=== PATIENT | female | born 1960 | race Caucasian/White ===

== ENCOUNTER 2024-07-27 09:47 | Emergency (ER) | payer BC, SELFPAY ==
[2024-07-27 09:47] VITALS: BP 193/96; PULSE 86; RESP 14; TEMP 36.6; O2SAT 97; BMI 41.1
--- NOTE | 2024-07-27 10:03 | EX.ED.VIS.HA ---
HPI History of Present Illness Chief Complaint: Headache Detail of Chief Complaint: Headache Informant: patient Narrative Narrative: Patient presents the emergency department complaint of a headache that started 4 days ago. Patient was seen at [facility] 2 days ago and had a CT scan of her brain and was given Toradol and had some improvement in her headache. Patient continues to have left-sided headache. At times feels like there is something crawling on the left side of her face. She denies fevers chills or sweats. Patient also 4 days ago noticed some itching and redness to the right third toe. At that time she also noticed a small spider in her bed and she think she may have had a spider bite to her toe. Patient denies falls or head injuries. No family history of brain tumors or aneurysms. PFSH PFSH Home Medications ?Medication ?Instructions ?Recorded ?Last Taken ?Type cephalexin 500 mg capsule 500 mg PO Q6 #40 CAPSULES 07/27/24 Unknown Rx famciclovir 500 mg tablet 500 mg PO Q8H 7 days #21 tabs 07/27/24 Unknown Rx prednisone 20 mg tablet 20 mg PO BID #10 tabs 07/27/24 Unknown Rx Allergy/AdvReac Type Severity Reaction Status Date / Time No Known Allergies Allergy Verified 07/27/24 09:47 Surgical History (Updated 07/27/24 @ 11:32 by Radha Angeles) H/O: Social History (Updated 07/27/24 @ 11:32 by Radha Angeles) household members: spouse housing: house current occupational status: employed Smoking Status: Never smoker ROS ROS ED Review of Systems ROS Unobtainable: other Constitutional Constitutional ED: Reports lethargy; Denies chills, fever(s), sweats or weight loss Eyes Eyes: Denies blurry vision, change in vision or diplopia ENT ENT ED: Denies rhinorrhea or sore throat Cardiovascular Cardiovascular: Denies chest pain, orthopnea or racing heartbeat Respiratory/Chest Respiratory/Chest: Denies cough, dyspnea, dyspnea on exertion, orthopnea or sputum Gastrointestinal Gastrointestinal: Denies abdominal pain, diarrhea, nausea or vomiting Genitourinary Genitourinary ED: Denies dysuria, hematuria or urinary frequency Musculoskeletal Musculoskeletal: Reports other Details: Redness and swelling to the right third toe ; Denies arthralgias, back pain, myalgias or neck pain Integumentary Denies abscess, Abrasions or rash Neurologic Neurologic: Reports headache(s); Denies weakness Psychiatric Psychiatric: Denies anxiety, depression or suicidal thoughts Endocrine Endocrinology: Denies polydipsia, polyphagia or polyuria Hematologic/Lymphatic Hematologic/Lymphatic: Denies easy bleeding, easy bruising or lymphadenopathy Allergic/Immunologic Allergic/Immunologic ED: Denies mouth swelling, tongue swelling or urticaria EXAM Physical Exam Const Vital Signs: 07/27/24 09:47 07/27/24 12:19 Temperature 98 F Temperature Source Temporal Pulse Rate 86 72 Respiratory Rate 14 16 Blood Pressure 193/96 H 157/88 H Blood Pressure Mean 128 111 Pulse Ox 97 99 Oxygen Delivery Method Room Air Room Air Positive well nourished and well developed General Appearance ED: well developed and NAD HEENT Reports TM's clear and moist mucous membranes normocephalic and atraumatic; Negative for trauma or tenderness Tympanic Membrane ED: Yes TM's clear Eyes PERRL and EOMs intact bilaterally General Eye ED: Negative for pale conjunctiva or scleral icterus Neck no lymphadenopathy, supple and no JVD General: Negative for tenderness Chest Wall inspection of chest normal and palpation of chest normal Chest: Negative for tenderness Resp normal respiratory effort and clear to auscultation bilaterally Effort and Inspection: Negative for respiratory distress or pain with movement Auscultation: Negative for rhonchi, wheezes or diminished lung sounds Cardio regular rate, regular rhythm, S1 normal heart sound, S2 normal heart sound and no murmurs Peripheral Pulses: pulses 2+ throughout GI normal to inspection, nondistended, normoactive bowel sounds, soft to palpation, non-tender, non-distended and no masses Back/Spine no CVA tenderness and no thoracic nor lumbar tenderness Extremity normal to inspection General Extremety ED: Negative for edema General Extremity: Negative for edema Neuro oriented x3, CN's II-XII intact bilaterally, no sensory deficits noted and gait normal Sensorium / Orientation: awake, alert, oriented to person, oriented to place and oriented to time Motor Exam: strength 5/5 throughout and strength abnormal Psych mental status grossly normal Skin no rashes or lesions noted and no wounds MDM MDM MDM Narrative Medical decision making narrative: Patient presents with ongoing headache for 4 days. Headache localized to the left side of her head. Seen at an emergency department and had CT scan of her brain without contrast that was unremarkable. Treated with Toradol initially and had good pain relief with that but then the headache came back. On exam it would appear she has a left-sided facial droop with some weakness of the left upper eyelid and some decreased ability to wrinkle the left side of the forehead when compared to the right side. Patient complains of some sensory discomfort or itching to the left side of the face like an insect crawling on her. There is no evidence of rash to indicate shingles. She has no tenderness over the temporal artery. IV line established. CBC with differential obtained showed a normal white count of 9.5 with hemoglobin 14.5 and platelet count of 286. Chemistries were unremarkable. Sed rate was normal at 29. She had a CTA of the head and neck that was essentially normal. Patient was medicated with Toradol as well as Reglan and a liter Mustain fluid bolus and she had good pain relief with that. 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 I did give her Decadron 10 mg IV. I will start her on an antiviral as well as some prednisone. Will refer to neurology for follow-up. I was able to discuss case with neurologist on-call Dr. Magana who agrees with plan and would be happy to follow-up patient in the office. Lab Data Attestation: I reviewed the patient's lab results. Labs: Laboratory Results - last 24 hr 07/27/24 10:22 WBC 9.5 RBC 4.64 Hgb 14.5 Hct 43.3 MCV 93.3 MCH 31.3 MCHC 33.5 RDW Std Deviation 44.1 H RDW Coeff of [place] 12.9 Plt Count 286 MPV 9.7 Immature Gran % (Auto) 0.200 Neut % (Auto) 68.3 Lymph % (Auto) 20.3 [place] % (Auto) 10.3 H Eos % (Auto) 0.4 Baso % (Auto) 0.5 Absolute Neuts (auto) 6.5 Absolute Lymphs (auto) 1.93 Nucleated RBC % 0 ESR 29 Sodium 138 Potassium 3.9 Chloride 103 Carbon Dioxide 22.2 Anion Gap 13 BUN 12 Creatinine 0.88 Estim Creat Clear Calc 92.05 Est GFR (MDRD) Non-Af 74 BUN/Creatinine Ratio 13.7 Glucose 96 Calcium 8.9 Radiography Diagnostic Testing: Clinical Impression(s) from Imaging Studies Head/Neck CTA 07/27/24 10:35 IMPRESSION: Unremarkable examination. Reading Location: [id number] Discharge Plan Triage Chief Complaint: Headache ED Provider: Cynthia Bell Dx/Rx/DC Orders Clinical Impression: Headache, Gaines's palsy Instructions: ED Gaines's Palsy, ED Pain, Acute, Uncertain Cause Prescriptions: New prednisone 20 mg tablet 20 mg PO BID Qty: 10 0RF famciclovir 500 mg tablet 500 mg PO Q8H 7 Days Qty: 21 0RF cephalexin 500 mg capsule 500 mg PO Q6 Qty: 40 0RF Primary Care Provider: Care Physician,No Primary Referrals: Vic Howell MD [Non-Staff -Ordering Privileges] - 3-5 Days Care Physician,No Primary [Primary Care Provider] - Print Language: Lithuanian Disposition Disposition: Home, Self Care
--- NOTE | 2024-07-27 10:35 | CT_ITS ---
PROCEDURE: CTA HEAD AND NECK W/ CONTRAST 07/27/2024 REASON FOR EXAM: HEADACHE, LEFT FACIAL ASYMETRY TECHNIQUE: CTA imaging of the head and neck from the aortic arch to the skull vertex with out contrast and with intravenous contrast. Multiplanar and multisequence images were obtained. CONTRAST: Isovue-300 VOLUME: 100 mL One or more dose reduction techniques were used (e.g., Automated exposure control, adjustment of the mA and/or kV according to patient size, use of iterative reconstruction technique). RADIATION DOSE SUMMARY: CTDlvol: 30 mGy DLP: 1678.25 mGycm COMPARISON: None FINDINGS: The unenhanced brain is unremarkable. Aortic Arch: Brachiocephalic and Subclavians: Unremarkable RIGHT Carotid: Right CCA: Unremarkable. Right ICA: Unremarkable. Right ECA: Unremarkable. LEFT Carotid: Left CCA: Unremarkable. Left ICA: Unremarkable. Left ECA: Unremarkable. Vertebrals: Codominant. Arise from the subclavians. Both vertebrals form the basilar. RIGHT Vertebral: Unremarkable. LEFT Vertebral: Unremarkable. Anatomy: [place] anatomy is normal. Aneurysm or avm: No intracranial aneurysms or large vascular malformations are identified. Anterior cerebral arteries: Unremarkable: Middle cerebral arteries: Unremarkable. Basilar artery: Unremarkable. Posterior cerebral arteries: Unremarkable. Other major branches of the posterior circulation: Unremarkable. Major venous structures: Unremarkable. Other findings: Neck: Lungs: Bones: CT/CTA Head AND Neck W/ Contrast IMPRESSION: Unremarkable examination. Reading Location: [id number]
[2024-07-27 10:40] LABS: Erythrocyte Sedimentation Rate 29 mm/hr (0-30)
[2024-07-27 10:44] LABS: Absolute Lymphocyte Count 1.93 X10^3/uL (0.83-4.51); Absolute Neutrophil Count 6.5 X10^3/uL (2.0-7.7); Basophil# 0.05 X10^3/uL; Basophil% 0.5 % (0-1); Eosinophil# 0.04 X10^3/uL; Eosinophils% 0.4 % (0-5); Hematocrit 43.3 % (37-47); Hemoglobin 14.5 g/dL (12.0-15.0); Lymphocyte # 1.93 X10^3/ul (0.83-4.51); Lymphocyte % 20.3 % (19-41); Mean Corp Hgb Conc 33.5 g/dL (32-36); Mean Corpuscular Hgb 31.3 pg (27.0-32.0); Mean Corpuscular Volume 93.3 fL (81-99); Mean Platelet Vol. 9.7 fl (6.2-12.0); Monocyte# 0.98 X10^3/uL; Monocyte% 10.3 % (0-10); NRBC Flagged by Analyzer 0 % (0-5); Neutrophil # 6.48 X10^3/uL (2.7-7.7); Neutrophil % 68.3 % (47-70); Platelet Count 286 K/mm3 (150-450); RBC Distribution Width CV 12.9 % (11.6-14.6); RBC Distribution Width SD 44.1 fl (35.1-43.9); Red Blood Count 4.64 M/mm3 (4.2-5.4); White Blood Count 9.5 K/mm3 (4.4-11.0)
[2024-07-27 10:51] LABS: Anion Gap 13 (5-15); BUN 12 mg/dL (4-19); BUN/Creat Ratio 13.7 RATIO (10-20); Calcium,Total 8.9 mg/dL (7.6-11.0); Carbon Dioxide 22.2 mmol/L (21.0-32.0); Chloride 103 mmol/L (98-108); Creatinine, Serum 0.88 mg/dL (0.70-1.20); EST Glomerular Filtration Rate 74 (>60); Estimated Creatinine Clearance 92.05 ml/min (50-250); Glucose 96 mg/dL (70-99); Potassium 3.9 mmol/L (3.3-5.1); Sodium Level 138 mmol/L (133-145)
[2024-07-27] MEDS: Ketorolac 15 MG/ML Vial IV (11:31)
[2024-07-27] MEDS: Metoclopramide 10 MG/2 ML Vial 5 MG IV (11:31)
[2024-07-27] MEDS: 0.9% Normal Saline (1000mL) 1,000 ML 999 ML IV (11:31)
[2024-07-27] MEDS: dexAMETHasone 10 MG/ML Vial IV (11:31)
[2024-07-27 12:19] VITALS: BP 157/88; PULSE 72; RESP 16; O2SAT 99
[2024-07-27 12:23] VITALS: BP 157/88; PULSE 72; RESP 16; TEMP 36.7; O2SAT 99
== END 2024-07-27 12:24 | disposition home or self-care (01) ==
PROVIDERS: Emergency Provider Emergency Medicine; Visit Provider Emergency Medicine
DX: R51.9 Headache, unspecified (principal); G51.0 Bell's palsy
CPT/HCPCS: 70496; 70498; 80048; 85025; 85652; 96374; 96375; 99284; Q9967; A4216

== ENCOUNTER 2024-07-29 11:17 | Emergency (ER) | payer BC, SELFPAY ==
[2024-07-29 11:18] VITALS: BP 199/96; PULSE 85; RESP 16; TEMP 36.8; O2SAT 95; BMI 40.7
--- NOTE | 2024-07-29 11:27 | EX.ED.DYSGE1 ---
HPI <ROSEMARY Kennedy - Last Filed: 07/29/24 13:30> History of Present Illness Chief Complaint: Neuro S/Sx Narrative Narrative: 64-year-old female states 6 days ago she developed a left frontal temporal headache. She initially was seen at [facility] day of onset and had a CT scan of her brain and was given Toradol with some improvement in headache. She was seen at [facility] 2 days ago with a left-sided headache and left facial paresthesias and she states the doctor noticed a subtle left facial droop. She had a CTA of the head/neck that was normal and she was given an IV migraine cocktail with pain relief. 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 The left facial symptoms have worsened and she cannot close her eye or smile. Her headache is also moved from the left frontotemporal region to the left occipital region. She also has developed pain and swelling in front of her left ear and along the jaw. She denies fever, chills, nausea or vomiting. She has no visual or speech changes and no upper or lower extremity neurological symptoms. PFSH <ROSEMARY Kennedy - Last Filed: 07/29/24 13:30> [facility] Home Medications ?Medication ?Instructions ?Recorded ?Last Taken ?Type amoxicillin 875 mg-potassium 1 tab PO BID 7 days #14 tabs 07/29/24 Unknown Rx clavulanate 125 mg tablet cephalexin 500 mg capsule 500 mg PO Q6H 07/29/24 07/29/24 History famciclovir 500 mg tablet 500 mg PO Q8 07/29/24 07/29/24 History ketorolac 10 mg tablet 10 mg PO Q8H PRN pain 07/29/24 07/29/24 History prednisone 20 mg tablet 20 mg PO DAILY 07/29/24 07/29/24 History Allergy/AdvReac Type Severity Reaction Status Date / Time No Known Allergies Allergy Verified 07/29/24 11:18 Surgical History (Updated 07/27/24 @ 11:32 by Radha Angeles) H/O: Social History (Updated 07/27/24 @ 11:32 by Radha Angeles) household members: spouse housing: house current occupational status: employed Smoking Status: Never smoker ROS <ROSEMARY Kennedy - Last Filed: 07/29/24 13:30> ROS ED ROS Narrative Constitutional: Negative for fever, chills, malaise. Eyes: Negative for visual change. GI: Negative for nausea, vomiting. Neuro: Positive for headache. Skin: Negative for rash. EXAM <ROSEMARY Kennedy - Last Filed: 07/29/24 13:30> Physical Exam Narrative Exam Narrative: CONST: Patient sitting in no acute distress. EYES: Normal inspection. PERRL, EOMI. NECK: Normal inspection. RESP: No respiratory distress, CTAB. CVS: Regular rate and rhythm, no murmur, no gallop. SKIN: Color normal, no rash, warm, dry, intact. EXTREMITIES: Normal appearance, no pedal edema. NEURO: Alert and answering questions appropriately. Cannot raise left eyebrow or close left upper eyelid, left facial droop and unable to smile on the left side. No upper or lower extremity drift, normal finger-nose and [id number], normal gait. PSYCH: Normal affect. Const Vital Signs: 07/29/24 11:18 07/29/24 12:15 07/29/24 13:00 Temperature 98.2 F Temperature Source Oral Pulse Rate 85 80 72 Respiratory Rate 16 15 18 Blood Pressure 199/96 H 157/75 H 157/72 H Blood Pressure Mean 130 102 100 Pulse Ox 95 96 96 Oxygen Delivery Method Room Air Room Air Room Air 07/29/24 13:29 Temperature 97.8 F Temperature Source Pulse Rate 72 Respiratory Rate 16 Blood Pressure 145/76 H Blood Pressure Mean 99 Pulse Ox 94 Oxygen Delivery Method <Dr. Matthew Ashby DO - Last Filed: 07/29/24 13:39> Physical Exam Const Vital Signs: 07/29/24 11:18 07/29/24 12:15 07/29/24 13:00 Temperature 98.2 F Temperature Source Oral Pulse Rate 85 80 72 Respiratory Rate 16 15 18 Blood Pressure 199/96 H 157/75 H 157/72 H Blood Pressure Mean 130 102 100 Pulse Ox 95 96 96 Oxygen Delivery Method Room Air Room Air Room Air 07/29/24 13:29 Temperature 97.8 F Temperature Source Pulse Rate 72 Respiratory Rate 16 Blood Pressure 145/76 H Blood Pressure Mean 99 Pulse Ox 94 Oxygen Delivery Method MDM <ROSEMARY Kennedy - Last Filed: 07/29/24 13:30> MDM MDM Narrative Medical decision making narrative: 64-year-old female presents with a left-sided headache and left facial droop worsening over last 48 hours after being diagnosed with Gaines's palsy. She is on antivirals and prednisone. I reviewed her prior ED visit and she had a normal CTA of the head and neck. Her left facial droop on exam is consistent with progressive Gaines's palsy which often worsens over the first 48 hours. I do not suspect a stroke with prior normal imaging and a unilateral facial nerve palsy without upper or lower extremity symptoms or other neurological deficits. In the interim she has also developed swelling over the left preauricular and mandibular region with slight erythema overlying this area. I ordered a CT scan of the face and sinuses with contrast which shows nonspecific edema of the left soft tissues and left masseter muscle without definite abscess. This could be a early parotitis or cellulitis and I prescribed Augmentin. Patient had complete resolution of her headache after IV fluids, Toradol, Reglan and Benadryl. I recommended [id number] pain relievers as needed. She will continue Gaines's palsy treatment, start antibiotics, and was again provided with neurology contact information for follow-up. She was discharged in stable condition. History & Record Review Discussion w/independent historian: Patient Additional record(s) reviewed:: Prior ED visit Lab Data Labs: Laboratory Results - last 24 hr 07/29/24 11:54 POC Glucose 124 H Radiography Diagnostic Testing: Clinical Impression(s) from Imaging Studies Facial/Sinus 07/29/24 11:47 IMPRESSION: Nonspecific mild edema of the left cheek soft tissues and edema of the left masseter muscle without definite abscess or osseous/dental involvement. Prominent bilateral cervical chain lymph nodes, likely reactive. Heterogenous and multinodular right thyroid gland; consider dedicated thyroid ultrasound follow-up under nonemergent outpatient basis. Reading Location: [id number] <Dr. Matthew Ashby, DO - Last Filed: 07/29/24 13:39> [facility] Narrative Medical decision making narrative: 64-year-old female presents with a left-sided headache and left facial droop worsening over last 48 hours after being diagnosed with Gaines's palsy. She is on antivirals and prednisone. I reviewed her prior ED visit and she had a normal CTA of the head and neck. Her left facial droop on exam is consistent with progressive Gaines's palsy which often worsens over the first 48 hours. I do not suspect a stroke with prior normal imaging and a unilateral facial nerve palsy without upper or lower extremity symptoms or other neurological deficits. In the interim she has also developed swelling over the left preauricular and mandibular region with slight erythema overlying this area. I ordered a CT scan of the face and sinuses with contrast which shows nonspecific edema of the left soft tissues and left masseter muscle without definite abscess. This could be a early parotitis or cellulitis and I prescribed Augmentin. Patient had complete resolution of her headache after IV fluids, Toradol, Reglan and Benadryl. I recommended [id number] pain relievers as needed. She will continue Gaines's palsy treatment, start antibiotics, and was again provided with neurology contact information for follow-up. She was discharged in stable condition. I have personally performed a face to face assessment of the patient and have reviewed the AURELIO Note. I performed a substantive portion of the visit including all aspects of the following. My madden findings include: History is 64-year-old female presenting with headache Gaines's palsy and new swelling on the left preauricular mandibular region. No dental pain. No fevers. She has not noticed any vesicular lesions. She does feel that the Gaines's palsy has progressively worsened over the past couple days. She is currently on famciclovir as well as prednisone. She does not have follow-up yet. Recent ED evaluation included a CTA of the head and neck. Patient notes blood pressure is higher than normal. Exam is there is a left Gaines's palsy. There is some mild swelling and mild erythema in the preauricular parotid area. There is no trismus. There is no obvious dental abscess. I do not appreciate vesicular lesions. No meningeal signs. Arms and legs are without symptomology. Speech is clear and normal. Medical Decison Making CT of the facial/sinus region was obtained. Please see radiologist read for full details. Very difficult to fully explain the patient's symptoms. I do not see abscess or obvious parotitis. Blood pressure has come down on its own. She is already on medications for Gaines's palsy. We talked about taping the eye shut. We discussed antibiotic therapy. We discussed the need for neurology follow-up. Monitoring blood pressure for further evaluation of whether or not antihypertensive treatment is indicated. Lab Data Labs: Laboratory Results - last 24 hr 07/29/24 11:54 POC Glucose 124 H Radiography Diagnostic Testing: Clinical Impression(s) from Imaging Studies Facial/Sinus 07/29/24 11:47 IMPRESSION: Nonspecific mild edema of the left cheek soft tissues and edema of the left masseter muscle without definite abscess or osseous/dental involvement. Prominent bilateral cervical chain lymph nodes, likely reactive. Heterogenous and multinodular right thyroid gland; consider dedicated thyroid ultrasound follow-up under nonemergent outpatient basis. Reading Location: [facility] Discharge Plan Triage Chief Complaint: Neuro S/Sx ED Midlevel Provider: Raquel Nunez ED Provider: Matthew Ashby Dx/Rx/DC Orders Clinical Impression: Headache, Gaines's palsy, Acute parotitis Instructions: Gaines's Palsy, ED Salivary Gland Infection Prescriptions: New amoxicillin-pot clavulanate 875-125 mg tablet 1 tab PO BID 7 Days Qty: 14 0RF No Action prednisone 20 mg tablet 20 mg PO DAILY ketorolac 10 mg tablet 10 mg PO Q8H PRN (Reason: pain) famciclovir 500 mg tablet 500 mg PO Q8 cephalexin 500 mg capsule 500 mg PO Q6H Primary Care Provider: Care Physician,Mari Primary Referrals: Care Physician,No Primary [Primary Care Provider] - Vic Howell MD [[facility]] - Activity Restrictions/Additional Instructions: The facial droop is still consistent with Gaines's palsy and you should continue the previously prescribed antivirals and prednisone and follow-up with neurology, Dr. Howell. His numbers provided above. The CT scan today of the face showed inflammation of the left jaw area. There is some overlying redness which could be the start of a skin infection or underlying gland infection so I prescribed antibiotics. Print Language: Puerto Rican Disposition Disposition: Home, Self Care
[2024-07-29 11:35] VITALS: BMI 41.0
[2024-07-29] MEDS: 0.9% Normal Saline (1000mL) 1,000 ML 999 ML IV (11:47)
[2024-07-29] MEDS: Ketorolac 15 MG/ML Vial IV (11:47)
--- NOTE | 2024-07-29 11:47 | CT_ITS ---
PROCEDURE: SINUS/FACIAL BONE WITH CONTRAS REASON FOR EXAM: LEFT FACIAL SWELLING TECHNIQUE: CT of the paranasal sinuses with contrast. Coronal and Sagittal reconstruction series were provided. CONTRAST: 100 mL of Isovue 370 One or more dose reduction techniques were used (e.g., Automated exposure control, adjustment of the mA and/or kV according to patient size, use of iterative reconstruction technique). RADIATION DOSE SUMMARY: DLP: 796 mGycm COMPARISON: None FINDINGS: The paranasal sinuses are clear. The orbital globes are intact. The bony orbits are intact. The retro-orbital fat is not effaced. The extra ocular muscles are intact. The nasal bone is not fractured. The nasal septum is not fractured. The pterygoid plates are intact. The zygomatic arches are intact. The visualized mandible, and upper cervical spine do not appear fractured. Nonspecific mild edema of the left cheek soft tissues and edema of the left masseter muscle without definite abscess or osseous/dental involvement. Heterogenous and multinodular right thyroid gland; consider dedicated thyroid ultrasound follow-up under nonemergent outpatient basis. Prominent bilateral cervical chain lymph nodes, likely reactive. CT/Sinus/Facial Bone WITH Contras IMPRESSION: Nonspecific mild edema of the left cheek soft tissues and edema of the left mas seter muscle without definite abscess or osseous/dental involvement. Prominent bilateral cervical chain lymph nodes, li rohit reactive. Heterogenous and multinodular right thyroid gland; consider dedicated thyroid u ltrasound follow-up under nonemergent outpatient basis. Reading Location: [id number]
[2024-07-29] MEDS: DiphenhydrAMINE 50 MG/ML Syringe 25 MG IV (11:48)
[2024-07-29] MEDS: Metoclopramide 10 MG/2 ML Vial 5 MG IV (11:48)
[2024-07-29 12:13] LABS: Bedside Glucose 124 mg/dL (74-106)
[2024-07-29 12:15] VITALS: BP 157/75; PULSE 80; RESP 15; O2SAT 96
[2024-07-29 13:00] VITALS: BP 157/72; PULSE 72; RESP 18; O2SAT 96
[2024-07-29] MEDS: Amox/Clavulanate 875 MG Tablet PO (13:25)
[2024-07-29 13:29] VITALS: BP 145/76; PULSE 72; RESP 16; TEMP 36.6; O2SAT 94
--- NOTE | 2024-07-29 13:30 | CM.ED ---
Social Work: Date of referral: 07/29/24 Reason for referral: No PCP on file Referred by: Social Work Identification Patient provided consent to social work visit and confirmed she is not currently connected to a PCP. yarn worker provided patient with a hand-out for Dian Lawrence which patient expressed appreciation for. No other needs/requests identified at this time. Madai Cannon, [employer], [employer]
== END 2024-07-29 13:38 | disposition home or self-care (01) ==
PROVIDERS: Emergency Provider Emergency Medicine; Visit Provider Emergency Medicine
DX: R51.9 Headache, unspecified (principal); K11.20 Sialoadenitis, unspecified; G51.0 Bell's palsy
CPT/HCPCS: 70487; 82962; 96361; 96374; 96375; 99283; Q9967; A4216

== ENCOUNTER → 2024-08-10 | Outpatient (CLI) | payer BC, SELFPAY ==
[2024-08-10 11:48] LABS: Hemoglobin A1c 6.1 % (<=5.6)
[2024-08-10 11:54] LABS: ALB/GLOB Ratio 1.4 RATIO (0.9-2.4); AST(SGOT) 23 U/L (<=31); Alanine Aminotransfer ALT/SGPT 24 U/L (<=34); Alkaline Phosphatase 98 U/L (35-104); Anion Gap 12 (5-15); BUN 20 mg/dL (4-19); BUN/Creat Ratio 20.8 RATIO (10-20); Calcium,Total 9.1 mg/dL (7.6-11.0); Carbon Dioxide 23.4 mmol/L (21.0-32.0); Chloride 106 mmol/L (98-108); Cholesterol 172 mg/dL (<=200); Creatinine, Serum 0.95 mg/dL (0.70-1.20); EST Glomerular Filtration Rate 67 (>60); Globulin 2.8 g/dL (2.2-4.2); Glucose 97 mg/dL (70-99); High Density Lipoprotein 71 mg/dL; Low Density Lipoprotein Calc. 81 mg/dL; Potassium 3.8 mmol/L (3.3-5.1); Protein, Total 6.7 g/dL (5.9-8.4); Sodium Level 141 mmol/L (133-145); Thyroid Stim Hormone (TSH) 0.331 uIU/mL (0.300-4.200); Total Bilirubin 0.63 mg/dL (0.00-1.30); Triglycerides 100 mg/dL; Very Low Density Lipoprotein 20 mg/dL (5-40); cholesterol:hdl ratio screen 2.43
--- OUTSIDE RECORDS SUMMARY | 2024-08-10 20:23 | XMS RPT_ITS | CCD ---
Author Organization [facility] Care Team Providers Care Garde Manager Name Role Phone Dr. Cynthia Bell DO Emergency Provider Care Physician, No Primary Primary Care Provider Unavailable Dr. Matthew Ashby DO Emergency Provider NO, PHYSICIAN Primary Care Unavailable JARROD REDMOND Attending Unavailable NO, PHYSICIAN Primary Care Unavailable JOCELYN BOYLE Attending Unavailable Matthew Ashby Attending Unavailable Care Physician, No Primary Primary Care Unava ilable Cynthia Bell Attending Unavailable Care Physician, No Primary Primary Care Unava ilable Medications Current Medications Medication Drug Class(es) Dates Sig (Normalized) Sig (Original) amoxicillin 875 mg / clavulanate 125 mg oral tablet (1 source) Penicillin-class Antibacterial Start: 07-29-2024 Amoxicillin-Pot Clavulanate 875-125 mg tablet Active 1 {tbl} PO TWICE A DAY 14 7 July 29, 2024 12:00am cephalexin 500 mg oral capsule (3 sources) Cephalosporin Antibacterial Start: 07-27-2024 End: 07-29-2024 take 1 capsule by mouth every six hours Cephalexin 500 mg capsule Active 500 mg PO EVERY 6 HOURS July 29, 2024 12:00am famciclovir 500 mg oral tablet (3 sources) Herpes Simplex Virus Nucleoside Analog DNA Polymerase Inhibitor Start: 07-27-2024 End: 07-29-2024 take 1 tablet by mouth every eight hours Famciclovir 500 mg tablet Active 500 mg PO EVERY 8 HOURS July 29, 2024 12:00am ketorolac tromethamine 10 mg oral tablet (1 source) Nonsteroidal Anti-inflammatory Drug, Cyclooxygenase Inhibitor Start: 07-29-2024 take 1 tablet by mouth every eight hours as needed for pain Ketorolac 10 mg tablet Active 10 mg PO Q8H as needed for pain July 29, 2024 12:00am predniSONE 20 mg oral tablet (3 sources) Start: 07-29-2024 take 1 tablet by mouth once daily Prednisone 20 mg tablet Active 20 mg PO DAILY July 29, 2024 12:00am Start: 07-27-2024 End: 07-29-2024 take 1 tablet by mouth twice daily Prednisone 20 mg tablet Discontinued 20 mg PO TWICE A DAY July 27, 2024 12:00am July 29, 2024 12:49pm Problems Active Problems Problem Classification Problem Date Documented Da te Episodic/Chronic Diseases of mouth; excluding dental (1 source) Parotitis; Translations: [Acute sialoadenitis] 07-29-2024 Episodic Headache; including migraine (2 sources) Headache; Translations: [Headache] 07-27-2024 Episodic Headache; including migraine (3 sources) Headache; including migraine; Translations: [Headache, unspecified] Onset: 07-25-2024 Other nervous system disorders (2 sources) Gaines's palsy; 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] 07-27-2024 Episodic Past or Other Problems Problem Classification Problem Date Documented Da te Episodic/Chronic Spondylosis; intervertebral disc disorders; other back problems (2 sources) Sciatica, left side; Translations: [Sciatica, left side] Onset: 12-05-2023 Episodic Results Test Name Value Interpretation Reference Range Facility Bedside Glucoseon 07-29-2024 FINGERSTICK GLU 124 mg/dL High 74-106 [facility] Comment on above: Result Comment: RY FLANAGAN OF PATIENT CARE PER NURSING PROTOCOL Performed By: #### L 501.080 #### [facility] [address] [place], [address] Emergency Department Summary on 07-29-2024 Emergency Department Summary [facility] Medical Records Department [address] [place] [address] Emergency Department Summary 07/29/24 MR#: [id number] Acct: [id number] Name: PRASHANTH ARIZA Gabe Rep #: [id number] : 1960 64 From: Raquel RILEY PCP: Care Physician,No Primary Status:DEP ER Location: ED HPI History of Present Illness Chief Complaint: Neuro S/Sx Narrative Narrative: 64-year-old female states 6 days ago she developed a left frontal temporal headache. She initially was seen at [facility] day of onset and had a CT scan of her brain and was given Toradol with some improvement in headache. She was seen at [place] ED 2 days ago with a left-sided headache and left facial paresthesias and she states the doctor noticed a subtle left facial droop. She had a CTA of the head/neck that was normal and she was given an IV migraine cocktail with pain relief. 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 The left facial symptoms have worsened and she cannot close her eye or smile. Her headache is also moved from the left frontotemporal region to the left occipital region. She also has developed pain and swelling in front of her left ear and along the jaw. She denies fever, chills, nausea or vomiting. She has no visual or speech changes and no upper or lower extremity neurological symptoms. PFSH PFSH Home Medications ???Medication ???Instructions ???Recorded ???Last Taken ???Type amoxicillin 875 mg-potassium 1 tab PO BID 7 days #14 tabs 07/29 Unknown Rx clavulanate 125 mg tablet cephalexin 500 mg capsule 500 mg PO Q6H 07/29/24 07/29/24 Hi story famciclovir 500 mg tablet 500 mg PO Q8 07/29/24 07/29/24 His tory ketorolac 10 mg tablet 10 mg PO Q8H PRN pain 07/29/24 History prednisone 20 mg tablet 20 mg PO DAILY 07/29/24 07/29/24 H istory Allergy/AdvReac Type Severity Reaction Status Date / Time No Known Allergies Allergy Verified 07/29/24 11:18 Surgical History (Updated 07/27/24 @ 11:32 by Radha Angeles) H/O: Social History (Updated 07/27/24 @ 11:32 by Radha Angeles) household members: spouse housing: house current occupational status: employed Smoking Status: Never smoker ROS ROS ED ROS Narrative Constitutional: Negative for fever, chills, malaise. Eyes: Negative for visual change. GI: Negative for nausea, vomiting. Neuro: Positive for headache. Skin: Negative for rash. EXAM Physical Exam Narrative Exam Narrative: CONST: Patient sitting in no acute distress. EYES: Normal inspection. PERRL, EOMI. NECK: Normal inspection. RESP: No respiratory distress, CTAB. CVS: Regular rate and rhythm, no murmur, no gallop. SKIN: Color normal, no rash, warm, dry, intact. EXTREMITIES: Normal appearance, no pedal edema. NEURO: Alert and answering questions appropriately. Cannot raise left eyebrow or close left upper eyelid, left facial droop and unable to smile on the left side. No upper or lower extremity drift, normal finger-nose and [id number], normal gait. PSYCH: Normal affect. Const Vital Signs: 07/29/24 11:18 07/29/24 12:15 07/29/24 13:00 Temperature 98.2 F Temperature Source Oral Pulse Rate 85 80 72 Respiratory Rate 16 15 18 Blood Pressure 199/96 H 157/75 H 157/72 H Blood Pressure Mean 130 102 100 Pulse Ox 95 96 96 Oxygen Delivery Method Room Air Room Air Room Air 07/29/24 13:29 Temperature 97.8 F Temperature Source Pulse Rate 72 Respiratory Rate 16 Blood Pressure 145/76 H Blood Pressure Mean 99 Pulse Ox 94 Oxygen Delivery Method Physical Exam Const Vital Signs: 07/29/24 11:18 07/29/24 12:15 07/29/24 13:00 Temperature 98.2 F Temperature Source Oral Pulse Rate 85 80 72 Respiratory Rate 16 15 18 Blood Pressure 199/96 H 157/75 H 157/72 H Blood Pressure Mean 130 102 100 Pulse Ox 95 96 96 Oxygen Delivery Method Room Air Room Air Room Air 07/29/24 13:29 Temperature 97.8 F Temperature Source Pulse Rate 72 Respiratory Rate 16 Blood Pressure 145/76 H Blood Pressure Mean 99 Pulse Ox 94 Oxygen Delivery Method MDM MDM MDM Narrative Medical decision making narrative: 64-year-old female presents with a left-sided headache and left facial droop worsening over last 48 hours after being diagnosed with Gaines's palsy. She is on antivirals and prednisone. I reviewed her prior ED visit and she had a normal CTA of the head and neck. Her left facial droop on exam is consistent with progressive Gaines's palsy which often worsens over the first 48 hours. I do not suspect a stroke with prior normal imaging and a unilateral facial nerve palsy without upper or lower extremity symptoms or other neurological deficits (more content not included)... Normal [facility] Glucose measurement at [facility] deOrdered By: ED PROVIDER on 07-29-2024 Glucose [Mass/Vol] 124 mg/dL High 74-106 [facility] Comment on above: MANAGEMENT OF PATIEN T CARE PER NURSING PROTOCOL Sinus/Facial Bone WITH Contr ason 07-29-2024 Sinus/Facial Bone WITH Contras [facility] Imaging Services [address] [place] [address] Sinus/Facial Bone WITH Contras MR#: [id number] Acct: [id number] Name: PRASHANTH ARIZA Rep #: [id number] : 1960 F 64 From: Tavia Day PCP: Care Physician,No Primary Status: REG ER Study: Sinus/Facial Bone WITH Contras Date of Exam: 0 07/29/24 Exam# [id number] Ordering Dr: Raquel Nunez PROCEDURE: SINUS/FACIAL BONE WITH CONTRAS REASON FOR EXAM: LEFT FACIAL SWELLING TECHNIQUE: CT of the paranasal sinuses with contrast. Coronal and Sagittal reconstruction series were provided. CONTRAST: 100 mL of Isovue 370 One or more dose reduction techniques were used (e.g., Automated exposure control, adjustment of the mA and/or kV according to patient size, use of iterative reconstruction technique). RADIATION DOSE SUMMARY: DLP: 796 mGycm COMPARISON: None FINDINGS: The paranasal sinuses are clear. The orbital globes are intact. The bony orbits are intact. The retro-orbital fat is not effaced. The extra ocular muscles are intact. The nasal bone is not fractured. The nasal septum is not fractured. The pterygoid plates are intact. The zygomatic arches are intact. The visualized mandible, and upper cervical spine do not appear fractured. Nonspecific mild edema of the left cheek soft tissues and edema of the left masseter muscle without definite abscess or osseous/dental involvement. Heterogenous and multinodular right thyroid gland; consider dedicated thyroid ultrasound follow-up under nonemergent outpatient basis. Prominent bilateral cervical chain lymph nodes, likely reactive. CT/Sinus/Facial Bone WITH Contras IMPRESSION: Nonspecific mild edema of the left cheek soft tissues and edema of the left masseter muscle without definite abscess or osseous/dental involvement. Prominent bilateral cervical chain lymph nodes, likely reactive. Heterogenous and multinodular right thyroid gland; consider dedicated thyroid ultrasound follow-up under nonemergent outpatient basis. 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 Normal [facility] Absolute lymphocyte countOrd ered By: Remus Ray on 07-27-2024 Lymphocytes Auto (Unsp spec) [#/Vol] 1.93 10*3/uL 0.83-4.51 [facility] Absolute neutrophil countOrd ered By: Stafford Ungkathrin on 07-27-2024 Neutrophils (Bld) [#/Vol] 6.5 10*3/uL 2.0-7.7 [facility] Anion gap in Serum or Plasma [facility]: [facility] on 07-27-2024 Anion gap [Moles/Vol] 13 mmol/L 5-15 [facility] Automated lymphocyte count a s percentage of total leukocytesOrdered By: [facility] Bell on 07-27-2024 Lymphocytes/100 WBC Auto (Unsp spec) 20.3 % 19-41 [facility] BUN/creatinine ratioOrdered By: [facility] on 07-27-2024 Urea nitrogen/Creatinine [Mass ratio] 13.7 mg/mg 10- [facility] Basic Metabolic Profile (BMP )on 07-27-2024 BUN/CRE 13.7 RATIO Normal - [facility] Comment on above: Performed By: #### L 100.0100, L101.9900, L500.2500 #### [facility] [address] [place], [address] Calcium [Mass/Vol] 8.9 mg/dL Normal 7.6-11.0 [facility] Comment on above: Performed By: #### L 100.0100, L101.9900, L500.2500 #### [facility] [address] [place], [address] Chloride [Moles/Vol] 103 mmol/L Normal 98-108 [facility] Comment on above: Performed By: #### L 100.0100, L101.9900, L500.2500 #### [facility] [address] [place], [address] CO2 [Moles/Vol] 22.2 mmol/L Normal 21.0-32.0 [facility] Comment on above: Performed By: #### L 100.0100, L101.9900, L500.2500 #### [facility] [address] [place], [address] Creatinine [Mass/Vol] 0.88 mg/dL Normal 0.70-1.20 [facility] Comment on above: Performed By: #### L 100.0100, L101.9900, L500.2500 #### [facility] [address] [place], [address] ECRCL 92.05 ml/min Normal 50-250 [facility] Comment on above: Performed By: #### L 100.0100, L101.9900, L500.2500 #### [facility] [address] [place], [address] GAP 13 Normal 5-15 [facility] Comment on above: Performed By: #### L 100.0100, L101.9900, L500.2500 #### [facility] [address] [place], [address] GFR/1.73 sq M.predicted among non-blacks MDRD (S/P/Bld) [Vol rate/Area] 74 mL/min/{1.73_m2} Normal >60 [facility] Comment on above: Result Comment: mL/m in/1.73m2 CKD-EPI Creatinine Equation (2020) Performed By: #### L 100.0100, L101.9900, L500.2500 #### [facility] [address] [place], [address] Glucose [Mass/Vol] 96 mg/dL Normal 70-99 [facility] Comment on above: Performed By: #### L 100.0100, L101.9900, L500.2500 #### [facility] [address] [place], [address] Potassium [Moles/Vol] 3.9 mmol/L Normal 3.3-5.1 [facility] Comment on above: Performed By: #### L 100.0100, L101.9900, L500.2500 #### [facility] [address] [place], [address] Sodium [Moles/Vol] 138 mmol/L Normal 133-145 [facility] Comment on above: Performed By: #### L 100.0100, L101.9900, L500.2500 #### [facility] [address] [place], [address] Urea nitrogen [Mass/Vol] 12 mg/dL Normal 4-19 [facility] Comment on above: Performed By: #### L 100.0100, L101.9900, L500.2500 #### [facility] [address] [place], [address] Basophil percentageOrdered B y: Remus Ungur on 07-27-2024 Basophils/100 WBC (Bld) 0.5 % 0-1 [facility] CBC W/Diff, Automatedon 06-30 Absolute Lymph 1.93 X10 3/uL Normal 0.83-4.51 [facility] Comment on above: Performed By: #### L 100.0100, L101.9900, L500.2500 #### [facility] [address] [place], [address] Absolute Neut 6.5 X10 3/uL Normal 2.0-7.7 [facility] Comment on above: Performed By: #### L 100.0100, L101.9900, L500.2500 #### [facility] [address] [place], [address] Basophils/100 WBC (Bld) 0.5 % Normal 0-1 [facility] Comment on above: Performed By: #### L 100.0100, L101.9900, L500.2500 #### [facility] [address] [place], [address] Eosinophils/100 WBC (Bld) 0.4 % Normal 0-5 [facility] Comment on above: Performed By: #### L 100.0100, L101.9900, L500.2500 #### [facility] [address] [place], [address] Erythrocyte distribution width (RBC) [Ratio] 12.9 % Normal 11.6-14.6 [facility] Comment on above: Performed By: #### L 100.0100, L101.9900, L500.2500 #### [facility] [address] [place], [address] Hematocrit (Bld) [Volume fraction] 43.3 % Normal 37-47 [facility] Comment on above: Performed By: #### L 100.0100, L101.9900, L500.2500 #### [facility] [address] [place], [address] Hemoglobin (Bld) [Mass/Vol] 14.5 g/dL Normal 12.0-15.0 [facility] Comment on above: Performed By: #### L 100.0100, L101.9900, L500.2500 #### [facility] [address] [place], [address] IG% 0.200 Normal 0.0-0.9 [facility] Comment on above: Result Comment: IG% - Immature Granulocytes (promyelocytes, myelocytes and metamyelocytes) > 1% indicates that a LEFT SHIFT is Present. Performed By: #### L 100.0100, L101.9900, L500.2500 #### [facility] [address] [place], [address] Lymphocytes/100 WBC (Bld) 20.3 % Normal 19-41 [facility] Comment on above: Performed By: #### L 100.0100, L101.9900, L500.2500 #### [facility] [address] [place], [address] MCH (RBC) [Entitic mass] 31.3 pg Normal 27.0-32.0 [facility] Comment on above: Performed By: #### L 100.0100, L101.9900, L500.2500 #### [facility] [address] [place], [address] MCHC (RBC) [Mass/Vol] 33.5 g/dL Normal 32-36 [facility] Comment on above: Performed By: #### L 100.0100, L101.9900, L500.2500 #### [facility] [address] [place], [address] MCV (RBC) [Entitic vol] 93.3 fL Normal 81-99 [facility] Comment on above: Performed By: #### L 100.0100, L101.9900, L500.2500 #### [facility] [address] [place], [address] Monocytes/100 WBC (Bld) 10.3 % High 0-10 [facility] Comment on above: Performed By: #### L 100.0100, L101.9900, L500.2500 #### [facility] [address] [place], [address] Neutrophils/100 WBC (Bld) 68.3 % Normal 47-70 [facility] Comment on above: Performed By: #### L 100.0100, L101.9900, L500.2500 #### [facility] [address] [place], [address] Nucleated RBC (Bld) [#/Vol] 0 10*3/uL Normal 0-5 [facility] Comment on above: Performed By: #### L 100.0100, L101.9900, L500.2500 #### [facility] [address] [place], [address] Platelet mean volume (Bld) [Entitic vol] 9.7 fL Normal 6.2-12.0 [facility] Comment on above: Performed By: #### L 100.0100, L101.9900, L500.2500 #### [facility] [address] [place], [address] Platelets (Bld) [#/Vol] 286 10*3/uL Normal 150-450 [facility] Comment on above: Performed By: #### L 100.0100, L101.9900, L500.2500 #### [facility] [address] [place], [address] RBC (Bld) [#/Vol] 4.64 10*6/uL Normal 4.2-5.4 [facility] Comment on above: Performed By: #### L 100.0100, L101.9900, L500.2500 #### [facility] [address] [place], [address] RDW SD 44.1 fl High 35.1-43.9 [facility] Comment on above: Performed By: #### L 100.0100, L101.9900, L500.2500 #### [facility] [address] [place], [address] WBC (Bld) [#/Vol] 9.5 10*3/uL Normal 4.4-11.0 [facility] Comment on above: Performed By: #### L 100.0100, L101.9900, L500.2500 #### [facility] [address] [place], [address] CTA Head AND Neck W/ Contras ton 07-27-2024 CTA Head AND Neck W/ Contrast [facility] Imaging Services [address] [place], [place] [address] CTA Head AND Neck W/ Contrast MR#: [id number] Acct: [id number] Name: PRASHANTH ARIZA Rep #: [id number] : 1960 F 64 From: Hero barnhart MD PCP: Care Physician,No Primary Status: REG ER Study: CTA Head AND Neck W/ Contrast Date of Exam: Exam# [id number] Ordering Dr: Cynthia Bell DO PROCEDURE: CTA HEAD AND NECK W/ CONTRAST 07/27/2024 REASON FOR EXAM: HEADACHE, LEFT FACIAL ASYMETRY TECHNIQUE: CTA imaging of the head and neck from the aortic arch to the skull vertex with out contrast and with intravenous contrast. Multiplanar and multisequence images were obtained. CONTRAST: Isovue-300 VOLUME: 100 mL One or more dose reduction techniques were used (e.g., Automated exposure control, adjustment of the mA and/or kV according to patient size, use of iterative reconstruction technique). RADIATION DOSE SUMMARY: CTDlvol: 30 mGy DLP: 1678.25 mGycm COMPARISON: None FINDINGS: The unenhanced brain is unremarkable. Aortic Arch: Brachiocephalic and Subclavians: Unremarkable RIGHT Carotid: Right CCA: Unremarkable. Right ICA: Unremarkable. Right ECA: Unremarkable. LEFT Carotid: Left CCA: Unremarkable. Left ICA: Unremarkable. Left ECA: Unremarkable. Vertebrals: Codominant. Arise from the subclavians. Both vertebrals form the basilar. RIGHT Vertebral: Unremarkable. LEFT Vertebral: Unremarkable. Anatomy: [place] anatomy is normal. Aneurysm or avm: No intracranial aneurysms or large vascular malformations are identified. Anterior cerebral arteries: Unremarkable: Middle cerebral arteries: Unremarkable. Basilar artery: Unremarkable. Posterior cerebral arteries: Unremarkable. Other major branches of the posterior circulation: Unremarkable. Major venous structures: Unremarkable. Other findings: Neck: Lungs: Bones: CT/CTA Head AND Neck W/ Contrast IMPRESSION: Unremarkable examination. Reading Location: [facility] CC: Dr. 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 Normal [facility] Carbon dioxide, total [Moles /volume] in Central venous bloodOrdered By: Cynthia Bell on 07-27-2024 CO2 [Moles/Vol] 22.2 mmol/L 21.0-32.0 [facility] Chloride assayOrdered By: Yen Bell on 07-27-2024 Chloride [Moles/Vol] 103 mmol/L 98-108 [facility] Emergency Department Summary on 07-27-2024 Emergency Department Summary [facility] Medical Records Department [address] [place] [address] Emergency Department Summary 07/27/24 MR#: [id number] Acct: [id number] Name: PRASHANTH ARIZA Rep #: [id number] : 1960 64 From: Cynthia Bell DO PCP: Care Physician,No Primary Status:DEP ER Location: ED HPI History of Present Illness Chief Complaint: Headache Detail of Chief Complaint: Headache Informant: patient Narrative Narrative: Patient presents the emergency department complaint of a headache that started 4 days ago. Patient was seen at [facility] 2 days ago and had a CT scan of her brain and was given Toradol and had some improvement in her headache. Patient continues to have left-sided headache. At times feels like there is something crawling on the left side of her face. She denies fevers chills or sweats. Patient also 4 days ago noticed some itching and redness to the right third toe. At that time she also noticed a small spider in her bed and she think she may have had a spider bite to her toe. Patient denies falls or head injuries. No family history of brain tumors or aneurysms. [facility] Home Medications ???Medication ???Instructions ???Recorded ???Last Taken ???Type cephalexin 500 mg capsule 500 mg PO Q6 #40 CAPSULES 07/27/24 Unknown Rx famciclovir 500 mg tablet 500 mg PO Q8H 7 days #21 tabs 06/30 11/23 Unknown Rx prednisone 20 mg tablet 20 mg PO BID #10 tabs 07/27/24 Unk nown Rx Allergy/AdvReac Type Severity Reaction Status Date / Time No Known Allergies Allergy Verified 07/27/24 09:47 Surgical History (Updated 07/27/24 @ 11:32 by Radha Angeles) H/O: Social History (Updated 07/27/24 @ 11:32 by Radha Angeles) household members: spouse housing: house current occupational status: employed Smoking Status: Never smoker ROS ROS ED Review of Systems ROS Unobtainable: other Constitutional Constitutional ED: Reports lethargy; Denies chills, fever(s), sweats or weight loss Eyes Eyes: Denies blurry vision, change in vision or diplopia ENT ENT ED: Denies rhinorrhea or sore throat Cardiovascular Cardiovascular: Denies chest pain, orthopnea or racing heartbeat Respiratory/Chest Respiratory/Chest: Denies cough, dyspnea, dyspnea on exertion, orthopnea or sputum Gastrointestinal Gastrointestinal: Denies abdominal pain, diarrhea, nausea or vomiting Genitourinary Genitourinary ED: Denies dysuria, hematuria or urinary frequency Musculoskeletal Musculoskeletal: Reports other Details: Redness and swelling to the right third toe ; Denies arthralgias, back pain, myalgias or neck pain Integumentary Denies abscess, Abrasions or rash Neurologic Neurologic: Reports headache(s); Denies weakness Psychiatric Psychiatric: Denies anxiety, depression or suicidal thoughts Endocrine Endocrinology: Denies polydipsia, polyphagia or polyuria Hematologic/Lymphati c Hematologic/Lymphati c: Denies easy bleeding, easy bruising or lymphadenopathy Allergic/Immunologic Allergic/Immunologic ED: Denies mouth swelling, tongue swelling or urticaria EXAM Physical Exam Const Vital Signs: 07/27/24 09:47 07/27/24 12:19 Temperature 98 F Temperature Source Temporal Pulse Rate 86 72 Respiratory Rate 14 16 Blood Pressure 193/96 H 157/88 H Blood Pressure Mean 128 111 Pulse Ox 97 99 Oxygen Delivery Method Room Air Room Air Positive well nourished and well developed General Appearance ED: well developed and NAD HEENT Reports TM's clear and moist mucous membranes normocephalic and atraumatic; Negative for trauma or tenderness Tympanic Membrane ED: Yes TM's clear Eyes PERRL and EOMs intact bilaterally General Eye ED: Negative for pale conjunctiva or scleral icterus Neck no lymphadenopathy, supple and no JVD General: Negative for tenderness Chest Wall inspection of chest normal and palpation of chest normal Chest: Negative for tenderness Resp normal respiratory effort and clear to auscultation bilaterally Effort and Inspection: Negative for respiratory distress or pain with movement Auscultation: Negative for rhonchi, wheezes or diminished lung sounds Cardio regular rate, regular rhythm, S1 normal heart sound, S2 normal heart sound and no murmurs Peripheral Pulses: pulses 2+ throughout GI normal to inspection, nondistended, normoactive bowel sounds, soft to palpation, non-tender, non- distended and no masses Back/Spine no CVA tenderness and no thoracic nor lumbar tenderness Extremity normal to inspection General Extremety ED: Negative for edema General Extremity: Negative for edema Neuro oriented x3, CN's II-XII intact bilaterally, no sensory deficits noted and gait normal Sensorium / Orientation: awake, alert, oriented to person, oriented to place and oriented to time Motor Exam: strength 5/ (more content not included)... Normal [facility] Eosinophil percentageOrdered By: Cynthia Bell on 07-27-2024 Eosinophils/100 WBC (Bld) 0.4 % 0-5 [facility] Erythrocyte Sed Rateon 07-27 SED RATE 29 mm/hr Normal 0-30 [facility] Comment on above: Performed By: #### L 100.0100, L101.9900, L500.2500 #### [facility] Laboratory [facility] [place] [address], [address] Erythrocyte distribution wid th ratioOrdered By: Cynthia Bell on 07-27-2024 Erythrocyte distribution width (RBC) [Ratio] 12.9 % 11.6-14.6 [facility] Erythrocyte distribution wid th standard deviationOrdered By: Remus Ray on 07-27-2024 Erythrocyte distribution width (RBC) [Ratio] 44.1 fl High 35.1-43.9 [facility] Erythrocyte sedimentation ra teOrdered By: Remus Ray on 07-27-2024 ESR (Bld) [Velocity] 29 mm/h 0-30 [facility] Glomerular filtration rate ( GFR) estimation/1.73 sq m using serum, plasma, or whole bOrdered By: Cynthia Bell on 07-27-2024 GFR/1.73 sq M.predicted among non-blacks MDRD (S/P/Bld) [Vol rate/Area] 74 mL/min/{1.73_m2} >60 [facility] Comment on above: mL/min/1.73m2 CKD-EP I Creatinine Equation (2020) Hematocrit Auto (Bld) [Volum e fraction]Ordered By: Cynthia Bell on 07-27-2024 Hematocrit (Bld) [Volume fraction] 43.3 % 37-47 [facility] Hemoglobin measurementOrdere d By: Cynthia Bell on 07-27-2024 Hemoglobin (Bld) [Mass/Vol] 14.5 g/dL 12.0-15.0 [facility] Immature granulocytes/100 WB C Auto (Bld)Ordered By: Cynthia Bell on 07-27-2024 Immature granulocytes/100 WBC (Bld) 0.200 % 0.0-0.9 [facility] Comment on above: IG% - Immature Granu locytes (promyelocytes, myelocytes and metamyelocytes) > 1% indicates that a LEFT SHIFT is Present. MCV (mean corpuscular volume ) determinationOrdered By: Cynthia Bell on 07-27-2024 MCV (RBC) [Entitic vol] 93.3 fL 81-99 [facility] Mean corpuscular hemoglobin (MCH) determinationOrdered By: Cynthia Bell on 07-27-2024 MCH (RBC) [Entitic mass] 31.3 pg 27.0-32.0 [facility] Mean corpuscular hemoglobin concentration (MCHC) determinationOrdered By: Cynthia Bell on 07-27-2024 MCHC (RBC) [Mass/Vol] 33.5 g/dL 32-36 [facility] Mean platelet volume determi nationOrdered By: [facility] on 07-27-2024 Platelet mean volume (Bld) [Entitic vol] 9.7 fL 6.2-12.0 [facility] Monocyte percentageOrdered B y: Cynthia Bell on 07-27-2024 Monocytes/100 WBC (Bld) 10.3 % High 0-10 [facility] Neutrophil percentageOrdered By: Cynthia Bell on 07-27-2024 Neutrophils/100 WBC (Bld) 68.3 % 47-70 [facility] Nucleated red blood cell per centageOrdered By: Cynthia Bell on 07-27-2024 Nucleated RBC/100 WBC (Bld) [Ratio] 0 % 0-5 [facility] Platelet countOrdered By: Yen Bell on 07-27-2024 Platelets (Bld) [#/Vol] 286 10*3/uL 150-450 [facility] Potassium measurement (mass/ volume)Ordered By: Cynthia Bell on 07-27-2024 Potassium (Unsp spec) [Mass/Vol] 3.9 mmol/L 3.3-5.1 [facility] RBC Auto (Bld) [#/Vol]Ordere d By: Cynthia Bell on 07-27-2024 RBC (Bld) [#/Vol] 4.64 10*6/uL 4.2-5.4 [facility] Serum creatinine measurement (mass/volume)Ordered By: Cynthia Bell on 07-27-2024 Creatinine [Mass/Vol] 0.88 mg/dL 0.70-1.20 [facility] Serum glucose measurement (m ass/volume)Ordered By: Cytnhia Bell on 07-27-2024 Glucose [Mass/Vol] 96 mg/dL 70-99 [facility] Serum or plasma calcium dashawn urement (mass/volume)Ordered By: Cynthia Bell on 07-27-2024 Calcium [Mass/Vol] 8.9 mg/dL 7.6-11.0 [facility] Serum or plasma urea nitroge n measurement (mass/volume)Ordered By: Cynthia Bell on 07-27-2024 Urea nitrogen [Mass/Vol] 12 mg/dL 4-19 [facility] Sodium levelOrdered By: Roshan Bell on 07-27-2024 Sodium [Moles/Vol] 138 mmol/L 133-145 [facility] White blood cell (WBC) count Ordered By: Cynthia Bell on 07-27-2024 WBC (Bld) [#/Vol] 9.5 10*3/uL 4.4-11.[address] [facility] [address] HEAD OR BRAIN WITHOUT CON TRASTon 07-25-2024 CT HEAD OR BRAIN WITHOUT CONTRAST EXAMINATION: CT HEAD OR BRAIN WITHOUT CONTRAST;07/25/2024 9:43 pm CLINICAL HISTORY: headache and dizzy TECHNIQUE: Axial CT scans through the head were obtained without contrast administration. Dose reduction techniques were achieved by using: automated exposure control and/or adjustment of mA and/or kV according to patient size and/or use of iterative reconstruction technique. COMPARISON: None. FINDINGS: The cerebral hemispheres have normal white and montiel matter. The posterior fossa appears normal. There is no edema or intracranial hemorrhage. The ventricular system is normal in size. The visualized orbits show no abnormal mass. The visualized paranasal sinuses show no air-fluid level. Middle ear cavities are clear. Mastoids are clear. IMPRESSION: No acute intracranial process. Workstation ID: [id number] Dictated by: ARIS ALVAREZ on WedJuly 25, 2024 10:20:41 PM EDT Transcribed by: ARIS ALVAREZ on WedJuly 25, 2024 10:20:41 PM EDT Finalized by: ARIS ALVAREZ on WedJuly 25, 2024 10:20:41 PM EDT [facility] Comment on above: Order Comment: Injur y/Trauma or Illness?:Illness/Other How long have you had these symptoms (acute/chronic)?:Acute Reason for exam?:headache and dizzy Type of Exam?:Initial Additional signs and symptoms?:headache and dizzy ED Prov Noteon 07-25-2024 ED Prov Note [facility] EMERGENCY DEPARTMENT ATTENDING NOTE: NAME: Prashanth Ariza CSN: [id number] 64 y.o. PCP: No, Physician History: Chief Complaint: Headache (Headache since yesterday, worsening today, denies vision changes or n/v today ) HPI: The history was obtained from the patient. Prashanth is a 64 y.o. female who presents with a chief complaint of Headache (Headache since yesterday, worsening today, denies vision changes or n/v today ). As per the patient she does not see doctors so does not know of any medical conditions, for about a week has been having episodes where she does not have much of an appetite, dizziness only in the morning when she wakes up and it clears up in a few hours, and yesterday started with left-sided headache which is a pressure-like sensation worse with movement. No fever no chills PMHx: Past Medical History: Diagnosis Date Known health problems: none PMSx: Past Surgical History: Procedure Laterality Date SECTION FAM. Hx: History reviewed. No pertinent family history. SOC. Hx: Social History [1] MEDs: Previous Medications Medication Sig baclofen (LIORESAL) 10 MG tablet Take 2 (two) tablets (20 mg total) by mouth 3 (three) times a day for 5 days . cyanocobalamin, vitamin B-12, 2,000 mcg Tab Take by mouth . ketorolac (TORADOL) 10 mg tablet Take 1 (one) tablet (10 mg total) by mouth 3 (three) times a day as needed for pain . melatonin 3 mg Tab Take by mouth nightly . omega-3 fatty acids/fish oil (fish oil-omega-3 fatty acids) 300-1,000 mg capsule Take 2 (two) capsules by mouth daily . ALL: Allergies[2] ROS: Review of Systems Positives and pertinent negatives as per HPI. All other systems were reviewed and are negative. Physical Exam: Patient Vitals for the past 24 hrs: BP Temp Temp src Pulse Resp SpO2 Height Weight 07/25/24 2230 (!) 142/94 98.4 degrees F (36.9 degrees C) Temporal 84 16 95 % -- -- 07/25/24 2111 (!) 158/102 99.9 degrees F (37.7 degrees C) Temporal (!) 119 16 95 % 5' 9 122.5 kg (270 lb) Physical Exam Vitals reviewed. Constitutional: Appearance: She is obese. HENT: Mouth/Throat: Mouth: Mucous membranes are moist. Cardiovascular: Rate and Rhythm: Normal rate and regular rhythm. Musculoskeletal: General: Normal range of motion. Pulmonary: Effort: Pulmonary effort is normal. Abdominal: Palpations: Abdomen is soft. Skin: General: Skin is warm. Neurological: General: No focal deficit present. Mental Status: She is alert and oriented to person, place, and time. Cranial Nerves: No cranial nerve deficit. Sensory: No sensory deficit. Motor: No weakness. Coordination: Coordination normal. Gait: Gait normal. Laboratory & Radiological Imaging (if done): Labs Reviewed POC CBC AND DIFFERENTIAL - Abnormal; Notable for the following components: Result Value Hematocrit 46.6 (*) All other components within normal limits POC BASIC METABOLIC PANEL - RALS - Abnormal; Notable for the following components: Glucose 124 (*) All other components within normal limits Narrative: [facility] has implemented the eGFR calculation approach that does not have a coefficient for race that conforms to the NKF-ASN Task Force Recommendations. POC LIVER PANEL PLUS RALS - Normal POC BASIC METABOLIC PANEL POC LIVER PANEL PLUS CT Head Or Brain Without Contrast Final Result No acute intracranial process. Workstation ID: [id number] Procedures: EKG 12-lead Date/Time: 07/25/2024 9:47 PM Performed by: Jocelyn Boyle MD Authorized by: Jocelyn Boyle MD Interpreted by ED attending physician Rhythm: sinus rhythm BPM: 99 Conduction: conduction normal ST Segments: ST segments normal ED Course / Medical Decision Making: I did personally review Prashanth's past medical history, surgical history, social history, as well as family history (when relevant). In this case, I also oversaw the her drug management by reviewing her medication list, allergy list, as well as the medications that I prescribed during the ED course and/or recommended as an out-patient (including possible OTC medications such as acetaminophen, NSAIDs , etc). Her past medical problem list included: Active Ambulatory Problems Diagnosis Date Noted No Active Ambulatory Problems Resolved Ambulatory Problems Diagnosis Date Noted No Resolved Ambulatory Problems Past Medical History: Diagnosis Date Known health problems: none ED MEDICATIONS GIVEN: Medications sodium chloride 0.9% (NS) bolus 1,000 mL (0 mL Intravenous Stopped 07/25/242248) ondansetron (ZOFRAN) injection 4 mg (4 mg Intravenous Given 07/25/242147) ketorolac (TORADOL) injection 15 mg (15 mg Intravenous Given 07/25/242233) acetaminophen (TYLENOL) tablet 975 mg (975 mg Oral Given 07/25/242233) After reviewing the items above, I did not look at previous medical documentation, such as recent hospitalizations, office visits, (more content not included)... Normal [facility] POC BASIC METABOLIC PANEL - [facility] 07-25-2024 Chloride [Moles/Vol] 107 mmol/L Normal 98-108 [facility] Comment on above: Order Comment: [facility] has implemented the eGFR calculation approach that does not have a coefficient for race that conforms to the NKF-ASN Task Force Recommendations. CO2 [Moles/Vol] 25 mmol/L Normal 21-32 [facility] Comment on above: Order Comment: [facility] has implemented the eGFR calculation approach that does not have a coefficient for race that conforms to the NKF-ASN Task Force Recommendations. Creatinine [Mass/Vol] 0.78 mg/dL Normal 0.60-1.20 [facility] Comment on above: Order Comment: [facility] has implemented the eGFR calculation approach that does not have a coefficient for race that conforms to the NKF-ASN Task Force Recommendations. Glucose [Mass/Vol] 124 mg/dL High 65-99 [facility] Comment on above: Order Comment: [facility] has implemented the eGFR calculation approach that does not have a coefficient for race that conforms to the NKF-ASN Task Force Recommendations. POC GFR 85 mL/min/1.73 m2 Normal >=60 [facility] Comment on above: Order Comment: [facility] has implemented the eGFR calculation approach that does not have a coefficient for race that conforms to the NKF-ASN Task Force Recommendations. Result Comment: Beth mated GFR was calculated using the 2020 CKD-EPI creatinine equation. POC IONIZED CALCIUM 4.7 mg/dL Normal 4.5-5.3 [facility] Comment on above: Order Comment: [facility] has implemented the eGFR calculation approach that does not have a coefficient for race that conforms to the NKF-ASN Task Force Recommendations. Potassium [Moles/Vol] 4.0 mmol/L Normal 3.5-5.1 [facility] Comment on above: Order Comment: [facility] has implemented the eGFR calculation approach that does not have a coefficient for race that conforms to the NKF-ASN Task Force Recommendations. Sodium [Moles/Vol] 142 mmol/L Normal 135-145 [facility] Comment on above: Order Comment: [facility] has implemented the eGFR calculation approach that does not have a coefficient for race that conforms to the NKF-ASN Task Force Recommendations. Urea nitrogen [Mass/Vol] 12 mg/dL Normal 8-25 [facility] Comment on above: Order Comment: [facility] has implemented the eGFR calculation approach that does not have a coefficient for race that conforms to the NKF-ASN Task Force Recommendations. POC CBC AND DIFFERENTIALon 0 07-25-2024 BASOPHILS ABSOLUTE COUNT 0.02 K/mcL Normal 0.00-0.30 [facility] Basophils/100 WBC (Bld) 0.2 % Normal [facility] Eosinophils (Bld) [#/Vol] 0.08 10*3/uL Normal 0.00-0.50 [facility] Eosinophils/100 WBC (Bld) 0.9 % Normal [facility] Erythrocyte distribution width (RBC) [Ratio] 13.0 % Normal 11.6-14.8 [facility] Hematocrit (Bld) [Volume fraction] 46.6 % High 36.0-46.0 [facility] Hemoglobin (Bld) [Mass/Vol] 15.2 g/dL Normal 12.0-16.0 [facility] IG ABSOLUTE 0.01 K/mcL Normal 0.00-0.30 [facility] IG PERCENT 0.10 % Normal [facility] Comment on above: Result Comment: The IG parameter is the percentage of metamyelocytes, myelocytes and promyelocytes. An immature granulocyte count (IG) of 1% or more suggests the possibility of infection, an IG count of 3% is very likely related to an infection. Lymphocytes (Bld) [#/Vol] 1.88 10*3/uL Normal 0.90-4.00 [facility] Lymphocytes/100 WBC (Bld) 20.3 % Normal [facility] MCH (RBC) [Entitic mass] 31.1 pg Normal 26.0-34.0 [facility] MCV (RBC) [Entitic vol] 95.5 fL Normal 80.0-100.0 [facility] MEAN CORPUSCULAR HEMOGLOBIN CONC 32.6 g/dL Normal 31.0-37.0 [facility] Monocytes (Bld) [#/Vol] 0.68 10*3/uL Normal 0.30-0.90 [facility] Monocytes/100 WBC (Bld) 7.4 % Normal [facility] NEUTROPHILS ABSOLUTE COUNT 6.58 K/mcL Normal 1.70-7.00 [facility] Neutrophils/100 WBC (Bld) 71.1 % Normal [facility] Platelet mean volume (Bld) [Entitic vol] 9.5 fL Normal 9.4-12.4 [facility] Platelets (Bld) [#/Vol] 296 10*3/uL Normal 150-400 [facility] RBC (Bld) [#/Vol] 4.88 10*6/uL Normal 4.00-5.20 [facility] WBC (Bld) [#/Vol] 9.25 10*3/uL Normal 4.50-11.00 [facility] POC LIVER PANEL PLUS [place] 07-25-2024 Albumin [Mass/Vol] 3.9 g/dL Normal 3.2-5.2 [facility] ALP [Catalytic activity/Vol] 106 U/L Normal 40-150 [facility] ALT [Catalytic activity/Vol] 12 U/L Normal 0-40 [facility] Amylase [Catalytic activity/Vol] 48 U/L Normal 25-115 [facility] Amylase [Catalytic activity/Vol] 21 U/L Normal 7-33 [facility] AST [Catalytic activity/Vol] 31 U/L Normal 0-45 [facility] Bilirubin [Mass/Vol] 1.1 mg/dL Normal 0.0-1.3 [facility] Protein [Mass/Vol] 7.6 g/dL Normal 6.0-8.0 [facility] ED Prov Noteon 12-05-2023 Prov Note HPI: 12/05/2023, Time: @NOWNR@ Prashanth Gabe Ariza is a 63 y.o. female presenting to the ED for left-sided back pain with radiation down the left buttocks, beginning specially since since last evening ago. The complaint has been constant, moderate in severity, and worsened by changing position. States she began to have some back pain about 2 weeks ago after cleaning out her cupboards. No fever or chills and no injury otherwise. No bowel or bladder trouble ROS: Pertinent positives and negatives are stated within HPI, all other systems reviewed and are negative. ----- PAST HISTORY ----- Past Medical History: @[facility]@ Past Surgical History: has a past surgical history that includes Section. Social History: reports that she has never smoked. She has never been exposed to tobacco smoke. She has never used smokeless tobacco. She reports that she does not drink alcohol and does not use drugs. Family History: family history is not on file. The patient's home medications have been reviewed. Allergies: Patient has no known allergies. RESULTS --------- All laboratory and radiology results have been personally reviewed by myself LABS: No results found for this or any previous visit. RADIOLOGY: Interpreted by Radiologist. No orders to display ----- NURSING NOTES AND VITALS REVIEWED ------- The nursing notes within the ED encounter and vital signs as below have been reviewed. BP (!) 186/99 (BP Location: Left arm, Patient Position: Sitting) Pulse 94 Temp 98.2 degrees F (36.8 degrees C) (Temporal) Resp 18 Ht 5' 9 Wt 117.9 kg (260 lb) SpO2 96% BMI 38.40 kg/m Oxygen Saturation Interpretation: Normal PHYSICAL EXAM -- Constitutional/Gener al: Alert and oriented x3, moderate apparent pain distress Head: NC/AT Eyes: PERRL, EOMI Mouth: Oropharynx clear, handling secretions, no trismus Neck: Supple, full ROM, no meningeal signs Pulmonary: Lungs clear to auscultation bilaterally, no wheezes, rales, or rhonchi. Not in respiratory distress Cardiovascular: Regular rate and rhythm, no murmurs, gallops, or rubs. 2+ distal pulses Abdomen: Soft, non tender, non distended, Extremities: Moves all extremities x 4. Warm and well perfused Skin: warm and dry without rash Neurologic: GCS 15, Psych: Normal Affect Low back: Moderate left-sided sciatic notch tenderness to palpation and to lesser degree tenderness over the left posterior superior iliac spine, straight leg raises 30 degrees on the left and 60 on the right ED COURSE/MEDICAL DECISION MAKING -------- Medications ketorolac (TORADOL) injection 30 mg (has no administration in time range) morphine injection 4 mg (has no administration in time range) orphenadrine (NORFLEX) injection 60 mg (has no administration in time range) ondansetron (ZOFRAN-ODT) disintegrating tablet 4 mg (has no administration in time range) Medical Decision Making: Will treat for suspected low back strain with sciatica Counseling: The emergency provider has spoken with the patient and discussed today's results, in addition to providing specific details for the plan of care and counseling regarding the diagnosis and prognosis. Questions are answered at this time and they are agreeable with the plan. IMPRESSION AND DISPOSITION IMPRESSION 1. Left sided sciatica DISPOSITION Disposition: discharged to home Patient condition is stable Summation Patient Course: Improved ED Medications administered this visit: Medications ketorolac (TORADOL) injection 30 mg (has no administration in time range) morphine injection 4 mg (has no administration in time range) orphenadrine (NORFLEX) injection 60 mg (has no administration in time range) ondansetron (ZOFRAN-ODT) disintegrating tablet 4 mg (has no administration in time range) New Prescriptions from this visit: New Prescriptions ketorolac (TORADOL) 10 mg tablet Take 1 (one) tablet (10 mg total) by mouth 3 (three) times a day as needed for pain . baclofen (LIORESAL) 10 MG tablet Take 2 (two) tablets (20 mg total) by mouth 3 (three) times a day for 5 days . Follow-up: [facility] [address] [facility] [id number] In 2 days Final Impression: 1. Left sided sciatica (Please note that portions of this note were completed with a voice recognition program. Efforts were made to edit the dictations but occasionally words are mis-transcribed.) Jarrod Redmond MD 12/05/23602 AUTHENTICATED BY KILLIAN WORRELL 12/05/2023 06:03:58 [facility] Provider Note - ED v2on 08-30 Provider Note - ED v2 Provider Note - ED v2: Chart Review: HISTORY OF PRESENTING ILLNESS PRASHANTH is a 59 year old Female and was seen by me at 27-Sep-2019 12:33. Triage Information: Most recent Vital Sign Value Date PAST MEDICAL HISTORY ATTESTATION: I have reviewed and confirmed nurse's/medic's notes for patient's medications, allergies, medical history, and surgical history ALLERGIES/INTOLERANC ES: No Known Allergies HEALTH HISTORY: No documented data. OUTPATIENT MEDICATIONS: Home Medications Review Status for Reconciliation: Complete Med Status: No Current Medications SIGNIFICANT EVENTS: No documented data. DIE SETTER: Is : no Is : no RESULTS/VITAL SIGNS VITAL SIGNS: T PRBP SpO2O2(LPM) %FiO2 Method 27-Sep-2019 12:42:[id number] /[id number] MEDICAL DECISION MAKING/ED COURSE MDM/ED COURSE: This note was generated with voice recognition software and may contain errors including spelling, grammar, syntax, and misrecognization of what was dictated Chief Complaint Dizziness History of Present Illness Patient presents in no apparent distress with a weeklong history of on and off dizziness that is worse with positional changes. Patient states she has been working outside in the high heat but states she has maintained adequate fluid intake by drinking a lot of tea. Patient states she has also been doing range of motion exercises with her head in an attempt to relieve her dizziness. Patient states yesterday was a symptom-free day however, upon awakening this morning she became dizzy in bed. Review of Systems 10 systems reviewed negative with exception of history of present illness listed above Physical Examination General: Alert and oriented, No acute distress. Eye: Pupils are equal, round and reactive. HENT: Normocephalic Neck: Supple, Non-tender, No lymphadenopathy. Respiratory: Respirations are non-labored, Symmetrical chest wall expansion Cardiovascular: Normal rate, Regular rhythm. Musculoskeletal: Range of motion to the head while supine elicits an increase in the subjective complaints of dizziness Integumentary: [place], warm, dry, and Intact. Neurologic: Alert, Oriented, Normal sensory, Normal motor function. Cognition and Speech: Oriented, Speech clear and coherent. Psychiatric: Cooperative, Appropriate mood & affect. Impression and Plan Course: Unchanged Plan: Patient will be discharged home with meclizine, instructed to use appropriate over the counter medications for symptom management, and is instructed to follow-up with their primary care provider in 3-5 days for any increase in severity of symptoms or any additional concerns. Patient agrees with plan of care, questions were encouraged and answered. Patient Instructions: Vertigo CLINICAL IMPRESSION Diagnosis/Annotation : ED Dx Name:Benign paroxysmal positional vertigo Code:H81.10 Dispostion: discharged Type: home ATTESTATION CRITICAL CARE TIME Is this a critically ill patient: no Electronic Signatures: Pranav Naylor (FLY WORKER-INSPECTOR BARREL) (Signed 27-Sep-2019 13:06) Authored: Provider Note - ED v2 Last Updated: 27-Sep-2019 13:06 by Pranav Naylor (FLY WORKER-INSPECTOR BARREL) [facility] Vital Signs Date Time Vital Sign Value Performing Clinician Charo staton 07-29-2024 13:29-0400 Body temperature 97.8 [degF] Dr. Cynthia Bell DO Work Phone: [facility] 07-29-2024 13:29-0400 Diastolic blood pressure 76 mm[Hg] Dr. Cynthia Bell DO Work Phone: [facility] 07-29-2024 13:29-0400 Heart rate 72 /min Dr. Cynthia Bell DO Work Phone: [facility] 07-29-2024 13:29-0400 Respiratory rate 16 /min Dr. Cynthia Bell DO Work Phone: [facility] 07-29-2024 13:29-0400 SaO2% (BldA) [Mass fraction] 94 % Dr. Cynthia Bell DO Work Phone: 3(978)942-554897 [place] [address] 07-29-2024 13:29-0400 Systolic blood pressure 145 mm[Hg] Dr. Cynthia Bell DO Work Phone: 9(239)558-943743 [place] [address] 07-29-2024 11:35-0400 Body height 175.[address] Cynthia Bell DO Work Phone: 0(137)[phone] [place] [address] 07-29-2024 11:35-0400 Body mass index (BMI) [Ratio] 41 kg/m2 Dr. Cynthia Bell DO Work Phone: 3(677)819-500443 [place] [address] 07-29-2024 11:35-0400 Body weight 125.[address] Cynthia Bell DO Work Phone: 7(391)183-852343 [place] [address] 07-27-2024 12:23-0400 Body temperature 98.1 [degF] Dr. Cynthia Bell DO Work Phone: 4(163)928-962343 [place] [address] 07-27-2024 12:23-0400 Diastolic blood pressure 88 mm[Hg] Dr. Cynthia Bell DO Work Phone: 7(092)201-184843 [place] [address] 07-27-2024 12:23-0400 Heart rate 72 /min Dr. Cynthia Bell DO Work Phone: 7(729)773-424143 [place] [address] 07-27-2024 12:23-0400 Respiratory rate 16 /min Dr. Cynthia Bell DO Work Phone: 4(086)822-584043 [place] [address] 07-27-2024 12:23-0400 SaO2% (BldA) [Mass fraction] 99 % Dr. Cynthia Bell DO Work Phone: 2(265)046-173597 [place] [address] 07-27-2024 12:23-0400 Systolic blood pressure 157 mm[Hg] Dr. Cynthia Bell DO Work Phone: 6(191)160-942343 [place] [address] 07-27-2024 09:47-0400 Body height 175.[address] Cynthia Bell DO Work Phone: 2(757)706-480197 [place] [address] 07-27-2024 09:47-0400 Body mass index (BMI) [Ratio] 41.1 kg/m2 Dr. Cynthia Bell DO Work Phone: [facility] 07-27-2024 09:47-0400 Body weight 126.[address] Cynthia Bell DO Work Phone: [facility] Encounters Encounter Date Encounter Type Care Provider Facility Start: 07-29-2024 End: 07-29-2024 Emergency department patient visit Dr. Cynthia Bell DO Work Phone: -Emergency Department Work Phone: Start: 07-27-2024 End: 07-27-2024 Emergency department patient visit Dr. Cynthia Bell DO Work Phone: -Emergency Department Work Phone: Start: 07-25-2024 End: 07-25-2024 Emergency department patient visit PHYSICIAN [facility] Start: 12-05-2023 End: 12-05-2023 Emergency department patient visit PHYSICIAN NO [facility] Procedures Date Procedure Procedure Detail Performing Clinician Start: 07-29-2024 CT of facial bones w ith contrast Dr. Cynthia Bell DO Work Phone: Start: 07-27-2024 CT angiography of he ad and neck Dr. Cynthia Bell DO Work Phone: Start: 07-27-[address] Cynthia Bell DO Work Phone: Plan of Treatment Date Care Activity Detail Author Start: 07-29-2024 [facility] Start: 07-27-2024 [facility] Patient Education [facility] Work Phone: Patient referral [facility] Work Phone: Payers Date Payer Category Payer Self-pay 2024 Unknown [id number] 1960 Unknown [id number] Unknown [id number] Unknown [id number] Social History Date Type Detail Facility Start: 07-27-2024 End: 07-29-2024 Tobacco smoking status NHIS Never smoked tobacco (finding) [facility] Start: 1960 Sex Assigned At Female [facility] Mental Status Date Assessment Result Facility 07-29-2024 Cognitive function Voice/Name [facility] Work Phone: 07-27-2024 Cognitive function Level Of Cons ciousness Awake;Alert;Appropriate;Follow s Commands [facility] Work Phone: Radiology Diagnostic study note 07-29-2024 Note Date & Type Note Facility 07-29-2024 Radiology Diagnostic study note [facility] Imaging Services [address] [place], [place] [address] Sinus/Facial Bone WITH Contras MR#: [id number] Acct: [id number] Name: PRASHANTH ARIZA Rep #: [id number] : 1960 F 64 From: Corie Lowery MD PCP: Care Physician,No Primary Status: REG ER Study:Sinus/Facial Bone WITH Contras Date of Exam: 07/29/24 Exam# [id number] Ordering Dr: Raquel Philip PROCEDURE: SINUS/FACIAL BONE WITH CONTRAS REASON FOR EXAM: LEFT FACIAL SWELLING TECHNIQUE: CT of the paranasal sinuses with contrast. Coronal and Sagittal reconstruction series were provided. CONTRAST: 100 mL of Isovue 370 One or more dose reduction techniques were used (e.g., Automated exposure control, adjustment of the mA and/or kV according to patient size, use of iterative reconstruction technique). RADIATION DOSE SUMMARY: DLP: 796 mGycm COMPARISON: None FINDINGS: The paranasal sinuses are clear. The orbital globes are intact. The bony orbits are intact. The retro-orbital fat is not effaced. The extra ocular muscles are intact. The nasal bone is not fractured. The nasal septum is not fractured. The pterygoid plates are intact. The zygomatic arches are intact. The visualized mandible, and upper cervical spine do not appear fractured. Nonspecific mild edema of the left cheek soft tissues and edema of the left masseter muscle without definite abscess or osseous/dental involvement. Heterogenous and multinodular right thyroid gland; consider dedicated thyroid ultrasound follow-up under nonemergent outpatient basis. Prominent bilateral cervical chain lymph nodes, likely reactive. CT/Sinus/Facial Bone WITH Contras IMPRESSION: Nonspecific mild edema of the left cheek soft tissues and edema of the left masseter muscle without definite abscess or osseous/dental involvement. Prominent bilateral cervical chain lymph nodes, likely reactive. Heterogenous and multinodular right thyroid gland; consider dedicated thyroid ultrasound follow-up under nonemergent outpatient basis. 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 [facility] Radiology Diagnostic study note 07-27-2024 Note Date & Type Note Facility 07-27-2024 Radiology Diagnostic study note [facility] Imaging Services [address] [place], [place] [id number] CTA Head AND Neck W/ Contrast MR#: [id number] Acct: [id number] Name: PRASHANTH ARIZA Rep #: [id number] : 1960 F 64 From: Alvarado Brown MD PCP: Care Physician,No Primary Status: REG ER Study:CTA Head AND Neck W/ Contrast Date of E xam: 07/27/24 Exam# [id number] Ordering Dr: Yen Bell DO PROCEDURE: CTA HEAD AND NECK W/ CONTRAST 07/27/2024 REASON FOR EXAM: HEADACHE, LEFT FACIAL ASYMETRY TECHNIQUE: CTA imaging of the head and neck from the aortic arch to the skull vertex with out contrast and with intravenous contrast. Multiplanar and multisequence images were obtained. CONTRAST: Isovue-300 VOLUME: 100 mL One or more dose reduction techniques were used (e.g., Automated exposure control, adjustment of the mA and/or kV according to patient size, use of iterative reconstruction technique). RADIATION DOSE SUMMARY: CTDlvol: 30 mGy DLP: 1678.25 mGycm COMPARISON: None FINDINGS: The unenhanced brain is unremarkable. Aortic Arch: Brachiocephalic and Subclavians: Unremarkable RIGHT Carotid: Right CCA: Unremarkable. Right ICA: Unremarkable. Right ECA: Unremarkable. LEFT Carotid: Left CCA: Unremarkable. Left ICA: Unremarkable. Left ECA: Unremarkable. Vertebrals: Codominant. Arise from the subclavians. Both vertebrals form the basilar. RIGHT Vertebral: Unremarkable. LEFT Vertebral: Unremarkable. Anatomy: [place] of [place] anatomy is normal. Aneurysm or avm: No intracranial aneurysms or large vascular malformations are identified. Anterior cerebral arteries: Unremarkable: Middle cerebral arteries: Unremarkable. Basilar artery: Unremarkable. Posterior cerebral arteries: Unremarkable. Other major branches of the posterior circulation: Unremarkable. Major venous structures: Unremarkable. Other findings: Neck: Lungs: Bones: CT/CTA Head AND Neck W/ Contrast IMPRESSION: Unremarkable examination. Reading Location: [facility] CC: Dr. 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 Howell. His numbers provided above. The CT scan today of the face showed inflammation of the left jaw area. There is some overlying redness which could be the start of a skin infection or underlying gland infection so I prescribed antibiotics. [facility] Work Phone: Reason for referral (narrative) Note Date & Type Note Facility Reason for referral (narrative) No reason for referral information available [facility] Work Phone: Summary Purpose Family History No Family History Records FoundNo Family History Records FoundNo Family History Records Found Advance Directives No Advanced Directives Records Found Advance Directive Response Recorded Date/ Time Do you have a Healthcare Power of Tongue Trimmer? No July 27, 2024 11:32am Advance Directive Response Recorded Date/ Time Do you have a Healthcare Power of Tongue Trimmer? No July 27, 2024 11:32am Do you have a Healthcare Power of Tongue Trimmer? No July 29, 2024 11:33am Chief Complaint and Reason for Visit Chief Complaint Admit Date SPIDER BITE July 27, 2024 9:47a m Chief Complaint Admit Date SPIDER BITE July 27, 2024 9:47a m NEURO July 29, 2024 11:17 am Additional Source Comments INFORMATION SOURCE (unrecogn ized section and content) DATE CREATED AUTHOR 09/30/2019 [facility] DATE CREATED AUTHOR AUTHOR'S ORGANIZ ATION 07/30/2024 [facility] DATE CREATED AUTHOR AUTHOR'S ORGANIZ ATION [facility] Teams (unrecognized sec tion and content) Team Status: Active Member Role Status Dates No Primary Care Physician Primary Care Provider Active Team Status: Inactive Member Role Status Dates Dr. Cynthia Bell , DO Emergency Provider Active S tart: July 27, 2024 End: July 27, 2024 No Primary Care Physician Primary Care Provider Active Start: July 27, 2024 End: July 27, 2024 Team Status: Inactive Member Role Status Dates No Primary Care Physician Primary Care Provider Active Start: July 29, 2024 End: July 29, 2024 Dr. Matthew Ashby , DO Emergency Provider Active Start: July 29, 2024 End: July 29, 2024 Goals (unrecognized section and content) Goals may be documented in a n alternate sectionGoals may be documented in an alternate section FOR RECORDS PERTAINING TO PATIENTS WHO ARE OR HAVE BEEN ENROLLED IN A CHEMICAL DEPENDENCY/SUBSTANCEABUSE PROGRAM, SOME INFORMATION MAY BE OMITTED. This clinical summary was aggregated from multiple sources. Caution should be exercised in using it in the provision of clinical care. This summary normalizes information from multiple sources, and as a consequence, information in this document may materially change the coding, format and clinical context of patient data. In addition, data may be omitted in some cases. CLINICAL DECISIONS SHOULD BE BASED ON THE PRIMARY CLINICAL RECORDS. [facility]. provides no warranty or guarantee of the accuracy or completeness of information in this document.
== END | disposition home or self-care (01) ==
LOC: LAB 10:28
DX: Z13.6 Encounter for screening for cardiovascular disorders (principal); Z13.1 Encounter for screening for diabetes mellitus; Z13.220 Encounter for screening for lipoid disorders
CPT/HCPCS: 36415; 80053; 80061; 83036; 84443

== ENCOUNTER → 2024-09-12 | Outpatient (CLI) | payer BC, SELFPAY | END | disposition home or self-care (01) | LOC: VSLAB 16:17 | PROVIDERS: PCP Nurse Practitioner Family; Visit Provider Nurse Practitioner Family | DX: T14.8XXA Other injury of unspecified body region, initial encounter (principal); W57.XXXA Bitten or stung by nonvenomous insect and other nonvenomous arthropods, initial encounter | CPT/HCPCS: 36415; 86617 ==

== ENCOUNTER → 2024-09-19 | Outpatient (CLI) | payer BC, SELFPAY ==
--- NOTE | 2024-09-19 06:56 | MRI_ITS ---
PROCEDURE: BRAIN W/WO CONTRAST 09/19/2024 REASON FOR EXAM: ?Pituitary mass, left-sided Gaines's palsy TECHNIQUE: Multiplanar and multisequential MRI of the brain was performed without and with IV gadolinium based contrast administration. Dedicated small [id number] thin slice sequences through the pituitary/sellar region were obtained pre and post contrast. CONTRAST: Clariscan VOLUME: 24 mL COMPARISON: CT head exams 07/29/2024, 07/27/2024. FINDINGS: Ventricular and sulcal size and configuration are within normal limits. No intracranial mass lesion or pathologic enhancement. Normal pituitary gland and parasellar structures. No regions of abnormal restricted diffusion, or other parenchymal signal alteration. No extra-axial collection or mass-effect. Preserved major intracranial vascular flow voids. There is questionable asymmetric T2 hyperintense signal and contrast enhancement of the left facial nerve along its visualized tympanic and mastoid segments which may reflect facial neuritis. No abnormal enhancement or mass lesion is appreciated within the internal auditory canal. Normal symmetric appearance of the bilateral inner ear structures with preserved normal T2 signal. Orbital contents appear normal. Mild peripheral mucosal thickening in the right maxillary sinus, no fluid levels. No mastoid or middle ear effusion on either side. MRI/Brain W/WO Contrast IMPRESSION: Normal intracranial contents. No pituitary/parasellar mass lesion. Questionable asymmetric T2 hyperintense signal and enhancement of the left faci al nerve tympanic and mastoid segments suggesting left facial neuritis. No mass lesion or pathologic enhancement within the inte rnal auditory canal. This would be better assessed with a dedicated IAC protocol. Reading Location: [id number]
--- OUTSIDE RECORDS SUMMARY | 2024-09-19 06:56 | XMS RPT_ITS | CCD ---
Author Organization [facility] Care Team Providers Care Inside Sales Director Name Role Phone Dr. Cynthia Bell DO Emergency Provider Care Physician, No Primary Primary Care Provider Unavailable Dr. Matthew Ashby DO Emergency Provider NO, PHYSICIAN Primary Care Unavailable JARROD REDMOND Attending Unavailable NO, PHYSICIAN Primary Care Unavailable JOCELYN BOYLE Attending Unavailable Dr. Cynthia Bell DO Attending Provider Dr. Matthew Ashby DO Attending Provider Beam INSURANCE VERIFICATION REP-C, Stephenbuslick Attending Provider Beam INSURANCE VERIFICATION REP-C, Zebulun Referring Provider Vishnu INSURANCE VERIFICATION REP-C, Kay Primary Care Provider Vishnu INSURANCE VERIFICATION REP-CKay Attending Provider Care Physician, No Primary Primary Care Unava ilable Cynthia Bell Attending Unavailable Kay Mares Primary Care Unavailable Kay Mares Attending Unavailable Pepe Herrera Referring Unavailabl e Kay Mares Primary Care Unavailable Pepe Herrera Attending Unavailabl e Beam VSC Zejackeline Attending Unavailable Beam VSC, Zebulun Referring Unavailable Care Physician, No Primary Primary Care Unava ilable Matthew Ashby Attending Unavailable Care Physician, No Primary Primary Care Unava ilable Medications Current Medications Medication Drug Class(es) Dates Sig (Normalized) Sig (Original) amoxicillin 875 mg / clavulanate 125 mg oral tablet (3 sources) Penicillin-class Antibacterial Start: 07-29-2024 Amoxicillin-Pot Clavulanate 875-125 mg tablet Active 1 {tbl} PO TWICE A DAY 14 7 0 July 29, 2024 12:00am cephalexin 500 mg oral capsule (7 sources) Cephalosporin Antibacterial Start: 07-27-2024 End: 07-29-2024 take 1 capsule by mouth every six hours Cephalexin 500 mg capsule Active 500 mg PO EVERY 6 HOURS July 29, 2024 12:00am famciclovir 500 mg oral tablet (7 sources) Herpes Simplex Virus Nucleoside Analog DNA Polymerase Inhibitor Start: 07-27-2024 End: 07-29-2024 take 1 tablet by mouth every eight hours Famciclovir 500 mg tablet Active 500 mg PO EVERY 8 HOURS July 29, 2024 12:00am ketorolac tromethamine 10 mg oral tablet (3 sources) Nonsteroidal Anti-inflammatory Drug, Cyclooxygenase Inhibitor Start: 07-29-2024 take 1 tablet by mouth every eight hours as needed for pain Ketorolac 10 mg tablet Active 10 mg PO Q8H as needed for pain July 29, 2024 12:00am predniSONE 20 mg oral tablet (7 sources) Start: 07-29-2024 take 1 tablet by mouth once daily Prednisone 20 mg tablet Active 20 mg PO DAILY July 29, 2024 12:00am Start: 07-27-2024 End: 07-29-2024 take 1 tablet by mouth twice daily Prednisone 20 mg tablet Discontinued 20 mg PO TWICE A DAY 10 July 27, 2024 12:00am July 29, 2024 12:49pm Problems Active Problems Problem Classification Problem Date Documented Date Episodic/Chronic Diseases of mouth; excluding dental (3 sources) Parotitis; Translations: [Acute sialoadenitis] 07-29-2024 Episodic Headache; including migraine (4 sources) Headache; Translations: [Headache] 07-27-2024 Episodic Headache; including migraine (3 sources) Headache; including migraine; Translations: [Headache, unspecified] Onset: 07-25-2024 Other and unspecified benign neoplasm (1 source) Benign neoplasm of pituitary gland; 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] Onset: 09-15-2024 Episodic Other injuries and conditions due to external causes (1 source) Other injury of unspecified body region, initial encounter; Translations: [Other injury of unspecified body region, initial encounter] Onset: 09-16-2024 Episodic Other nervous system disorders (4 sources) Gaines's palsy; 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] 07-27-2024 Episodic Other screening for suspected conditions (not mental disorders or infectious disease) (1 source) Encounter for screening for cardiovascular disorders; Translations: [Encounter for screening for cardiovascular disorders] Onset: 08-16-2024 Episodic Past or Other Problems Problem Classification Problem Date Documented Da te Episodic/Chronic Spondylosis; intervertebral disc disorders; other back problems (2 sources) Sciatica, left side; Translations: [Sciatica, left side] Onset: 12-05-2023 Episodic Results Test Name Value Interpretation Reference Range Facility Anion gap in Serum or Plasma Ordered By: Rigoberto Phipps on 08-10-2024 Anion gap [Moles/Vol] 12 mmol/L 07-13 [facility] BUN/creatinine ratioOrdered By: Rigoberto Phipps on 08-10-2024 Urea nitrogen/Creatinine [Mass ratio] 20.8 mg/mg High 12-18 [facility] Bilirubin, totalOrdered By: Rigoberto Phipps on 08-10-2024 Bilirubin [Mass/Vol] 0.63 mg/dL 0.00-1.30 [facility] Calculated very low density lipoprotein (VLDL) cholesterol measurementOrdered By: Rigoberto Phipps on 08-10-2024 Calculated very low density lipoprotein (VLDL) cholesterol measurement 20 mg/dL [facility] Carbon dioxide, total [Moles /volume] in Central venous bloodOrdered By: Rigoberto Phipps on 08-10-2024 CO2 [Moles/Vol] 23.4 mmol/L 21.0-32.0 [facility] Chloride assayOrdered By: Stephen Phipps on 08-10-2024 Chloride [Moles/Vol] 106 mmol/L 98-108 [facility] Comprehensive Metabolic Prof ilon 08-10-2024 Albumin [Mass/Vol] 4.0 g/dL Normal 3.4-4.8 [facility] Comment on above: Performed By: #### L 501.9939, L500.4100, L500.4050, L501.8720 #### [facility] Laboratory [address] [place], [address] Albumin/Globulin [Mass ratio] 1.4 {ratio} Normal 0.9-2.4 [facility] Comment on above: Performed By: #### L 501.9985, L500.4100, L500.4050, L501.9520 #### [facility] Laboratory [address] [place], [address] ALK PHOS 98 U/L Normal 35-104 [facility] Comment on above: Performed By: #### L 501.9985, L500.4100, L500.4050, L501.9520 #### [facility] Laboratory [address] [place], [address] ALT [Catalytic activity/Vol] 24 U/L Normal <=34 [facility] Comment on above: Performed By: #### L 501.9985, L500.4100, L500.4050, L501.9520 #### [facility] Laboratory [address] [place], [address] AST [Catalytic activity/Vol] 23 U/L Normal <=31 [facility] Comment on above: Performed By: #### L 501.9985, L500.4100, L500.4050, L501.9520 #### [facility] Laboratory [address] [place], [address] Bilirubin [Mass/Vol] 0.63 mg/dL Normal 0.00-1.30 [facility] Comment on above: Performed By: #### L 501.9985, L500.4100, L500.4050, L501.9520 #### [facility] Laboratory [address] [place], [address] BUN/CRE 20.8 RATIO High 10-20 [facility] Comment on above: Performed By: #### L 501.9985, L500.4100, L500.4050, L501.9520 #### [facility] Laboratory [address] [place], [address] Calcium [Mass/Vol] 9.1 mg/dL Normal 7.6-11.0 [facility] Comment on above: Performed By: #### L 501.9985, L500.4100, L500.4050, L501.9520 #### [facility] Laboratory [address] [place], [address] Chloride [Moles/Vol] 106 mmol/L Normal 98-108 [facility] Comment on above: Performed By: #### L 501.9985, L500.4100, L500.4050, L501.9520 #### [facility] [address] [place], [address] CO2 [Moles/Vol] 23.4 mmol/L Normal 21.0-32.0 [facility] Comment on above: Performed By: #### L 501.9985, L500.4100, L500.4050, L501.9520 #### [facility] Laboratory [address] [place], [address] Creatinine [Mass/Vol] 0.95 mg/dL Normal 0.70-1.20 [facility] Comment on above: Performed By: #### L 501.9985, L500.4100, L500.4050, L501.9520 #### [facility] Laboratory [address] [place], [address] GAP 12 Normal 5-15 [facility] Comment on above: Performed By: #### L 501.9985, L500.4100, L500.4050, L501.9520 #### [facility] Laboratory [address] [place], [address] GFR/1.73 sq M.predicted among non-blacks MDRD (S/P/Bld) [Vol rate/Area] 67 mL/min/{1.73_m2} Normal >60 [facility] Comment on above: Result Comment: mL/m in/1.73m2 CKD-EPI Creatinine Equation (2020) Performed By: #### L 501.9985, L500.4100, L500.4050, L501.9520 #### [facility] Laboratory [address] [place], [address] Globulin (S) [Mass/Vol] 2.8 g/dL Normal 2.2-4.2 [facility] Comment on above: Performed By: #### L 501.9985, L500.4100, L500.4050, L501.9520 #### [facility] Laboratory [address] [place], [address] Glucose [Mass/Vol] 97 mg/dL Normal 70-99 [facility] Comment on above: Performed By: #### L 501.9985, L500.4100, L500.4050, L501.9520 #### [facility] Laboratory [address] [place], [address] Potassium [Moles/Vol] 3.8 mmol/L Normal 3.3-5.1 [facility] Comment on above: Performed By: #### L 501.9985, L500.4100, L500.4050, L501.9520 #### [facility] Laboratory [address] [place], [address] Sodium [Moles/Vol] 141 mmol/L Normal 133-145 [facility] Comment on above: Performed By: #### L 501.9985, L500.4100, L500.4050, L501.9520 #### [facility] Laboratory [address] [place], [address] T PROT 6.7 g/dL Normal 5.9-8.4 [facility] Comment on above: Performed By: #### L 501.9985, L500.4100, L500.4050, L501.9520 #### [facility] Laboratory [address] [place], [address] Urea nitrogen [Mass/Vol] 20 mg/dL High 4-19 [facility] Comment on above: Performed By: #### L 501.9985, L500.4100, L500.4050, L501.9520 #### [facility] Laboratory [address] [place], [place], [id number] Glomerular filtration rate ( GFR) estimation/1.73 sq m using serum, plasma, or whole bOrdered By: Rigoberto Phipps on 08-10-2024 GFR/1.73 sq M.predicted among non-blacks MDRD (S/P/Bld) [Vol rate/Area] 67 mL/min/{1.73_m2} >60 [facility] Comment on above: mL/min/1.73m2 CKD-EP I Creatinine Equation (2020) Hemoglobin A1con 08-10-2024 HbA1c (Bld) [Mass fraction] 6.1 % High <=5.6 [facility] Comment on above: Result Comment: Norm al < 5.7 % Prediabetic 5.7 - 6.4 % Diabetic >or= 6.5 % Please note range changes. Performed By: #### L 501.9985, L500.4100, L500.4050, L501.9522 #### [facility] Laboratory [address] [place], [place], [id number] Hemoglobin A1c percentageOrd ered By: Rigoberto Phipps on 08-10-2024 HbA1c (Bld) [Mass fraction] 6.1 % High <5.7 [facility] Comment on above: Normal < 5.7 % Predi abetic 5.7 - 6.4 % Diabetic >or= 6.5 % Please note range changes. LDL calc ser/plasOrdered By: Isailumt Phipps on 08-10-2024 Cholesterol in LDL [Mass/Vol] 81 mg/dL [facility] Comment on above: Yfjeqdqcwg=055-900 m g/dL & Higher Mpst=376 mg/dL or greater Laboratory - Chemistry and C hemistry - challengeOrdered By: Isailun Desire on 08-10-2024 AST [Catalytic activity/Vol] 23 U/L <32 [facility] Lipid Profileon 08-10-2024 CHOL:HDL 2.43 Normal [facility] Comment on above: Performed By: #### L 501.9985, L500.4100, L500.4050, L501.9520 #### [facility] Laboratory [address] [place], [address] Cholesterol [Mass/Vol] 172 mg/dL Normal <=200 [facility] Comment on above: Result Comment: Chol esterol level, Desirable <200 mg/dL Borderline high cholesterol 200-239 mg/dL High cholesterol >=240 mg/dL Recommendations of the NCEP Adult Treatment Panel for the following risk-cutoff thresholds for the [place] Citizen [place] population. Performed By: #### L 501.9985, L500.4100, L500.4050, L501.9520 #### [facility] Laboratory [address] [place], [address] Cholesterol in HDL [Mass/Vol] 71 mg/dL Normal [facility] Comment on above: Result Comment: Laura onal Cholesterol Education Program (NCEP) guidelines: <40 mg/dL: Low HDL-cholesterol (major risk factor for CHD) >= 60 mg/dL: High HDL-cholesterol (negative risk factor for CHD) HDL-cholesterol is affected by a number of factors, e.g. smoking, exercise, hormones, sex and age. Performed By: #### L 501.9985, L500.4100, L500.4050, L501.9520 #### [facility] Laboratory [address] [place], [address] Cholesterol in LDL [Mass/Vol] 81 mg/dL Normal [facility] Comment on above: Result Comment: Bord eefpid=995-384 mg/dL Higher Blij=364 mg/dL or greater Performed By: #### L 501.9985, L500.4100, L500.4050, L501.9520 #### [facility] Laboratory [address] [place], [address] Cholesterol in VLDL [Mass/Vol] 20 mg/dL Normal 5-40 [facility] Comment on above: Performed By: #### L 501.9985, L500.4100, L500.4050, L501.9520 #### [facility] Laboratory [address] [place], [address] Triglyceride [Mass/Vol] 100 mg/dL Normal [facility] Comment on above: Result Comment: The drugs N-Acetylcysteine and Metamizole may falsely depress this assay. Normal range: <150 mg/dL Borderline High: 150-199 mg/dL High: 200-499 mg/dL Very High: >500 mg/dL Performed By: #### L 501.9985, L500.4100, L500.4050, L501.9520 #### [facility] Laboratory [address] [place], [place], [id number] Potassium measurement (mass/ volume)Ordered By: Rigoberto Phipps on 08-10-2024 Potassium (Unsp spec) [Mass/Vol] 3.8 mmol/L 3.3-5.1 [facility] Screening total cholesterol/ high density lipoprotein (HDL) cholesterol ratioOrdered By: Rigoberto Phipps on 08-10-2024 Cholesterol.total/Choles terol in HDL [Mass ratio] 2.43 {ratio} [facility] Serum creatinine measurement (mass/volume)Ordered By: Rigoberto Phipps on 08-10-2024 Creatinine [Mass/Vol] 0.95 mg/dL 0.70-1.20 [facility] Serum globulin measurementOr dered By: Rigoberto Phipps on 08-10-2024 Globulin (S) [Mass/Vol] 2.8 g/dL 2.2-4.2 [facility] Serum glucose measurement (m ass/volume)Ordered By: Rigoberto Phipps on 08-10-2024 Glucose [Mass/Vol] 97 mg/dL 70-99 [facility] Serum or plasma alanine garay otransferase (ALT) measurementOrdered By: Rigoberto Phipps on 08-10-2024 ALT [Catalytic activity/Vol] 24 U/L <35 [facility] Serum or plasma albumin dashawn urement (mass/volume)Ordered By: Rigoberto Phipps on 08-10-2024 Albumin [Mass/Vol] 4.0 g/dL 3.4-4.8 [facility] Serum or plasma albumin/glob ulin mass ratioOrdered By: [facility] on 08-10-2024 Albumin/Globulin [Mass ratio] 1.4 {ratio} 0.9-2.4 [facility] Serum or plasma alkaline zack sphatase measurementOrdered By: [facility] on 08-10-2024 ALP [Catalytic activity/Vol] 98 U/L 35-104 [facility] Serum or plasma calcium dashawn urement (mass/volume)Ordered By: [facility] on 08-10-2024 Calcium [Mass/Vol] 9.1 mg/dL 7.6-11.0 [facility] Serum or plasma cholesterol in HDL measurement (mass/volume)Ordered By: [facility] on 08-10-2024 Cholesterol in HDL [Mass/Vol] 71 mg/dL >40 [facility] Comment on above: National Cholesterol Education Program (NCEP) guidelines:<40 mg/dL: Low HDL-cholesterol (major risk factor for CHD)>= 60 mg/dL: High HDL-cholesterol (negative risk factor for CHD)HDL-cholesterol is affected by a number of factors, e.g. smoking, exercise, hormones, sex and age. Serum or plasma cholesterol measurement (mass/volume)Ordered By: [facility] on 08-10-2024 Cholesterol [Mass/Vol] 172 mg/dL <201 [facility] Comment on above: Cholesterol level, D esirable <200 mg/dLBorderline high cholesterol 200-239 mg/dLHigh cholesterol >=240 mg/dLRecommendations of the NCEP Adult Treatment Panel for the following risk-cutoff thresholds for the [place] Citizen [place] population. Serum or plasma urea nitroge n measurement (mass/volume)Ordered By: [facility] on 08-10-2024 Urea nitrogen [Mass/Vol] 20 mg/dL High 4-19 [facility] Sodium levelOrdered By: [facility] Desire on 08-10-2024 Sodium [Moles/Vol] 141 mmol/L 133-145 [facility] TSH DL <= 0.005 mIU/L QnOrde red By: [facility] on 08-10-2024 TSH Qn 0.331 uIU/mL 0.300-4.200 [facility] Thyroid Stim Hormone (TSH)on 08-10-2024 TSH 0.331 uIU/mL Normal 0.300-4.200 [facility] Comment on above: Performed By: #### L 500.2500, L100.0100, L101.9900 #### [facility] Laboratory [address] [place], [address] Total proteinOrdered By: Carrillo Phipps on 08-10-2024 Protein [Mass/Vol] 6.7 g/dL 5.9-8.4 [facility] Triglycerides measurementOrd ered By: Rigoberto Phipps on 08-10-2024 Triglyceride [Mass/Vol] 100 mg/dL <199 [facility] Comment on above: The drugs N-Acetylcy steine and Metamizole may falsely depress this assay. Normal range: <150 mg/dLBorderline High: 150-199 mg/dLHigh: 200-499 mg/dLVery High: >500 mg/dL Bedside Glucoseon 07-29-2024 FINGERSTICK GLU 124 mg/dL High 74-106 [facility] Comment on above: Result Comment: RY STEWARDENT OF PATIENT CARE PER NURSING PROTOCOL Performed By: #### L 500.2500, L100.0100, L101.9900 #### [facility] Laboratory [address] [place], [address] Emergency Department Summary on 07-29-2024 Emergency Department Summary [facility] Medical Records Department [address] [place] [address] Emergency Department Summary 07/29/24 MR#: [id number] Acct: [id number] Name: PRASHANTH ARIZA Rep #: [id number] : 1960 64 From: Raquel RILEY PCP: Care Physician,No Primary Status:DEP ER Location: ED HPI History of Present Illness Chief Complaint: Neuro S/Sx Narrative Narrative: 64-year-old female states 6 days ago she developed a left frontal temporal headache. She initially was seen at [facility] day of onset and had a CT scan of her brain and was given Toradol with some improvement in headache. She was seen at [place] ED 2 days ago with a left-sided [...] or lower extremity drift, normal finger-nose and [id number], normal gait. PSYCH: Normal affect. Const Vital [...] neurological deficits (more content not included)... Normal [facility] deOrdered By: ED PROVIDER on 07-29-2024 Glucose [Mass/Vol] 124 mg/dL High 74-106 [facility] Comment on above: MANAGEMENT OF PATIEN T CARE PER NURSING PROTOCOL Sinus/Facial Bone WITH Contr ason 07-29-2024 Sinus/Facial Bone WITH Contras [facility] [address] [place] [address] Sinus/Facial Bone WITH Contras MR#: [id number] Acct: [id number] Name: PRASHANTH ARIZA Rep #: [id number] : 1960 F 64 From: Tavia Day PCP: Care Physician,No Primary Status: REG ER Study: Sinus/Facial Bone WITH Contras Date of Exam: 0 07/29/24 Exam# [id number] Ordering Dr: Raquel Nunez PROCEDURE: SINUS/FACIAL BONE [...] follow-up under nonemergent outpatient basis. 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 on 07-27-2024 Anion gap [Moles/Vol] 13 mmol/L - [facility] Automated lymphocyte count a s percentage of total leukocytesOrdered By: Cynthia Bell on 07-27-2024 Lymphocytes/100 WBC Auto (Unsp spec) 20.3 % 19-41 [facility] BUN/creatinine ratioOrdered By: Cynthia Bell on 07-27-2024 Urea nitrogen/Creatinine [Mass ratio] 13.7 mg/mg 10- [facility] Basic Metabolic Profile (BMP )on 07-27-2024 BUN/CRE 13.7 RATIO Normal - [facility] Comment on above: Performed By: #### L 500.2500, L100.0100, L101.9900 #### [facility] Laboratory [address] [place], [address] Calcium [Mass/Vol] 8.9 mg/dL Normal 7.6-11.0 [facility] Comment on above: Performed By: #### L 500.2500, L100.0100, L101.9900 #### [facility] Laboratory [address] [place], [address] Chloride [Moles/Vol] 103 mmol/L Normal 98-108 [facility] Comment on above: Performed By: #### L 500.2500, L100.0100, L101.9900 #### [facility] Laboratory [address] [place], [address] CO2 [Moles/Vol] 22.2 mmol/L Normal 21.0-32.0 [facility] Comment on above: Performed By: #### L 500.2500, L100.0100, L101.9900 #### [facility] Laboratory [address] [place], [address] Creatinine [Mass/Vol] 0.88 mg/dL Normal 0.70-1.20 [facility] Comment on above: Performed By: #### L 500.2500, L100.0100, L101.9900 #### [facility] Laboratory [address] [place], [address] ECRCL 92.05 ml/min Normal 50-250 [facility] Comment on above: Performed By: #### L 500.2500, L100.0100, L101.9900 #### [facility] Laboratory [address] [place], [address] GAP 13 Normal 5-15 [facility] Comment on above: Performed By: #### L 500.2500, L100.0100, L101.9900 #### [facility] Laboratory [address] [place], [address] GFR/1.73 sq M.predicted among non-blacks MDRD (S/P/Bld) [Vol rate/Area] 74 mL/min/{1.73_m2} Normal >60 [facility] Comment on above: Result Comment: mL/m in/1.73m2 CKD-EPI Creatinine Equation (2020) Performed By: #### L 500.2500, L100.0100, L101.9900 #### [facility] Laboratory [address] [place], [address] Glucose [Mass/Vol] 96 mg/dL Normal 70-99 [facility] Comment on above: Performed By: #### L 500.2500, L100.0100, L101.9900 #### [facility] Laboratory [address] [place], [address] Potassium [Moles/Vol] 3.9 mmol/L Normal 3.3-5.1 [facility] Comment on above: Performed By: #### L 500.2500, L100.0100, L101.9900 #### [facility] Laboratory [address] [place], [address] Sodium [Moles/Vol] 138 mmol/L Normal 133-145 [facility] Comment on above: Performed By: #### L 500.2500, L100.0100, L101.9900 #### [facility] [address] [place], [address] Urea nitrogen [Mass/Vol] 12 mg/dL Normal 4-19 [facility] [facility] Comment on above: Performed By: #### L 500.2500, L100.0100, L101.9900 #### [facility] [address] [place], [address] Basophil percentageOrdered B y: Remus Ungur on 07-27-2024 Basophils/100 WBC (Bld) 0.5 % 0-1 [facility] CBC W/Diff, Automatedon 06-30 Absolute Lymph 1.93 X10 3/uL Normal 0.83-4.51 [facility] Comment on above: Performed By: #### L 500.2500, L100.0100, L101.9900 #### [facility] [address] [place], [address] Absolute Neut 6.5 X10 3/uL Normal 2.0-7.7 [facility] Comment on above: Performed By: #### L 500.2500, L100.0100, L101.9900 #### [facility] [address] [place], [address] Basophils/100 WBC (Bld) 0.5 % Normal 0-1 [facility] Comment on above: Performed By: #### L 500.2500, L100.0100, L101.9900 #### [facility] [address] [place], [address] Eosinophils/100 WBC (Bld) 0.4 % Normal 0-5 [facility] Comment on above: Performed By: #### L 500.2500, L100.0100, L101.9900 #### [facility] [address] [place], [address] Erythrocyte distribution width (RBC) [Ratio] 12.9 % Normal 11.6-14.6 [facility] Comment on above: Performed By: #### L 500.2500, L100.0100, L101.9900 #### [facility] [address] [place], [address] Hematocrit (Bld) [Volume fraction] 43.3 % Normal 37-47 [facility] Comment on above: Performed By: #### L 500.2500, L100.0100, L101.9900 #### [facility] [address] [place], [address] Hemoglobin (Bld) [Mass/Vol] 14.5 g/dL Normal 12.0-15.0 [facility] Comment on above: Performed By: #### L 500.2500, L100.0100, L101.9900 #### [facility] [address] [place], [address] IG% 0.200 Normal 0.0-0.9 [facility] Comment on above: Result Comment: IG% - Immature Granulocytes (promyelocytes, myelocytes and metamyelocytes) > 1% indicates that a LEFT SHIFT is Present. Performed By: #### L 500.2500, L100.0100, L101.9900 #### [facility] [address] [place], [address] Lymphocytes/100 WBC (Bld) 20.3 % Normal 19-41 [facility] Comment on above: Performed By: #### L 500.2500, L100.0100, L101.9900 #### [facility] [address] [place], [address] MCH (RBC) [Entitic mass] 31.3 pg Normal 27.0-32.0 [facility] Comment on above: Performed By: #### L 500.2500, L100.0100, L101.9900 #### [facility] [address] [place], [address] MCHC (RBC) [Mass/Vol] 33.5 g/dL Normal 32-36 [facility] Comment on above: Performed By: #### L 500.2500, L100.0100, L101.9900 #### [facility] [address] [place], [address] MCV (RBC) [Entitic vol] 93.3 fL Normal 81-99 [facility] Comment on above: Performed By: #### L 500.2500, L100.0100, L101.9900 #### [facility] [address] [place], [address] Monocytes/100 WBC (Bld) 10.3 % High 0-10 [facility] Comment on above: Performed By: #### L 500.2500, L100.0100, L101.9900 #### [facility] [address] [place], [address] Neutrophils/100 WBC (Bld) 68.3 % Normal 47-70 [facility] Comment on above: Performed By: #### L 500.2500, L100.0100, L101.9900 #### [facility] [address] [place], [address] Nucleated RBC (Bld) [#/Vol] 0 10*3/uL Normal 0-5 [facility] Comment on above: Performed By: #### L 500.2500, L100.0100, L101.9900 #### [facility] [address] [place], [address] Platelet mean volume (Bld) [Entitic vol] 9.7 fL Normal 6.2-12.0 [facility] Comment on above: Performed By: #### L 500.2500, L100.0100, L101.9900 #### [facility] [address] [place], [address] Platelets (Bld) [#/Vol] 286 10*3/uL Normal 150-450 [facility] Comment on above: Performed By: #### L 500.2500, L100.0100, L101.9900 #### [facility] [address] [place], [address] RBC (Bld) [#/Vol] 4.64 10*6/uL Normal 4.2-5.4 [facility] Comment on above: Performed By: #### L 500.2500, L100.0100, L101.9900 #### [facility] [address] [place], [address] RDW SD 44.1 fl High 35.1-43.9 [facility] Comment on above: Performed By: #### L 500.2500, L100.0100, L101.9900 #### [facility] [address] [place], [address] WBC (Bld) [#/Vol] 9.5 10*3/uL Normal 4.4-11.0 [facility] Comment on above: Performed By: #### L 500.2500, L100.0100, L101.9900 #### [facility] [address] [place], [address] CTA Head AND Neck W/ Contras ton 07-27-2024 CTA Head AND Neck W/ Contrast [facility] [address] [place] [address] CTA Head AND Neck W/ Contrast MR#: [id number] Acct: [id number] Name: PRASHANTH ARIZA Rep #: [id number] : 1960 F 64 From: Hero barnhart MD PCP: Care Physician,No Primary Status: REG ER Study: CTA Head AND Neck W/ Contrast Date of Exam: Exam# [id number] Ordering Dr: Cynthia Bell DO PROCEDURE: CTA [...] RIGHT Vertebral: Unremarkable. LEFT Vertebral: Unremarkable. Anatomy: [place] anatomy is normal. Aneurysm or avm: No intracranial aneurysms or large vascular malformations are identified. Anterior cerebral arteries: Unremarkable: Middle cerebral arteries: Unremarkable. Basilar artery: Unremarkable. Posterior cerebral arteries: Unremarkable. Other major branches of the posterior circulation: Unremarkable. Major venous structures: Unremarkable. Other findings: Neck: Lungs: Bones: CT/CTA Head AND Neck W/ Contrast IMPRESSION: Unremarkable examination. Reading Location: [id number] CC: Dr. 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 Normal [facility] Carbon dioxide, total [Moles /volume] in Central venous bloodOrdered By: Cynthia Bell on 07-27-2024 CO2 [Moles/Vol] 22.2 mmol/L 21.0-32.0 [facility] Chloride assayOrdered By: Yen Bell on 07-27-2024 Chloride [Moles/Vol] 103 mmol/L 98-108 [facility] Emergency Department Summary on 07-27-2024 Emergency Department Summary [facility] Medical Records Department [address] [place] [address] Emergency Department Summary 07/27/24 MR#: [id number] Acct: [id number] Name: PRASHANTH ARIZA Rep #: [id number] : 1960 64 From: Cynthia Bell DO PCP: Care Physician,No Primary Status:DEP ER Location: ED HPI History of Present Illness Chief Complaint: Headache Detail of Chief Complaint: Headache Informant: patient Narrative Narrative: Patient presents the emergency department complaint of a headache that started 4 days ago. Patient was seen at [facility] 2 days ago and had a CT [...] family history of brain tumors or aneurysms. PFSH [facility] Home Medications ???Medication ???Instructions ???Recorded ???Last Taken [...] strength 5/ (more content not included)... Normal [facility] Eosinophil percentageOrdered By: Cynthia Bell on 07-27-2024 Eosinophils/100 WBC (Bld) 0.4 % 0-5 [facility] Erythrocyte Sed Rateon 07-27 SED RATE 29 mm/hr Normal 0-30 [facility] Comment on above: Performed By: #### L 500.2500, L100.0100, L101.9900 #### [facility] [address] [place] [address]. [place], [place], [id number] Erythrocyte distribution wid th ratioOrdered By: Cynthia Bell on 07-27-2024 Erythrocyte distribution width (RBC) [Ratio] 12.9 % 11.6-14.6 [facility] Erythrocyte distribution wid th standard deviationOrdered By: Cynthia Bell on 07-27-2024 Erythrocyte distribution width (RBC) [Ratio] 44.1 fl High 35.1-43.9 [facility] Erythrocyte sedimentation ra teOrdered By: Cynthia Bell on 07-27-2024 ESR (Bld) [Velocity] 29 mm/h 0-30 [facility] Glomerular filtration rate ( GFR) estimation/1.73 sq m using serum, plasma, or whole bOrdered By: Cynthai Bell on 07-27-2024 GFR/1.73 sq M.predicted among non-blacks MDRD (S/P/Bld) [Vol rate/Area] 74 mL/min/{1.73_m2} >60 [facility] Comment on above: mL/min/1.73m2 CKD-EP I Creatinine Equation (2020) Hematocrit Auto (Bld) [Volum e fraction]Ordered By: Cynthia Bell on 07-27-2024 Hematocrit (Bld) [Volume fraction] 43.3 % 37-47 [facility] Hemoglobin measurementOrdere d By: Cynthia Bell on 07-27-2024 Hemoglobin (Bld) [Mass/Vol] 14.5 g/dL 12.0-15.0 [facility] Immature granulocytes/100 WB C Auto (Bld)Ordered By: Cynthia Bell on 07-27-2024 Immature granulocytes/100 WBC (Bld) 0.200 % 0.0-0.9 [facility] Comment on above: IG% - Immature Granu locytes (promyelocytes, myelocytes and metamyelocytes) > 1% indicates that a LEFT SHIFT is Present. MCV (mean corpuscular volume ) determinationOrdered By: Cynthia Bell on 07-27-2024 MCV (RBC) [Entitic vol] 93.3 fL 81-99 [facility] Mean corpuscular hemoglobin (MCH) determinationOrdered By: Champion Ray on 07-27-2024 MCH (RBC) [Entitic mass] 31.3 pg 27.0-32.0 [facility] Mean corpuscular hemoglobin concentration (MCHC) determinationOrdered By: Cynthia Bell on 07-27-2024 MCHC (RBC) [Mass/Vol] 33.5 g/dL 32-36 [facility] Mean platelet volume determi nationOrdered By: Cynthia Bell on 07-27-2024 Platelet mean volume (Bld) [Entitic vol] 9.7 fL 6.2-12.0 [facility] Monocyte percentageOrdered B y: Cynthia Bell on 07-27-2024 Monocytes/100 WBC (Bld) 10.3 % High 0-10 [facility] Neutrophil percentageOrdered By: Cynthia Bell on 07-27-2024 Neutrophils/100 WBC (Bld) 68.3 % 47-70 [facility] Nucleated red blood cell per centageOrdered By: Cynthia Bell on 07-27-2024 Nucleated RBC/100 WBC (Bld) [Ratio] 0 % 0-5 [facility] Platelet countOrdered By: Yen ceferino Bell on 07-27-2024 Platelets (Bld) [#/Vol] 286 10*3/uL 150-450 [facility] Potassium measurement (mass/ volume)Ordered By: Cynthia Howellkathrin on 07-27-2024 Potassium (Unsp spec) [Mass/Vol] 3.9 mmol/L 3.3-5.1 [facility] RBC Auto (Bld) [#/Vol]Ordere d By: Cynthia Howellkathrin on 07-27-2024 RBC (Bld) [#/Vol] 4.64 10*6/uL 4.2-5.4 [facility] Serum creatinine measurement (mass/volume)Ordered By: Cynthia Howellkathrin on 07-27-2024 Creatinine [Mass/Vol] 0.88 mg/dL 0.70-1.20 [facility] Serum glucose measurement (m ass/volume)Ordered By: Cynthia Ray on 07-27-2024 Glucose [Mass/Vol] 96 mg/dL 70-99 [facility] Serum or plasma calcium dashawn urement (mass/volume)Ordered By: Cynthia Ray on 07-27-2024 Calcium [Mass/Vol] 8.9 mg/dL 7.6-11.0 [facility] Serum or plasma urea nitroge n measurement (mass/volume)Ordered By: Cynthia Howellkathrin on 07-27-2024 Urea nitrogen [Mass/Vol] 12 mg/dL 4-19 [facility] Sodium levelOrdered By: Roshan ana Ray on 07-27-2024 Sodium [Moles/Vol] 138 mmol/L 133-145 [facility] White blood cell (WBC) count Ordered By: Cynthia Howellkathrin on 07-27-2024 WBC (Bld) [#/Vol] 9.5 10*3/uL 4.4-11.0 [facility] CT HEAD OR BRAIN WITHOUT CON TRASTon [...] on WedJuly 25, 2024 10:20:41 PM EDT [facility] Comment on above: Order Comment: Injur y/Trauma or Illness?:Illness/Other How long have you had these symptoms (acute/chronic)?:Acute Reason for exam?:headache and dizzy Type of Exam?:Initial Additional signs and symptoms?:headache and dizzy ED Prov Noteon 07-25-2024 ED Prov Note [facility] EMERGENCY DEPARTMENT ATTENDING NOTE: NAME: Prashanth Ariza CSN: [id number] 64 y.o. PCP: No, Physician History: Chief [...] All other components within normal limits Narrative: [facility] Services has implemented the eGFR [...] office visits, (more content not included)... Normal [facility] POC BASIC METABOLIC PANEL - [facility] 07-25-2024 Chloride [Moles/Vol] 107 mmol/L Normal 98-108 [facility] Comment on above: Order Comment: [facility] Services has implemented the eGFR calculation approach that does not have a coefficient for race that conforms to the NKF-ASN Task Force Recommendations. CO2 [Moles/Vol] 25 mmol/L Normal 21-32 [facility] Comment on above: Order Comment: [facility] Services has implemented the eGFR calculation approach that does not have a coefficient for race that conforms to the NKF-ASN Task Force Recommendations. Creatinine [Mass/Vol] 0.78 mg/dL Normal 0.60-1.20 [facility] Comment on above: Order Comment: [facility] Services has implemented the eGFR calculation approach that does not have a coefficient for race that conforms to the NKF-ASN Task Force Recommendations. Glucose [Mass/Vol] 124 mg/dL High 65-99 [facility] Comment on above: Order Comment: [facility] Services has implemented the eGFR calculation approach that does not have a coefficient for race that conforms to the NKF-ASN Task Force Recommendations. POC GFR 85 mL/min/1.73 m2 Normal >=60 [facility] Comment on above: Order Comment: [facility] Services has implemented the eGFR calculation approach that does not have a coefficient for race that conforms to the NKF-ASN Task Force Recommendations. Result Comment: Beth mated GFR was calculated using the 2020 CKD-EPI creatinine equation. POC IONIZED CALCIUM 4.7 mg/dL Normal 4.5-5.3 [facility] Comment on above: Order Comment: [facility] Services has implemented the eGFR calculation approach that does not have a coefficient for race that conforms to the NKF-ASN Task Force Recommendations. Potassium [Moles/Vol] 4.0 mmol/L Normal 3.5-5.1 [facility] Comment on above: Order Comment: [facility] Services has implemented the eGFR calculation approach that does not have a coefficient for race that conforms to the NKF-ASN Task Force Recommendations. Sodium [Moles/Vol] 142 mmol/L Normal 135-145 [facility] Comment on above: Order Comment: [facility] Services has implemented the eGFR calculation approach that does not have a coefficient for race that conforms to the NKF-ASN Task Force Recommendations. Urea nitrogen [Mass/Vol] 12 mg/dL Normal 8-25 [facility] Comment on above: Order Comment: [facility] Services has implemented the eGFR calculation approach that does not have a coefficient for race that conforms to the NKF-ASN Task Force Recommendations. POC CBC AND DIFFERENTIALon 0 - BASOPHILS ABSOLUTE COUNT 0.02 K/mcL Normal 0.00-0.30 [facility] Basophils/100 WBC (Bld) 0.2 % Normal G [facility] Eosinophils (Bld) [#/Vol] 0.08 10*3/uL Normal 0.00-0.50 [facility] Eosinophils/100 WBC (Bld) 0.9 % Normal [facility] Erythrocyte distribution width (RBC) [Ratio] 13.0 % Normal 11.6-14.8 [facility] Hematocrit (Bld) [Volume fraction] 46.6 % High 36.0-46.0 [facility] Hemoglobin (Bld) [Mass/Vol] 15.2 g/dL Normal 12.0-16.0 [facility] IG ABSOLUTE 0.01 K/mcL Normal 0.00-0.30 [facility] IG PERCENT 0.10 % Normal [facility] Comment on above: Result Comment: The IG parameter is the percentage of metamyelocytes, myelocytes and promyelocytes. An immature granulocyte count (IG) of 1% or more suggests the possibility of infection, an IG count of 3% is very likely related to an infection. Lymphocytes (Bld) [#/Vol] 1.88 10*3/uL Normal 0.90-4.00 [facility] Lymphocytes/100 WBC (Bld) 20.3 % Normal [facility] MCH (RBC) [Entitic mass] 31.1 pg Normal 26.0-34.0 [facility] MCV (RBC) [Entitic vol] 95.5 fL Normal 80.0-100.0 [facility] MEAN CORPUSCULAR HEMOGLOBIN CONC 32.6 g/dL Normal 31.0-37.0 [facility] Monocytes (Bld) [#/Vol] 0.68 10*3/uL Normal 0.30-0.90 [facility] Monocytes/100 WBC (Bld) 7.4 % Normal [facility] NEUTROPHILS ABSOLUTE COUNT 6.58 K/mcL Normal 1.70-7.00 [facility] Neutrophils/100 WBC (Bld) 71.1 % Normal [facility] Platelet mean volume (Bld) [Entitic vol] 9.5 fL Normal 9.4-12.4 [facility] Platelets (Bld) [#/Vol] 296 10*3/uL Normal 150-400 [facility] RBC (Bld) [#/Vol] 4.88 10*6/uL Normal 4.00-5.20 [facility] WBC (Bld) [#/Vol] 9.25 10*3/uL Normal 4.50-11.00 [facility] POC LIVER PANEL PLUS Connor 07-25-2024 Albumin [Mass/Vol] 3.9 g/dL Normal 3.2-5.2 [facility] ALP [Catalytic activity/Vol] 106 U/L Normal 40-150 [facility] ALT [Catalytic activity/Vol] 12 U/L Normal 0-40 [facility] Amylase [Catalytic activity/Vol] 48 U/L Normal 25-115 [facility] Amylase [Catalytic activity/Vol] 21 U/L Normal 7-33 [facility] AST [Catalytic activity/Vol] 31 U/L Normal 0-45 [facility] Bilirubin [Mass/Vol] 1.1 mg/dL Normal 0.0-1.3 [facility] Protein [Mass/Vol] 7.6 g/dL Normal 6.0-8.0 [facility] ED Prov Noteon 12-05-2023 ED Prov Note HPI: 12/05/2023, Time: @NOWNR@ Prashanth [...] ----- PAST HISTORY ----- Past Medical History: @[facility]@ Past Surgical History: has a past surgical [...] a day for 5 days . Follow-up: [facility] [address] [facility] [address] [facility] [id number] In 2 days Final Impression: 1. Left sided sciatica (Please note that portions of this note were completed with a voice recognition program. Efforts were made to edit the dictations but occasionally words are mis-transcribed.) Jarrod Redmond MD 12/05/23 0603 AUTHENTICATED BY JARROD REDMOND, ON 12/05/2023 06:03:58 [facility] Provider Note - ED v2on 08-30 Provider Note - ED v2 Provider Note - ED v2: Chart Review: HISTORY OF PRESENTING ILLNESS PRASHNATH is a 59 year old Female and [...] Current Medications SIGNIFICANT EVENTS: No documented data. PROJECT ADMINISTRATOR: Is : no Is : no RESULTS/VITAL SIGNS VITAL SIGNS: T PRBP SpO2O2(LPM) %FiO2 Method 27-Sep-2019 12:42:[id number] /91 96 MEDICAL DECISION MAKING/ED COURSE MDM/ED [...] in the subjective complaints of dizziness Integumentary: [place], warm, dry, and Intact. Neurologic: Alert, Oriented, [...] ill patient: no Electronic Signatures: Pranav Naylor (LEAD CASE MANAGER-WHITING CAN WORKER) (Signed 27-Sep-2019 13:06) Authored: Provider Note - ED v2 Last Updated: 27-Sep-2019 13:06 by Pranav Naylor (LEAD CASE MANAGER-WHITING CAN WORKER) [facility] Vital Signs Date Time Vital Sign Value Performing Clinician Charo staton 07-29-2024 13:29-0400 Body temperature 97.8 [degF] Dr. Cynthia Bell DO Work Phone: [facility] 07-29-2024 13:29-0400 Diastolic blood pressure 76 mm[Hg] Dr. Cynthia Bell DO Work Phone: [facility] 07-29-2024 13:29-0400 Heart rate 72 /min Dr. Cynthia Bell DO Work Phone: [facility] 07-29-2024 13:29-0400 Respiratory rate 16 /min Dr. Cynthia Bell DO Work Phone: [facility] 07-29-2024 13:29-0400 SaO2% (BldA) [Mass fraction] 94 % Dr. Cynthia Bell DO Work Phone: [facility] 07-29-2024 13:29-0400 Systolic blood pressure 145 mm[Hg] Dr. Cynthia Bell DO Work Phone: 4(221)956-822981 [place] [address] 07-29-2024 11:35-0400 Body height 175.[address] Cynthia Bell DO Work Phone: 7(130)[phone] [place] [address] 07-29-2024 11:35-0400 Body mass index (BMI) [Ratio] 41 kg/m2 Dr. Cynthia Bell DO Work Phone: 3(781)[phone] [place] [address] 07-29-2024 11:35-0400 Body weight 125.[address] Cynthia Bell DO Work Phone: 0(102)339-420222 [place] [address] 07-27-2024 12:23-0400 Body temperature 98.1 [degF] Dr. Cynthia Bell DO Work Phone: 8(038)916-633522 [place] [address] 07-27-2024 12:23-0400 Diastolic blood pressure 88 mm[Hg] Dr. Cynthia Bell DO Work Phone: 6(398)913-840422 [place] [address] 07-27-2024 12:23-0400 Heart rate 72 /min Dr. Cynthia Bell DO Work Phone: 7(383)026-404322 [place] [address] 07-27-2024 12:23-0400 Respiratory rate 16 /min Dr. Cynthia Bell DO Work Phone: 6(995)760-611422 [place] [address] 07-27-2024 12:23-0400 SaO2% (BldA) [Mass fraction] 99 % Dr. Cynthia Bell DO Work Phone: 3(010)235-181481 [place] [address] 07-27-2024 12:23-0400 Systolic blood pressure 157 mm[Hg] Dr. Cynthia Bell DO Work Phone: 8(531)364-495222 [place] [address] 07-27-2024 09:47-0400 Body height 175.[address] Cynthia Bell DO Work Phone: 5(811)030-429722 [place] [address] 07-27-2024 09:47-0400 Body mass index (BMI) [Ratio] 41.1 kg/m2 Dr. Cynthia Bell DO Work Phone: 1(212)701-836622 [place] [address] 07-27-2024 09:47-0400 Body weight 126.[address] Cynthia Bell DO Work Phone: [facility] Encounters Encounter Date Encounter Type Care Provider Facility Start: 09-19-2024 ambulatory Zairejose guadalupe riveraty:[facility] Start: 09-12-2024 End: 09-12-[address] Cynthia Bell DO Work Phone: -[facility] Start: 09-12-2024 End: 09-12-2024 Patient encounter procedure Kay Mares INSURANCE VERIFICATION REP-C -Laboratory [facility] Start: 09-12-2024 End: 09-12-2024 ambulatory Kay Mares Facility:[facility] Start: 08-10-2024 End: 08-10-[address] Cynthia Bell DO Work Phone: [facility] Work Phone: Start: 08-10-2024 End: 08-10-2024 Patient encounter procedure Zebulun Beam INSURANCE VERIFICATION REP-C -Laboratory Work Phone: Start: 08-10-2024 End: 08-10-2024 ambulatory Zebulun Beam VSC Facility:[facility] Start: 07-29-2024 End: 07-29-2024 Emergency department patient visit Dr. Cynthia Bell DO Work Phone: -Emergency Department Work Phone: Start: 07-27-2024 End: 07-27-2024 Emergency department patient visit Dr. Cynthia Bell DO Work Phone: -Emergency Department Work Phone: Start: 07-25-2024 End: 07-25-2024 Emergency department patient visit PHYSICIAN NO [facility] Start: 12-05-2023 End: 12-05-2023 Emergency department patient visit PHYSICIAN [facility] Procedures Date Procedure Procedure Detail Performing Clinician Start: 07-29-2024 CT of facial bones w ith contrast Dr. Cynthia Bell DO Work Phone: Start: 07-27-2024 CT angiography of he ad and neck Dr. Cynthia Bell DO Work Phone: Start: 07-27-[address] Cynthia Bell DO Work Phone: Plan of Treatment Date Care Activity Detail Author Start: 09-12-2024 Borrelia burgdorferi blot test [facility] Start: 07-29-2024 [facility] Start: 07-27-2024 [facility] Laboratory data interpretation [facility] Patient Education [facility] Work Phone: Patient referral [facility] Work Phone: [facility] Payers Date Payer Category Payer Self-pay 2024 Unknown [id number] 1960 Unknown [id number] Unknown [id number] [id number] [id number] Unknown [id number] 2.16.8 [id number] Unknown [id number] 2.16.8 [id number] Unknown [id number] 2.16.8 [id number] Unknown [id number] 2.16.8 [id number] Social History Date Type Detail Facility Start: 07-27-2024 End: 07-29-2024 Tobacco smoking status NHIS Never smoked tobacco (finding) [facility] Start: 1960 Sex Assigned At Female W [facility] Mental Status Date Assessment Result Facility 07-29-2024 Cognitive function Voice/Name [facility] Work Phone: 07-27-2024 Cognitive function Level Of Cons ciousness Awake;Alert;Appropriate;Follow s Commands [facility] Work Phone: Radiology Diagnostic study note 07-29-2024 Note Date & Type Note Facility 07-29-2024 Radiology Diagnostic study note [facility] Imaging Services [address] [place], [place] [address] Sinus/Facial Bone WITH Contras MR#: [id number] Acct: [id number] Name: PRASHANTH ARIZA Rep #: [id number] : 1960 F 64 From: Corie Lowery MD PCP: Care Physician,No Primary Status: REG ER Study:Sinus/Facial Bone WITH Contras Date of Exam: 07/29/24 Exam# [id number] Ordering Dr: Raquel Philip PROCEDURE: SINUS/FACIAL BONE [...] follow-up under nonemergent outpatient basis. Reading Location: [facility] CC: ROSEMARY Kennedy; No Primary Care Physician ~ Mine Laborer: Signed [facility] Radiology Diagnostic study note 07-27-2024 Note Date & Type Note Facility 07-27-2024 Radiology Diagnostic study note [facility] Imaging Services [address] [place] [address] CTA Head AND Neck W/ Contrast MR#: [id number] Acct: [id number] Name: PRASHANTH ARIZA Rep #: [id number] : 1960 F 64 From: Alvarado Brown MD PCP: Care Physician,No Primary Status: REG ER Study:CTA Head AND Neck W/ Contrast Date of E xam: 07/27/24 Exam# [id number] Ordering Dr: Yen Bell DO PROCEDURE: CTA [...] RIGHT Vertebral: Unremarkable. LEFT Vertebral: Unremarkable. Anatomy: [place] anatomy is normal. Aneurysm or [...] Reading Location: [facility] CC: Dr. Cynthia Bell, DO; No Primary Care Physician ~ Mine Laborer: Signed [facility] Evaluation note Note Date & Type Note Facility Evaluation note No assessment information availa ble [facility] Work Phone: Hospital Discharge instructions Note Date [...] underlying gland infection so I prescribed antibiotics. [facility] Work Phone: Reason for referral (narrative) Note Date & Type Note Facility Reason for referral (narrative) No reason for referral information available [facility] Work Phone: Summary Purpose Family History No Family History Records FoundNo Family History Records FoundNo Family History Records Found Advance Directives No Advanced Directives Records Found Advance Directive Response Recorded Date/ Time Do you have a Healthcare Power of Bar Attendant? No July 27, 2024 11:32am Advance Directive Response Recorded Date/ Time Do you have a Healthcare Power of Bar Attendant? No July 27, 2024 11:32am Do you have a Healthcare Power of Bar Attendant? No July 29, 2024 11:33am Chief Complaint and Reason for Visit Chief Complaint Admit Date SPIDER BITE July 27, 2024 9:47a m Chief Complaint Admit Date SPIDER BITE July 27, 2024 9:47a m NEURO July 29, 2024 11:17 am Additional Source Comments INFORMATION SOURCE (unrecogn ized section and content) DATE CREATED AUTHOR 09/30/2019 [facility] DATE CREATED AUTHOR AUTHOR'S ORGANIZ ATION 07/30/2024 [facility] DATE CREATED AUTHOR AUTHOR'S ORGANIZ ATION 09/16/2024 [facility] Care Teams (unrecognized sec tion and content) Team Status: Active Member Role Status Dates No Primary Care Physician Primary Care Provider Active Team Status: Inactive Member Role Status Dates Dr. Cynthia Bell DO Emergency Provider Active S tart: July 27, 2024 End: July 27, 2024 No Primary Care Physician Primary Care Provider Active Start: July 27, 2024 End: July 27, 2024 Team Status: Inactive Member Role Status Dates No Primary Care Physician Primary Care Provider Active Start: July 29, 2024 End: July 29, 2024 Dr. Matthew Ashby DO Emergency Provider Active Start: July 29, 2024 End: July 29, 2024 Team Status: Inactive Member Role Status Dates Dr. Cynthia Bell DO Attending Provider Active S tart: July 27, 2024 End: July 27, 2024 Dr. Cynthia Bell DO Emergency Provider Active S tart: July 27, 2024 End: July 27, 2024 No Primary Care Physician Primary Care Provider Active Start: July 27, 2024 End: July 27, 2024 Team Status: Inactive Member Role Status Dates No Primary Care Physician Primary Care Provider Active Start: July 29, 2024 End: July 29, 2024 Dr. Matthew Ashby DO Attending Provider Active Start: July 29, 2024 End: July 29, 2024 Dr. Matthew Ashby DO Emergency Provider Active Start: July 29, 2024 End: July 29, 2024 Team Status: Inactive Member Role Status Dates No Primary Care Physician Primary Care Provider Active Start: August 10, 2024 End: August 10, 2024 Zebulun Beam VSC, INSURANCE VERIFICATION REP-C Attending Provider Active Start: August 10, 2024 End: August 10, 2024 Zebulun Beam VSC, INSURANCE VERIFICATION REP-C Referring Provider Active Start: August 10, 2024 End: August 10, 2024 Team Status: Active Member Role/Relationship Status Dates ERIK Del Angel Primary Care Provider Active Team Status: Inactive Member Role/Relationship Status Dates Dr. Cynthia Bell DO Attending Provider Active S tart: July 27, 2024 End: July 27, 2024 Dr. Cynthia Bell DO Emergency Provider Active S tart: July 27, 2024 End: July 27, 2024 No Primary Care Physician Primary Care Provider Active Start: July 27, 2024 End: July 27, 2024 Team Status: Inactive Member Role/Relationship Status Dates No Primary Care Physician Primary Care Provider Active Start: July 29, 2024 End: July 29, 2024 Dr. Matthew Ashby DO Attending Provider Active Start: July 29, 2024 End: July 29, 2024 Dr. Matthew Ashby DO Emergency Provider Active Start: July 29, 2024 End: July 29, 2024 Team Status: Inactive Member Role/Relationship Status Dates No Primary Care Physician Primary Care Provider Active Start: August 10, 2024 End: August 10, 2024 Zebulun Beam VSC, INSURANCE VERIFICATION REP-C Attending Provider Active Start: August 10, 2024 End: August 10, 2024 Zebulun Beam VSC, INSURANCE VERIFICATION REP-C Referring Provider Active Start: August 10, 2024 End: August 10, 2024 Team Status: Inactive Member Role/Relationship Status Dates ERIK Del Angel Primary Care Provider Active Start: September 12, 2024 End: September 12, 2024 ERIK Del Angel Attending Provider Active Start: September 12, 2024 End: September 12, 2024 Goals (unrecognized section and content) Goals may be documented in a n alternate sectionGoals may be documented in an alternate sectionGoals may be documented in an alternate sectionGoals may be documented in an [...] BE BASED ON THE PRIMARY CLINICAL RECORDS. [employer] provides no warranty or guarantee of the accuracy or completeness of information in this document.
== END | disposition home or self-care (01) ==
LOC: OPMRI 06:55
PROVIDERS: PCP Nurse Practitioner Family; Referring Provider Otolaryngology; Visit Provider Otolaryngology
DX: D35.2 Benign neoplasm of pituitary gland (principal); G51.0 Bell's palsy
CPT/HCPCS: 70553; A9575

== ENCOUNTER 2024-09-21 18:46 | Inpatient (IN) | payer BC, SELFPAY ==
[2024-09-21] VITALS (9 sets, daily range): BP systolic 121–139; BP diastolic 74–88; PULSE 114–150; RESP 14–27; TEMP 36.7–38; O2SAT 92–99; BMI 38.8; BMI 38.9
--- NOTE | 2024-09-21 19:00 | EKG12_ITS ---
Test Reason : CP Blood Pressure : */* mmHG Vent. Rate : 128 BPM Atrial Rate : 128 BPM P-R Int : 132 ms QRS Dur : 82 ms QT Int : 302 ms P-R-T Axes : 54 33 41 degrees QTcB Int : 440 ms Sinus tachycardia Otherwise normal ECG Confirmed by EVELYN MACIEL, DINORAH ([id number]), editorial clerk AGUSTINA JORGENSEN ([id number]) on 09/25/2024 9:41:33 AM Referred By: Jarvis Negro Confirmed By: DINORAH RIVAS MD
--- NOTE | 2024-09-21 19:03 | EX.ED.DYSGE1 ---
HPI History of Present Illness Chief Complaint: Shortness of Breath Detail of Chief Complaint: Slight cough, dyspnea, ENNIS and subjective fever with chills Informant: patient Onset/Context/Timing Onset: Yesterday Context: Sudden Onset Timing: Continuous and Waxes and wanes Quality: Dyspnea, ENNIS, nonproductive cough, fever Location: Respiratory Current Severity: Mild Maximum Severity: Severe Worsened by: Walking across the room Relieved by: Better with rest Associated Symptoms Associated Symptoms: HPI narrative Narrative Narrative: Patient is a 64-year-old woman. 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 She had a outpatient MRI at [facility] this past Wednesday. She presents because of cough, shortness of breath, dyspnea on exertion, subjective fever with chills. She denies rhinorrhea, congestion postnasal drainage. She denies sore throat. Her cough is nonproductive. She denies history of VTE. She has no risk factors for VTE. She denies abdominal pain, nausea, vomiting or diarrhea. She denies dysuria, frequency, urgency or hematuria. She developed a lower extremity rash a couple of days ago. She was treated with prednisone and antiviral for her Gaines's palsy. MRI interpretation was normal intracranial contents no pituitary/parasellar mass lesions. There was question of asymmetry of T2 hyperintense signal and enhancement of the left facial nerve tympanic and mastoid segments suggesting left facial neuritis. Radiologist commented this would better be assessed with a dedicated IAC protocol. Prior similar symptoms: No Recent Illness/Hospitalization: No PFSH [facility] Medical History (Updated 09/21/24 @ 20:[address] Jarvis Negro MD) Obesity Gaines's palsy Allergy/AdvReac Type Severity Reaction Status Date / Time No Known Allergies Allergy Verified 09/21/24 18:47 Surgical History H/O: Social History household members: spouse housing: house current occupational status: employed Smoking Status: Never smoker ROS ROS ED Constitutional Constitutional ED: Reports chills, fever(s), subjective and sweats; Denies weight loss Eyes Eyes: Denies blurry vision or change in vision ENT ENT ED: Denies ear pain, rhinorrhea or sore throat Cardiovascular Cardiovascular: Reports racing heartbeat; Denies chest pain, orthopnea, palpitations or paroxysmal nocturnal dyspnea Respiratory/Chest Respiratory/Chest: Reports cough, dyspnea and dyspnea on exertion; Denies orthopnea, paroxysmal nocturnal dyspnea or sputum Gastrointestinal Gastrointestinal: Denies abdominal pain, nausea or vomiting Genitourinary Genitourinary ED: Denies dysuria, hematuria or urinary frequency Musculoskeletal Musculoskeletal: Denies arthralgias or myalgias Integumentary Denies rash Neurologic Neurologic: Reports weakness; Denies headache(s) or paresthesias Endocrine Endocrinology: Denies cold intolerance or heat intolerance Hematologic/Lymphatic Hematologic/Lymphatic: Reports systems reviewed and no addt'l complaints, except as documented EXAM Physical Exam Const Vital Signs: 09/21/24 18:47 09/21/24 18:51 09/21/24 19:00 Temperature 100.4 F H 98.9 F Temperature Source Oral Oral Pulse Rate 150 H 123 H Respiratory Rate 22 H 14 Respiratory Effort Short of Breath Respiratory Depth Deep Respiratory Pattern Tachypnea Blood Pressure 125/87 H 124/80 H Blood Pressure Mean 99 94 Pulse Ox 92 97 Oxygen Delivery Method Room Air Nasal Cannula Nasal Cannula Oxygen Flow Rate (L/min) 2 2 09/21/24 19:00 09/21/24 19:51 09/21/24 20:00 Temperature 98.9 F 99.2 F H Temperature Source Oral Oral Pulse Rate 124 H 121 H Respiratory Rate 24 H 25 H Respiratory Effort Respiratory Depth Respiratory Pattern Blood Pressure 121/81 H 124/74 H Blood Pressure Mean 94 90 Pulse Ox 95 98 97 Oxygen Delivery Method Nasal Cannula Nasal Cannula Nasal Cannula Oxygen Flow Rate (L/min) 2 2 2 Positive well nourished and well developed Constitutional Narrative: BMI is 38.9. Patient is tachycardic, tachypneic febrile and pulse ox on room air in triage is 92% walking from triage to room 1 which is approximately 25 feet she became more dyspneic and saturation was 84%. She is pleasant on oxygen. General Appearance ED: well developed; Negative for cyanotic, diaphoretic, NAD or pallor HEENT Reports dry mucous membranes HEENT Narrative: HEENT exam is remarkable for Gaines's palsy on the left. Ears otherwise normal. Nares patent. Posterior pharynx is normal. Mucosa slightly dry. Mouth ED: Yes dry mucous membranes Mouth: dry mucous membranes Eyes PERRL and EOMs intact bilaterally General Eye ED: Negative for pale conjunctiva or scleral icterus Neck no lymphadenopathy, supple and no JVD Resp normal respiratory effort and No clear to auscultation bilaterally Auscultation: rales right lower (There is increased vocal fremitus and egophony as well.); Negative for rhonchi, wheezes or diminished lung sounds Cardio regular rhythm, S1 normal heart sound, S2 normal heart sound and no murmurs Rate: tachycardic GI normal to inspection, nondistended, normoactive bowel sounds, non-tender, non-distended and no masses; Negative for hepatosplenomegaly Back/Spine no CVA tenderness Extremity Negative for normal to inspection Extremity Narrative: Patient has multiple small nonblanching red dots suggestive of petechiae to both lower extremities. Neuro oriented x3 and CN's II-XII intact bilaterally Sensorium / Orientation: alert Motor Exam: strength 5/5 throughout Psych mental status grossly normal Skin No no rashes or lesions noted, no wounds and skin turgor normal General Skin Exam: Negative for jaundice or pallor Sepsis Attestation Sepsis Alert: Yes Sepsis Attestation: Agree w/Sepsis Date exam was performed: 09/21/24 Time exam was performed: 19:08 Possible Source of Sepsis: Pulmonary Sepsis Organ Dysfunction Criteria Present: None MDM MDM MDM Narrative Medical decision making narrative: Clinically patient has right lower lobe pneumonia. She was started on Rocephin and azithromycin. Sepsis protocol was initiated. Patient was informed she will require admission. EKG was obtained to rule out ischemia since she is rapid. Chest x-ray did confirm clinical diagnosis of right lower lobe pneumonia. CBC, competence of metabolic panel, lactate and coags to assess endorgan dysfunction. She did receive 1 L of normal saline wide open. Her MRI reveals findings consistent with a neuritis of the left facial nerve. History & Record Review Additional record(s) reviewed:: Prior outpatient record and Prior ED visit (Patient was seen on July 29 for neuro symptoms. Patient at that time had CT of the face which revealed mild anemia of the left maxillary region and left masseter muscle without definitive abscess. There is also prominent bilateral cervical chain lymph nodes. There is also heterogeneous and multino) Lab Data Attestation: I reviewed the patient's lab results. Lab results narrative: White count is elevated 12,000. There is no shift. H&H is normal. Comprehensive metabolic panel is normal. Lactate is normal. Labs: Laboratory Results - last 24 hr 09/21/24 19:05 WBC 12.0 H RBC 4.75 Hgb 14.7 Hct 44.2 MCV 93.1 MCH 30.9 MCHC 33.3 RDW Std Deviation 49.0 H RDW Coeff of [place] 14.2 Plt Count 278 MPV 10.4 Immature Gran % (Auto) 0.300 Neut % (Auto) 68.6 Lymph % (Auto) 19.8 [place] % (Auto) 10.1 H Eos % (Auto) 0.8 Baso % (Auto) 0.4 Absolute Neuts (auto) 8.2 H Absolute Lymphs (auto) 2.38 Nucleated RBC % 0 Sodium 140 Potassium 4.1 Chloride 103 Carbon Dioxide 23.4 Anion Gap 14 BUN 18 Creatinine 0.93 Estim Creat Clear Calc 84.40 Est GFR (MDRD) Non-Af 68 BUN/Creatinine Ratio 18.9 Glucose 99 Lactic Acid 1.4 Calcium 9.9 Total Bilirubin 0.61 AST 22 ALT 11 Alkaline Phosphatase 93 Total Protein 7.2 Albumin 4.2 Globulin 3.0 Albumin/Globulin Ratio 1.4 Radiography Chest X-Ray - ED: 2 View and Read by ED Physician (There is a minimal chronic changes. There is no obvious infiltrate. There is increased markings right lower lobe which may represent early pneumonia. There is no effusion. Cardiac silhouette size normal. [place] is unremarkable. Osseous structures with no acute process. Reviewed interpreted by ) Diagnostic Testing: Clinical Impression(s) from Imaging Studies Chest X-Ray 09/21/24 20:03 IMPRESSION: Increased lung markings at the right lung base are nonspecific, and could represent developing atypical/viral infection, atelectasis or vascular congestion. Reading Location: [facility] EKG Initial EKG: Attestation: I personally reviewed and interpreted this EKG as follows: Interpretation: Sinus Tachycardia (Rate is 128. The EKG is normal other than sinus tachycardia. CT interval is 132 ms. Cures duration 82 ms. QT duration 102 ms. [place] is normal) Management Discussion w/another healthcare provider: Hospitalist (Spoke with Dr. Mayes. Full admit MedSurg telemetry) Treatment and Re-Evaluation :: Patient was informed of her test results and x-ray results. Her heart rate has improved with 1 L of normal saline. Discharge Plan Dx/Rx/DC Orders Clinical Impression: Right lower lobe pneumonia, SIRS (systemic inflammatory response syndrome), Hypoxia, Gaines's palsy Disposition Disposition: Acute Care Hospital [facility]
--- NOTE | 2024-09-21 19:35 | PCA ---
no old ekg
[2024-09-21 19:42] LABS: Hematocrit 44.2 % (37-47); Hemoglobin 14.7 g/dL (12.0-15.0); Immature Granulocytes Count 0.040 X10^3/uL (0.0-0.0); Mean Corp Hgb Conc 33.3 g/dL (32-36); Mean Corpuscular Volume 93.1 fL (81-99); Mean Platelet Vol. 10.4 fl (6.2-12.0); NRBC Flagged by Analyzer 0 % (0-5); Platelet Count 278 K/mm3 (150-450); RBC Distribution Width CV 14.2 % (11.6-14.6); RBC Distribution Width SD 49.0 fl (35.1-43.9); Red Blood Count 4.75 M/mm3 (4.2-5.4); White Blood Count 12.0 K/mm3 (4.4-11.0)
[2024-09-21] MEDS: 0.9% Normal Saline (1000mL) 1,000 ML 1000 ML IV (19:48)
[2024-09-21] MEDS: Ceftriaxone 2 GM in 0.9% Normal Saline (50mL MB+) 50 ML IV (19:48)
[2024-09-21 20:01] LABS: Prothrombin Time (Protime)PT. 14.3 SECONDS (11.7-14.9)
[2024-09-21 20:02] LABS: Partial Thromboplast Time 25.0 Seconds (24.1-36.2)
--- NOTE | 2024-09-21 20:03 | RAD_ITS ---
PROCEDURE: CHEST PA AND LATERAL 09/21/2024 REASON FOR EXAM: COUGH, HYPOXIA, CLINICAL RIGHT LOWER LOBE PNEUMONI TECHNIQUE: CHEST PA AND LATERAL COMPARISON: None FINDINGS: Hardware: None Heart: The heart size is normal. Mediastinum: The mediastinal contour is unremarkable. Lungs: Increased lung markings at the right lung base, seen only on the frontal view. No pleural effusion. Bones: Degenerative changes are identified within the thoracic spine. RAD/Chest PA and Lateral IMPRESSION: Increased lung markings at the right lung base are nonspecific, and could repre sent developing atypical/viral infection, atelectasis or vascular congestion. Reading Location: [id number]
[2024-09-21 20:12] LABS: AST(SGOT) 22 U/L (<=31); Alanine Aminotransfer ALT/SGPT 11 U/L (<=34); Albumin, Serum 4.2 g/dL (3.4-4.8); Alkaline Phosphatase 93 U/L (35-104); Anion Gap 14 (5-15); BUN 18 mg/dL (4-19); BUN/Creat Ratio 18.9 RATIO (10-20); Calcium,Total 9.9 mg/dL (7.6-11.0); Carbon Dioxide 23.4 mmol/L (21.0-32.0); Chloride 103 mmol/L (98-108); Estimated Creatinine Clearance 84.40 ml/min (50-250); Globulin 3.0 g/dL (2.2-4.2); Glucose 99 mg/dL (70-99); Potassium 4.1 mmol/L (3.3-5.1)
[2024-09-21] MEDS: Azithromycin 500 MG in 0.9% Normal Saline (250mL Bag) 250 ML 255 MG IV (20:43)
--- NOTE | 2024-09-21 20:43 | HP.PCM.HOS_ITS ---
HPI - General General Date of Admission: 09/21/24 Date of Service: 09/21/24 Chief Complaint: Dyspnea, cough, fever, chills. 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 In addition patient had onset petechial rash to bilateral lower extremities starting approximately 4 to 5 days prior to the onset of her upper respiratory symptoms. Workup in the ED included T1 100.4, heart rate 150, BP 125/87, respiratory rate 22, initially 92% on room air however de-saturated down to 84% on RA with any exertion in the ED with most recent repeat vitals T99.2, heart rate 121, BP 124/74, respiratory rate 25, 97% on 2 L nasal cannula, CBC with WC 12, Heenan 14.7, platelet 278 with left shift, CMP not marked appearing, BUN/creat 18/0.93, GFR 68, lactic acid 1.4, chest x-ray with increased lung markings at the right lung base nonspecific possibly developing and atypical/viral infection, atelectasis or vascular congestion, coags pending upon evaluation, EKG with sinus tachycardia with no acute evidence of ischemia. In the ED patient ministered 1 L normal saline, azithromycin 500 mg IV x 1, Rocephin 2 g IV x 1. [facility] Medical History Obesity Gaines's palsy Home Medications ?Medication ?Instructions ?Recorded ?Last Taken ?Type melatonin 10 mg capsule 10 mg PO QHS 09/21/24 Unknow n History peg 400-propylene glycol 0.4 %-0.3 drp ophthalmic (eye ) QHS bells 09/21/24 09/20/24 History % eye gel drops (GenTeal Tears palsy Severe Gel Drops) Allergy/AdvReac Type Severity Reaction Status Date / Time No Known Allergies Allergy Verified 09/21/24 18:47 Family History (Updated 09/21/24 @ 21:[address] Jazmine Mayes MD) Mother Diabetes Macular degeneration Father CAD (coronary artery disease) CVA (cerebral vascular accident) Heart disease Hypertension Prostate cancer Surgical History (Updated 09/21/24 @ 21:[address] Jazmine Mayes MD) H/O: Social History household members: spouse housing: house current occupational status: employed Smoking Status: Never smoker ROS ROS Narrative Admission Review of Systems: CONSTITUTIONAL: No weight loss, + fever, chills, weakness or fatigue. HEENT: + Recent diagnosis left-sided facial Gaines's palsy, ongoing deficits. Eyes: No visual loss, blurred vision, double vision or yellow sclerae. Ears, Nose, Throat: No hearing loss, sneezing, congestion, runny nose or sore throat. SKIN: No lesions, wounds, + bilateral lower extremity petechial rash. CARDIOVASCULAR: No chest pain, chest pressure or chest discomfort, palpitations, edema, orthopnea, syncopal events. RESPIRATORY: + Dyspnea worse with exertion, nonproductive cough. No wheezing, hemoptysis. GASTROINTESTINAL: No anorexia, nausea, vomiting or diarrhea, abdominal pain, melena, BRBPR. GENITOURINARY: No dysuria, frequency, urgency or retention. NEUROLOGICAL: + Recent diagnosis left-sided facial Gaines's palsy with ongoing deficits. No headache, dizziness, syncope, ataxia, numbness or tingling in the extremities, change in bowel or bladder control, seizure. MUSCULOSKELETAL: + muscle, back pain, joint pain or stiffness. HEMATOLOGIC: No anemia, bleeding or bruising. LYMPHATICS: No enlarged nodes. No history of splenectomy. PSYCHIATRIC: No history of depression or anxiety. ENDOCRINOLOGIC: No reports of sweating, cold or heat intolerance. No polyuria or polydipsia. ALLERGIES: No history of asthma, hives, eczema or rhinitis. Vital Signs Vital Signs Vital Signs: 09/21/24 18:47 09/21/24 18:51 09/21/24 19:00 Temperature 100.4 F H 98.9 F Temperature Source Oral Oral Pulse Rate 150 H 123 H Respiratory Rate 22 H 14 Respiratory Effort Short of Breath Respiratory Depth Deep Respiratory Pattern Tachypnea Blood Pressure 125/87 H 124/80 H Blood Pressure Mean 99 94 Pulse Ox 92 97 Oxygen Delivery Method Room Air Nasal Cannula Nasal Cannula Oxygen Flow Rate (L/min) 2 2 09/21/24 19:00 09/21/24 19:51 09/21/24 20:00 Temperature 98.9 F 99.2 F H Temperature Source Oral Oral Pulse Rate 124 H 121 H Respiratory Rate 24 H 25 H Respiratory Effort Respiratory Depth Respiratory Pattern Blood Pressure 121/81 H 124/74 H Blood Pressure Mean 94 90 Pulse Ox 95 98 97 Oxygen Delivery Method Nasal Cannula Nasal Cannula Nasal Cannula Oxygen Flow Rate (L/min) 2 2 2 Weight Weight: 263 lb 3.711 oz Body Mass Index (BMI) 38.8 Physical Exam Narrative Physical Examination: General: Awake, alert, oriented x 3 and cooperative, seated upright in the ED bed in no apparent distress, fatigued, mild persistent tachycardia noted on monitor, on 2 L nasal cannula. Skin: Normal color, normal turgor, no icterus, no cyanosis except bilateral lower extremity petechial rash, blanching, occasional stage ecchymoses, abrasion. HEENT: AT/NC, EOMI, PERRLA, MMM, no carotid bruits, no obvious JVD elevation however thick neck makes evaluation difficult, evident left-sided facial Gaines's palsy with significant persistent deficit unable to raise eyebrow, completely close lid, smile. Lungs: Diminished, greater bases, right greater than left, mild rales right base, mildly increased respiratory rate but no distress, on 2 L nasal cannula supplementation, no appreciated ronchi or wheezing. Heart: Tachycardic with regular rhythm; no gallop, rub audible. Abdomen: Soft, obese, NTTP, ND, mildly hyperactive BS, no appreciated HSM. Extremities: No cyanosis, no clubbing, ankle not markedly pitting likely chronic edema. Neurological: Patient awake, alert, oriented as noted, cognitive function intact; pupils equally reactive to light and accommodation, cranial nerves grossly normal aside from persistent left-sided facial deficits with Gaines's palsy with noted inability to raise eyebrow, completely close lid, smile with significantly flattened nasolabial fold, otherwise moving all 4 extremities, strength moderately globally decreased. Psychiatric: Affect appears fatigued, no acute evidence of depressive or anxiety feelings. Results Lab / Micro Data 09/21/24 19:05 09/21/24 19:05 Labs: Laboratory Results - last 24 hr 09/21/24 19:05: WBC 12.0 H, RBC 4.75, Hgb 14.7, Hct 44.2, MCV 93.1, MCH 30.9, MCHC 33.3, RDW Std Deviation 49.0 H, RDW Coeff of Satnam 14.2, Plt Count 278, MPV 10.4, Immature Gran % (Auto) 0.300, Neut % (Auto) 68.6, Lymph % (Auto) 19.8, M jana % (Auto) 10.1 H, Eos % (Auto) 0.8, Baso % (Auto) 0.4, Absolute Neuts (auto) 8.2 H, Absolute Lymphs (auto) 2.38, Nucleated RBC % 0, Sodium 140, Potassium 4.1, Chloride 103, Carbon Dioxide 23.4, Anion Gap 14, BUN 18, Creatinine 0.93, Estim Creat Clear Calc 84.40, Est GFR (MDRD) Non-Af 68, BUN/Creatinine Ratio 18.9, Glucose 99, Lactic Acid 1.4, Calcium 9.9, Total Bilirubin 0.61, AST 22, ALT 11, Alkaline Phosphatase 93, Total Protein 7.2, Albumin 4.2, Globulin 3.0, Albumin/Globulin Ratio 1.4 Imaging Radiology Impression Chest X-Ray 09/21/24 20:03 IMPRESSION: Increased lung markings at the right lung base are nonspecific, and could represent developing atypical/viral infection, atelectasis or vascular congestion. Reading Location: [id number] Assessment & Plan Assessment/Plan (1) Hypoxia: (2) Right lower lobe pneumonia: PLAN: Plan The patient is a 64 y/o F w/ PMHx: Obesity, CKD stage II per GFR trending, Left- sided Gaines's palsy with persistent deficits treated in June with prednisone and antiviral who presents to the [facility] ED on 09/21/2024 with history of onset over the last 48 hours dyspnea, worse with exertion with subjective fevers and chills and a slight nonproductive cough with increased fatigue and malaise prompting ED evaluation. #1. Acute Hypoxia with SIRS secondary to RLL Community Acquired Pneumonia, possible Viral with bilateral lower extremity petechial rash possibly viral exanthem with potential postviral bacterial pneumonia: CXR in the ED w/ concern for possible right lung base developing pneumonia. Will admit to [facility] telemetry obesity, maintain on oxygen with wean as tolerated to room air, continue ATC ipratropium, PRN albuterol, will give an additional 1 L IV fluid bolus given persistent tachycardia, maintain on IV Rocephin and Azithromycin ending further evaluation in case bacterial component, encourage HOB, IS parameters w/ pending sputum cultures, full respiratory viral panel, procalcitonin and urine antigens. Bld cx x 2 obtained in the ED. #2. History of Gaines's palsy: Patient treated in June for Gaines's palsy with course of prednisone therapy and antiviral regimen which was completed, follow- up 09/19/2024 MRI of the brain with questionable asymmetric T2 hyperintense signal enhancement the left facial nerve tympanic and mastoid segments suggesting left facial neuritis with no mass lesion or pathologic enhancement within the internal auditory canal. Encourage follow-up with ENT as previously arranged. #3. Chronic Kidney Disease Stage II per GFR trending: Admission BUN/Cr 18/0.93, GFR 68, baseline renal function 0.8-0.9, repeat BMP in AM. #4. Obesity: Weight loss and lifestyle changes encouraged. #5. DVT prophylaxis: Lovenox. Charges/Coding Visit Charges Inpatient E&M: 48584 Init Hosp L3
[2024-09-21 21:41] LABS: Mucous, Urine 0 SEEN /hpf (<or=2+)
[2024-09-21 21:44] LABS: Color, Urine Yellow (Yellow); Glucose, Dipstick Normal (Normal); Ketone-Dipstick 5 mg/dl (Negative); Leukocyte Esterase-Dipstick 100 /ul (Negative); Nitrite-Dipstick Negative (Negative); Occult Blood-Urine 50 /ul (Negative); Protein-Dipstick 30 mg/dl (Negative); Specific Gravity, Urine 1.020 (1.002-1.030); Urine Bilirubin Dipstick Negative (Negative)
[2024-09-21 22:28] LABS: Squamous Epithelial Cells - UA 25-50 SEEN /hpf (5-10)
[2024-09-21 22:30] LABS: Red Blood Cells-Urine 0-5 SEEN /hpf (0-5)
[2024-09-21] MEDS: 0.9% Normal Saline (1000mL) 1,000 ML 999 ML IV (22:39)
--- OUTSIDE RECORDS SUMMARY | 2024-09-21 23:18 | XMS RPT_ITS | CCD ---
Author Organization [facility] Care Team Providers Care Surety Bond Agent Name Role Phone Dr. Cynthia Bell DO Emergency Provider Care Physician, No Primary Primary Care Provider Unavailable Dr. Matthew Ashby DO Emergency Provider NO, PHYSICIAN Primary Care Unavailable JARROD REDMOND Attending Unavailable NO, PHYSICIAN Primary Care Unavailable JOCELYN BOYLE Attending Unavailable Dr. Cynthia Bell DO Attending Provider [phone] Dr. Matthew Ashby DO Attending Provider [phone] Beam FINGERPRINT TECHNICIAN-C, Zebulun Attending Provider Beam FINGERPRINT TECHNICIAN-C, Zebulun Referring Provider Tannhof FINGERPRINT TECHNICIAN-C, Kay Primary Care Provider Tannhof FINGERPRINT TECHNICIAN-C, Kay Attending Provider Care Physician, No Primary Primary Care Unava ilable Cynthia Bell Attending Unavailable Kay Mares Attending Unavailable Tannhof, Kay Primary Care Unavailable Tannhof, Kay Primary Care Unavailable Pepe Herrera Referring Unavailabl e Pepe Herrera Attending Unavailabl e Care Physician, No Primary Primary Care Unava ilable Beam VSC, Zebulun Referring Unavailable Beam VSC, Zebulun Attending Unavailable Matthew Ashby Attending Unavailable Care Physician, No Primary Primary Care Unava ilable Javier MACIEL, Dr. Cantu Attending Provider Javier MACIEL, Dr. Cantu Referring Provider Dr. Jarvis Negro MD Referring Provider Marky MACIEL, Dr. Conley Emergency Provider Gerber MACIEL, Dr. Jazmine L Attending Provider Gerber MACIEL, Dr. Jazmine Bernal Admit Provider [phone] Medications Current Medications Medication Drug Class(es) Dates Sig (Normalized) Sig (Original) melatonin 10 mg oral capsule (1 source) Start: 09-21-2024 take 1 capsule by mouth at bedtime Melatonin 10 mg capsule Active 10 mg PO AT BEDTIME September 21, 2024 12:00am polyethylene glycol 400 0.004 mg/mg / propylene glycol 0.003 mg/mg ophthalmic gel (1 source) Start: 09-21-2024 Peg 400-Propylene Glycol (Genteal Tears Severe Gel Drops) 0.4-0.3 % drops,gel Active NMA OPHTHALMIC AT BEDTIME September 21, 2024 12:00am bells palsy Completed/Discontinued Medications Medication Drug Class(es) Dates Sig (Normalized) Sig (Original) amoxicillin 875 mg / clavulanate 125 mg oral tablet (4 sources) Penicillin-class Antibacterial Start: 07-29-2024 End: 09-21-2024 Amoxicillin-Pot Clavulanate 875-125 mg tablet Discontinued 1 {tbl} PO TWICE A DAY 14 7 0 July 29, 2024 12:00am September 21, 2024 8:25pm cephalexin 500 mg oral capsule (9 sources) Cephalosporin Antibacterial Start: 07-27-2024 End: 09-21-2024 take 1 capsule by mouth every six hours Cephalexin 500 mg capsule Discontinued 500 mg PO EVERY 6 HOURS July 29, 2024 12:00am September 21, 2024 8:25pm famciclovir 500 mg oral tablet (9 sources) Herpes Simplex Virus Nucleoside Analog DNA Polymerase Inhibitor Start: 07-27-2024 End: 09-21-2024 take 1 tablet by mouth every eight hours Famciclovir 500 mg tablet Discontinued 500 mg PO EVERY 8 HOURS July 29, 2024 12:00am September 21, 2024 8:25pm ketorolac tromethamine 10 mg oral tablet (4 sources) Nonsteroidal Anti-inflammatory Drug, Cyclooxygenase Inhibitor Start: 07-29-2024 End: 09-21-2024 take 1 tablet by mouth every eight hours as needed for pain Ketorolac 10 mg tablet Discontinued 10 mg PO Q8H as needed for pain July 29, 2024 12:00am September 21, 2024 8:25pm predniSONE 20 mg oral tablet (9 sources) Start: 07-29-2024 End: 09-21-2024 take 1 tablet by mouth once daily Prednisone 20 mg tablet Discontinued 20 mg PO DAILY July 29, 2024 12:00am September 21, 2024 8:25pm Start: 07-27-2024 End: 07-29-2024 take 1 tablet by mouth twice daily Prednisone 20 mg tablet Discontinued 20 mg PO TWICE A DAY 10 0 July 27, 2024 12:00am July 29, 2024 12:49pm Problems Active Problems Problem Classification Problem Date Documented Date Episodic/Chronic Diseases of mouth; excluding dental (4 sources) Parotitis; Translations: [Acute sialoadenitis] 07-29-2024 Episodic Headache; including migraine (5 sources) Headache; Translations: [Headache] 07-27-2024 Episodic Headache; including migraine (3 sources) Headache; including migraine; Translations: [Headache, unspecified] Onset: 07-25-2024 Other and unspecified benign neoplasm (1 source) Benign neoplasm of pituitary gland; 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] Onset: 09-19-2024 Episodic Other injuries and conditions due to external causes (1 source) Other injury of unspecified body region, initial encounter; Translations: [Other injury of unspecified body region, initial encounter] Onset: 09-16-2024 Episodic Other injuries and conditions due to external causes (1 source) Systemic inflammatory response syndrome; Translations: [Systemic inflammatory response syndrome (SIRS) of non-infectious origin without acute organ dysfunction] 09-21-2024 Episodic Other lower respiratory disease (2 sources) Hypoxia; Translations: [Hypoxemia] 09-21-2024 Episodic Other nervous system disorders (6 sources) Agines's palsy; 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] 07-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 Episodic Other screening for suspected conditions (not mental disorders or infectious disease) (1 source) Encounter for screening for cardiovascular disorders; Translations: [Encounter for screening for cardiovascular disorders] Onset: 08-16-2024 Episodic Pneumonia (except that caused by tuberculosis or sexually transmitted disease) (2 sources) Right lower zone pneumonia; Translations: [Pneumonia, unspecified organism] 09-21-2024 Episodic Past or Other Problems Problem Classification Problem Date Documented Da te Episodic/Chronic Spondylosis; intervertebral disc disorders; other back problems (2 sources) Sciatica, left side; Translations: [Sciatica, left side] Onset: 12-05-2023 Episodic Results Test Name Value Interpretation Reference Range Facility Absolute lymphocyte countOrd ered By: Jarvis Negro on 09-21-2024 Lymphocytes Auto (Unsp spec) [#/Vol] 2.38 10*3/uL 0.83-4.51 [facility] Absolute neutrophil countOrd ered By: Jarvis Negro on 09-21-2024 Neutrophils (Bld) [#/Vol] 8.2 10*3/uL High 2.0-7.7 [facility] Activated partial thrombopla stin time (aPTT) in platelet poor plasma by coagulation aOrdered By: Jarvis Negro on 09-21-2024 aPTT Coag (PPP) [Time] 25.0 s 24.1-36.2 [facility] Anion gap in Serum or Plasma Ordered By: Jarvis Negro on 09-21-2024 Anion gap [Moles/Vol] 14 mmol/L 5-15 [facility] Automated lymphocyte count a s percentage of total leukocytesOrdered By: Jarvis Jarretto on 09-21-2024 Lymphocytes/100 WBC Auto (Unsp spec) 19.8 % 19-41 [facility] BUN/creatinine ratioOrdered By: Jarvis Jarretto on 09-21-2024 Urea nitrogen/Creatinine [Mass ratio] 18.9 mg/mg 10-20 [facility] Basophil percentageOrdered B y: Jarvis Negro on 09-21-2024 Basophils/100 WBC (Bld) 0.4 % 0-1 [facility] Bilirubin, totalOrdered By: Jarvis Negro on 09-21-2024 Bilirubin [Mass/Vol] 0.61 mg/dL 0.00-1.30 [facility] Carbon dioxide, total [Moles /volume] in Central venous bloodOrdered By: Jarvis Negro on 09-21-2024 CO2 [Moles/Vol] 23.4 mmol/L 21.0-32.0 [facility] Chloride assayOrdered By: Nigel Negro on 09-21-2024 Chloride [Moles/Vol] 103 mmol/L 98-108 [facility] Eosinophil percentageOrdered By: Jarvis Negro on 09-21-2024 Eosinophils/100 WBC (Bld) 0.8 % 0-5 [facility] Erythrocyte distribution wid th ratioOrdered By: Jarvis Negro on 09-21-2024 Erythrocyte distribution width (RBC) [Ratio] 14.2 % 11.6-14.6 [facility] Erythrocyte distribution wid th standard deviationOrdered By: Jarvisana cristina Negro on 09-21-2024 Erythrocyte distribution width (RBC) [Ratio] 49.0 fl High 35.1-43.9 [facility] Glomerular filtration rate ( GFR) estimation/1.73 sq m using serum, plasma, or whole bOrdered By: Jarvisana cristina Negro on 09-21-2024 GFR/1.73 sq M.predicted among non-blacks MDRD (S/P/Bld) [Vol rate/Area] 68 mL/min/{1.73_m2} >60 [facility] Comment on above: mL/min/1.73m2 CKD-EP I Creatinine Equation (2020) Hematocrit Auto (Bld) [Volum e fraction]Ordered By: Jarvisana cristina Negro on 09-21-2024 Hematocrit (Bld) [Volume fraction] 44.2 % 37-47 [facility] Hemoglobin measurementOrdere d By: Jarvis Negro on 09-21-2024 Hemoglobin (Bld) [Mass/Vol] 14.7 g/dL 12.0-15.0 [facility] Immature granulocytes/100 WB C Auto (Bld)Ordered By: Jarvis Negro on 09-21-2024 Immature granulocytes/100 WBC (Bld) 0.300 % 0.0-0.9 [facility] Comment on above: IG% - Immature Granu locytes (promyelocytes, myelocytes and metamyelocytes) > 1% indicates that a LEFT SHIFT is Present. International normalized rat io (INR) calculationOrdered By: Jarvisana cristina Negro on 09-21-2024 INR Coag (Bld) [Relative time] 1.1 {INR} [facility] - Chemistry and C hemistry - challengeOrdered By: Jarvisana cristina Negro 09-21-2024 AST [Catalytic activity/Vol] 22 U/L <32 [facility] Lactic acid measurementOrder ed By: Jarvisana cristina Negro 09-21-2024 Lactate [Moles/Vol] 1.4 mmol/L 0.0-2.[address] [facility] MCV (mean corpuscular volume ) determinationOrdered By: Jarvis Negro on 09-21-2024 MCV (RBC) [Entitic vol] 93.1 fL 81-99 [facility] Mean corpuscular hemoglobin (MCH) determinationOrdered By: Jarvis Negro on 09-21-2024 MCH (RBC) [Entitic mass] 30.9 pg 27.0-32.0 [facility] Mean corpuscular hemoglobin concentration (MCHC) determinationOrdered By: Jarvis Negro on 09-21-2024 MCHC (RBC) [Mass/Vol] 33.3 g/dL 32-36 [facility] Mean platelet volume determi nationOrdered By: Jarvis Negro on 09-21-2024 Platelet mean volume (Bld) [Entitic vol] 10.4 fL 6.2-12.0 [facility] Monocyte percentageOrdered B y: Jarvis Negro on 09-21-2024 Monocytes/100 WBC (Bld) 10.1 % High 0-10 [facility] Neutrophil percentageOrdered By: Jarvisana cristina Negro on 09-21-2024 Neutrophils/100 WBC (Bld) 68.6 % 47-70 [facility] Nucleated red blood cell per centageOrdered By: Jarvis Negro on 09-21-2024 Nucleated RBC/100 WBC (Bld) [Ratio] 0 % 0-5 [facility] Platelet countOrdered By: Nigel Negro on 09-21-2024 Platelets (Bld) [#/Vol] 278 10*3/uL 150-450 [facility] Potassium measurement (mass/ volume)Ordered By: Jarvis Negro on 09-21-2024 Potassium (Unsp spec) [Mass/Vol] 4.1 mmol/L 3.3-5.1 [facility] Prothrombin timeOrdered By: Jarvis Negro on 09-21-2024 PT Coag (PPP) [Time] 14.3 s 11.7-14.9 [facility] RBC Auto (Bld) [#/Vol]Ordere d By: Jarvis Negro on 09-21-2024 RBC (Bld) [#/Vol] 4.75 10*6/uL 4.2-5.[address] [facility] Serum creatinine measurement (mass/volume)Ordered By: Jarvis Negro on 09-21-2024 Creatinine [Mass/Vol] 0.93 mg/dL 0.70-1.20 [facility] Serum globulin measurementOr dered By: Jarvis Negro on 09-21-2024 Globulin (S) [Mass/Vol] 3.0 g/dL 2.2-4.2 [facility] Serum glucose measurement (m ass/volume)Ordered By: Jarvis Negro on 09-21-2024 Glucose [Mass/Vol] 99 mg/dL 70-99 [facility] Serum or plasma alanine garay otransferase (ALT) measurementOrdered By: Jarvis Negro on 09-21-2024 ALT [Catalytic activity/Vol] 11 U/L <35 [facility] Serum or plasma albumin dashawn urement (mass/volume)Ordered By: Jarvis Negro on 09-21-2024 Albumin [Mass/Vol] 4.2 g/dL 3.4-4.8 [facility] Serum or plasma albumin/glob ulin mass ratioOrdered By: Jarvis Negro on 09-21-2024 Albumin/Globulin [Mass ratio] 1.4 {ratio} 0.9-2.4 [facility] Serum or plasma alkaline zack sphatase measurementOrdered By: Jarvis Negro 09-21-2024 ALP [Catalytic activity/Vol] 93 U/L 35-104 [facility] Serum or plasma calcium dashawn urement (mass/volume)Ordered By: Jarvis Negro on 09-21-2024 Calcium [Mass/Vol] 9.9 mg/dL 7.6-11.0 [facility] Serum or plasma urea nitroge n measurement (mass/volume)Ordered By: Jarvis Negro on 09-21-2024 Urea nitrogen [Mass/Vol] 18 mg/dL 4-19 [facility] Sodium levelOrdered By: Jarvis Negro on 09-21-2024 Sodium [Moles/Vol] 140 mmol/L 133-145 [facility] Total proteinOrdered By: Jarvis Negro 09-21-2024 Protein [Mass/Vol] 7.2 g/dL 5.9-8.4 [facility] White blood cell (WBC) count Ordered By: Jarvis Negro on 09-21-2024 WBC (Bld) [#/Vol] 12.0 10*3/uL High 4.4-11.[address] [facility] Lyme Antibodies,W [place] Lyme Additional Comment Normal . [facility] Comment on above: Result Comment: Per CDC criteria, the Lyme IgG Immunoblot is interpreted as positive if IgG-class antibodies are detected to 5 or more B. burgdorferi proteins, and the Lyme IgM Immunoblot is interpreted as positive if IgM-class antibodies are detected to 2 or more B. burgdorferi proteins. Immunoblot patterns not meeting these criteria should not be interpreted as positive. Epitopes from certain B. burgdorferi proteins (e.g., p41) are conserved across other bacteria, which may lead to the detection of IgM-and/or IgG class antibodies on the Lyme disease immunoblots in patients without Lyme disease. Immunoblot should only be ordered on specimens that are positive or equivocal by an FDA-licensed Lyme disease antibody screening test (e.g., EIA). Results of the Lyme IgM immunoblot should not be considered in patients with 30 or more days of symptoms. Performed at: [address] [id number] Network Operations Project Manager: Archana Landa MD, Phone: [phone] Performed By: #### L 7000.5800 #### [facility] [address] [place], [address] LYME IgG INTERP Negative Normal Negative [facility] Comment on above: Performed By: #### L 7000.5800 #### [facility] [address] [place], [address] LYME IgM INTERP Negative Normal Negative [facility] Comment on above: Result Comment: Marvin newman Note: Lyme immunoblot alone is not recommended for the diagnosis of Lyme disease. Current guidelines recommend the use of a two-tiered approach to Lyme serology testing to improve the sensitivity and specificity of testing. [facility] offers test code 805319 Lyme Disease Serology with Reflex to aid in the diagnosis of Lyme Disease. Performed By: #### L 7000.5800 #### [facility] [address] [place], [address] P18 Ab Absent Normal . [facility] Comment on above: Performed By: #### L 6999.5800 #### [facility] [address] [place], [address] P23 Ab Absent Normal . [facility] Comment on above: Performed By: #### L 6999.5800 #### [facility] [address] [place], [address] P28 Ab Absent Normal . [facility] Comment on above: Performed By: #### L 6999.0 #### [facility] [address] [place], [address] P30 Ab Absent Normal . [facility] Comment on above: Performed By: #### L 6999.0 #### [facility] [address] [place], [address] P39 Ab Absent Normal . [facility] Comment on above: Performed By: #### L 6999.0 #### [facility] [address] [place], [address] P41 Ab Absent Normal . [facility] Comment on above: Performed By: #### L 6999.5800 #### [facility] [address] [place], [address] P45 Ab Absent Normal . [facility] Comment on above: Performed By: #### L 6999.5800 #### [facility] [address] [place], [address] P58 Ab Absent Normal . [facility] Comment on above: Performed By: #### L 6999.5800 #### [facility] [address] [place], [address] P66 Ab Absent Normal . [facility] Comment on above: Performed By: #### L 7000.5800 #### [facility] [address] [place], [address] P93 Ab Absent Normal . [facility] Comment on above: Performed By: #### L 7000.5800 #### [facility] [address] [place], [address] Brain W/WO Contraston 2024 Brain W/WO Contrast [facility] Services [address] [place] [address] Brain W/WO Contrast MR#: [id number] Acct: [id number] Name: PRASHANTH ARIZA Rep #: [id number] : 1960 F 64 From: eZv Peres MD PCP: ERIK Del Angel Status: REG CLI Study: Brain W/WO Contrast Date of Exam: 09/19/24 Exam# [id number] Ordering Dr: Pepe Herrera MD PROCEDURE: BRAIN W/WO CONTRAST 09/19/2024 REASON FOR EXAM: ?Pituitary mass, left-sided Gaines's palsy TECHNIQUE: Multiplanar and multisequential MRI of the brain was performed without and with IV gadolinium based contrast administration. Dedicated small [id number] thin slice sequences through the pituitary/sellar region were obtained pre and post contrast. CONTRAST: Clariscan VOLUME: 24 mL COMPARISON: CT head exams 07/29/2024, 07/27/2024. FINDINGS: Ventricular and sulcal size and configuration are within normal limits. No intracranial mass lesion or pathologic enhancement. Normal pituitary gland and parasellar structures. No regions of abnormal restricted diffusion, or other parenchymal signal alteration. No extra-axial collection or mass- effect. Preserved major intracranial vascular flow voids. There is questionable asymmetric T2 hyperintense signal and contrast enhancement of the left facial nerve along its visualized tympanic and mastoid segments which may reflect facial neuritis. No abnormal enhancement or mass lesion is appreciated within the internal auditory canal. Normal symmetric appearance of the bilateral inner ear structures with preserved normal T2 signal. Orbital contents appear normal. Mild peripheral mucosal thickening in the right maxillary sinus, no fluid levels. No mastoid or middle ear effusion on either side. MRI/Brain W/WO Contrast IMPRESSION: Normal intracranial contents. No pituitary/parasellar mass lesion. Questionable asymmetric T2 hyperintense signal and enhancement of the left facial nerve tympanic and mastoid segments suggesting left facial neuritis. No mass lesion or pathologic enhancement within the internal auditory canal. This would be better assessed with a dedicated IAC protocol. Reading Location: [id number] CC: ERIK Mares; Dr. 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 [facility] Lyme Disease IgG Ab 93 kDa Band Absent . [facility] Lyme Disease IgG West Blot Interp Negative Negative [facility] Lyme Disease IgM Ab (Western Blot) Negative Negative [facility] Comment on above: Please Note: Lyme im munoblot alone is not recommended forthe diagnosis of Lyme disease. Current guidelines recommendthe use of a two-tiered approach to Lyme serology testingto improve the sensitivity and specificity of testing.[facility] offers test code 765169 Lyme Disease Serology withReflex to aid in the diagnosis of Lyme Disease. Lyme Disease Western Blot Comments Comment . [facility] Comment on above: Per CDC criteria, th e Lyme IgG Immunoblot is interpreted aspositive if IgG-class antibodies are detected to 5 or moreB. burgdorferi proteins, and the Lyme IgM Immunoblot isinterpreted as positive if IgM-class antibodies aredetected to 2 or more B. burgdorferi proteins. Immunoblotpatterns not meeting these criteria should not beinterpreted as positive. Epitopes from certain B.burgdorferi proteins (e.g., p41) are conserved across otherbacteria, which may lead to the detection of IgM-and/or IgGclass antibodies on the Lyme disease immunoblots inpatients without Lyme disease. Immunoblot should only beordered on specimens that are positive or equivocal by anFDA-licensed Lyme disease antibody screening test (e.g.,EIA). Results of the Lyme IgM immunoblot should not beconsidered in patients with 30 or more days of symptoms.Performed at: [address] [place] [id number] Director: Archana Landa MD, Phone: [phone] Anion gap in Serum or Plasma Ordered By: Rigoberto Phipps on 08-10-2024 Anion gap [Moles/Vol] 12 mmol/L 5-15 [facility] BUN/creatinine ratioOrdered By: Zejackeline Beam on 08-10-2024 Urea nitrogen/Creatinine [Mass ratio] 20.8 mg/mg High 10-20 [facility] Bilirubin, totalOrdered By: Rigoberto Beam on 08-10-2024 Bilirubin [Mass/Vol] 0.63 mg/dL 0.00-1.30 [facility] Calculated very low density lipoprotein (VLDL) cholesterol measurementOrdered By: Rigoberto Phipps on 08-10-2024 Calculated very low density lipoprotein (VLDL) cholesterol measurement 20 mg/dL -40 [facility] Carbon dioxide, total [Moles /volume] in Central venous bloodOrdered By: Rigoberto Phipps on 08-10-2024 CO2 [Moles/Vol] 23.4 mmol/L 21.0-32.0 [facility] Chloride assayOrdered By: Stephen Phipps on 08-10-2024 Chloride [Moles/Vol] 106 mmol/L 98-108 [facility] Comprehensive Metabolic Prof ilon 08-10-2024 Albumin [Mass/Vol] 4.0 g/dL Normal 3.4-4.8 [facility] Comment on above: Performed By: #### L 500.2500, L100.0100, L101.9900 #### [facility] [address] [place], [address] Albumin/Globulin [Mass ratio] 1.4 {ratio} Normal 0.9-2.4 [facility] Comment on above: Performed By: #### L 500.2500, L100.0100, L101.9900 #### [facility] [address] [place], [address] ALK PHOS 98 U/L Normal 35-104 [facility] Comment on above: Performed By: #### L 500.2500, L100.0100, L101.9900 #### [facility] [address] [place], [address] ALT [Catalytic activity/Vol] 24 U/L Normal <=34 [facility] Comment on above: Performed By: #### L 500.2500, L100.0100, L101.9900 #### [facility] [address] [place], [address] AST [Catalytic activity/Vol] 23 U/L Normal <=31 [facility] Comment on above: Performed By: #### L 500.2500, L100.0100, L101.9900 #### [facility] [address] [place], [address] Bilirubin [Mass/Vol] 0.63 mg/dL Normal 0.00-1.30 [facility] Comment on above: Performed By: #### L 500.2500, L100.0100, L101.9900 #### [facility] [address] [place], [address] BUN/CRE 20.8 RATIO High 10-20 [facility] Comment on above: Performed By: #### L 500.2500, L100.0100, L101.9900 #### [facility] [address] [place], [address] Calcium [Mass/Vol] 9.1 mg/dL Normal 7.6-11.0 [facility] Comment on above: Performed By: #### L 500.2500, L100.0100, L101.9900 #### [facility] [address] [place], [address] Chloride [Moles/Vol] 106 mmol/L Normal 98-108 [facility] Comment on above: Performed By: #### L 500.2500, L100.0100, L101.9900 #### [facility] [address] [place], [address] CO2 [Moles/Vol] 23.4 mmol/L Normal 21.0-32.0 [facility] Comment on above: Performed By: #### L 500.2500, L100.0100, L101.9900 #### [facility] [address] [place], [address] Creatinine [Mass/Vol] 0.95 mg/dL Normal 0.70-1.20 [facility] Comment on above: Performed By: #### L 500.2500, L100.0100, L101.9900 #### [facility] [address] [place], [address] GAP 12 Normal 5-15 [facility] Comment on above: Performed By: #### L 500.2500, L100.0100, L101.9900 #### [facility] [address] [place], [address] GFR/1.73 sq M.predicted among non-blacks MDRD (S/P/Bld) [Vol rate/Area] 67 mL/min/{1.73_m2} Normal >60 [facility] Comment on above: Result Comment: mL/m in/1.73m2 CKD-EPI Creatinine Equation (2020) Performed By: #### L 500.2500, L100.0100, L101.9900 #### [facility] [address] [place], [address] Globulin (S) [Mass/Vol] 2.8 g/dL Normal 2.2-4.2 [facility] Comment on above: Performed By: #### L 500.2500, L100.0100, L101.9900 #### [facility] [address] [place], [address] Glucose [Mass/Vol] 97 mg/dL Normal 70-99 [facility] Comment on above: Performed By: #### L 500.2500, L100.0100, L101.9900 #### [facility] [address] [place], [address] Potassium [Moles/Vol] 3.8 mmol/L Normal 3.3-5.1 [facility] [facility] Comment on above: Performed By: #### L 500.2500, L100.0100, L101.9900 #### [facility] [address] [place], [address] Sodium [Moles/Vol] 141 mmol/L Normal 133-145 [facility] Comment on above: Performed By: #### L 500.2500, L100.0100, L101.9900 #### [facility] [address] [place], [address] T PROT 6.7 g/dL Normal 5.9-8.4 [facility] Comment on above: Performed By: #### L 500.2500, L100.0100, L101.9900 #### [facility] [address] [place], [address] Urea nitrogen [Mass/Vol] 20 mg/dL High 4-19 [facility] Comment on above: Performed By: #### L 500.2500, L100.0100, L101.9900 #### [facility] [address] [place], [address] Glomerular filtration rate ( GFR) estimation/1.73 sq m using serum, plasma, or whole bOrdered By: Rigoberto Beam on 08-10-2024 GFR/1.73 sq M.predicted among non-blacks MDRD (S/P/Bld) [Vol rate/Area] 67 mL/min/{1.73_m2} >60 [facility] Comment on above: mL/min/1.73m2 CKD-EP I Creatinine Equation (2020) Hemoglobin A1con 08-10-2024 HbA1c (Bld) [Mass fraction] 6.1 % High <=5.6 [facility] Comment on above: Result Comment: Norm al < 5.7 % Prediabetic 5.7 - 6.4 % Diabetic >or= 6.5 % Please note range changes. Performed By: #### L 501.9985, L500.4100, L500.4050, L501.9520 #### [facility] [address] [place], [address] Hemoglobin A1c percentageOrd ered By: Rigoberto Phipps on 08-10-2024 HbA1c (Bld) [Mass fraction] 6.1 % High <5.7 [facility] Comment on above: Normal < 5.7 % Predi abetic 5.7 - 6.4 % Diabetic >or= 6.5 % Please note range changes. LDL calc ser/plasOrdered By: Rigoberto Phipps on 08-10-2024 Cholesterol in LDL [Mass/Vol] 81 mg/dL [facility] Comment on above: Gadqjdlbbr=084-252 m g/dL & Higher Eghk=538 mg/dL or greater Laboratory - Chemistry and C hemistry - challengeOrdered By: Rigoberto Phipps on 08-10-2024 AST [Catalytic activity/Vol] 23 U/L <32 [facility] Lipid Profileon 08-10-2024 CHOL:HDL 2.43 Normal [facility] Comment on above: Performed By: #### L 500.2500, L100.0100, L101.9900 #### [facility] [address] [place], [address] Cholesterol [Mass/Vol] 172 mg/dL Normal <=200 [facility] Comment on above: Result Comment: Chol esterol level, Desirable <200 mg/dL Borderline high cholesterol 200-239 mg/dL High cholesterol >=240 mg/dL Recommendations of the NCEP Adult Treatment Panel for the following risk-cutoff thresholds for the [place] population. Performed By: #### L 500.2500, L100.0100, L101.9900 #### [facility] [address] [place], [address] Cholesterol in HDL [Mass/Vol] 71 mg/dL [facility] Comment on above: Result Comment: Laura onal Cholesterol Education Program (NCEP) guidelines: <40 mg/dL: Low HDL-cholesterol (major risk factor for CHD) >= 60 mg/dL: High HDL-cholesterol (negative risk factor for CHD) HDL-cholesterol is affected by a number of factors, e.g. smoking, exercise, hormones, sex and age. Performed By: #### L 500.2500, L100.0100, L101.9900 #### [facility] [address] [place], [address] Cholesterol in LDL [Mass/Vol] 81 mg/dL [facility] Comment on above: Result Comment: Bord sstqap=506-302 mg/dL Higher Dyue=742 mg/dL or greater Performed By: #### L 500.2500, L100.0100, L101.9900 #### [facility] [address] [place], [address] Cholesterol in VLDL [Mass/Vol] 20 mg/dL Normal 5-40 [facility] Comment on above: Performed By: #### L 500.2500, L100.0100, L101.9900 #### [facility] [address] [place], [address] Triglyceride [Mass/Vol] 100 mg/dL Normal [facility] Comment on above: Result Comment: The drugs N-Acetylcysteine and Metamizole may falsely depress this assay. Normal range: <150 mg/dL Borderline High: 150-199 mg/dL High: 200-499 mg/dL Very High: >500 mg/dL Performed By: #### L 500.2500, L100.0100, L101.9900 #### [facility] [address] [place], [address] Potassium measurement (mass/ volume)Ordered By: Rigoberto Phipps on 08-10-2024 Potassium (Unsp spec) [Mass/Vol] 3.8 mmol/L 3.3-5.1 [facility] Screening total cholesterol/ high density lipoprotein (HDL) cholesterol ratioOrdered By: Rigoberto Phipps on 08-10-2024 Cholesterol.total/Choles terol in HDL [Mass ratio] 2.43 {ratio} [facility] Serum creatinine measurement (mass/volume)Ordered By: Rigoberto Phipps on 08-10-2024 Creatinine [Mass/Vol] 0.95 mg/dL 0.70-1.20 [facility] Serum globulin measurementOr dered By: Rigoberto Phipps on 08-10-2024 Globulin (S) [Mass/Vol] 2.8 g/dL 2.2-4.2 [facility] Serum glucose measurement (m ass/volume)Ordered By: Rigoberto Phipps on 08-10-2024 Glucose [Mass/Vol] 97 mg/dL 70-99 [facility] Serum or plasma alanine garay otransferase (ALT) measurementOrdered By: Melissan Beam on 08-10-2024 ALT [Catalytic activity/Vol] 24 U/L <35 [facility] Serum or plasma albumin dashawn urement (mass/volume)Ordered By: Rigoberto Phipps on 08-10-2024 Albumin [Mass/Vol] 4.0 g/dL 3.4-4.8 [facility] Serum or plasma albumin/glob ulin mass ratioOrdered By: Rigoberto Phipps on 08-10-2024 Albumin/Globulin [Mass ratio] 1.4 {ratio} 0.9-2.4 [facility] Serum or plasma alkaline zack sphatase measurementOrdered By: IsaiLabotecn Desire on 08-10-2024 ALP [Catalytic activity/Vol] 98 U/L 35-104 [facility] Serum or plasma calcium dashawn urement (mass/volume)Ordered By: Rigoberto Phipps on 08-10-2024 Calcium [Mass/Vol] 9.1 mg/dL 7.6-11.0 [facility] Serum or plasma cholesterol in HDL measurement (mass/volume)Ordered By: Rigoberto Phipps on 08-10-2024 Cholesterol in HDL [Mass/Vol] 71 mg/dL >40 [facility] Comment on above: National Cholesterol Education Program (NCEP) guidelines:<40 mg/dL: Low HDL-cholesterol (major risk factor for CHD)>= 60 mg/dL: High HDL-cholesterol (negative risk factor for CHD)HDL-cholesterol is affected by a number of factors, e.g. smoking, exercise, hormones, sex and age. Serum or plasma cholesterol measurement (mass/volume)Ordered By: Rigoberto Phipps on 08-10-2024 Cholesterol [Mass/Vol] 172 mg/dL <201 [facility] Comment on above: Cholesterol level, D esirable <200 mg/dLBorderline high cholesterol 200-239 mg/dLHigh cholesterol >=240 mg/dLRecommendations of the NCEP Adult Treatment Panel for the following risk-cutoff thresholds for the [place] population. Serum or plasma urea nitroge n measurement (mass/volume)Ordered By: Rigoberto Phipps on 08-10-2024 Urea nitrogen [Mass/Vol] 20 mg/dL High 4-19 [facility] Sodium levelOrdered By: Isai Phipps on 08-10-2024 Sodium [Moles/Vol] 141 mmol/L 133-145 [facility] TSH DL <= 0.005 mIU/L QnOrde red By: Rigoberto Phipps on 08-10-2024 TSH Qn 0.331 uIU/mL 0.300-4.200 [facility] Thyroid Stim Hormone (TSH)on 08-10-2024 TSH 0.331 uIU/mL Normal 0.300-4.200 [facility] Comment on above: Performed By: #### L 500.2500, L100.0100, L101.9900 #### [facility] [address] [place], [place], [id number] Total proteinOrdered By: Carrillo Phipps on 08-10-2024 Protein [Mass/Vol] 6.7 g/dL 5.9-8.4 [facility] Triglycerides measurementOrd ered By: Rigoberto Phipps on 08-10-2024 Triglyceride [Mass/Vol] 100 mg/dL <199 [facility] Comment on above: The drugs N-Acetylcy steine and Metamizole may falsely depress this assay. Normal range: <150 mg/dLBorderline High: 150-199 mg/dLHigh: 200-499 mg/dLVery High: >500 mg/dL Bedside Glucoseon 05-31-2025 FINGERSTICK GLU 124 mg/dL High 74-106 [facility] Comment on above: Result Comment: RY FLANAGAN OF PATIENT CARE PER NURSING PROTOCOL Performed By: #### L 500.2500, L100.0100, L101.9900 #### [facility] [address] [place], [address] Emergency Department Summary on 07-29-2024 Emergency Department Summary [facility] Medical Records Department [address] [place] [address] Emergency Department Summary 07/29/24 MR#: [id number] Acct: [id number] Name: PRASHANTH ARIZA Rep #: [id number] : 1960 64 From: Raquel RILEY PCP: Care Physician,No Primary Status:DEP ER Location: ED HPI History of Present Illness Chief Complaint: Neuro S/Sx Narrative Narrative: 64-year-old female states 6 days ago she developed a left frontal temporal headache. She initially was seen at [facility] day of onset and had a CT scan of her brain and was given Toradol with some improvement in headache. She was seen at [place] [facility] 2 days ago with a left-sided [...] or lower extremity drift, normal finger-nose and ofgc-hr-radi, normal gait. PSYCH: Normal affect. Const Vital [...] neurological deficits (more content not included)... [facility] Gl[facility] at [facility] deOrdered By: ED PROVIDER on 07-29-2024 Glucose [Mass/Vol] 124 mg/dL High 74-106 [facility] Comment on above: MANAGEMENT OF PATIEN T CARE PER NURSING PROTOCOL Sinus/Facial Bone WITH Contr ason 07-29-2024 Sinus/Facial Bone WITH Contras [facility] Imaging Services [address] [place], [place] [address] Sinus/Facial Bone WITH Contras MR#: [id number] Acct: [id number] Name: PRASHANTH ARIZA Rep #: [id number] : 1960 F 64 From: Tavia aDy PCP: Care Physician,No Primary Status: REG ER Study: Sinus/Facial Bone WITH Contras Date of Exam: 0 07/29/24 Exam# [id number] Ordering Dr: Raquel Nunez PROCEDURE: SINUS/FACIAL BONE [...] follow-up under nonemergent outpatient basis. 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 Normal [facility] Absolute lymphocyte countOrd ered By: Cynthia Bell on 07-27-2024 Lymphocytes Auto (Unsp spec) [#/Vol] 1.93 10*3/uL 0.83-4.51 [facility] Absolute neutrophil countOrd ered By: Cynthia Bell on 07-27-2024 Neutrophils (Bld) [#/Vol] 6.5 10*3/uL 2.0-7.7 [facility] Anion gap in Serum or Plasma Ordered By: Cynthia Bell on 07-27-2024 Anion gap [Moles/Vol] 13 mmol/L 5-15 [facility] Automated lymphocyte count a s percentage of total leukocytesOrdered By: Cynthia Bell on 07-27-2024 Lymphocytes/100 WBC Auto (Unsp spec) 20.3 % 19-41 [facility] BUN/creatinine ratioOrdered By: Cynthia Bell on 05-29-2025 Urea nitrogen/Creatinine [Mass ratio] 13.7 mg/mg 10- [facility] Basic Metabolic Profile (BMP )on 07-27-2024 BUN/CRE 13.7 RATIO Normal - [facility] Comment on above: Performed By: #### L 500.2500, L100.0100, L101.9900 #### [facility] [address] [place], [address] Calcium [Mass/Vol] 8.9 mg/dL Normal 7.6-11.0 [facility] Comment on above: Performed By: #### L 500.2500, L100.0100, L101.9900 #### [facility] [address] [place], [address] Chloride [Moles/Vol] 103 mmol/L Normal 98-108 [facility] Comment on above: Performed By: #### L 500.2500, L100.0100, L101.9900 #### [facility] [address] [place], [address] CO2 [Moles/Vol] 22.2 mmol/L Normal 21.0-32.0 [facility] Comment on above: Performed By: #### L 500.2500, L100.0100, L101.9900 #### [facility] [address] [place], [address] Creatinine [Mass/Vol] 0.88 mg/dL Normal 0.70-1.20 [facility] Comment on above: Performed By: #### L 500.2500, L100.0100, L101.9900 #### [facility] [address] [place], [address] ECRCL 92.05 ml/min Normal 50-250 [facility] Comment on above: Performed By: #### L 500.2500, L100.0100, L101.9900 #### [facility] [address] [place], [address] GAP 13 Normal 5-15 [facility] Comment on above: Performed By: #### L 500.2500, L100.0100, L101.9900 #### [facility] [address] [place], [address] GFR/1.73 sq M.predicted among non-blacks MDRD (S/P/Bld) [Vol rate/Area] 74 mL/min/{1.73_m2} Normal >60 [facility] Comment on above: Result Comment: mL/m in/1.73m2 CKD-EPI Creatinine Equation (2020) Performed By: #### L 500.2500, L100.0100, L101.9900 #### [facility] [address] [place], [address] Glucose [Mass/Vol] 96 mg/dL Normal 70-99 [facility] Comment on above: Performed By: #### L 500.2500, L100.0100, L101.9900 #### [facility] [address] [place], [address] Potassium [Moles/Vol] 3.9 mmol/L Normal 3.3-5.1 [facility] Comment on above: Performed By: #### L 500.2500, L100.0100, L101.9900 #### [facility] [address] [place], [address] Sodium [Moles/Vol] 138 mmol/L Normal 133-145 [facility] Comment on above: Performed By: #### L 500.2500, L100.0100, L101.9900 #### [facility] [address] [place], [address] Urea nitrogen [Mass/Vol] 12 mg/dL Normal 4-19 [facility] Comment on above: Performed By: #### L 500.2500, L100.0100, L101.9900 #### [facility] [address] [place], [address] Basophil percentageOrdered B y: Cynthia Bell on 07-27-2024 Basophils/100 WBC (Bld) 0.5 % 0-1 [facility] CBC W/Diff, Automatedon 06-30 Absolute Lymph 1.93 X10 3/uL Normal 0.83-4.51 [facility] Comment on above: Performed By: #### L 500.2500, L100.0100, L101.9900 #### [facility] [address] [place], [address] Absolute Neut 6.5 X10 3/uL Normal 2.0-7.7 [facility] Comment on above: Performed By: #### L 500.2500, L100.0100, L101.9900 #### [facility] [address] [place], [address] Basophils/100 WBC (Bld) 0.5 % Normal 0-1 [facility] Comment on above: Performed By: #### L 500.2500, L100.0100, L101.9900 #### [facility] [address] [place], [address] Eosinophils/100 WBC (Bld) 0.4 % Normal 0-5 [facility] Comment on above: Performed By: #### L 500.2500, L100.0100, L101.9900 #### [facility] [address] [place], [address] Erythrocyte distribution width (RBC) [Ratio] 12.9 % Normal 11.6-14.6 [facility] Comment on above: Performed By: #### L 500.2500, L100.0100, L101.9900 #### [facility] [address] [place], [address] Hematocrit (Bld) [Volume fraction] 43.3 % Normal 37-47 [facility] Comment on above: Performed By: #### L 500.2500, L100.0100, L101.9900 #### [facility] [address] [place], [address] Hemoglobin (Bld) [Mass/Vol] 14.5 g/dL Normal 12.0-15.0 [facility] Comment on above: Performed By: #### L 500.2500, L100.0100, L101.9900 #### [facility] [address] [place], [address] IG% 0.200 Normal 0.0-0.9 [facility] Comment on above: Result Comment: IG% - Immature Granulocytes (promyelocytes, myelocytes and metamyelocytes) > 1% indicates that a LEFT SHIFT is Present. Performed By: #### L 500.2500, L100.0100, L101.9900 #### [facility] [address] [place], [address] Lymphocytes/100 WBC (Bld) 20.3 % Normal 19-41 [facility] Comment on above: Performed By: #### L 500.2500, L100.0100, L101.9900 #### [facility] [address] [place], [address] MCH (RBC) [Entitic mass] 31.3 pg Normal 27.0-32.0 [facility] Comment on above: Performed By: #### L 500.2500, L100.0100, L101.9900 #### [facility] [address] [place], [address] MCHC (RBC) [Mass/Vol] 33.5 g/dL Normal 32-36 [facility] Comment on above: Performed By: #### L 500.2500, L100.0100, L101.9900 #### [facility] [address] [place], [address] MCV (RBC) [Entitic vol] 93.3 fL Normal 81-99 [facility] Comment on above: Performed By: #### L 500.2500, L100.0100, L101.9900 #### [facility] [address] [place], [address] Monocytes/100 WBC (Bld) 10.3 % High 0-10 [facility] Comment on above: Performed By: #### L 500.2500, L100.0100, L101.9900 #### [facility] [address] [place], [address] Neutrophils/100 WBC (Bld) 68.3 % Normal 47-70 [facility] Comment on above: Performed By: #### L 500.2500, L100.0100, L101.9900 #### [facility] [address] [place], [address] Nucleated RBC (Bld) [#/Vol] 0 10*3/uL Normal 0-5 [facility] Comment on above: Performed By: #### L 500.2500, L100.0100, L101.9900 #### [facility] [address] [place], [address] Platelet mean volume (Bld) [Entitic vol] 9.7 fL Normal 6.2-12.0 [facility] Comment on above: Performed By: #### L 500.2500, L100.0100, L101.9900 #### [facility] [address] [place], [address] Platelets (Bld) [#/Vol] 286 10*3/uL Normal 150-450 [facility] Comment on above: Performed By: #### L 500.2500, L100.0100, L101.9900 #### [facility] [address] [place], [address] RBC (Bld) [#/Vol] 4.64 10*6/uL Normal 4.2-5.[address] [facility] Comment on above: Performed By: #### L 500.2500, L100.0100, L101.9900 #### [facility] [address] [place], [address] RDW SD 44.1 fl High 35.1-43.9 [facility] Comment on above: Performed By: #### L 500.2500, L100.0100, L101.9900 #### [facility] [address] [place], [address] WBC (Bld) [#/Vol] 9.5 10*3/uL Normal 4.4-11.0 [facility] Comment on above: Performed By: #### L 500.2500, L100.0100, L101.9900 #### [facility] [address] [place], [address] CTA Head AND Neck W/ Contras ton 07-27-2024 CTA Head AND Neck W/ Contrast [facility] Imaging Services [address] [place] [address] CTA Head AND Neck W/ Contrast MR#: [id number] Acct: [id number] Name: PRASHANTH ARIZA Rep #: [id number] : 1960 F 64 From: Hero barnhart MD PCP: Care Physician,No Primary Status: [facility] ER Study: CTA Head AND Neck W/ Contrast Date of Exam: Exam# [id number] Ordering Dr: Cynthia Bell DO PROCEDURE: CTA [...] RIGHT Vertebral: Unremarkable. LEFT Vertebral: Unremarkable. Anatomy: [place] anatomy is normal. Aneurysm or avm: No intracranial aneurysms or large vascular malformations are identified. Anterior cerebral arteries: Unremarkable: Middle cerebral arteries: Unremarkable. Basilar artery: Unremarkable. Posterior cerebral arteries: Unremarkable. Other major branches of the posterior circulation: Unremarkable. Major venous structures: Unremarkable. Other findings: Neck: Lungs: Bones: CT/CTA Head AND Neck W/ Contrast IMPRESSION: Unremarkable examination. Reading Location: [id number] CC: Dr. 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 [facility] Carbon dioxide, total [Moles /volume] in Central venous bloodOrdered By: Cynthia Bell on 07-27-2024 CO2 [Moles/Vol] 22.2 mmol/L 21.0-32.0 [facility] Chloride assayOrdered By: Yen Bell on 07-27-2024 Chloride [Moles/Vol] 103 mmol/L 98-108 [facility] Emergency Department Summary on 07-27-2024 Emergency Department Summary [facility] Medical Records Department [address] [place] [address] Emergency Department Summary 07/27/24 MR#: [id number] Acct: [id number] Name: PRASHANTH ARIZA Rep #: [id number] : 1960 64 From: Cynthia Bell DO PCP: Care Physician,No Primary Status:DEP ER Location: ED HPI History of Present Illness Chief Complaint: Headache Detail of Chief Complaint: Headache Informant: patient Narrative Narrative: Patient presents the emergency department complaint of a headache that started 4 days ago. Patient was seen at [facility] 2 days ago and had a [...] history of brain tumors or aneurysms. PFSH PFSH Home Medications ???Medication ???Instructions ???Recorded [...] Endocrine Endocrinology: Denies polydipsia, polyphagia or polyuria Hematologic/Lymphatic Hematologic/Lymphatic: Denies easy bleeding, easy bruising or lymphadenopathy [...] strength 5/ (more content not included)... [facility] Eosinophil percentageOrdered By: Cynthia Bell on 07-27-2024 Eosinophils/100 WBC (Bld) 0.4 % 0-5 [facility] Erythrocyte Sed Rateon 07-27 SED RATE 29 mm/hr Normal 0-30 [facility] Comment on above: Performed By: #### L 500.2500, L100.0100, L101.9900 #### [facility] [place], [address] Erythrocyte distribution wid th ratioOrdered By: Cynthia Bell on 07-27-2024 Erythrocyte distribution width (RBC) [Ratio] 12.9 % 11.6-14.6 [facility] Erythrocyte distribution wid th standard deviationOrdered By: Cynthia Bell on 07-27-2024 Erythrocyte distribution width (RBC) [Ratio] 44.1 fl High 35.1-43.9 [facility] Erythrocyte sedimentation ra teOrdered By: Cynthia Bell on 07-27-2024 ESR (Bld) [Velocity] 29 mm/h 0-30 [facility] Glomerular filtration rate ( GFR) estimation/1.73 sq m using serum, plasma, or whole bOrdered By: Cynthia Bell on 07-27-2024 GFR/1.73 sq M.predicted among non-blacks MDRD (S/P/Bld) [Vol rate/Area] 74 mL/min/{1.73_m2} >60 [facility] Comment on above: mL/min/1.73m2 CKD-EP I Creatinine Equation (2020) Hematocrit Auto (Bld) [Volum e fraction]Ordered By: Cynthia Bell on 07-27-2024 Hematocrit (Bld) [Volume fraction] 43.3 % 37-47 [facility] Hemoglobin measurementOrdere d By: Cynthia Bell on 07-27-2024 Hemoglobin (Bld) [Mass/Vol] 14.5 g/dL 12.0-15.0 [facility] Immature granulocytes/100 WB C Auto (Bld)Ordered By: Cynthia Bell on 07-27-2024 Immature granulocytes/100 WBC (Bld) 0.200 % 0.0-0.9 [facility] Comment on above: IG% - Immature Granu locytes (promyelocytes, myelocytes and metamyelocytes) > 1% indicates that a LEFT SHIFT is Present. MCV (mean corpuscular volume ) determinationOrdered By: Cynthia Bell on 07-27-2024 MCV (RBC) [Entitic vol] 93.3 fL 81-99 [facility] Mean corpuscular hemoglobin (MCH) determinationOrdered By: Cynthia Bell on 07-27-2024 MCH (RBC) [Entitic mass] 31.3 pg 27.0-32.0 [facility] Mean corpuscular hemoglobin concentration (MCHC) determinationOrdered By: Cynthia Bell on 07-27-2024 MCHC (RBC) [Mass/Vol] 33.5 g/dL 32-36 [facility] Mean platelet volume determi nationOrdered By: Cynthia Bell on 07-27-2024 Platelet mean volume (Bld) [Entitic vol] 9.7 fL 6.2-12.0 [facility] Monocyte percentageOrdered B y: Cynthia Bell on 07-27-2024 Monocytes/100 WBC (Bld) 10.3 % High 0-10 [facility] Neutrophil percentageOrdered By: Cynthia Bell on 07-27-2024 Neutrophils/100 WBC (Bld) 68.3 % 47-70 [facility] Nucleated red blood cell per centageOrdered By: Cynthia Bell on 07-27-2024 Nucleated RBC/100 WBC (Bld) [Ratio] 0 % 0-5 [facility] Platelet countOrdered By: Yen Bell on 07-27-2024 Platelets (Bld) [#/Vol] 286 10*3/uL 150-450 [facility] Potassium measurement (mass/ volume)Ordered By: Cynthia Bell on 07-27-2024 Potassium (Unsp spec) [Mass/Vol] 3.9 mmol/L 3.3-5.1 [facility] RBC Auto (Bld) [#/Vol]Ordere d By: Cynthia Bell on 07-27-2024 RBC (Bld) [#/Vol] 4.64 10*6/uL 4.2-5.[address] [facility] Serum creatinine measurement (mass/volume)Ordered By: Cynthia Bell on 07-27-2024 Creatinine [Mass/Vol] 0.88 mg/dL 0.70-1.20 [facility] Serum glucose measurement (m ass/volume)Ordered By: Cynthia Bell on 07-27-2024 Glucose [Mass/Vol] 96 mg/dL 70-99 [facility] Serum or plasma calcium dashawn urement (mass/volume)Ordered By: Cynthia Howellkathrin on 07-27-2024 Calcium [Mass/Vol] 8.9 mg/dL 7.6-11.0 [facility] Serum or plasma urea nitroge n measurement (mass/volume)Ordered By: Cynthia Bell on 07-27-2024 Urea nitrogen [Mass/Vol] 12 mg/dL 4-19 [facility] Sodium levelOrdered By: Roshan Bell on 07-27-2024 Sodium [Moles/Vol] 138 mmol/L 133-145 [facility] White blood cell (WBC) count Ordered By: Cynthia Howellkathrin on 07-27-2024 WBC (Bld) [#/Vol] 9.5 10*3/uL 4.4-11.[address] [facility] [address] HEAD OR BRAIN WITHOUT [...] on WedJuly 25, 2024 10:20:41 PM EDT [facility] Comment on above: Order Comment: Injur y/Trauma or Illness?:Illness/Other How long have you had these symptoms (acute/chronic)?:Acute Reason for exam?:headache and dizzy Type of Exam?:Initial Additional signs and symptoms?:headache and dizzy ED Prov Noteon 07-25-2024 ED Prov Note [facility] EMERGENCY DEPARTMENT ATTENDING NOTE: NAME: Prashanth Ariza CSN: [id number] 64 y.o. PCP: No, Physician History: Chief [...] components within normal limits Narrative: [facility] Laboratory Services has implemented the eGFR [...] bolus 1,000 mL (0 mL Intravenous Stopped 07/25/24 0929) ondansetron (ZOFRAN) injection 4 mg (4 mg Intravenous Given 07/25/242147) ketorolac (TORADOL) injection 15 mg (15 mg Intravenous Given 07/25/242233) acetaminophen (TYLENOL) tablet 975 mg (975 mg Oral Given 07/25/242233) After reviewing the items above, I did not look at previous medical documentation, such as recent hospitalizations, office visits, (more content not included)... Normal [facility] POC BASIC METABOLIC PANEL - [facility] 07-25-2024 Chloride [Moles/Vol] 107 mmol/L Normal 98-108 [facility] Comment on above: Order Comment: [facility] Laboratory Services has implemented the eGFR calculation approach that does not have a coefficient for race that conforms to the NKF-ASN Task Force Recommendations. CO2 [Moles/Vol] 25 mmol/L Normal 21-32 [facility] Comment on above: Order Comment: [facility] Laboratory Services has implemented the eGFR calculation approach that does not have a coefficient for race that conforms to the NKF-ASN Task Force Recommendations. Creatinine [Mass/Vol] 0.78 mg/dL Normal 0.60-1.20 [facility] Comment on above: Order Comment: [facility] Laboratory Services has implemented the eGFR calculation approach that does not have a coefficient for race that conforms to the NKF-ASN Task Force Recommendations. Glucose [Mass/Vol] 124 mg/dL High 65-99 [facility] Comment on above: Order Comment: [facility] Laboratory Services has implemented the eGFR calculation approach that does not have a coefficient for race that conforms to the NKF-ASN Task Force Recommendations. POC GFR 85 mL/min/1.73 m2 Normal >=60 [facility] Comment on above: Order Comment: [facility] Laboratory Services has implemented the eGFR calculation approach that does not have a coefficient for race that conforms to the NKF-ASN Task Force Recommendations. Result Comment: Beth mated GFR was calculated using the 2020 CKD-EPI creatinine equation. POC IONIZED CALCIUM 4.7 mg/dL Normal 4.5-5.3 [facility] Comment on above: Order Comment: [facility] Laboratory Services has implemented the eGFR calculation approach that does not have a coefficient for race that conforms to the NKF-ASN Task Force Recommendations. Potassium [Moles/Vol] 4.0 mmol/L Normal 3.5-5.1 [facility] Comment on above: Order Comment: [facility] Laboratory Services has implemented the eGFR calculation approach that does not have a coefficient for race that conforms to the NKF-ASN Task Force Recommendations. Sodium [Moles/Vol] 142 mmol/L Normal 135-145 [facility] Comment on above: Order Comment: [facility] Laboratory Services has implemented the eGFR calculation approach that does not have a coefficient for race that conforms to the NKF-ASN Task Force Recommendations. Urea nitrogen [Mass/Vol] 12 mg/dL Normal 8-25 [facility] Comment on above: Order Comment: [facility] Laboratory Services has implemented the eGFR calculation approach that does not have a coefficient for race that conforms to the NKF-ASN Task Force Recommendations. POC CBC AND DIFFERENTIALon 0 07-25-2024 BASOPHILS ABSOLUTE COUNT 0.02 K/mcL Normal 0.00-0.30 [facility] Basophils/100 WBC (Bld) 0.2 % Normal [facility] Eosinophils (Bld) [#/Vol] 0.08 10*3/uL Normal 0.00-0.50 [facility] Eosinophils/100 WBC (Bld) 0.9 % Normal [facility] Erythrocyte distribution width (RBC) [Ratio] 13.0 % Normal 11.6-14.8 [facility] Hematocrit (Bld) [Volume fraction] 46.6 % High 36.0-46.0 [facility] Hemoglobin (Bld) [Mass/Vol] 15.2 g/dL Normal 12.0-16.0 [facility] IG ABSOLUTE 0.01 K/mcL Normal 0.00-0.30 [facility] IG PERCENT 0.10 % Normal [facility] Comment on above: Result Comment: The IG parameter is the percentage of metamyelocytes, myelocytes and promyelocytes. An immature granulocyte count (IG) of 1% or more suggests the possibility of infection, an IG count of 3% is very likely related to an infection. Lymphocytes (Bld) [#/Vol] 1.88 10*3/uL Normal 0.90-4.00 [facility] Lymphocytes/100 WBC (Bld) 20.3 % Normal [facility] MCH (RBC) [Entitic mass] 31.1 pg Normal 26.0-34.0 [facility] MCV (RBC) [Entitic vol] 95.5 fL Normal 80.0-100.0 [facility] MEAN CORPUSCULAR HEMOGLOBIN CONC 32.6 g/dL Normal 31.0-37.0 [facility] Monocytes (Bld) [#/Vol] 0.68 10*3/uL Normal 0.30-0.90 [facility] Monocytes/100 WBC (Bld) 7.4 % Normal [facility] NEUTROPHILS ABSOLUTE COUNT 6.58 K/mcL Normal 1.70-7.00 [facility] Neutrophils/100 WBC (Bld) 71.1 % Normal [facility] Platelet mean volume (Bld) [Entitic vol] 9.5 fL Normal 9.4-12.4 [facility] Platelets (Bld) [#/Vol] 296 10*3/uL Normal 150-400 [facility] RBC (Bld) [#/Vol] 4.88 10*6/uL Normal 4.00-5.20 [facility] WBC (Bld) [#/Vol] 9.25 10*3/uL Normal 4.50-11.00 [facility] POC LIVER PANEL PLUS [facility] 07-25-2024 Albumin [Mass/Vol] 3.9 g/dL Normal 3.2-5.2 [facility] ALP [Catalytic activity/Vol] 106 U/L Normal 40-150 [facility] ALT [Catalytic activity/Vol] 12 U/L Normal 0-40 [facility] Amylase [Catalytic activity/Vol] 48 U/L Normal 25-115 [facility] Amylase [Catalytic activity/Vol] 21 U/L Normal 7-33 [facility] AST [Catalytic activity/Vol] 31 U/L Normal 0-45 [facility] Bilirubin [Mass/Vol] 1.1 mg/dL Normal 0.0-1.3 [facility] Protein [Mass/Vol] 7.6 g/dL Normal 6.0-8.0 [facility] ED Prov Noteon 12-05-2023 ED Prov Note HPI: 12/05/2023, Time: @MARLEEN@ Prashanth Bernal To is a 63 y.o. female presenting to [...] all other systems reviewed and are negative. - PAST HISTORY - Past Medical History: @[facility]@ Past Surgical History: has a past surgical [...] reviewed. Allergies: Patient has no known allergies. ------ RESULTS ----- All laboratory and radiology results have been personally reviewed by myself LABS: No results found for this or any previous visit. RADIOLOGY: Interpreted by Radiologist. No orders to display --- NURSING NOTES AND VITALS REVIEWED ----- The nursing notes within the ED encounter and vital signs as below have been reviewed. BP (!) 186/99 (BP Location: Left arm, Patient Position: Sitting) Pulse 94 Temp 98.2 degrees F (36.8 degrees C) (Temporal) Resp 18 Ht 5' 9 Wt 117.9 kg (260 lb) SpO2 96% BMI 38.40 kg/m Oxygen Saturation Interpretation: Normal -------PHYSICAL EXAM Constitutional/General : Alert and oriented x3, moderate apparent pain [...] the left and 60 on the right -------- ED COURSE/MEDICAL DECISION MAKING ------ Medications ketorolac (TORADOL) injection 30 mg (has [...] a day for 5 days . Follow-up: [facility] [address] [facility] [address] [facility] [id number] In 2 days Final Impression: 1. Left sided sciatica (Please note that portions of this note were completed with a voice recognition program. Efforts were made to edit the dictations but occasionally words are mis-transcribed.) Jarrod Redmond MD 12/05/23 0603 AUTHENTICATED BY JARROD REDMOND, ON 12/05/2023 06:03:58 [facility] Provider Note - ED v2on 08-30 [...] medications, allergies, medical history, and surgical history ALLERGIES/INTOLERANCES : No Known Allergies HEALTH HISTORY: No documented data. OUTPATIENT MEDICATIONS: Home Medications Review Status for Reconciliation: Complete Med Status: No Current Medications SIGNIFICANT EVENTS: No documented data. BINDER CHAINSTITCH: Is : no Is : no RESULTS/VITAL SIGNS VITAL SIGNS: T PRBP SpO2O2(LPM) %FiO2 Method 27-Sep-2019 12:42:[id number]/9 1 96 MEDICAL DECISION MAKING/ED COURSE MDM/ED COURSE: [...] in the subjective complaints of dizziness Integumentary: [place], warm, dry, and Intact. Neurologic: Alert, Oriented, [...] and answered. Patient Instructions: Vertigo CLINICAL IMPRESSION Diagnosis/Annotation: ED Dx Name:Benign paroxysmal positional vertigo Code:H81.10 Dispostion: discharged Type: home ATTESTATION CRITICAL CARE TIME Is this a critically ill patient: no Electronic Signatures: Pranav Naylor (OLERICULTURIST-HOME FIRE ALARM INSTALLER) (Signed 27-Sep-2019 13:06) Authored: Provider Note - ED v2 Last Updated: 27-Sep-2019 13:06 by Pranav Naylor (OLERICULTURIST-HOME FIRE ALARM INSTALLER) Normal [facility] Vital Signs Date Time Vital Sign Value Performing Clinician Charo staton 09-21-2024 21:33-0400 Body temperature 98.7 [degF] Dr. Cynthia Bell DO Work Phone: 2(336)987-684288 [place] [address] 09-21-2024 21:33-0400 Diastolic blood pressure 80 mm[Hg] Dr. Cynthia Bell DO Work Phone: 5(285)178-218088 [place] [address] 09-21-2024 21:33-0400 Heart rate 129 /min Dr. Cynthia Bell DO Work Phone: 0(160)556-315288 [place] [address] 09-21-2024 21:33-0400 Respiratory rate 19 /min Dr. Cynthia Bell DO Work Phone: 0(888)252-946388 [place] [address] 09-21-2024 21:33-0400 SaO2% (BldA) [Mass fraction] 93 % Dr. Cynthia Bell DO Work Phone: 9(291)541-815932 [place] [address] 09-21-2024 21:33-0400 Systolic blood pressure 132 mm[Hg] Dr. Cynthia Bell DO Work Phone: 1(234)461-627988 [place] [address] 09-21-2024 21:00-0400 Inhaled oxygen flow rate 2 L/min Dr. Cynthia Bell DO Work Phone: 4(380)596-845032 [place] [address] 09-21-2024 18:51-0400 Body mass index (BMI) [Ratio] 38.8 kg/m2 Dr. Cynthia Bell DO Work Phone: 4(435)823-959132 [place] [address] 09-21-2024 18:51-0400 Body weight 119.[address] Cynthia Bell DO Work Phone: 4(978)931-404588 [place] [address] 09-21-2024 18:47-0400 Body height 175.[address] Cynthia Bell DO Work Phone: 4(951)131-153688 [place] [address] 07-29-2024 13:29-0400 Body temperature 97.8 [degF] Dr. Cynthia Bell DO Work Phone: 9(040)496-746788 [place] [address] 07-29-2024 13:29-0400 Diastolic blood pressure 76 mm[Hg] Dr. Cynthia Bell DO Work Phone: 0(528)304-877532 [place] [address] 07-29-2024 13:29-0400 Heart rate 72 /min Dr. Cynthia Bell DO Work Phone: 1(839)428-486288 [place] [address] 07-29-2024 13:29-0400 Respiratory rate 16 /min Dr. Cynthia Bell DO Work Phone: 8(016)516-180388 [place] [address] 07-29-2024 13:29-0400 SaO2% (BldA) [Mass fraction] 94 % Dr. Cynthia Bell DO Work Phone: 3(803)458-304888 [place] [address] 07-29-2024 13:29-0400 Systolic blood pressure 145 mm[Hg] Dr. Cynthia Bell DO Work Phone: 3(993)427-469888 [place] [address] 07-29-2024 11:35-0400 Body height 175.[address] Cynthia Bell DO Work Phone: 7(004)419-815588 [place] [address] 07-29-2024 11:35-0400 Body mass index (BMI) [Ratio] 41 kg/m2 Dr. Cynthia Bell DO Work Phone: 8(536)098-580288 [place] [address] 07-29-2024 11:35-0400 Body weight 125.[address] Cynthia Bell DO Work Phone: 2(062)683-511088 [place] [address] 07-27-2024 12:23-0400 Body temperature 98.1 [degF] Dr. Cynthia Bell DO Work Phone: 1(601)045-094188 [place] [address] 07-27-2024 12:23-0400 Diastolic blood pressure 88 mm[Hg] Dr. Cynthia Bell DO Work Phone: 7(402)508-371088 [place] [address] 07-27-2024 12:23-0400 Heart rate 72 /min Dr. Cynthia Bell DO Work Phone: 2(461)927-160888 [place] [address] 07-27-2024 12:23-0400 Respiratory rate 16 /min Dr. Cynthia Bell DO Work Phone: 1(037)094-252688 [place] [address] 07-27-2024 12:23-0400 SaO2% (BldA) [Mass fraction] 99 % Dr. Cynthia Bell DO Work Phone: [facility] 07-27-2024 12:23-0400 Systolic blood pressure 157 mm[Hg] Dr. Cynthia Bell DO Work Phone: [facility] 07-27-2024 09:47-0400 Body height 175.[address] Cynthia Bell DO Work Phone: [facility] 07-27-2024 09:47-0400 Body mass index (BMI) [Ratio] 41.1 kg/m2 Dr. Cynthia Bell DO Work Phone: [facility] 07-27-2024 09:47-0400 Body weight 126.[address] Cynthia Bell DO Work Phone: [facility] Encounters Encounter Date Encounter Type Care Provider Facility Start: 09-21-2024 Evaluation and management of inpatient Dr. Jazmine Mayes MD -[facility] 3 Work Phone: Start: 09-21-2024 Non-patient / Non-visit Dr. Jazmine Mayes MD -[facility] Work Phone: Start: 09-19-[address] Pepe Herrera MD -[facility] Work Phone: Start: 09-19-2024 ambulatory [facility] Start: 09-12-2024 End: 09-12-[address] Cynthia Bell DO Work Phone: -Laboratory [facility] Start: 09-12-2024 End: 09-12-2024 Patient encounter procedure [facility] FINGERPRINT TECHNICIAN-C -Laboratory [facility] Start: 09-12-2024 End: 09-12-2024 ambulatory [facility] Facility[facility] Start: 08-10-2024 End: 08-10-[address] Cynthia Bell DO Work Phone: [facility] Work Phone: Start: 08-10-2024 End: 08-10-2024 Patient encounter procedure Rigoberto Phipps FINGERPRINT TECHNICIAN-C -Laboratory Work Phone: Start: 08-10-2024 End: 08-10-2024 ambulatory No Primary Care Physician Facility:[facility] Start: 07-29-2024 End: 07-29-2024 Emergency department patient visit Dr. Cynthia Bell DO Work Phone: -Emergency Department Work Phone: Start: 07-27-2024 End: 07-27-2024 Emergency department patient visit Dr. Cynthia Bell DO Work Phone: -Emergency Department Work Phone: Start: 07-25-2024 End: 07-25-2024 Emergency department patient visit PHYSICIAN NO [facility] Start: 12-05-2023 End: 12-05-2023 Emergency department patient visit PHYSICIAN NO [facility] Procedures Date Procedure Procedure Detail Performing Clinician Start: 09-21-2024 X-ray of chest, PA a nd lateral views Dr. Cynthia Bell DO Work Phone: Start: 09-21-[address] Cynthia Bell DO Work Phone: Start: 09-19-2024 MRI of brain with contrast Dr. Cynthia Bell DO Work Phone: Start: 09-12-[address] Ramesh Bell DO Work Phone: Start: 09-12-[address] Jay Jay Bell DO Work Phone: Start: 07-29-2024 CT of facial bones w ith contrast Dr. Cynthia Bell DO Work Phone: Start: 07-27-2024 CT angiography of he ad and neck Dr. Cynthia Bell DO Work Phone: Start: 07-27-[address] Cynthia Bell DO Work Phone: Plan of Treatment Date Care Activity Detail Author Start: 09-21-2024 Respiratory pathogens DNA and RNA panel - Respiratory specimen by ZACH with probe detection [facility] Start: 09-21-2024 Hospital admission, emergency, from emergency room, medical nature [facility] Start: 09-21-2024 Verification routine [facility] Start: 09-21-2024 Admission procedure [facility] Start: 09-21-2024 Streptococcus pneumoniae antigen assay [facility] Start: 09-21-2024 End: 09-21-2024 [facility] Start: 09-21-2024 Bacteria identified in Blood by Culture Blood Culture [facility] Start: 09-21-2024 Legionella Antigen Legionella Antigen [facility] Start: 09-21-2024 Streptococcus pneumoniae Antigen (M Streptococcus pneumoniae Antigen (M [facility] Start: 09-12-2024 Borrelia burgdorferi blot test [facility] Start: 07-29-2024 [facility] Start: 07-27-2024 [facility] Bilirubin measuremen t, urine [facility] Hemoglobin [Presence ] in Urine [facility] Laboratory data interpretation [facility] Legionella pneumophi la Ag [Presence] in Urine [facility] Measurement of keton es in urine using dipstick [facility] Microscopic urinalysis [facility] Organism count, microscopic method [facility] Patient Education [facility] Work Phone: Patient referral [facility] Work Phone: pH of Urine [facility] Specific gravity of Urine [facility] Urine dipstick for glucose [facility] Urine dipstick for leukocyte esterase [facility] Urine dipstick for nitrite [facility] Urine dipstick for protein [facility] Urine examination [facility] Urine microscopy: epithelial cells [facility] Urine microscopy: re d cells [facility] Urobilinogen [Presen ce] in Urine [facility] White blood cell count [facility] Payers Date Payer Category Payer Self-pay 2024 Unknown [id number] 1960 Unknown [id number] [id number] Unknown [id number] 2.16.8 [id number] Unknown [id number] 2.16.8 [id number] Unknown [id number] 2.16.8 [id number] Unknown [id number] 2.16.8 [id number] Unknown [id number] 2.16.8 [id number] Social History Date Type Detail Facility Start: 07-27-2024 End: 09-21-2024 Tobacco smoking status NHIS Never smoked tobacco (finding) [facility] Start: 1960 Sex Assigned At Female W [facility] Mental Status Date Assessment Result Facility 07-29-2024 Cognitive function Voice/Name [facility] Work Phone: 07-27-2024 Cognitive function Level Of Cons ciousness Awake;Alert;Appropriate;Follow s Commands [facility] Work Phone: Clinical Notes 07-27-2024 to 09-21-2024 Note Date & Type Note Facility 09-21-2024 History and physi allie note [facility] 09-21-2024 Discharge summary [facility] 09-21-2024 Radiology Diagnostic study note [facility] Imaging Services [address] [place] [address] Chest PA and Lateral MR#: [id number] Acct: [id number] Name: PRASHANTH AIRZA Rep #: [id number] : 1960 F 64 From: Brie Murphy MD PCP: ERIK Del Angel Status: REG E R Study:Chest PA and Lateral Date of Exam: 09/21/24 Exam# [id number] Ordering Dr: Nigel Negro MD PROCEDURE: CHEST PA AND LATERAL 09/21/2024 REASON FOR EXAM: COUGH, HYPOXIA, CLINICAL RIGHT LOWER LOBE PNEUMONI TECHNIQUE: CHEST PA AND LATERAL COMPARISON: None FINDINGS: Hardware: None Heart: The heart size is normal. Mediastinum: The mediastinal contour is unremarkable. Lungs: Increased lung markings at the right lung base, seen only on the frontal view. No pleural effusion. Bones: Degenerative changes are identified within the thoracic spine. RAD/Chest PA and Lateral IMPRESSION: Increased lung markings at the right lung base are nonspecific, and could represent developing atypical/viral infection, atelectasis or vascular congestion. Reading Location: [facility] CC: FINGERPRINT TECHNICIAN-C Kay Mares; Dr. Jarvis Negro MD ~ Offender Job Retention Specialist: Signed [facility] 09-21-2024 Discharge summary Note Date/Time September 21, 2024 8:50pm [facility] Medical Records Department [address] [place] [address] Emergency Department Summary 09/21/24 MR#: [id number] Acct: [id number] Name: PRASHANTH ARIZA Rep #:[id number] : 1960 64 From: Jarvis Negro MD PCP: ERIK Del Angel Status:REG E R Location: ED HPI History of Present Illness Chief Complaint: Shortness of Breath Detail of Chief Complaint: Slight cough, dyspnea, ENNIS and subjective fever with chills Informant: patient Onset/Context/Timing Onset: Yesterday Context: Sudden Onset Timing: Continuous and Waxes and wanes Quality: Dyspnea, ENNIS, nonproductive cough, fever Location: Respiratory Current Severity: Mild Maximum Severity: Severe Worsened by: Walking across the room Relieved by: Better with rest Associated Symptoms Associated Symptoms: HPI narrative Narrative Narrative: Patient is a 64-year-old woman. 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 She had a outpatient [facility] at [facility] this past Wednesday. She presents because of cough, shortness of breath, dyspnea on exertion, subjective fever with chills. She denies rhinorrhea, congestion postnasal drainage. She denies sore throat. Her cough is nonproductive. She denies history of VTE. She has no risk factors for VTE. She denies abdominal pain, nausea, vomiting or diarrhea. She denies dysuria, frequency, urgency or hematuria. She developed a lower extremity rash a couple of days ago. She was treated with prednisone and antiviral for her Gaines's palsy. MRI interpretation was normal intracranial contents no pituitary/parasellar masslesions. There was question of asymmetry of T2 hyperintense signal and enhancement of the left facial nerve tympanic and mastoid segments suggesting left facial neuritis. Radiologist commented this would better be assessed with a dedicated IAC protocol. Prior similar symptoms: No Recent Illness/Hospitalization: No PFSH PFSH Medical History (Updated 09/21/24 @ 20:[address] Jarvis Negro MD) Obesity Gaines's palsy Allergy/AdvReac Type Severity Reaction Status Date / Time No Known Allergies Allergy Verified 09/21/24 18:47 Surgical History H/O: Social History household members: spouse housing: house current occupational status: employed Smoking Status: Never smoker ROS ROS ED Constitutional Constitutional ED: Reports chills, fever(s), subjective and sweats; Denies weight loss Eyes Eyes: Denies blurry vision or change in vision ENT ENT ED: Denies ear pain, rhinorrhea or sore throat Cardiovascular Cardiovascular: Reports racing heartbeat; Denies chest pain, orthopnea, palpitations or paroxysmal nocturnal dyspnea Respiratory/Chest Respiratory/Chest: Reports cough, dyspnea and dyspnea on exertion; Denies orthopnea, paroxysmal nocturnal dyspnea or sputum Gastrointestinal Gastrointestinal: Denies abdominal pain, nausea or vomiting Genitourinary Genitourinary ED: Denies dysuria, hematuria or urinary frequency Musculoskeletal Musculoskeletal: Denies arthralgias or myalgias Integumentary Denies rash Neurologic Neurologic: Reports weakness; Denies headache(s) or paresthesias Endocrine Endocrinology: Denies cold intolerance or heat intolerance Hematologic/Lymphatic Hematologic/Lymphatic: Reports systems reviewed and no addt'l complaints, exceptas documented EXAM Physical Exam Const Vital Signs: 09/21/24 18:47 09/21/24 18:51 09/21/24 19:00 Temperature 100.4 F H 98.9 F Temperature Source Oral Oral Pulse Rate 150 H 123 H Respiratory Rate 22 H 14 Respiratory Effort Short of Breath Respiratory Depth Deep Respiratory Pattern Tachypnea Blood Pressure 125/87 H 124/80 H Blood Pressure Mean 99 94 Pulse Ox 92 97 Oxygen Delivery Method Room Air Nasal Cannula Nasal Cannula Oxygen Flow Rate (L/min) 2 2 09/21/24 19:00 09/21/24 19:51 09/21/24 20:00 Temperature 98.9 F 99.2 F H Temperature Source Oral Oral Pulse Rate 124 H 121 H Respiratory Rate 24 H 25 H Respiratory Effort Respiratory Depth Respiratory Pattern Blood Pressure 121/81 H 124/74 H Blood Pressure Mean 94 90 Pulse Ox 95 98 97 Oxygen Delivery Method Nasal Cannula Nasal Cannula Nasal Cannula Oxygen Flow Rate (L/min) 2 2 2 Positive well nourished and well developed Constitutional Narrative: BMI is 38.9. Patient is tachycardic, tachypneic febrile and pulse ox on room air in triage is 92% walking from triage to room 1 which is approximately 25 feet she became more dyspneic and saturation was 84%. She is pleasant on oxygen. General Appearance ED: well developed; Negative for cyanotic, diaphoretic, NAD or pallor HEENT Reports dry mucous membranes HEENT Narrative: HEENT exam is remarkable for Gaines's palsy on the left. Ears otherwise normal. Nares patent. Posterior pharynx is normal. Mucosa slightly dry. Mouth ED: Yes dry mucous membranes Mouth: dry mucous membranes Eyes PERRL and EOMs intact bilaterally General Eye ED: Negative for pale conjunctiva or scleral icterus Neck no lymphadenopathy, supple and no JVD Resp normal respiratory effort and No clear to auscultation bilaterally Auscultation: rales right lower (There is increased vocal fremitus and egophony as well.); Negative for rhonchi, wheezes or diminished lung sounds Cardio regular rhythm, S1 normal heart sound, S2 normal heart sound and no murmurs Rate: tachycardic GI normal to inspection, nondistended, normoactive bowel sounds, non-tender, non-distended and no masses; Negative for hepatosplenomegaly Back/Spine no CVA tenderness Extremity Negative for normal to inspection Extremity Narrative: Patient has multiple small nonblanching red dots suggestive of petechiae to bothlower extremities. Neuro oriented x3 and CN's II-XII intact bilaterally Sensorium / Orientation: alert Motor Exam: strength 5/5 throughout Psych mental status grossly normal Skin No no rashes or lesions noted, no wounds and skin turgor normal General Skin Exam: Negative for jaundice or pallor Sepsis Attestation Sepsis Alert: Yes Sepsis Attestation: Agree w/Sepsis Date exam was performed: 09/21/24 Time exam was performed: 19:08 Possible Source of Sepsis: Pulmonary Sepsis Organ Dysfunction Criteria Present: None MDM MDM MDM Narrative Medical decision making narrative: Clinically patient has right lower lobe pneumonia. She was started on Rocephin and azithromycin. Sepsis protocol was initiated. Patient was informed she willrequire admission. EKG was obtained to rule out ischemia since she is rapid. Chest x-ray did confirm clinical diagnosis of right lower lobe pneumonia. CBC, competence of metabolic panel, lactate and coags to assess endorgan dysfunction. She did receive 1 L of normal saline wide open. Her MRI reveals findings consistent with a neuritis of the left facial nerve. History & Record Review Additional record(s) reviewed:: Prior outpatient record and Prior ED visit (Patient was seen on July 29 for neuro symptoms. Patient at that time had CT of the face which revealed mild anemia of the left maxillary region and left masseter muscle without definitive abscess. There is also prominent bilateral cervical chain lymph nodes. There is also heterogeneous and multino) Lab Data Attestation: I reviewed the patient's lab results. Lab results narrative: White count is elevated 12,000. There is no shift. H&H is normal. Comprehensive metabolic panel is normal. Lactate is normal. Labs: Laboratory Results - last 24 hr 09/21/24 19:05 WBC 12.0 H RBC 4.75 Hgb 14.7 Hct 44.2 MCV 93.1 MCH 30.9 MCHC 33.3 RDW Std Deviation 49.0 H RDW Coeff of Satnam 14.2 Plt Count 278 MPV 10.4 Immature Gran % (Auto) 0.300 Neut % (Auto) 68.6 Lymph % (Auto) 19.8 Orange % (Auto) 10.1 H Eos % (Auto) 0.8 Baso % (Auto) 0.4 Absolute Neuts (auto) 8.2 H Absolute Lymphs (auto) 2.38 Nucleated RBC % 0 Sodium 140 Potassium 4.1 Chloride 103 Carbon Dioxide 23.4 Anion Gap 14 BUN 18 Creatinine 0.93 Estim Creat Clear Calc 84.40 Est GFR (MDRD) Non-Af 68 BUN/Creatinine Ratio 18.9 Glucose 99 Lactic Acid 1.4 Calcium 9.9 Total Bilirubin 0.61 AST 22 ALT 11 Alkaline Phosphatase 93 Total Protein 7.2 Albumin 4.2 Globulin 3.0 Albumin/Globulin Ratio 1.4 Radiography Chest X-Ray - ED: 2 View and Read by ED Physician (There is a minimal chronic changes. There is no obvious infiltrate. There is increased markings right lower lobe which may represent early pneumonia. There is no effusion. Cardiac silhouette size normal. Hilum is unremarkable. Osseous structures with no acute process. Reviewed interpreted by ) Diagnostic Testing: Clinical Impression(s) from Imaging Studies Chest X-Ray 09/21/24 20:03 IMPRESSION: Increased lung markings at the right lung base are nonspecific, and could represent developing atypical/viral infection, atelectasis or vascular congestion. Reading Location: [facility] EKG Initial EKG: Attestation: I personally reviewed and interpreted this EKG as follows: Interpretation: Sinus Tachycardia (Rate is 128. The EKG is normal other than sinus tachycardia. MD interval is 132 ms. Cures duration 82 ms. QT duration 102 ms. Gowen is normal) Management Discussion w/another healthcare provider: Hospitalist (Spoke with Dr. Mayes. Full admit MedSurg telemetry) Treatment and Re-Evaluation :: Patient was informed of her test results and x-ray results. Her heart rate has improved with 1 L of normal saline. Discharge Plan Dx/Rx/DC Orders Clinical Impression: Right lower lobe pneumonia, SIRS (systemic inflammatory response syndrome), Hypoxia, Gaines's palsy Disposition Disposition: Acute Care Hospital [facility] What to do if you have Problems For any increased pain, shortness of breath, bleeding, nausea or vomiting, chestpain, or any unexpected problems, contact your Primary Care Provider. Call [facility] ([phone]) or report to the closest Emergency Room. Call 911 if necessary. 09/21/242049 <Electronically signed by Jarvis Negro MD> Cosigner Signature (if applicable): CC: ERIK Mares ~ Signed [facility] Work Phone: [phone] Radiology Diagnostic study note [facility] Imaging Services [address] [place] [address] Sinus/Facial Bone WITH Contras MR#: [id number] Acct: [id number] Name: PRASHANTH ARIZA Rep #: [id number] : 1960 F 64 From: Corie Lowery MD PCP: Care Physician,No Primary Status: REG ER Study:Sinus/Facial Bone WITH Contras Date of Exam: 07/29/24 Exam# [id number] Ordering Dr: Raquel Philip PROCEDURE: SINUS/FACIAL BONE [...] and edema of the left masseter muscle withoutdefinite abscess or osseous/dental involvement. Heterogenous and multinodular right thyroid gland; consider dedicated thyroid ultrasound follow-up under nonemergent outpatient basis. Prominent bilateral cervical chain lymph nodes, likely reactive. CT/Sinus/Facial Bone WITH Contras IMPRESSION: Nonspecific mild edema of the left cheek soft tissues and edema of the left masseter muscle withoutdefinite abscess or osseous/dental involvement. Prominent bilateral cervical chain lymph nodes, likely reactive. Heterogenous and multinodular right thyroid gland; consider dedicated thyroid ultrasound follow-up under nonemergent outpatient basis. 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 LEFT Vertebral: Unremarkable. Anatomy: [place] anatomy is normal. Aneurysm or avm: No intracranial aneurysms or large vascular malformations are identified. Anterior cerebral arteries: Unremarkable: Middle cerebral arteries: Unremarkable. Basilar artery: Unremarkable. Posterior cerebral arteries: Unremarkable. Other major branches of the posterior circulation: Unremarkable. Major venous structures: Unremarkable. Other findings: Neck: Lungs: Bones: CT/CTA Head AND Neck W/ Contrast IMPRESSION: Unremarkable examination. Reading Location: [id number] CC: Dr. 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 Specialist: [facility] assessment information available [facility] Work Phone: Evaluation note* Diagnosis Onset Date Resolution Status Admit Date Hypoxia acute September 21 8:44pm Right lower lobe pneumonia acute September 21, 2024 8:44pm [facility] Work Phone: History and physical note Author Jazmine Mayes [facility] Note Date/Time September 21, 2024 9:07 pm [facility] Medical Records Department [address] [place] [address] H&P Exam - Hospitalist 09/21/242042 MR#: [id number] Acct: [id number] Name: PRASHANTH ARIZA Rep #:[id number] : 1960 64 From: Jazmine Mayes MD PCP: Kay Mares, FINGERPRINT TECHNICIAN-C Status:REG E R Location: ED HPI - General General Date of Admission: 09/21/24 Date of Service: 09/21/24 Chief Complaint: Dyspnea, cough, fever, chills. 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 In addition patient had onset petechial rash to bilateral lower extremities starting approximately 4 to 5 days prior to the onset of her upper respiratory symptoms. Workup in the ED included T1 100.4, heart rate 150, BP 125/87, respiratory rate 22, initially 92% on room air however de- saturated down to 84% on RA with any exertion in the ED with most recent repeat vitals T99.2, heart rate 121, BP 124/74, respiratory rate 25, 97% on 2 L nasal cannula, CBC with WC 12, Heenan 14.7, platelet 278 with left shift, CMP not marked appearing, BUN/creat 18/0.93, GFR 68, lactic acid 1.4, chest x-ray with increased lung markings at the right lung base nonspecific possibly developing and atypical/viral infection, atelectasis or vascular congestion, coags pending uponevaluation, EKG with sinus tachycardia with no acute evidence of ischemia. In the ED patient ministered 1 L normal saline, azithromycin 500 mg IV x 1, Rocephin 2 g IV x 1. PFSH Medical History Obesity Gaines's palsy Home Medications ?Medication ?Instructions ?Recorded ?Last Taken ?Type melatonin 10 mg capsule 10 mg PO QHS 09/21/24 Unknow n History peg 400-propylene glycol 0.4 %-0.3 drp ophthalmic (eye ) QHS bells 09/21/24 09/20/24 History % eye gel drops (GenTeal Tears palsy Severe Gel Drops) Allergy/AdvReac Type Severity Reaction Status Date / Time No Known Allergies Allergy Verified 09/21/24 18:47 Family History (Updated 09/21/24 @ 21:[address] Jazmine Mayes MD) Mother Diabetes Macular degeneration Father CAD (coronary artery disease) CVA (cerebral vascular accident) Heart disease Hypertension Prostate cancer Surgical History (Updated 09/21/24 @ 21:[address] Jazmine Mayes MD) H/O: Social History household members: spouse housing: house current occupational status: employed Smoking Status: Never smoker ROS ROS Narrative Admission Review of Systems: CONSTITUTIONAL: No weight loss, + fever, chills, weakness or fatigue. HEENT: + Recent diagnosis left-sided facial Gaines's palsy, ongoing deficits. Eyes: No visual loss, blurred vision, double vision or yellow sclerae. Ears, Nose, Throat: No hearing loss, sneezing, congestion, runny nose or sore throat. SKIN: No lesions, wounds, + bilateral lower extremity petechial rash. CARDIOVASCULAR: No chest pain, chest pressure or chest discomfort, palpitations,edema, orthopnea, syncopal events. RESPIRATORY: + Dyspnea worse with exertion, nonproductive cough. No wheezing, hemoptysis. GASTROINTESTINAL: No anorexia, nausea, vomiting or diarrhea, abdominal pain, melena, BRBPR. GENITOURINARY: No dysuria, frequency, urgency or retention. NEUROLOGICAL: + Recent diagnosis left-sided facial Gaines's palsy with ongoing deficits. No headache, dizziness, syncope, ataxia, numbness or tingling in the extremities, change in bowel or bladder control, seizure. MUSCULOSKELETAL: + muscle, back pain, joint pain or stiffness. HEMATOLOGIC: No anemia, bleeding or bruising. LYMPHATICS: No enlarged nodes. No history of splenectomy. PSYCHIATRIC: No history of depression or anxiety. ENDOCRINOLOGIC: No reports of sweating, cold or heat intolerance. No polyuria orpolydipsia. ALLERGIES: No history of asthma, hives, eczema or rhinitis. Vital Signs Vital Signs Vital Signs: 09/21/24 18:47 09/21/24 18:51 09/21/24 19:00 Temperature 100.4 F H 98.9 F Temperature Source Oral Oral Pulse Rate 150 H 123 H Respiratory Rate 22 H 14 Respiratory Effort Short of Breath Respiratory Depth Deep Respiratory Pattern Tachypnea Blood Pressure 125/87 H 124/80 H Blood Pressure Mean 99 94 Pulse Ox 92 97 Oxygen Delivery Method Room Air Nasal Cannula Nasal Cannula Oxygen Flow Rate (L/min) 2 2 09/21/24 19:00 09/21/24 19:51 09/21/24 20:00 Temperature 98.9 F 99.2 F H Temperature Source Oral Oral Pulse Rate 124 H 121 H Respiratory Rate 24 H 25 H Respiratory Effort Respiratory Depth Respiratory Pattern Blood Pressure 121/81 H 124/74 H Blood Pressure Mean 94 90 Pulse Ox 95 98 97 Oxygen Delivery Method Nasal Cannula Nasal Cannula Nasal Cannula Oxygen Flow Rate (L/min) 2 2 2 Weight Weight: 263 lb 3.711 oz Body Mass Index (BMI) 38.8 Physical Exam Narrative Physical Examination: General: Awake, alert, oriented x 3 and cooperative, seated upright in the ED bed in no apparent distress, fatigued, mild persistent tachycardia noted on monitor, on 2 L nasal cannula. Skin: Normal color, normal turgor, no icterus, no cyanosis except bilateral lower extremity petechial rash, blanching, occasional stage ecchymoses, abrasion. HEENT: AT/NC, EOMI, PERRLA, MMM, no carotid bruits, no obvious JVD elevation however thick neck makes evaluation difficult, evident left-sided facial Gaines's palsy with significant persistent deficit unable to raise eyebrow, completely close lid, smile. Lungs: Diminished, greater bases, right greater than left, mild rales right base, mildly increased respiratory rate but no distress, on 2 L nasal cannula supplementation, no appreciated ronchi or wheezing. Heart: Tachycardic with regular rhythm; no gallop, rub audible. Abdomen: Soft, obese, NTTP, ND, mildly hyperactive BS, no appreciated HSM. Extremities: No cyanosis, no clubbing, ankle not markedly pitting likely chronicedema. Neurological: Patient awake, alert, oriented as noted, cognitive function intact; pupils equally reactive to light and accommodation, cranial nerves grossly normal aside from persistent left-sided facial deficits with Gaines's palsy with noted inability to raise eyebrow, completely close lid, smile with significantly flattened nasolabial fold, otherwise moving all 4 extremities, strength moderately globally decreased. Psychiatric: Affect appears fatigued, no acute evidence of depressive or anxietyfeelings. Results Lab / Micro Data 09/21/24 19:05 09/21/24 19:05 Labs: Laboratory Results - last 24 hr 09/21/24 19:05: WBC 12.0 H, RBC 4.75, Hgb 14.7, Hct 44.2, MCV 93.1, MCH 30.9, MCHC 33.3, RDW Std Deviation 49.0 H, RDW Coeff of Satnam 14.2, Plt Count 278, MPV 10.4, Immature Gran % (Auto) 0.300, Neut % (Auto) 68.6, Lymph % (Auto) 19.8, Orange % (Auto) 10.1 H, Eos % (Auto) 0.8, Baso % (Auto) 0.4, Absolute Neuts (auto) 8.2 H, Absolute Lymphs (auto) 2.38, Nucleated RBC % 0, Sodium 140, Potassium 4.1, Chloride 103, Carbon Dioxide 23.4, Anion Gap 14, BUN 18, Creatinine 0.93, Estim Creat Clear Calc 84.40, Est GFR (MDRD) Non-Af 68, BUN/Creatinine Ratio 18.9, Glucose 99, Lactic Acid 1.4, Calcium 9.9, Total Bilirubin 0.61, AST 22, ALT 11, Alkaline Phosphatase 93, Total Protein 7.2, Albumin 4.2, Globulin 3.0, Albumin/Globulin Ratio 1.4 Imaging Radiology Impression Chest X-Ray 09/21/24 20:03 IMPRESSION: Increased lung markings at the right lung base are nonspecific, and could represent developing atypical/viral infection, atelectasis or vascular congestion. Reading Location: [id number] Assessment & Plan Assessment/Plan (1) Hypoxia: (2) Right lower lobe pneumonia: PLAN: Plan The patient is a 64 y/o F w/ PMHx: Obesity, CKD stage II per GFR trending, Left- sided Gaines's palsy with persistent deficits treated in June with prednisone and antiviral who [facility] ED on 09/21/2024 with history of onset over the last 48 hours dyspnea, worse with exertion with subjective fevers and chills and a slight nonproductive cough with increased fatigue and malaise prompting ED evaluation. #1. Acute Hypoxia with SIRS secondary to RLL Community Acquired Pneumonia, possible Viral with bilateral lower extremity petechial rash possibly viral exanthem with potential postviral bacterial pneumonia: CXR in the ED w/ concern for possible right lung base developing pneumonia. Will admit to MS telemetry obesity, maintain on oxygen with wean as tolerated to room air, continue ATC ipratropium, PRN albuterol, will give an additional 1 L IV fluid bolus given persistent tachycardia, maintain on IV Rocephin and Azithromycin ending further evaluation in case bacterial component, encourage HOB, IS parameters w/ pending sputum cultures, full respiratory viral panel, procalcitonin and urine antigens.Bld cx x 2 obtained in the ED. #2. History of Gaines's palsy: Patient treated in June for Gaines's palsy with course of prednisone therapy and antiviral regimen which was completed, follow-up 09/19/2024 MRI of the brain with questionable asymmetric T2 hyperintense signal enhancement the left facial nerve tympanic and mastoid segments suggesting left facial neuritis with no mass lesion or pathologic enhancement within the internal auditory canal. Encourage follow-up with ENT as previously arranged. #3. Chronic Kidney Disease Stage II per GFR trending: Admission BUN/Cr 18/0.93,GFR 68, baseline renal function 0.8-0.9, repeat BMP in AM. #4. Obesity: Weight loss and lifestyle changes encouraged. #5. DVT prophylaxis: Lovenox. Charges/Coding Visit Charges Inpatient E&M: 81179 Init Hosp L3 09/21/242106 <Electronically signed by Jazmine Mayes MD> Cosigner Signature (if applicable): CC: ERIK Mares; Dr. Jazmine Mayes MD~ Signed [facility] Work Phone: Hospital Discharge instructions Additional Instructions The facial [...] or underlying gland infection so I prescribed antibiotics.[facility] Work Phone: Reason for referral (narrative)No reason for referral information availableWSelect Medical Specialty [facility], [facility] Work Phone: Summary Purpose Family History Relationship Condition Age at Onset Recorded Date/T ousmane mother Diabetes mellitus Unknown Macular degeneration Unknown father Coronary artery disease Unknown Cerebrovascular accident (CVA) Unknown Cardiac disease Unknown Hypertension Unknown Malignant neoplasm of prostate Unknown Advance Directives Advance Directive Response Recorded Date/ Time Do you have a Healthcare Power of Receiver Setter? No July 27, 2024 11:32am Advance Directive Response Recorded Date/ Time Do you have a Healthcare Power of Receiver Setter? No July 27, 2024 11:32am Do you have a Healthcare Power of Receiver Setter? No July 29, 2024 11:33am Advance Directive Response Recorded Date/ Time Do you have a Healthcare Power of Receiver Setter? No September 21, 2024 7:00pm Do you have a Healthcare Power of Receiver Setter? No July 27, 2024 11:32am Do you have a Healthcare Power of Receiver Setter? No July 29, 2024 11:33am Chief Complaint and Reason for Visit Chief Complaint Admit Date SPIDER BITE July 27, 2024 9:47a m Chief Complaint Admit Date SPIDER BITE July 27, 2024 9:47a m NEURO July 29, 2024 11:17 am Chief Complaint Admit Date SPIDER BITE July 27, 2024 9:47a m NEURO July 29, 2024 11:17 am Benign neoplasm of pituitary gland September 19, 2024 6:54am Shortness of breath September 21, 2024 8:43 pm HYPOXIA, RLL PNA September 21, 2024 8:44 pm Reason for Visit Admit Date Hypoxia September 21, 2024 8:44 pm Right lower lobe pneumonia September 21 8:44pm Additional Source Comments INFORMATION SOURCE (unrecogn ized section and content) DATE CREATED AUTHOR 09/30/2019 [facility] DATE CREATED AUTHOR AUTHOR'S ORGANIZ ATION 07/30/2024 [facility] DATE CREATED AUTHOR AUTHOR'S ORGANIZ ATION 09/20/2024 [facility] Care Teams (unrecognized sec tion and [...] August 10, 2024 End: August 10, 2024 Rigoberto VALENTINE, FINGERPRINT TECHNICIAN-C Attending Provider Active Start: August 10, 2024 End: August 10, 2024 Zebulun Beam VSC, FINGERPRINT TECHNICIAN-C Referring Provider Active Start: August 10, 2024 End: August 10, 2024 Team Status: Active Member Role/Relationship Status Dates Kay Mares FINGERPRINT TECHNICIAN-C Primary Care Provider Active Team Status: Inactive Member Role/Relationship Status Dates Dr. Cynthia Bell DO Attending Provider Active S tart: July 27, 2024 End: July 27, 2024 Dr. Cynthia Bell , Emergency Provider Active S tart: July 27, [...] End: August 10, 2024 Zebulun Beam VSC, FINGERPRINT TECHNICIAN-C Attending Provider Active Start: August 10, 2024 End: August 10, 2024 Zebulun Beam VSC, FINGERPRINT TECHNICIAN-C Referring Provider Active Start: August 10, 2024 End: August 10, 2024 Team Status: Inactive Member Role/Relationship Status Dates Kay Mares NP-C Primary Care Provider Active Start: September 12, 2024 End: September 12, 2024 Kay Mares NP-C Attending Provider Active Start: September 12, 2024 End: September 12, 2024 Team Status: Active Member Role/Relationship Status Dates Dr. Pepe Herrera MD Attending Provider Activ e Start: September 19, 2024 Dr. Pepe Herrera MD Referring Provider Activ e Start: September 19, 2024 Kay Mares FINGERPRINT TECHNICIAN-C Primary Care Provider Active Start: September 19, 2024 Team Status: Active Member Role/Relationship Status Dates Kay Tannhof , FINGERPRINT TECHNICIAN-C Primary Care Provider Active Start: September 21, 2024 Dr. Jarvis Negro MD Referring Provider Active Sta rt: September 21, 2024 Dr. Jarvis Negro MD Emergency Provider Active Sta rt: September 21, 2024 Dr. Jazmine Mayes MD Attending Provider Active Start: September 21, 2024 Team Status: Active Member Role/Relationship Status Dates Kay Mares FINGERPRINT TECHNICIAN-C Primary Care Provider Active Start: September 21, 2024 Dr. Jarvis Negro MD Referring Provider Active Sta rt: September 21, 2024 Dr. Jarvis Negro MD Emergency Provider Active Sta rt: September 21, 2024 Dr. Jazmine Mayes MD Admit Provider Active St art: September 21, 2024 Dr. Jazmine Mayes MD Attending Provider Active Start: September 21, 2024 Goals (unrecognized section and content) Goals [...] BE BASED ON THE PRIMARY CLINICAL RECORDS. [facility] [employer] provides no warranty or guarantee of the accuracy or completeness of information in this document.
[2024-09-21] MEDS: 0.9% Saline Lock 10 ML Syringe IV (23:21)
[2024-09-21] MEDS: MELATONIN 3 MG TABLET PO (23:21)
[2024-09-21 23:31] LABS: Procalcitonin 0.05 ng/mL (<=0.10)
[2024-09-21] MEDS: 0.9% Normal Saline (1000mL) 1,000 ML 100 ML IV (23:47)
[2024-09-22] MEDS: MELATONIN 10 MG TABLET PO (02:09)
[2024-09-22] MEDS: Carboxymethylcellulose sodium gel dropperette 1 EACH OPHTHALMIC (02:09)
[2024-09-22 02:25] VITALS: BP 136/79; PULSE 90; RESP 20; TEMP 36.8; O2SAT 97
[2024-09-22 06:31] LABS: Hematocrit 35.2 % (37-47); Hemoglobin 11.5 g/dL (12.0-15.0); Immature Granulocytes Count 0.030 X10^3/uL (0.0-0.0); Mean Corp Hgb Conc 32.7 g/dL (32-36); Mean Corpuscular Volume 94.6 fL (81-99); Mean Platelet Vol. 10.1 fl (6.2-12.0); NRBC Flagged by Analyzer 0 % (0-5); Platelet Count 207 K/mm3 (150-450); RBC Distribution Width CV 14.3 % (11.6-14.6); RBC Distribution Width SD 49.0 fl (35.1-43.9); Red Blood Count 3.72 M/mm3 (4.2-5.4); White Blood Count 8.0 K/mm3 (4.4-11.0)
[2024-09-22] MEDS: Ipratropium 0.5 MG/2.5 ML SOLUTION INHALATION (06:59)
[2024-09-22 07:00] VITALS: PULSE 85; RESP 16; O2SAT 97
[2024-09-22 08:04] VITALS: BP 146/80; PULSE 95; RESP 16; TEMP 36.7; O2SAT 94
[2024-09-22 08:40] VITALS: O2SAT 84; O2SAT 92; O2SAT 94
[2024-09-22 08:41] LABS: AST(SGOT) 17 U/L (<=31); Alanine Aminotransfer ALT/SGPT 7 U/L (<=34); Albumin, Serum 3.2 g/dL (3.4-4.8); Alkaline Phosphatase 70 U/L (35-104); Anion Gap 10 (5-15); BUN 12 mg/dL (4-19); BUN/Creat Ratio 17.0 RATIO (10-20); Calcium,Total 8.1 mg/dL (7.6-11.0); Carbon Dioxide 20.0 mmol/L (21.0-32.0); Chloride 111 mmol/L (98-108); Estimated Creatinine Clearance 110.70 ml/min (50-250); Globulin 2.3 g/dL (2.2-4.2); Glucose 100 mg/dL (70-99); Potassium 3.8 mmol/L (3.3-5.1)
--- NOTE | 2024-09-22 09:50 | DCINST_ITS ---
Discharge Instructions DC O2, CPAP, BIPAP needs Home O2 Discharge instructions: No Dressing / Incision Discharge Activity: Return to Normal Activity Dressing / Incision Call your doctor if you observe: Fever of 101 or Higher, Shortness of breath, Dizziness, Fainting spells, Swelling in the ankles, Chest pain and Increased palpitations (irregular heartbeat) Follow Up Care Test Results: Test results from this visit will be discussed in further detail at your follow- up appointment, if applicable. Discharge Plan Admission Admit Date/Time: 09/21/24 20:44 Attending Provider: Efrain Garcia Primary Care Provider: Kay Mares Consulting Providers: Jazmine Mayes Instructions Patient Instructions: ED Pneumonia (Adult) Additional Instructions / Restrictions: Return to the hospital if you have increasing shortness of breath or increasing fevers. Please buy a pulse oximeter that we can track your oxygen levels at home and you need to follow-up with your PCP to have a 6-minute walk test to determine that you no longer need any oxygen. Currently only need 2 L with ambulation so I do not anticipate a long duration of oxygen requirement. Discharge Orders/Prescriptions Prescriptions: New azithromycin 500 mg tablet 500 mg PO DAILY 3 Days Qty: 3 0RF cefdinir 300 mg capsule 300 mg PO BID Qty: 14 0RF Continued melatonin 10 mg capsule 10 mg PO QHS GenTeal Tears Severe Gel Drops 0.4-0.3 % drops,gel 1 drp ophthalmic (eye) QHS Patient Comments: left eye only semaglutide (weight loss) 0.25 mg/0.5 mL pen injector 0.25 mg subcut QWEEK Referrals / Follow Up: Kay Mares, DEPUTY PROSECUTING ATTORNEY-C [Primary Care Provider] - Within 1 Week Disposition Disposition (needs filled in before D/C Order can be placed): Home, Self Care
--- NOTE | 2024-09-22 10:05 | DS.PCM_ITS ---
Providers Date of Admission: 09/21/24 Primary Care Physician: DALE Del AngelC Reason For Visit: HYPOXIA, RLL PNA Diagnosis Discharge Diagnosis (1) Hypoxia: Status: Acute Code(s): R09.02 - Hypoxemia (2) Right lower lobe pneumonia: Status: Acute Code(s): J18.9 - Pneumonia, unspecified organism Medications at Discharge Home Medications melatonin 10 mg capsule 10 mg PO QHS 09/21/24 peg 400-propylene glycol 0.4 %-0.3 % eye gel drops (GenTeal Tears Severe Gel Drops) 1 drp ophthalmic (eye) QHS bells palsy 09/21/24 semaglutide (weight loss) 0.25 mg/0.5 mL subcutaneous pen injector 0.25 mg subcut QWEEK weight loss 09/21/24 azithromycin 500 mg tablet 500 mg PO DAILY 3 days #3 tabs 09/22/24 cefdinir 300 mg capsule 300 mg PO BID #14 caps 09/22/24 Hospital Course Operations None Procedures None Summary of Care Provided Minutes Spent on Discharge: 33 Hospital Course: Per HPI: The patient is a 64 y/o F w/ PMHx: Obesity, CKD stage II per GFR trending, 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 In addition patient had onset petechial rash to bilateral lower extremities starting approximately 4 to 5 days prior to the onset of her upper respiratory symptoms. Workup in the ED included T1 100.4, heart rate 150, BP 125/87, respiratory rate 22, initially 92% on room air however de-saturated down to 84% on RA with any exertion in the ED with most recent repeat vitals T99.2, heart rate 121, BP 124/74, respiratory rate 25, 97% on 2 L nasal cannula, CBC with WC 12, Heenan 14.7, platelet 278 with left shift, CMP not marked appearing, BUN/creat 18/0.93, GFR 68, lactic acid 1.4, chest x-ray with increased lung markings at the right lung base nonspecific possibly developing and atypical/viral infection, atelectasis or vascular congestion, coags pending upon evaluation, EKG with sinus tachycardia with no acute evidence of ischemia. In the ED patient ministered 1 L normal saline, azithromycin 500 mg IV x 1, Rocephin 2 g IV x 1. Hospital Course: 1. Acute hypoxic insufficiency secondary to right lower lobe pneumonia?[age]-year-old female presented to the hospital with shortness of breath and signs and symptoms consistent with a right lower lobe pneumonia. She received a dose of Rocephin and azithromycin in the emergency room and today is feeling much better. She did not require any oxygen at rest and only 2 L nasal cannula with ambulation. She says that she feels much better and would like to go home. I discussed with her the possibility of staying 1 more day to see if we can get her off of oxygen tomorrow though it was not a guarantee however she says that she would feel better if she was able to go home today. She expressed understanding of the risks and benefits of going home therefore I provided her with a one-time dose of cefdinir 300 mg this morning as well as another dose of p.o. azithromycin 500 mg with discharge prescriptions as well. Will get home oxygen set up and I discussed with her the need to cotton picker operator a pulse oximeter from a local pharmacy just to monitor her oxygen requirements while at home. We also discussed in depth reasons to return to the hospital not limited to increasing fevers or increasing shortness of breath. I recommend she follow-up with her PCP next week. 2. Back in June she did have an episode with left-sided facial droop consistent with Gaines's palsy that was treated with prednisone and antivirals. She continues to have a left facial droop. Physical Exam Narrative General: Alert, Oriented x3, Cooperative, No apparent distress HEENT: Atraumatic, PERRLA, EOMI, Normocephalic Oral: Moist Mucosa Neck: Supple, No JVD Lungs: Diminished, Normal air movement, No rhonchi, No wheeze, No rales Cardiovascular: Regular rate, Regular Rhythm, Normal S1, Normal S2, No murmurs Abdomen: Soft, Non Tender, Non-Distended, No Hepato-splenomegaly Extremities: No edema, Capillary Refill Less than 3 Seconds Skin: No rashes, No breakdown Musculoskeletal: No Tenderness to Palpation of Joints or Extremities Neurological: No focal neurological deficits, moves all extremities, chronic left facial droop from Gaines's palsy since June Psych/Mental Status: Normal Affect, Appropriate Weight / BMI Weight Weight: 263 lb 14.293 oz Body Mass Index (BMI) 38.9 ABG / Lab / Microbiology Data 09/22/24 06:20 09/22/24 06:20 Laboratory: Laboratory Results - last 24 hr 09/21/24 19:05: WBC 12.0 H, RBC 4.75, Hgb 14.7, Hct 44.2, MCV 93.1, MCH 30.9, MCHC 33.3, RDW Std Deviation 49.0 H, RDW Coeff of Satnam 14.2, Plt Count 278, MPV 10.4, Immature Gran % (Auto) 0.300, Neut % (Auto) 68.6, Lymph % (Auto) 19.8, M jana % (Auto) 10.1 H, Eos % (Auto) 0.8, Baso % (Auto) 0.4, Absolute Neuts (auto) 8.2 H, Absolute Lymphs (auto) 2.38, Nucleated RBC % 0, PT 14.3, INR 1.1, APTT 25.0, Sodium 140, Potassium 4.1, Chloride 103, Carbon Dioxide 23.4, Anion Gap 14, BUN 18, Creatinine 0.93, Estim Creat Clear Calc 84.40, Est GFR (MDRD) Non-Af 68, BUN/Creatinine Ratio 18.9, Glucose 99, Lactic Acid 1.4, Calcium 9.9, Total Bilirubin 0.61, AST 22, ALT 11, Alkaline Phosphatase 93, Total Protein 7.2, Albumin 4.2, Globulin 3.0, Albumin/Globulin Ratio 1.4 09/21/24 19:56: Urine Color Yellow, Urine Clarity Sl. Cloudy, Urine pH 6.0, Ur Specific Maurice 1.020, Urine Protein 30 H, Urine Glucose (UA) Normal, Urine Ketones 5 H, Urine Occult Blood 50 H, Urine Nitrite Negative, Urine Bilirubin Negative, Urine Urobilinogen Normal, Ur Leukocyte Esterase 100 H, Urine RBC 0-5 SEEN, Urine WBC 10-25 SEEN, Ur Squamous Epith Cells 25-50 SEEN, Urine Bacteria 2+, Urine Mucus 0 SEEN 09/21/24 22:42: Procalcitonin 0.05 09/22/24 06:20: WBC 8.0, RBC 3.72 L, Hgb 11.5 L, Hct 35.2 L, MCV 94.6, MCH 30.9, MCHC 32.7, RDW Std Deviation 49.0 H, RDW Coeff of Satnam 14.3, Plt Count 207, MPV 10.1, Immature Gran % (Auto) 0.400, Neut % (Auto) 54.3, Lymph % (Auto) 31.5, M jana % (Auto) 11.7 H, Eos % (Auto) 1.6, Baso % (Auto) 0.5, Absolute Neuts (auto) 4.3, Absolute Lymphs (auto) 2.51, Nucleated RBC % 0, Sodium 141, Potassium 3.8, Chloride 111 H, Carbon Dioxide 20.0 L, Anion Gap 10, BUN 12, Creatinine 0.71, Estim Creat Clear Calc 110.70, Est GFR (MDRD) Non-Af 95, BUN/Creatinine Ratio 17.0, Glucose 100 H, Calcium 8.1, Total Bilirubin 0.43, AST 17, ALT 7, Alkaline Phosphatase 70, Total Protein 5.5 L, Albumin 3.2 L, Globulin 2.3, Albumin/Globulin Ratio 1.4 Microbiology: Microbiology 09/21/24 22:35 Nasal Secretion MRSA (PCR) - Final 09/21/24 22:45 Mucosa - Nasopharyngeal Respiratory Panel (PCR) - Final 09/21/24 19:56 Urine, Clean Catch Legionella Antigen - Final 09/21/24 19:56 Urine, Clean Catch Streptococcus pneumoniae Antigen (M - Final Radiography Diagnostic Testing: Radiology Impression Chest X-Ray 09/21/24 20:03 IMPRESSION: Increased lung markings at the right lung base are nonspecific, and could represent developing atypical/viral infection, atelectasis or vascular congestion. Reading Location: [id number]Sarah Instructions Call your doctor if you observe: Fever of 101 or Higher, Shortness of breath, Dizziness, Fainting spells, Swelling in the ankles, Chest pain and Increased palpitations (irregular heartbeat) DC O2, CPAP, BIPAP Needs Home O2 Discharge instructions: No Meaningful Use Info Meaningful Use Meaningful Use Diagnoses (Choose all that apply): None applicable Discharge Plan Admission Admit Date/Time: 09/21/24 20:44 Attending Provider: Efrain Garcia Primary Care Provider: Kay Mares Consulting Providers: Jazmine Mayes Instructions Patient Instructions: ED Pneumonia (Adult) Additional Instructions / Restrictions: Return to the hospital if you have increasing shortness of breath or increasing fevers. Please buy a pulse oximeter that we can track your oxygen levels at home and you need to follow-up with your PCP to have a 6-minute walk test to determine that you no longer need any oxygen. Currently only need 2 L with ambulation so I do not anticipate a long duration of oxygen requirement. Discharge Orders/Prescriptions Prescriptions: New azithromycin 500 mg tablet 500 mg PO DAILY 3 Days Qty: 3 0RF cefdinir 300 mg capsule 300 mg PO BID Qty: 14 0RF Continued melatonin 10 mg capsule 10 mg PO QHS GenTeal Tears Severe Gel Drops 0.4-0.3 % drops,gel 1 drp ophthalmic (eye) QHS Patient Comments: left eye only semaglutide (weight loss) 0.25 mg/0.5 mL pen injector 0.25 mg subcut QWEEK Referrals / Follow Up: Kay Mares, INTERNAL COMBUSTION ENGINE INSPECTOR-C [Primary Care Provider] - Within 1 Week Disposition Disposition (needs filled in before D/C Order can be placed): Home, Self Care Charges/Coding Visit Charges Inpatient E&M: 92163 Disch Hosp >30min
--- NOTE | 2024-09-22 10:18 | CASEMGMT ---
Addendum entered by Mayela Seymour 09/22/24 11:16: Referral sent to [employer] via [facility]port for oxygen at this time. Original Note: JHOAN NICHOLE Assessment: Face to Face with pt for initial transition planning/care coordination assessment. JHOAN NICHOLE introduced self and role at [facility], pt voices understanding and consents to assessment. Pt is A&O x4 and answers all questions appropriately at this time. Pt lying in bed in no distress on oxygen. Care providers, pharmacy, and demographics verified/updated. Admitting Dx: hypoxia, RLL Pna Strata Score: 2 PCP:Vishnu Specialists:TAVO Herrera [facility]erred [facility]acy: [facility] Insurance: [place] Prescription Benefit: yes LNOK: Usman Ariza, Living Arrangements: Pt lives with in a two story home with FFSU and 3 steps to enter. Pt reports she is I in ADL/IADLs. Pt denies concerns at home. Transportation: Pt drives self and denies concerns with transportation. DME:none HHC/SNF: Denies hx of Pt states no concerns with going home at time of dc. Pt is aware that she qualified for home oxygen. Provided pt with an in network list of DME companies, pt chose [employer]. Discussed with pt getting a pox, pt states she can afford this. Discussed the homegoing oxygen process and pt verbalizes understanding. Pt states no further concerns/needs. CM to follow. Advised pt to ask CM if any further questions/concerns/needs arise, voices understanding. Pt Goal: Home Plan: Home, oxygen set up Tad STAPLES CM
--- NOTE | 2024-09-22 10:55 | PHA.DC.MC.R ---
Pharmacy [facility] Counseling Pharmacy Service has performed discharge medication reconciliation and counseling for this patient. 1. AZITHROMYCIN 500MG PO DAILY X 3 DAYS 2. CEFDINIR 300MG PO BID X 7 DAYS The patient's discharge medication list was reviewed for discrepancies and discrepancies were resolved. The patient was counseled on the following discharge medications and changes in medications for homegoing were reviewed. The Reason for Use, instructions for use, and potential side effects were reviewed for all new medications. The patient's questions regarding all of their medications were answered. The patient was able to verbally demonstrate an understanding of their discharge medications. Medications at Discharge Home Medications melatonin 10 mg capsule 10 mg PO QHS 09/21/24 peg 400-propylene glycol 0.4 %-0.3 % eye gel drops (GenTeal Tears Severe Gel Drops) 1 drp ophthalmic (eye) QHS bells palsy 09/21/24 semaglutide (weight loss) 0.25 mg/0.5 mL subcutaneous pen injector 0.25 mg subcut QWEEK weight loss 09/21/24 azithromycin 500 mg tablet 500 mg PO DAILY 3 days #3 tabs 09/22/24 cefdinir 300 mg capsule 300 mg PO BID #14 caps 09/22/24
== END 2024-09-22 12:54 | disposition home or self-care (01) | DRG 195 ==
LOC: ED 20:37 → MS3 09-22 06:59
PROVIDERS: Admitting Provider Family Medicine; Emergency Provider Emergency Medicine; PCP Nurse Practitioner Family; Referring Provider Emergency Medicine; Visit Provider Family Medicine
DX: J18.9 Pneumonia, unspecified organism (principal); E66.9 Obesity, unspecified; G51.0 Bell's palsy; N18.2 Chronic kidney disease, stage 2 (mild); Z68.38 Body mass index [BMI] 38.0-38.9, adult; R09.02 Hypoxemia; R21 Rash and other nonspecific skin eruption
CPT/HCPCS: 36415; 71046; 80053; 81001; 83605; 84145; 85025; 85610; 85730; 87040; 87449; 87633; 87641; 93005; 94640; 97161; 97165; 99285; A4216; J0696

== ENCOUNTER → 2024-09-28 | Outpatient (CLI) | payer BC, SELFPAY ==
--- NOTE | 2024-09-28 15:33 | RAD_ITS ---
PROCEDURE: CHEST PA AND LATERAL 09/28/2024 REASON FOR EXAM: PNEUMONIA TECHNIQUE: CHEST PA AND LATERAL COMPARISON: Chest x-ray of 09/21/2024. RAD/Chest PA and Lateral IMPRESSION: [id number] thoracic spine degenerative changes are noted. The cardiomediastinal silhouette is within the normal range, and unchanged. Lungs show no clear infiltrate. No evidence of pulmonary edema. No pleural effusion or pneumothorax is noted. Reading Location: [place] [id number]
[2024-09-28 16:38] LABS: Hematocrit 41.2 % (37-47); Hemoglobin 13.3 g/dL (12.0-15.0); Immature Granulocytes Count 0.060 X10^3/uL (0.0-0.0); Mean Corp Hgb Conc 32.3 g/dL (32-36); Mean Corpuscular Volume 94.5 fL (81-99); Mean Platelet Vol. 9.8 fl (6.2-12.0); NRBC Flagged by Analyzer 0 % (0-5); Platelet Count 343 K/mm3 (150-450); RBC Distribution Width CV 13.8 % (11.6-14.6); RBC Distribution Width SD 47.3 fl (35.1-43.9); Red Blood Count 4.36 M/mm3 (4.2-5.4); White Blood Count 10.1 K/mm3 (4.4-11.0)
[2024-09-28 17:57] LABS: AST(SGOT) 24 U/L (<=31); Alanine Aminotransfer ALT/SGPT 9 U/L (<=34); Albumin, Serum 3.9 g/dL (3.4-4.8); Alkaline Phosphatase 98 U/L (35-104); Anion Gap 15 (5-15); BUN 10 mg/dL (4-19); BUN/Creat Ratio 11.1 RATIO (10-20); Calcium,Total 9.7 mg/dL (7.6-11.0); Carbon Dioxide 21.3 mmol/L (21.0-32.0); Chloride 104 mmol/L (98-108); Globulin 3.4 g/dL (2.2-4.2); Glucose 93 mg/dL (70-99); Potassium 4.2 mmol/L (3.3-5.1)
== END | disposition home or self-care (01) ==
PROVIDERS: PCP Nurse Practitioner Family
DX: J18.9 Pneumonia, unspecified organism (principal)
CPT/HCPCS: 36415; 71046; 80053; 85025

== ENCOUNTER → 2024-12-21 | Outpatient (CLI) | payer BC, SELFPAY ==
[2024-12-21 18:01] LABS: Syphilis Antibodies Nonreactive (Nonreactive)
[2024-12-25 14:08] LABS: ANTINUCLEAR ANTIBODIES DIRECT Negative (Negative)
== END | disposition home or self-care (01) ==
LOC: LAB 15:43
PROVIDERS: PCP Nurse Practitioner Family
DX: G51.0 Bell's palsy (principal)
CPT/HCPCS: 36415; 86038; 86225; 86695; 86696; 86780

== ENCOUNTER → 2025-01-11 | Outpatient (CLI) | payer BC, SELFPAY ==
--- NOTE | 2025-01-11 13:31 | MRI_ITS ---
PROCEDURE: BRAIN W/WO CONTRAST 01/11/2025 REASON FOR EXAM: GARCIA'S PALSY, NEURITIS TECHNIQUE: Procedure Code: [id number] Modality: MR Procedure: BRAIN W/WO CONTRAST Multiplanar and multisequence images were obtained. CONTRAST: VOLUME: mL COMPARISON: 09/19/2024. FINDINGS: The bilateral internal auditory canals appear unremarkable. The cisternal and canalicular segments of cranial nerves 7 and 8 appear unremarkable. Of note, enhancement of the geniculate ganglion and post ganglionic/mastoid segments of the bilateral cranial nerves are noted, which is not atypical. However, the enhancement of the left facial nerve is slightly more prominent than the right, raising the concern for left-sided facial neuritis. The cisternal and caval segments of cranial nerves 5 appear unremarkable. Bilateral Meckel's caves appear unremarkable. The bilateral cerebellar pontine angles appear unremarkable. No abnormal enhancement. 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 Otherwise the brain parenchyma appears unremarkable. The montiel-white matter differentiation is appropriate. The ventricles are normal in size and configuration. No midline shift. The midline structures are intact, specifically the corpus callosum, septum pellucidum, pituitary gland, and cerebellar vermis. The cervicomedullary junction appears unremarkable. Minimal mucosal thickening within the right maxillary sinus. Otherwise the paranasal sinuses and mastoid air cells are clear. Diffusion-weighted images demonstrate no restricted diffusion. No abnormal enhancement pattern. MRI/Brain W/WO Contrast IMPRESSION: Asymmetric increased enhancement of the left facial nerve, as described above a nd concerning for left-sided facial neuritis. This finding is similar to the previous study. Stable 8 mm pineal cyst. Otherwise unremarkable MRI of the brain. Reading Location: [id number]
--- OUTSIDE RECORDS SUMMARY | 2025-01-11 18:13 | XMS RPT_ITS | CCD ---
Author Organization [facility] Care Team Providers Care Major Gifts Officer Name Role Phone Dr. yCnthia Bell DO Emergency Provider [phone] Care Physician, No Primary Primary Care Provider Unavailable Dr. Matthew Ashby DO Emergency Provider NO, PHYSICIAN Primary Care Unavailable JARROD REDMOND Attending Unavailable NO, PHYSICIAN Primary Care Unavailable JOCELYN BOYLE Attending Unavailable Dr. Cynthia Bell DO Attending Provider Dr. Matthew Ashby DO Attending Provider Beam REALTIME CAPTIONER-C, Zebulun Attending Provider Beam REALTIME CAPTIONER-C, Zebulun Referring Provider Nighathotiara REALTIME CAPTIONER-C, Kay Primary Care Provider Tannhof REALTIME CAPTIONER-C, Kay Attending Provider Javier MACIEL, Dr. Cantu Attending Provider Dr. Pepe Herrera MD Referring Provider Marky MACIEL, Dr. Conley Referring Provider Dr. Jarvis Negro MD Emergency Provider Gerber MACIEL, Dr. Jazmine Bernal Attending Provider Gerber MACIEL, Dr. Jazmine Bernal Admit Provider Gerber MACIEL, Dr. Jazmine Bernal Other Provider Jose MACIEL, Dr. Efrain Hess Attending Provider Jose MACIEL, Dr. Efrain Hess Other Provider Care Physician, No Primary Primary Care Physicia n Unavailable Beam REALTIME CAPTIONER-C, Zebuslick Attending Physician Tannhof REALTIME CAPTIONER-C, Kay Primary Care Physician Tannhof REALTIME CAPTIONER-C, Kay Attending Physician Javier MACIEL, Dr. Cantu Attending Physician Marky MACIEL, Dr. Conley Emergency Department Physician Gerber MACIEL, Dr. Jazmine Bernal Attending Physician Marky MACIEL, Dr. Conley Referring Provider Gerber MACIEL, Dr. Jazmine Bernal Admitting Physician Gerber MACIEL, Dr. Jazmine Bernal Nurse Practitioner Jose MACIEL, Dr. Efrain Hess Attending Physician Jose MACIEL, Dr. Efrain Hess Nurse Practitioner Care Physician, No Primary Referring Provider Un available Chance MARSH-Hattie Smith Attending Physician Cynthia Bell Attending Unavailable Care Physician, No Primary Primary Care Unava ilable Care Physician, No Primary Primary Care Unava ilable Matthew Ashby Attending Unavailable Beam VSC, Zebuerikan Attending Unavailable Beam VSC, Zebulun Referring Unavailable Care Physician, No Primary Primary Care Unava ilable Beam VSC, Zebulun Primary Care Unavailable Hattie Fletcher Attending Unavailable Hattie Fletcher Referring Unavailable Efrain Garcia Attending Unavailable Jarvis Negro Referring Unavailable Tannhof, Kay Primary Care Unavailable Jazmine Mayes Admitting Unavailable Jazmine Mayes Consulting Unavailable Beam VSC, Zebulun Attending Unavailable Beam VSC, Zebulun Referring Unavailable Tannhof, Kay Primary Care Unavailable Tannhof, Kay Primary Care Unavailable Hattie Fletcher Attending Unavailable Hattie Fletcher Referring Unavailable Tannhof, Kay Primary Care Unavailable Tannhof, Kay Attending Unavailable Tannhof, Kay Primary Care Unavailable Hattie Fletcher Attending Unavailable Care Physician, No Primary Referring Unava ilable Efrain Garcia Attending Unavailable Marky, Jarvis Referring Unavailable Tannhof, Kay Primary Care Unavailable Jazmine Mayes Admitting Unavailable Jazmine Mayes Consulting Unavailable Efrain Garcia Consulting Unavailable Negro, Jarvis Referring Unavailable Kay Mares Primary Care Unavailable Jazmine Mayes Attending Unavailable Kay Mares Primary Care Unavailable Pepe Herrera Attending UnavailPepe Valenzuela Referring Unavaildeisy qunin Medications Current Medications Medication Drug Class(es) Dates Sig (Normalized) Sig (Original) biotin 5 mg oral capsule (1 source) Start: 12-07-19 take 1 capsule by mouth once daily Biotin 5 mg capsule Active 5 mg PO daily December 06, 2024 12:00am Complies with drug therapy carboxymethylcellulose sodium 5 mg/ml ophthalmic solution (1 source) Start: 12-07-19 Carboxymethylcellulose Sodium (Refresh Tears) 0.5 % drops Active 1 NMA OPHTHALMIC 4 to 6 times per day as needed December 06, 2024 12:00am Complies with drug therapy cholecalciferol 0.025 mg oral capsule (1 source) Vitamin D Start: 12-07-19 take 1 capsule by mouth once daily Cholecalciferol (Vitamin D3) 25 mcg (1,000 unit) capsule Active 25 ug PO daily December 06, 2024 12:00am Complies with drug therapy docosahexaenoic acid 144 mg / eicosapentaenoic acid 216 mg / vitamin e 2 unt oral capsule (1 source) Start: 12-07-19 25 [place]-3 Fatty Acids-Fish Oil (Fish Oil) 360-1,200 mg capsule Active 1 NMA PO daily December 06, 2024 12:00am Complies with drug therapy lutein 40 mg oral capsule (1 source) Start: 12-07-19 take 1 capsule by mouth once daily at mealtime Lutein 40 mg capsule Active 40 mg PO daily December 06, 2024 12:00am administer with meals Complies with drug therapy melatonin 10 mg oral capsule (4 sources) Start: 09-22-19 take 1 capsule by mouth at bedtime Melatonin 10 mg capsule Active 10 mg PO AT BEDTIME September 21, 2024 12:00am Complies with drug therapy Multivitamin (Multiple Vitamins) tablet (1 source) Start: 12-07-19 Multivitamin (Multiple Vitamins) tablet Active 1 {tbl} PO daily December 06, 2024 12:00am Complies with drug therapy potassium 99 mg extended release oral tablet (1 source) Start: 12-07-19 Potassium 99 mg tablet Active mg PO December 06, 2024 12:00am Complies with drug therapy Turmeric extract (1 source) Start: 12-07-19 Turmeric 400 mg capsule Active mg PO December 06, 2024 12:00am Complies with drug therapy Completed/Discontinued Medications Medication Drug Class(es) Dates Sig (Normalized) Sig (Original) amoxicillin 875 mg / clavulanate 125 mg oral tablet (7 sources) Penicillin-class Antibacterial Start: 07-29-2024 End: 09-21-2024 Amoxicillin-Pot Clavulanate 875-125 mg tablet Discontinued 1 {tbl} PO TWICE A DAY 14 7 0 July 29, 2024 12:00am September 21, 2024 8:25pm azithromycin 500 mg oral tablet (3 sources) Macrolide Antimicrobial Start: 09-22-2024 End: 12-06-2024 take 1 tablet by mouth once daily Azithromycin 500 mg tablet Discontinued 500 mg PO DAILY 3 3 0 September 22, 2024 12:00am December 06, 2024 10:57am cefdinir 300 mg oral capsule (3 sources) Cephalosporin Antibacterial Start: 09-22-2024 End: 12-06-2024 take 1 capsule by mouth twice daily Cefdinir 300 mg capsule Discontinued 300 mg PO TWICE A DAY 14 0 September 22, 2024 12:00am December 06, 2024 10:57am cephalexin 500 mg oral capsule (15 sources) Cephalosporin Antibacterial Start: 07-27-2024 End: 09-21-2024 take 1 capsule by mouth every six hours Cephalexin 500 mg capsule Discontinued 500 mg PO EVERY 6 HOURS July 29, 2024 12:00am September 21, 2024 8:25pm famciclovir 500 mg oral tablet (15 sources) Herpes Simplex Virus Nucleoside Analog DNA Polymerase Inhibitor Start: 07-27-2024 End: 09-21-2024 take 1 tablet by mouth every eight hours Famciclovir 500 mg tablet Discontinued 500 mg PO EVERY 8 HOURS July 29, 2024 12:00am September 21, 2024 8:25pm ketorolac tromethamine 10 mg oral tablet (7 sources) Nonsteroidal Anti-inflammatory Drug, Cyclooxygenase Inhibitor Start: 07-29-2024 End: 09-21-2024 take 1 tablet by mouth every eight hours as needed for pain Ketorolac 10 mg tablet Discontinued 10 mg PO Q8H as needed for pain July 29, 2024 12:00am September 21, 2024 8:25pm polyethylene glycol 400 0.004 mg/mg / propylene glycol 0.003 mg/mg ophthalmic gel (4 sources) Start: 09-21-2024 End: 12-06-2024 Peg 400-Propylene Glycol (Genteal Tears Severe Gel Drops) 0.4-0.3 % drops,gel Discontinued 1 NMA OPHTHALMIC AT BEDTIME September 21, 2024 12:00am December 06, 2024 10:58am bells palsy predniSONE 20 mg oral tablet (15 sources) Start: 07-29-2024 End: 09-21-2024 take 1 tablet by mouth once daily Prednisone 20 mg tablet Discontinued 20 mg PO DAILY July 29, 2024 12:00am September 21, 2024 8:25pm Start: 07-27-2024 End: 07-29-2024 take 1 tablet by mouth twice daily Prednisone 20 mg tablet Discontinued 20 mg PO TWICE A DAY 10 July 27, 2024 12:00am July 29, 2024 12:49pm Semaglutide (Weight Loss) (3 sources) Start: 09-21-2024 End: 12-06-2024 Semaglutide (Weight Loss) 0. 25 mg/0.5 mL pen injector Discontinued 0.25 mg SC EVERY WEEK September 21, 2024 12:00am December 06, 2024 10:58am weight loss Start: 09-21-2024 Semaglutide (W eight Loss) 0.25 mg/0.5 mL pen injector Active 0.25 mg SC EVERY WEEK September 21, 2024 12:00am weight loss Problems Active Problems Problem Classification Problem Date Documented Da te Episodic/Chronic Diseases of mouth; excluding dental (7 sources) Parotitis; Translations: [Acute sialoadenitis] 07-29-2024 Episodic Headache; including migraine (8 sources) Headache; Translations: [Headache] 07-27-2024 Episodic Headache; including migraine (3 sources) Headache; including migraine; Translations: [Headache, unspecified] Onset: 07-25-2024 Other injuries and conditions due to external causes (4 sources) Systemic inflammatory response syndrome; Translations: [Systemic inflammatory response syndrome (SIRS) of non-infectious origin without acute organ dysfunction] 09-21-2024 Episodic Other lower respiratory disease (8 sources) Hypoxia; Translations: [Hypoxemia] 09-21-2024 Episodic Other nervous system disorders (14 sources) Gaines's palsy; 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] 07-27-2024 Episodic Other nervous system disorders (2 sources) Gaines's palsy; 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] Onset: 01-01-2025 Episodic Unclassified (1 source) G51.0 - Gaines's palsy Past or Other Problems Problem Classification Problem Date Documented Date Episodic/Chronic Other and unspecified benign neoplasm (1 source) Benign neoplasm of pituitary gland; 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] Onset: 09-25-2024 Episodic Other injuries and conditions due to external causes (1 source) Other injury of unspecified body region, initial encounter; Translations: [Other injury of unspecified body region, initial encounter] Onset: 09-16-2024 Episodic Other lower respiratory disease (2 sources) Hypoxemia; Translations: [Hypoxemia] Onset: 09-27-2024 Episodic Other screening for suspected conditions (not mental disorders or infectious disease) (1 source) Encounter for screening for cardiovascular disorders; Translations: [Encounter for screening for cardiovascular disorders] Onset: 08-16-2024 Episodic Pneumonia (except that caused by tuberculosis or sexually transmitted disease) (10 sources) Right lower zone pneumonia; Translations: [Pneumonia, unspecified organism] Onset: 09-27-2024 09-21-2024 Episodic Spondylosis; intervertebral disc disorders; other back problems (2 sources) Sciatica, left side; Translations: [Sciatica, left side] Onset: 12-05-2023 Episodic Results Test Name Value Interpretation Reference Range Facility SULTANA w/ Reflex Mult Confirmon 12-27-2024 ANTI-DNA (DS)AB TNP Normal [facility] Comment on above: Performed By: #### L 501.080 #### [facility] [address] [place], [place], [id number] ANTI-SS-A TNP Normal [facility] Comment on above: Performed By: #### L 501.080 #### [facility] [address] [place], [address] ANTI-SS-B TNP Normal [facility] Comment on above: Performed By: #### L 501.080 #### [facility] [address] [place], [address] [id number] 12-27-2024 [facility] COM[facility] Normal . [facility] Comment on above: Order Comment: [id number] 5Tickborne Disease ATB TIGER RF Result Comment: Test Ordered: [id number] Tick-borne Disease Ab Profile Test(s) [id number] microti IgG was developed and its performance characteristics determined by [facility]. It has not been cleared or approved by the Food and Drug Administration. Lyme Total Antibody SHEY Negative CB Reference Range: Negative Lyme antibodies not detected. Reflex testing is not indicated. No laboratory evidence of infection with B. burgdorferi (Lyme disease). Negative results may occur in patients recently infected (less than or equal to 14 days) with B. burgdorferi. If recent infection is suspected, repeat testing on a new sample collected in 7 to 14 days is recommended. Babesia microti IgG <1:10 Reference Range: Neg:<1:10 E. chaffeensis IgG Negative BN Reference Range: Neg:<1:64 A. phagocytophilum IgG Negative BN Reference Range: Neg:<1:64 Result Comments: Comment BN Reference Range: . Antibody titers may be negative in the first 7-10 days of illness. A four-fold rise in IgG antibody titers for Babesia microti, Anaplasma phagocytophilum, and/or Ehrlichia chaffeensis in paired samples (acute and convalescent) supports the diagnosis of babesiosis, anaplasmosis, and/or ehrlichiosis, respectively. Performed at: [facility] [address] [id number] Sub Assembly Team Worker: Kyle James PhD, Phone: [phone] Performed at: [facility] [id number] Sub Assembly Team Worker: Archana Landa MD, Phone: [phone] Performed By: #### L 501.080 #### [facility] [address] [place], [place], [address] HSV 1 AND 2 IgGon 12-23-2024 HSV 1 IgG Reactive Abnormal Non Reactive [facility] Comment on above: Result Comment: Pl ease note reference interval change HSV-1 IgG testing performed using the [employer] HSV-1 IgG assay. Performed By: #### L 501.080 #### [facility] [address] [facility]. [place], [place], [id number] HSV 2 IgG Non-Reactive Normal Non Reactive [facility] Comment on above: Result Comment: Pl ease note reference interval change Current guidelines and recommendations do not recommend routine screening for HSV-2 in asymptomatic individuals, including those that are . The detection of HSV-2 IgG antibodies in a single sample indicates previous exposure to HSV-2 but does not give information as to the site of HSV infection or the timing of exposure. The predictive value of positive and negative results depends on the population's prevalence and the pretest likelihood of HSV-2. HSV-2 IgG testing performed using the Sher[employer] Elecsys HSV-2 IgG assay. Performed at: [address] [id number] Sub Assembly Team Worker: Kyle James PhD, Phone: [phone] Performed By: #### L 501.080 #### [facility] [address] [facility]. [place], [place], [address] Syphilis Antibodieson 2024 Syphilis Abs Non-Reactive Normal Nonreactive [facility] Comment on above: Performed By: #### L 501.080 #### [facility] [address] [place], [place], [address] Neurology Visit Reporton Neurology Visit Report [facility] [address] [place], [place] [address] OFFICE VISIT Date of Service: 12/06/24 MR#: [id number] Acct: [id number] Name: MICAELAENRIQUEDiego Bernal Rep #: [id number] : 1960 Provider: REALTIME CAPTIONER-C Hattie Bord ner Age/Sex: 64/F Location: [facility].BN Status: Signed HPI HPI Chief Complaint: Establish care Details: History of present illness: Mrs. Ariza is a 64-year-old right-handed female who presents to neurology today 12/06/2024 to establish care for Gaines's palsy (left). Patient has limited past medical history. In June 2024, patient presented to the hospital 3 separate times. Initial presentation was for a headache. Second visit was at the onset of Gaines's palsy with symptoms of headache, slight left facial droop, and left facial paresthesias. She was treated with prednisone and antivirals. She presented a third time for progressive facial symptoms with the inability to close her eyelid or smile. She also developed pain, erythema, and swelling over the preauricular and mandibular region. CT face/sinuses showed nonspecific edema without definite abscess. She was prescribed Augmentin for possible parotitis or cellulitis. She has been evaluated by ENT and has an upcoming follow-up appointment. A follow-up MRI brain was conducted on 09/19/2024 with questionable asymmetric T2 hyperintense signal enhancements of the left facial nerve, tympanic and mastoid segments, suggesting left facial neuritis but no mass lesion or pathological enhancement within the internal auditory canal. Additionally in August 2024, patient was seen in the ED for right lower lobe pneumonia that was treated with antibiotics. On exam today, patient has persistent left facial deficits but she does report mild improvement in her mouth movement over the last 3 weeks. She is unable to close her left eyelid or raise her ey ebrow. Her visual acuity is unaffected although she struggles with dry eyes. She uses lubricating drops, tapes her eye at night, and wears sunglasses. Her smile is asymmetrical with flattening of the left nasolabial fold. She denies dysphagia but reports she sometimes pockets food on the left side of her mouth. She has had no change in hearing. Patient has no other neurological deficits. Patient does recall an insect bite on her second right toe causing it to turn purple several days prior to the onset of her Gaines's palsy. She was screened for Lyme disease, which was negative. ROS: General: No fatigue. No recent weight loss/gain. No recent illness. No fevers. No recent falls. Neuro: No headaches. No dizziness. No numbness/tingling. No tremors. Psych: No insomnia or hypersomnia. No agitation. No depressive symptoms. No memory difficulties. Cardio: No palpitations. No chest pain or discomfort. No edema. Respiratory: Nonsmoker. No cough. No shortness of breath. No wheezing. Musculoskeletal: No use of assistive devices. No neck pain. No back pain. HEENT: No hearing loss. No blurry vision. No diplopia. No dysphagia. GI: No hematochezia. No NVD. No constipation. No abdominal pain or discomfort. : No hematuria. No frequency or urgency. No incontinence. No dysuria. Skin: No ecchymosis. No wounds, rashes, or lesions. PHYSICAL EXAM: Constitutional: Well-developed, well-nourished right-handed female in no acute distress. Psych: Cooperative. Judgement and insight good. HEENT: Normocephalic. Atraumatic. Hearing grossly normal bilaterally. Left facial palsy. No erythema. No pain or tenderness with palpitation. Nonpalpable cervical lymph nodes. Respiratory: Normal effort. Symmetric chest movement. Clear to auscultation bilaterally. Cardio: Regular rate and rhythm. No auscultated murmurs. GI: Abdomen is soft, flat, nondistended. Nontender. Bowel sounds normal. Musculoskeletal: No muscle weakness in the extremities. No difficulties with ROM. Extremities: Absence of edema. No peripheral cyanosis. Skin: No visible wounds or lesions. No visible ecchymosis. Normal skin turgor. Neurological exam: Mental status: Alert, awake, oriented x 4. Speech is fluent with good comprehension. Cranial nerves II-XII: PERRL 4 mm in size bilaterally. EOM intact. Ocular pursuit is smooth. There are no visual field deficits. Facial sensation is intact. Face is asymmetrical with flattening of the left nasolabial fold. She can slightly move the outer aspect on the left side of her mouth. She has left eyelid ptosis and is unable to raise her left eyebrow. She is unable to close her left eyelid or blink. Her left sclera is red and her palpebral fissure is widened. Tongue protrudes midline. Phonation is normal. Swallowing is reportedly intact although patient does report (more content not included)... Normal [facility] Absolute lymphocyte countOrd ered By: [facility] on 09-28-2024 Lymphocytes Auto (Unsp spec) [#/Vol] 2.57 10*3/uL 0.83-4.51 [facility] Absolute neutrophil countOrd ered By: [facility] on 09-28-2024 Neutrophils (Bld) [#/Vol] 6.5 10*3/uL 2.0-7.7 [facility] Anion gap in Serum or Plasma Ordered By: [facility] on 09-28-2024 Anion gap [Moles/Vol] 15 mmol/L 5-15 [facility] Automated lymphocyte count a s percentage of total leukocytesOrdered By: [facility] on 09-28-2024 Lymphocytes/100 WBC Auto (Unsp spec) 25.4 % 19-41 [facility] BUN/creatinine ratioOrdered By: [facility] on 09-28-2024 Urea nitrogen/Creatinine [Mass ratio] 11.1 mg/mg 10-20 [facility] Basophil percentageOrdered B y: [facility] on 09-28-2024 Basophils/100 WBC (Bld) 0.5 % 0-1 [facility] Bilirubin, totalOrdered By: [facility] on 09-28-2024 Bilirubin [Mass/Vol] 0.63 mg/dL 0.00-1.30 [facility] CBC W/Diff, Automatedon 08-31 Absolute Lymph 2.57 X10 3/uL Normal 0.83-4.51 [facility] Comment on above: Performed By: #### L 500.4050, L100.0100 #### [facility] [address] [place], [address] Absolute Neut 6.5 X10 3/uL Normal 2.0-7.7 [facility] Comment on above: Performed By: #### L 500.4050, L100.0100 #### [facility] [address] [place], [address] Basophils/100 WBC (Bld) 0.5 % Normal 0-1 [facility] Comment on above: Performed By: #### L 500.4050, L100.0100 #### [facility] [address] [place], [address] Eosinophils/100 WBC (Bld) 1.2 % Normal 0-5 [facility] Comment on above: Performed By: #### L 500.4050, L100.0100 #### [facility] [address] [place], [address] Erythrocyte distribution width (RBC) [Ratio] 13.8 % Normal 11.6-14.6 [facility] Comment on above: Performed By: #### L 500.4050, L100.0100 #### [facility] [address] [place], [address] Hematocrit (Bld) [Volume fraction] 41.2 % Normal 37-47 [facility] Comment on above: Performed By: #### L 500.4050, L100.0100 #### [facility] [address] [place], [address] Hemoglobin (Bld) [Mass/Vol] 13.3 g/dL Normal 12.0-15.0 [facility] Comment on above: Performed By: #### L 500.4050, L100.0100 #### [facility] [address] [place], [address] IG% 0.600 Normal 0.0-0.9 [facility] Comment on above: Result Comment: IG% - Immature Granulocytes (promyelocytes, myelocytes and metamyelocytes) > 1% indicates that a LEFT SHIFT is Present. Performed By: #### L 500.4050, L100.0100 #### [facility] [address] [place], [address] Lymphocytes/100 WBC (Bld) 25.4 % Normal 19-41 [facility] Comment on above: Performed By: #### L 500.4050, L100.0100 #### [facility] [address] [place], [address] MCH (RBC) [Entitic mass] 30.5 pg Normal 27.0-32.0 [facility] Comment on above: Performed By: #### L 500.4050, L100.0100 #### [facility] [address] [place], [address] MCHC (RBC) [Mass/Vol] 32.3 g/dL Normal 32-36 [facility] Comment on above: Performed By: #### L [id number], L100.0100 #### [facility] [address] [place], [address] MCV (RBC) [Entitic vol] 94.5 fL Normal 81-99 [facility] Comment on above: Performed By: #### L 500.4050, L100.0100 #### [facility] [address] [place], [address] Monocytes/100 WBC (Bld) 8.4 % Normal 0-10 [facility] Comment on above: Performed By: #### L 500.4050, L100.0100 #### [facility] [address] [place], [address] Neutrophils/100 WBC (Bld) 63.9 % Normal 47-70 [facility] Comment on above: Performed By: #### L 500.4050, L100.0100 #### [facility] [address] [place], [address] Nucleated RBC (Bld) [#/Vol] 0 10*3/uL Normal 0-5 [facility] Comment on above: Performed By: #### L 500.4050, L100.0100 #### [facility] [address] [place], [address] Platelet mean volume (Bld) [Entitic vol] 9.8 fL Normal 6.2-12.0 [facility] Comment on above: Performed By: #### L 500.4050, L100.0100 #### [facility] [address] [place], [address] Platelets (Bld) [#/Vol] 343 10*3/uL Normal 150-450 [facility] Comment on above: Performed By: #### L 500.4050, L100.0100 #### [facility] [address] [place], [address] RBC (Bld) [#/Vol] 4.36 10*6/uL Normal 4.2-5.4 [facility] Comment on above: Performed By: #### L 500.4050, L100.0100 #### [facility] [address] [place], [address] RDW SD 47.3 fl High 35.1-43.9 [facility] Comment on above: Performed By: #### L 500.4050, L100.0100 #### [facility] [address] [place], [address] WBC (Bld) [#/Vol] 10.1 10*3/uL Normal 4.4-11.0 [facility] Comment on above: Performed By: #### L 500.4050, L100.0100 #### [facility] [address] [place], [place], [address] Carbon dioxide, total [Moles /volume] in Central venous bloodOrdered By: Rigoberto Phipps on 09-28-2024 CO2 [Moles/Vol] 21.3 mmol/L 21.0-32.0 [facility] Chest PA and Lateralon 09-28 Chest PA and Lateral [facility] [address] [place] [address] Chest PA and Lateral MR#: [id number] Acct: [id number] Name: RICA ARIZA Rep #: [id number] : 1960 F 64 From: Ryan Day PCP: ERIK Del Angel Status: REG CLI Study: Chest PA and Lateral Date of Exam: 09/28/24 Exam# [id number] Ordering Dr: Rigoberto Phipps [facility]- C PROCEDURE: CHEST PA AND LATERAL 09/28/2024 REASON FOR EXAM: PNEUMONIA TECHNIQUE: CHEST PA AND LATERAL COMPARISON: Chest x-ray of 09/21/2024. RAD/Chest PA and Lateral IMPRESSION: [id number] thoracic spine degenerative changes are noted. The cardiomediastinal silhouette is within the normal range, and unchanged. Lungs show no clear infiltrate. No evidence of pulmonary edema. No pleural effusion or pneumothorax is noted. Reading Location: [place] [address] CC: SALMA-Sarah Mares; Rigoberto [facility] CAPTIONERTinaC Desire [employer] Deposit Entry Clerk: Signed Normal [facility] Chloride assayOrdered By: Stephen Phipps on 09-28-2024 Chloride [Moles/Vol] 104 mmol/L 98-108 [facility] Comprehensive Metabolic Prof ilon 09-28-2024 Albumin [Mass/Vol] 3.9 g/dL Normal 3.4-4.8 [facility] Comment on above: Performed By: #### L 500.4050, L100.0100 #### [facility] [address] [place], [address] Albumin/Globulin [Mass ratio] 1.2 {ratio} Normal 0.9-2.4 [facility] Comment on above: Performed By: #### L 500.4050, L100.0100 #### [facility] [address] [place], [address] ALK PHOS 98 U/L Normal 35-104 [facility] Comment on above: Performed By: #### L 500.4050, L100.0100 #### [facility] [address] [place], [address] ALT [Catalytic activity/Vol] 9 U/L Normal <=34 [facility] Comment on above: Performed By: #### L 500.4050, L100.0100 #### [facility] [address] [place], [address] AST [Catalytic activity/Vol] 24 U/L Normal <=31 [facility] Comment on above: Performed By: #### L 500.4050, L100.0100 #### [facility] [address] [place], [address] Bilirubin [Mass/Vol] 0.63 mg/dL Normal 0.00-1.30 [facility] Comment on above: Performed By: #### L 500.4050, L100.0100 #### [facility] [address] [place], [address] BUN/CRE 11.1 RATIO Normal 10-20 [facility] Comment on above: Performed By: #### L 500.4050, L100.0100 #### [facility] [address] [place], [address] Calcium [Mass/Vol] 9.7 mg/dL Normal 7.6-11.0 [facility] Comment on above: Performed By: #### L 500.4050, L100.0100 #### [facility] [address] [place], [address] Chloride [Moles/Vol] 104 mmol/L Normal 98-108 [facility] Comment on above: Performed By: #### L 500.4050, L100.0100 #### [facility] [address] [place], [address] CO2 [Moles/Vol] 21.3 mmol/L Normal 21.0-32.0 [facility] Comment on above: Performed By: #### L 500.4050, L100.0100 #### [facility] [address] [place], [address] Creatinine [Mass/Vol] 0.92 mg/dL Normal 0.70-1.20 [facility] Comment on above: Performed By: #### L 500.4050, L100.0100 #### [facility] [address] [place], [address] GAP 15 Normal 5-15 [facility] Comment on above: Performed By: #### L 500.4050, L100.0100 #### [facility] [address] [place], [address] GFR/1.73 sq M.predicted among non-blacks MDRD (S/P/Bld) [Vol rate/Area] 70 mL/min/{1.73_m2} Normal >60 [facility] Comment on above: Result Comment: mL/m in/1.73m2 CKD-EPI Creatinine Equation (2020) Performed By: #### L 500.4050, L100.0100 #### [facility] [address] [place], [address] Globulin (S) [Mass/Vol] 3.4 g/dL Normal 2.2-4.2 [facility] Comment on above: Performed By: #### L 500.4050, L100.0100 #### [facility] [address] [place], [address] Glucose [Mass/Vol] 93 mg/dL Normal 70-99 [facility] Comment on above: Performed By: #### L 500.4050, L100.0100 #### [facility] [address] [place], [address] Potassium [Moles/Vol] 4.2 mmol/L Normal 3.3-5.1 [facility] Comment on above: Performed By: #### L 500.4050, L100.0100 #### [facility] [address] [place], [address] Sodium [Moles/Vol] 140 mmol/L Normal 133-145 [facility] Comment on above: Performed By: #### L 500.4050, L100.0100 #### [facility] [address] [place], [address] T PROT 7.2 g/dL Normal 5.9-8.4 [facility] Comment on above: Performed By: #### L 500.4050, L100.0100 #### [facility] [address] [place], [address] Urea nitrogen [Mass/Vol] 10 mg/dL Normal 4-19 [facility] Comment on above: Performed By: #### L 500.4050, L100.0100 #### [facility] [address] [place], [address] Eosinophil percentageOrdered By: Zebulun Beam on 09-28-2024 Eosinophils/100 WBC (Bld) 1.2 % 0-5 [facility] Erythrocyte distribution wid th ratioOrdered By: Zebulun Beam on 09-28-2024 Erythrocyte distribution width (RBC) [Ratio] 13.8 % 11.6-14.6 [facility] Erythrocyte distribution wid th standard deviationOrdered By: Rigoberto Phipps on 09-28-2024 Erythrocyte distribution width (RBC) [Ratio] 47.3 fl High 35.1-43.9 [facility] Glomerular filtration rate ( GFR) estimation/1.73 sq m using serum, plasma, or whole bOrdered By: Rigoberto Phipps on 09-28-2024 GFR/1.73 sq M.predicted among non-blacks MDRD (S/P/Bld) [Vol rate/Area] 70 mL/min/{1.73_m2} >60 [facility] Comment on above: mL/min/1.73m2 CKD-EP I Creatinine Equation (2020) Hematocrit Auto (Bld) [Volum e fraction]Ordered By: Isaimt Phipps on 09-28-2024 Hematocrit (Bld) [Volume fraction] 41.2 % 37-47 [facility] Hemoglobin measurementOrdere d By: [facility] Desire on 09-28-2024 Hemoglobin (Bld) [Mass/Vol] 13.3 g/dL 12.0-15.0 [facility] Immature granulocytes/100 WB C Auto (Bld)Ordered By: [facility] on 09-28-2024 Immature granulocytes/100 WBC (Bld) 0.600 % 0.0-0.9 [facility] Comment on above: IG% - Immature Granu locytes (promyelocytes, myelocytes and metamyelocytes) > 1% indicates that a LEFT SHIFT is Present. Laboratory - Chemistry and C hemistry - challengeOrdered By: Rigoberto Phipps on 09-28-2024 AST [Catalytic activity/Vol] 24 U/L <32 [facility] MCV (mean corpuscular volume ) determinationOrdered By: [facility] Desire on 09-28-2024 MCV (RBC) [Entitic vol] 94.5 fL 81-99 [facility] Mean corpuscular hemoglobin (MCH) determinationOrdered By: [facility] Desire on 09-28-2024 MCH (RBC) [Entitic mass] 30.5 pg 27.0-32.0 [facility] Mean corpuscular hemoglobin concentration (MCHC) determinationOrdered By: [facility] Beam on 09-28-2024 MCHC (RBC) [Mass/Vol] 32.3 g/dL 32-36 [facility] Mean platelet volume determi nationOrdered By: Zeyolandan Beam on 09-28-2024 Platelet mean volume (Bld) [Entitic vol] 9.8 fL 6.2-12.0 [facility] Monocyte percentageOrdered B y: Zejackeline Beam on 09-28-2024 Monocytes/100 WBC (Bld) 8.4 % 0-10 [facility] Neutrophil percentageOrdered By: Zebulun Beam on 09-28-2024 Neutrophils/100 WBC (Bld) 63.9 % 47-70 [facility] Nucleated red blood cell per centageOrdered By: Zeyolandan Beam on 09-28-2024 Nucleated RBC/100 WBC (Bld) [Ratio] 0 % 0-5 [facility] Platelet countOrdered By: Stephen Phipps on 09-28-2024 Platelets (Bld) [#/Vol] 343 10*3/uL 150-450 [facility] Potassium measurement (mass/ volume)Ordered By: Rigoberto Beam on 09-28-2024 Potassium (Unsp spec) [Mass/Vol] 4.2 mmol/L 3.3-5.1 [facility] RBC Auto (Bld) [#/Vol]Ordere d By: Rigoberto Beam on 09-28-2024 RBC (Bld) [#/Vol] 4.36 10*6/uL 4.2-5.4 [facility] Serum creatinine measurement (mass/volume)Ordered By: Rigoberto Phipps on 09-28-2024 Creatinine [Mass/Vol] 0.92 mg/dL 0.70-1.20 [facility] Serum globulin measurementOr dered By: Rigoberto Beam on 09-28-2024 Globulin (S) [Mass/Vol] 3.4 g/dL 2.2-4.2 [facility] Serum glucose measurement (m ass/volume)Ordered By: Rigoberto Beam on 09-28-2024 Glucose [Mass/Vol] 93 mg/dL 70-99 [facility] Serum or plasma alanine garay otransferase (ALT) measurementOrdered By: Rigoberto Phipps on 09-28-2024 ALT [Catalytic activity/Vol] 9 U/L <35 [facility] Serum or plasma albumin dashawn urement (mass/volume)Ordered By: Rigoberto Phipps on 09-28-2024 Albumin [Mass/Vol] 3.9 g/dL 3.4-4.8 [facility] Serum or plasma albumin/glob ulin mass ratioOrdered By: [facility] Phipps on 09-28-2024 Albumin/Globulin [Mass ratio] 1.2 {ratio} 0.9-2.4 [facility] Serum or plasma alkaline zack sphatase measurementOrdered By: [facility] Phipps on 09-28-2024 ALP [Catalytic activity/Vol] 98 U/L 35-104 [facility] Serum or plasma calcium dashawn urement (mass/volume)Ordered By: Rigoberto Phipps on 09-28-2024 Calcium [Mass/Vol] 9.7 mg/dL 7.6-11.0 [facility] Serum or plasma urea nitroge n measurement (mass/volume)Ordered By: Rigoberto Phipps on 09-28-2024 Urea nitrogen [Mass/Vol] 10 mg/dL 4-19 [facility] Sodium levelOrdered By: Isai Phipps on 09-28-2024 Sodium [Moles/Vol] 140 mmol/L 133-145 [facility] Total proteinOrdered By: Carrillo Phipps on 09-28-2024 Protein [Mass/Vol] 7.2 g/dL 5.9-8.4 [facility] White blood cell (WBC) count Ordered By: Rigoberto Phipps on 09-28-2024 WBC (Bld) [#/Vol] 10.1 10*3/uL 4.4-11.0 [facility] Culture, Blood (WB)on 2024 CUB Blood cultures x2, from two different sites No growth in 5 days. Normal [facility] Comment on above: Performed By: #### L 500.4050, L300.4310, L300.3900, M200.1000, L100.0100, L503.6005 #### [facility] [place], [address] Absolute lymphocyte countOrd ered By: Jazmine Mayes on 09-22-2024 Lymphocytes Auto (Unsp spec) [#/Vol] 2.51 10*3/uL 0.83-4.51 [facility] Absolute neutrophil countOrd ered By: Jazmine Gerber on 09-22-2024 Neutrophils (Bld) [#/Vol] 4.3 10*3/uL 2.0-7.7 [facility] Anion gap in Serum or Plasma Ordered By: Jazmine Mayes on 09-22-2024 Anion gap [Moles/Vol] 10 mmol/L 5-15 [facility] Automated lymphocyte count a s percentage of total leukocytesOrdered By: Jazmine Gerber on 09-22-2024 Lymphocytes/100 WBC Auto (Unsp spec) 31.5 % - [facility] BUN/creatinine ratioOrdered By: Jazmine Gerber on 09-22-2024 Urea nitrogen/Creatinine [Mass ratio] 17.0 mg/mg 10-20 [facility] Basophil percentageOrdered B y: Jazmine Mayes on 09-22-2024 Basophils/100 WBC (Bld) 0.5 % 0-1 [facility] Bilirubin, totalOrdered By: Jazmine Gerber on 09-22-2024 Bilirubin [Mass/Vol] 0.43 mg/dL 0.00-1.30 [facility] CBC W/Diff, Automatedon 08-30 Absolute Lymph 2.51 X10 3/uL Normal 0.83-4.51 [facility] Comment on above: Performed By: #### L 500.4050, L300.4310, L300.3900, M200.1000, L100.0100, L503.6005 #### [facility] [address] [place], [address] Absolute Neut 4.3 X10 3/uL Normal 2.0-7.7 [facility] Comment on above: Performed By: #### L 500.4050, L300.4310, L300.3900, M200.1000, L100.0100, L503.6005 #### [facility] [address] [place], [address] Basophils/100 WBC (Bld) 0.5 % Normal 0-1 [facility] Comment on above: Performed By: #### L 500.4050, L300.4310, L300.3900, M200.1000, L100.0100, L503.6005 #### [facility] [address] [place], [address] Eosinophils/100 WBC (Bld) 1.6 % Normal 0-5 [facility] Comment on above: Performed By: #### L 500.4050, L300.4310, L300.3900, M200.1000, L100.0100, L503.6005 #### [facility] [address] [place], [address] Erythrocyte distribution width (RBC) [Ratio] 14.3 % Normal 11.6-14.6 [facility] Comment on above: Performed By: #### L 500.4050, L300.4310, L300.3900, M200.1000, L100.0100, L503.6005 #### [facility] [address] [place], [address] Hematocrit (Bld) [Volume fraction] 35.2 % Low 37-47 [facility] Comment on above: Performed By: #### L 500.4050, L300.4310, L300.3900, M200.1000, L100.0100, L503.6005 #### [facility] [address] [place], [address] Hemoglobin (Bld) [Mass/Vol] 11.5 g/dL Low 12.0-15.0 [facility] Comment on above: Performed By: #### L 500.4050, L300.4310, L300.3900, M200.1000, L100.0100, L503.6005 #### [facility] [address] [place], [address] IG% 0.400 Normal 0.0-0.9 [facility] Comment on above: Result Comment: IG% - Immature Granulocytes (promyelocytes, myelocytes and metamyelocytes) > 1% indicates that a LEFT SHIFT is Present. Performed By: #### L 500.4050, L300.4310, L300.3900, M200.1000, L100.0100, L503.6005 #### [facility] [address] [place], [address] Lymphocytes/100 WBC (Bld) 31.5 % Normal 19-41 [facility] Comment on above: Performed By: #### L 500.4050, L300.4310, L300.3900, M200.1000, L100.0100, L503.6005 #### [facility] [address] [place], [address] MCH (RBC) [Entitic mass] 30.9 pg Normal 27.0-32.0 [facility] Comment on above: Performed By: #### L 500.4050, L300.4310, L300.3900, M200.1000, L100.0100, L503.6005 #### [facility] [address] [place], [address] MCHC (RBC) [Mass/Vol] 32.7 g/dL Normal 32-36 [facility] Comment on above: Performed By: #### L 500.4050, L300.4310, L300.3900, M200.1000, L100.0100, L503.6005 #### [facility] [address] [place], [address] MCV (RBC) [Entitic vol] 94.6 fL Normal 81-99 [facility] Comment on above: Performed By: #### L 500.4050, L300.4310, L300.3900, M200.1000, L100.0100, L503.6005 #### [facility] [address] [place], [address] Monocytes/100 WBC (Bld) 11.7 % High 0-10 [facility] Comment on above: Performed By: #### L 500.4050, L300.4310, L300.3900, M200.1000, L100.0100, L503.6005 #### [facility] [address] [place], [address] Neutrophils/100 WBC (Bld) 54.3 % Normal 47-70 [facility] Comment on above: Performed By: #### L 500.4050, L300.4310, L300.3900, M200.1000, L100.0100, L503.6005 #### [facility] [address] [place], [address] Nucleated RBC (Bld) [#/Vol] 0 10*3/uL Normal 0-5 [facility] Comment on above: Performed By: #### L 500.4050, L300.4310, L300.3900, M200.1000, L100.0100, L503.6005 #### [facility] [address] [place], [address] Platelet mean volume (Bld) [Entitic vol] 10.1 fL Normal 6.2-12.0 [facility] Comment on above: Performed By: #### L 500.4050, L300.4310, L300.3900, M200.1000, L100.0100, L503.6005 #### [facility] [address] [place], [address] Platelets (Bld) [#/Vol] 207 10*3/uL Normal 150-450 [facility] Comment on above: Performed By: #### L 500.4050, L300.4310, L300.3900, M200.1000, L100.0100, L503.6005 #### [facility] [address] [place], [address] RBC (Bld) [#/Vol] 3.72 10*6/uL Low 4.2-5.4 [facility] Comment on above: Performed By: #### L 500.4050, L300.4310, L300.3900, M200.1000, L100.0100, L503.6005 #### [facility] [address] [place] [place], [address] RDW SD 49.0 fl High 35.1-43.9 [facility] Comment on above: Performed By: #### L 500.4050, L300.4310, L300.3900, M200.1000, L100.0100, L503.6005 #### [facility] [address] [place], [address] WBC (Bld) [#/Vol] 8.0 10*3/uL Normal 4.4-11.0 [facility] Comment on above: Performed By: #### L 500.4050, L300.4310, L300.3900, M200.1000, L100.0100, L503.6005 #### [facility] [address] [place], [address] Carbon dioxide, total [Moles /volume] in Central venous bloodOrdered By: Jazmine Mayes on 09-22-2024 CO2 [Moles/Vol] 20.0 mmol/L Low 21.0-32.0 [facility] Chloride assayOrdered By: Peg Mayes on 09-22-2024 Chloride [Moles/Vol] 111 mmol/L High 98-108 [facility] Comprehensive Metabolic Prof ilon 09-22-2024 Albumin [Mass/Vol] 3.2 g/dL Low 3.4-4.8 [facility] Comment on above: Performed By: #### L 500.4050, L300.4310, L300.3900, M200.1000, L100.0100, L503.6005 #### [facility] [address] [place], [address] Albumin/Globulin [Mass ratio] 1.4 {ratio} Normal 0.9-2.4 [facility] Comment on above: Performed By: #### L 500.4050, L300.4310, L300.3900, M200.1000, L100.0100, L503.6005 #### [facility] [address] [place], [address] ALK PHOS 70 U/L Normal 35-104 [facility] Comment on above: Performed By: #### L 500.4050, L300.4310, L300.3900, M200.1000, L100.0100, L503.6005 #### [facility] [address] [place], [address] ALT [Catalytic activity/Vol] 7 U/L Normal <=34 [facility] Comment on above: Performed By: #### L 500.4050, L300.4310, L300.3900, M200.1000, L100.0100, L503.6005 #### [facility] [address] [place], [address] AST [Catalytic activity/Vol] 17 U/L Normal <=31 [facility] Comment on above: Performed By: #### L 500.4050, L300.4310, L300.3900, M200.1000, L100.0100, L503.6005 #### [facility] [address] [place], [address] Bilirubin [Mass/Vol] 0.43 mg/dL Normal 0.00-1.30 [facility] Comment on above: Performed By: #### L 500.4050, L300.4310, L300.3900, M200.1000, L100.0100, L503.6005 #### [facility] [address] [place], [address] BUN/CRE 17.0 RATIO Normal 10-20 [facility] Comment on above: Performed By: #### L 500.4050, L300.4310, L300.3900, M200.1000, L100.0100, L503.6005 #### [facility] [address] [place], [address] Calcium [Mass/Vol] 8.1 mg/dL Normal 7.6-11.0 [facility] Comment on above: Performed By: #### L 500.4050, L300.4310, L300.3900, M200.1000, L100.0100, L503.6005 #### [facility] [address] [place], [address] Chloride [Moles/Vol] 111 mmol/L High 98-108 [facility] Comment on above: Performed By: #### L 500.4050, L300.4310, L300.3900, M200.1000, L100.0100, L503.6005 #### [facility] [address] [place], [address] CO2 [Moles/Vol] 20.0 mmol/L Low 21.0-32.0 [facility] Comment on above: Performed By: #### L 500.4050, L300.4310, L300.3900, M200.1000, L100.0100, L503.6005 #### [facility] [address] [place], [address] Creatinine [Mass/Vol] 0.71 mg/dL Normal 0.70-1.20 [facility] Comment on above: Performed By: #### L 500.4050, L300.4310, L300.3900, M200.1000, L100.0100, L503.6005 #### [facility] [address] [place], [address] ECRCL 110.70 ml/min Normal 50-250 [facility] Comment on above: Performed By: #### L 500.4050, L300.4310, L300.3900, M200.1000, L100.0100, L503.6005 #### [facility] [address] [place], [address] GAP 10 Normal 5-15 [facility] Comment on above: Performed By: #### L 500.4050, L300.4310, L300.3900, M200.1000, L100.0100, L503.6005 #### [facility] [address] [place], [address] GFR/1.73 sq M.predicted among non-blacks MDRD (S/P/Bld) [Vol rate/Area] 95 mL/min/{1.73_m2} Normal >60 [facility] Comment on above: Result Comment: mL/m in/1.73m2 CKD-EPI Creatinine Equation (2020) Performed By: #### L 500.4050, L300.4310, L300.3900, M200.1000, L100.0100, L503.6005 #### [facility] [address] [place], [address] Globulin (S) [Mass/Vol] 2.3 g/dL Normal 2.2-4.2 [facility] Comment on above: Performed By: #### L 500.4050, L300.4310, L300.3900, M200.1000, L100.0100, L503.6005 #### [facility] [address] [place], [address] Glucose [Mass/Vol] 100 mg/dL High 70-99 [facility] Comment on above: Performed By: #### L 500.4050, L300.4310, L300.3900, M200.1000, L100.0100, L503.6005 #### [facility] [address] [place], [address] Potassium [Moles/Vol] 3.8 mmol/L Normal 3.3-5.1 [facility] Comment on above: Performed By: #### L 500.4050, L300.4310, L300.3900, M200.1000, L100.0100, L503.6005 #### [facility] [address] [place], [address] Sodium [Moles/Vol] 141 mmol/L Normal 133-145 [facility] Comment on above: Performed By: #### L 500.4050, L300.4310, L300.3900, M200.1000, L100.0100, L503.6005 #### [facility] [address] [place], [address] T PROT 5.5 g/dL Low 5.9-8.4 [facility] Comment on above: Performed By: #### L 500.4050, L300.4310, L300.3900, M200.1000, L100.0100, L503.6005 #### [facility] [address] [place], [address] Urea nitrogen [Mass/Vol] 12 mg/dL Normal 4-19 [facility] Comment on above: Performed By: #### L 500.4050, L300.4310, L300.3900, M200.1000, L100.0100, L503.6005 #### [facility] [address] [place], [address] Discharge Instructionon 08-30 Discharge Instruction [facility] Medical Records Department [address] [place] [address] Instructions for Home/Discharge Instructions 09/22/24 0950 MR#: [id number] Acct: [id number] Name: RICA ARIZA Rep #: [id number] : 1960 64 From: Efrain Garcia MD PCP: ERIK Del Angel Status:ADM IN Discharge Instructions DC O2, CPAP, BIPAP needs Home O2 Discharge instructions: No Dressing / Incision Discharge Activity: Return to Normal Activity Dressing / Incision Call your doctor if you observe: Fever of 101 or Higher, Shortness of breath, Dizziness, Fainting spells, Swelling in the ankles, Chest pain and Increased palpitations (irregular heartbeat) Follow Up Care Test Results: Test results from this visit will be discussed in further detail at your follow-up appointment, if applicable. Discharge Plan Admission Admit Date/Time: 09/21/24 20:44 Attending Provider: Efrain Garcia Primary Care Provider: Kay Mares Consulting Providers: Jazmine Mayes Instructions Patient Instructions: ED Pneumonia (Adult) Additional Instructions / Restrictions: Return to the hospital if you have increasing shortness of breath or increasing fevers. Please buy a pulse oximeter that we can track your oxygen levels at home and you need to follow-up with your PCP to have a 6-minute walk test to determine that you no longer need any oxygen. Currently only need 2 L with ambulation so I do not anticipate a long duration of oxygen requirement. Discharge Orders/Prescriptions Prescriptions: New azithromycin 500 mg tablet 500 mg PO DAILY 3 Days Qty: 3 0RF cefdinir 300 mg capsule 300 mg PO BID Qty: 14 0RF Continued melatonin 10 mg capsule 10 mg PO QHS GenTeal Tears Severe Gel Drops 0.4-0.3 % drops,gel 1 drp ophthalmic (eye) QHS Patient Comments: left eye only semaglutide (weight loss) 0.25 mg/0.5 mL pen injector 0.25 mg subcut QWEEK Referrals / Follow Up: Kay Mares NP-C [Primary Care Provider] - Within 1 Week Disposition Disposition (needs filled in before D/C Order can be placed): Home, Self Care 09/22/24 0954 Efrain Garcia MD CC: ERIK Mares; Dr. Jazmine Mayes MD Signed Normal [facility] Eosinophil percentageOrdered By: Jazmine Mayes on 09-22-2024 Eosinophils/100 WBC (Bld) 1.6 % 0-5 [facility] Erythrocyte distribution wid th ratioOrdered By: Jazmine Mayes on 09-22-2024 Erythrocyte distribution width (RBC) [Ratio] 14.3 % 11.6-14.6 [facility] [facility] Erythrocyte distribution wid th standard deviationOrdered By: Jazmine Gerber on 09-22-2024 Erythrocyte distribution width (RBC) [Ratio] 49.0 fl High 35.1-43.9 [facility] Glomerular filtration rate ( GFR) estimation/1.73 sq m using serum, plasma, or whole bOrdered By: Jazmine Gerber on 09-22-2024 GFR/1.73 sq M.predicted among non-blacks MDRD (S/P/Bld) [Vol rate/Area] 95 mL/min/{1.73_m2} >60 [facility] Comment on above: mL/min/1.73m2 CKD-EP I Creatinine Equation (2020) Hematocrit Auto (Bld) [Volum e fraction]Ordered By: Jazmine Mayes on 09-22-2024 Hematocrit (Bld) [Volume fraction] 35.2 % Low 37-47 [facility] Hemoglobin measurementOrdere d By: Jazmine Mayes on 09-22-2024 Hemoglobin (Bld) [Mass/Vol] 11.5 g/dL Low 12.0-15.0 [facility] Immature granulocytes/100 WB C Auto (Bld)Ordered By: Jazmine Mayes 09-22-2024 Immature granulocytes/100 WBC (Bld) 0.400 % 0.0-0.9 [facility] Comment on above: IG% - Immature Granu locytes (promyelocytes, myelocytes and metamyelocytes) > 1% indicates that a LEFT SHIFT is Present. Laboratory - Chemistry and C hemistry - challengeOrdered By: Jazmine Mayes on 09-22-2024 AST [Catalytic activity/Vol] 17 U/L <32 [facility] M8200.1000on 09-22-2024 M8200.1000 Normal Reference Range = Negative MRSA DNA Nose Ql ZACH+probe GeneXpert Instrument, PCR method MRSA PCR MRSA NEGATIVE Normal [facility] Comment on above: Performed By: #### L 500.4050, L300.4310, L300.3900, M200.1000, L100.0100, L503.6005 #### [facility] [address] [place], [address] MCV (mean corpuscular volume ) determinationOrdered By: White on 09-22-2024 MCV (RBC) [Entitic vol] 94.6 fL 81-99 [facility] Mean corpuscular hemoglobin (MCH) determinationOrdered By: White on 09-22-2024 MCH (RBC) [Entitic mass] 30.9 pg 27.0-32.0 [facility] Mean corpuscular hemoglobin concentration (MCHC) determinationOrdered By: White on 09-22-2024 MCHC (RBC) [Mass/Vol] 32.7 g/dL 32-36 [facility] Mean platelet volume determi nationOrdered By: White on 09-22-2024 Platelet mean volume (Bld) [Entitic vol] 10.1 fL 6.2-12.0 [facility] Monocyte percentageOrdered B y: White on 09-22-2024 Monocytes/100 WBC (Bld) 11.7 % High 0-10 [facility] Neutrophil percentageOrdered By: White on 09-22-2024 Neutrophils/100 WBC (Bld) 54.3 % 47-70 [facility] Nucleated red blood cell per centageOrdered By: White on 09-22-2024 Nucleated RBC/100 WBC (Bld) [Ratio] 0 % 0-5 [facility] Platelet countOrdered By: Peg evangelista Gerber on 09-22-2024 Platelets (Bld) [#/Vol] 207 10*3/uL 150-450 [facility] Potassium measurement (mass/ volume)Ordered By: Jazmine White on 09-22-2024 Potassium (Unsp spec) [Mass/Vol] 3.8 mmol/L 3.3-5.1 [facility] RBC Auto (Bld) [#/Vol]Ordere d By: Jazmine White on 09-22-2024 RBC (Bld) [#/Vol] 3.72 10*6/uL Low 4.2-5.4 [facility] RESPIRATORY PANEL MOLECULARo n 09-22-2024 RP PANEL ADENOVIRUS Not Detected INFLUENZA A Not Detected INFLUENZA A (SUBTYPE H1) Not Detected INFLUENZA A (SUBTYPE H3) Not Detected INFLUENZA B Not Detected HUMAN METAPHNEUMO Not Detected PARAINFLUENZA 1 Not Detected PARAINFLUENZA 2 Not Detected PARAINFLUENZA 3 Not Detected PARAINFLUENZA 4 Not Detected RHINOVIRUS Not Detected RSV A Not Detected RSV B Not Detected Normal [facility] Comment on above: Performed By: #### M [id number] #### [facility] [address] [place], [address] Serum creatinine measurement (mass/volume)Ordered By: Jazmine Mayes on 09-22-2024 Creatinine [Mass/Vol] 0.71 mg/dL 0.70-1.20 [facility] Serum globulin measurementOr dered By: Jazmine Mayes on 09-22-2024 Globulin (S) [Mass/Vol] 2.3 g/dL 2.2-4.2 [facility] Serum glucose measurement (m ass/volume)Ordered By: Jazmine Mayes on 09-22-2024 Glucose [Mass/Vol] 100 mg/dL High 70-99 [facility] Serum or plasma alanine garay otransferase (ALT) measurementOrdered By: Jazmine Mayes on 09-22-2024 ALT [Catalytic activity/Vol] 7 U/L <35 [facility] Serum or plasma albumin dashanw urement (mass/volume)Ordered By: Jazmine Mayes 09-22-2024 Albumin [Mass/Vol] 3.2 g/dL Low 3.4-4.8 [facility] Serum or plasma albumin/glob ulin mass ratioOrdered By: Jazmine Mayes 09-22-2024 Albumin/Globulin [Mass ratio] 1.4 {ratio} 0.9-2.4 [facility] Serum or plasma alkaline zack sphatase measurementOrdered By: Jazmine Mayes 09-22-2024 ALP [Catalytic activity/Vol] 70 U/L 35-104 [facility] Serum or plasma calcium dashawn urement (mass/volume)Ordered By: Jazmine Mayes 09-22-2024 Calcium [Mass/Vol] 8.1 mg/dL 7.6-11.0 [facility] Serum or plasma urea nitroge n measurement (mass/volume)Ordered By: Jazmine Mayes 09-22-2024 Urea nitrogen [Mass/Vol] 12 mg/dL 4-19 [facility] Sodium levelOrdered By: Tra Mayes on 09-22-2024 Sodium [Moles/Vol] 141 mmol/L 133-145 [facility] Total proteinOrdered By: Kinga nyaan White on 09-22-2024 Protein [Mass/Vol] 5.5 g/dL Low 5.9-8.4 [facility] White blood cell (WBC) count Ordered By: Jazmine White on 09-22-2024 WBC (Bld) [#/Vol] 8.0 10*3/uL 4.4-11.0 [facility] 12 Lead EKGon 09-21-2024 12 Lead EKG [facility] [address] [place] [address] 12 Lead EKG 09/21/24 1903 MR#: [id number] Acct: [id number] Name: RICA ARIZA Rep #: [id number] : 1960 64 From: Kamran Elizabeth MD Attending Dr: Dr. Efrain Garcia MD Status : DIS IN Ordering Dr: Jarvis Negro MD Date: 09/21/24 Location: [facility] Sex: F C Admitted: 09/21/24 Test Reason : CP Blood Pressure : */* mmHG Vent. Rate : 128 BPM Atrial Rate : 128 BPM P-R Int : 132 ms QRS Dur : 82 ms QT Int : 302 ms P-R-T Axes : 54 33 41 degrees QTcB Int : 440 ms Sinus tachycardia Otherwise normal ECG Confirmed by KAMRAN ELIZABETH MD ([id number]), editor school photograph AGUSTINA JORGENSEN ([id number]) on 09/25/2024 9:41:33 AM Referred By: Jarvis Negro Confirmed By: KAMRAN ELIZABETH MD 09/25/24 0941 Date Kamran Elizabeth MD CC: ERIK Mares; Dr. Efrain Garcia MD; Dr. Jarvis Negro MD Signed Normal [facility] Absolute lymphocyte countOrd ered By: Jarvis Negro on 09-21-2024 Lymphocytes Auto (Unsp spec) [#/Vol] 2.38 10*3/uL 0.83-4.51 [facility] Absolute neutrophil countOrd ered By: Jarvis Negro on 09-21-2024 Neutrophils (Bld) [#/Vol] 8.2 10*3/uL High 2.0-7.7 [facility] Activated partial thrombopla stin time (aPTT) in platelet poor plasma by coagulation aOrdered By: Jarvis Negro on 09-21-2024 aPTT Coag (PPP) [Time] 25.0 s 24.1-36.2 [facility] Anion gap in Serum or Plasma Ordered By: Jarvis Negro on 09-21-2024 Anion gap [Moles/Vol] 14 mmol/L 5-15 [facility] Automated lymphocyte count a s percentage of total leukocytesOrdered By: Jarvis Negro on 09-21-2024 Lymphocytes/100 WBC Auto (Unsp spec) 19.8 % 19-41 [facility] BUN/creatinine ratioOrdered By: Jarvis Negro on 09-21-2024 Urea nitrogen/Creatinine [Mass ratio] 18.9 mg/mg 10-20 [facility] Basophil percentageOrdered B y: Jarvis Negro on 09-21-2024 Basophils/100 WBC (Bld) 0.4 % 0-1 [facility] Bilirubin Test strip Ql (U)O rdered By: Jarvis Negro on 09-21-2024 Bilirubin Ql (U) Negative Negative [facility] Bilirubin, totalOrdered By: Jarvis Negro on 09-21-2024 Bilirubin [Mass/Vol] 0.61 mg/dL 0.00-1.30 [facility] Blood cultureOrdered By: Jarvis Negro on 09-21-2024 Bacteria identified Cx Nom (Bld) No growth in 5 days. [facility] CBC W/Diff, Automatedon 08-30 Absolute Lymph 2.38 X10 3/uL Normal 0.83-4.51 [facility] Comment on above: Performed By: #### L 500.4050, L300.4310, L300.3900, M200.1000, L100.0100, L503.6005 #### [facility] [address] [place], [address] Absolute Neut 8.2 X10 3/uL High 2.0-7.7 [facility] Comment on above: Performed By: #### L 500.4050, L300.4310, L300.3900, M200.1000, L100.0100, L503.6005 #### [facility] [address] [place], [address] Basophils/100 WBC (Bld) 0.4 % Normal 0-1 [facility] Comment on above: Performed By: #### L 500.4050, L300.4310, L300.3900, M200.1000, L100.0100, L503.6005 #### [facility] [address] [place], [address] Eosinophils/100 WBC (Bld) 0.8 % Normal 0-5 [facility] Comment on above: Performed By: #### L 500.4050, L300.4310, L300.3900, M200.1000, L100.0100, L503.6005 #### [facility] [address] [place], [address] Erythrocyte distribution width (RBC) [Ratio] 14.2 % Normal 11.6-14.6 [facility] Comment on above: Performed By: #### L 500.4050, L300.4310, L300.3900, M200.1000, L100.0100, L503.6005 #### [facility] [address] [place], [address] Hematocrit (Bld) [Volume fraction] 44.2 % Normal 37-47 [facility] Comment on above: Performed By: #### L 500.4050, L300.4310, L300.3900, M200.1000, L100.0100, L503.6005 #### [facility] [address] [place], [address] Hemoglobin (Bld) [Mass/Vol] 14.7 g/dL Normal 12.0-15.0 [facility] Comment on above: Performed By: #### L 500.4050, L300.4310, L300.3900, M200.1000, L100.0100, L503.6005 #### [facility] [address] [place], [address] IG% 0.300 Normal 0.0-0.9 [facility] Comment on above: Result Comment: IG% - Immature Granulocytes (promyelocytes, myelocytes and metamyelocytes) > 1% indicates that a LEFT SHIFT is Present. Performed By: #### L 500.4050, L300.4310, L300.3900, M200.1000, L100.0100, L503.6005 #### [facility] [address] [place], [address] Lymphocytes/100 WBC (Bld) 19.8 % Normal 19-41 [facility] Comment on above: Performed By: #### L 500.4050, L300.4310, L300.3900, M200.1000, L100.0100, L503.6005 #### [facility] [address] [place], [address] MCH (RBC) [Entitic mass] 30.9 pg Normal 27.0-32.0 [facility] Comment on above: Performed By: #### L 500.4050, L300.4310, L300.3900, M200.1000, L100.0100, L503.6005 #### [facility] [address] [place], [address] MCHC (RBC) [Mass/Vol] 33.3 g/dL Normal 32-36 [facility] Comment on above: Performed By: #### L 500.4050, L300.4310, L300.3900, M200.1000, L100.0100, L503.6005 #### [facility] [address] [place], [address] MCV (RBC) [Entitic vol] 93.1 fL Normal 81-99 [facility] Comment on above: Performed By: #### L 500.4050, L300.4310, L300.3900, M200.1000, L100.0100, L503.6005 #### [facility] [address] [place], [address] Monocytes/100 WBC (Bld) 10.1 % High 0-10 [facility] Comment on above: Performed By: #### L 500.4050, L300.4310, L300.3900, M200.1000, L100.0100, L503.6005 #### [facility] [address] [place], [address] Neutrophils/100 WBC (Bld) 68.6 % Normal 47-70 [facility] Comment on above: Performed By: #### L 500.4050, L300.4310, L300.3900, M200.1000, L100.0100, L503.6005 #### [facility] [address] [place], [address] Nucleated RBC (Bld) [#/Vol] 0 10*3/uL Normal 0-5 [facility] Comment on above: Performed By: #### L 500.4050, L300.4310, L300.3900, M200.1000, L100.0100, L503.6005 #### [facility] [address] [place], [address] Platelet mean volume (Bld) [Entitic vol] 10.4 fL Normal 6.2-12.0 [facility] Comment on above: Performed By: #### L 500.4050, L300.4310, L300.3900, M200.1000, L100.0100, L503.6005 #### [facility] [address] [place], [address] Platelets (Bld) [#/Vol] 278 10*3/uL Normal 150-450 [facility] Comment on above: Performed By: #### L 500.4050, L300.4310, L300.3900, M200.1000, L100.0100, L503.6005 #### [facility] [address] [place], [address] RBC (Bld) [#/Vol] 4.75 10*6/uL Normal 4.2-5.4 [facility] Comment on above: Performed By: #### L 500.4050, L300.4310, L300.3900, M200.1000, L100.0100, L503.6005 #### [facility] [address] [place], [address] RDW SD 49.0 fl High 35.1-43.9 [facility] Comment on above: Performed By: #### L 500.4050, L300.4310, L300.3900, M200.1000, L100.0100, L503.6005 #### [facility] [address] [place], [address] WBC (Bld) [#/Vol] 12.0 10*3/uL High 4.4-11.0 [facility] Comment on above: Performed By: #### L 500.4050, L300.4310, L300.3900, M200.1000, L100.0100, L503.6005 #### [facility] [address] [place], [address] Carbon dioxide, total [Moles /volume] in Central venous bloodOrdered By: Jarvis Negro on 09-21-2024 CO2 [Moles/Vol] 23.4 mmol/L 21.0-32.0 [facility] Chest PA and Lateralon 09-21 Chest PA and Lateral [facility] Imaging Services [address] [place], [place] [id number] Chest PA and Lateral MR#: [id number] Acct: [id number] Name: RICA ARIZA Rep #: [id number] : 1960 F 64 From: Akash Murphy MD PCP: DALE Del AngelC Status: REG ER Study: Chest PA and Lateral Date of Exam: 09/21/24 Exam# [id number] Ordering Dr: Jarvis Negro MD PROCEDURE: CHEST PA AND LATERAL [...] infection, atelectasis or vascular congestion. Reading Location: [id number] CC: REALTIME CAPTIONER-C Kay Mares; Dr. Jarvis Negro MD Dividend Deposit Entry Clerk: Signed Normal [facility] Chloride assayOrdered By: Nigel Negro on 09-21-2024 Chloride [Moles/Vol] 103 mmol/L 98-108 [facility] Comprehensive Metabolic Prof ilon 09-21-2024 Albumin [Mass/Vol] 4.2 g/dL Normal 3.4-4.8 [facility] Comment on above: Performed By: #### L 500.4050, L300.4310, L300.3900, M200.1000, L100.0100, L503.6005 #### [facility] [address] [place], [address] Albumin/Globulin [Mass ratio] 1.4 {ratio} Normal 0.9-2.4 [facility] Comment on above: Performed By: #### L 500.4050, L300.4310, L300.3900, M200.1000, L100.0100, L503.6005 #### [facility] [address] [place], [address] ALK PHOS 93 U/L Normal 35-104 [facility] Comment on above: Performed By: #### L 500.4050, L300.4310, L300.3900, M200.1000, L100.0100, L503.6005 #### [facility] [address] [place], [address] ALT [Catalytic activity/Vol] 11 U/L Normal <=34 [facility] Comment on above: Performed By: #### L 500.4050, L300.4310, L300.3900, M200.1000, L100.0100, L503.6005 #### [facility] [address] [place], [address] AST [Catalytic activity/Vol] 22 U/L Normal <=31 [facility] Comment on above: Performed By: #### L 500.4050, L300.4310, L300.3900, M200.1000, L100.0100, L503.6005 #### [facility] [address] [place], [address] Bilirubin [Mass/Vol] 0.61 mg/dL Normal 0.00-1.30 [facility] Comment on above: Performed By: #### L 500.4050, L300.4310, L300.3900, M200.1000, L100.0100, L503.6005 #### [facility] [address] [place], [address] BUN/CRE 18.9 RATIO Normal 10-20 [facility] Comment on above: Performed By: #### L 500.4050, L300.4310, L300.3900, M200.1000, L100.0100, L503.6005 #### [facility] [address] [place], [address] Calcium [Mass/Vol] 9.9 mg/dL Normal 7.6-11.0 [facility] Comment on above: Performed By: #### L 500.4050, L300.4310, L300.3900, M200.1000, L100.0100, L503.6005 #### [facility] [address] [place], [address] Chloride [Moles/Vol] 103 mmol/L Normal 98-108 [facility] Comment on above: Performed By: #### L 500.4050, L300.4310, L300.3900, M200.1000, L100.0100, L503.6005 #### [facility] [address] [place], [address] CO2 [Moles/Vol] 23.4 mmol/L Normal 21.0-32.0 [facility] Comment on above: Performed By: #### L 500.4050, L300.4310, L300.3900, M200.1000, L100.0100, L503.6005 #### [facility] [address] [place], [address] Creatinine [Mass/Vol] 0.93 mg/dL Normal 0.70-1.20 [facility] Comment on above: Performed By: #### L 500.4050, L300.4310, L300.3900, M200.1000, L100.0100, L503.6005 #### [facility] [address] [place], [address] ECRCL 84.40 ml/min Normal 50-250 [facility] Comment on above: Performed By: #### L 500.4050, L300.4310, L300.3900, M200.1000, L100.0100, L503.6005 #### [facility] [address] [place], [address] GAP 14 Normal 5-15 [facility] Comment on above: Performed By: #### L 500.4050, L300.4310, L300.3900, M200.1000, L100.0100, L503.6005 #### [facility] [address] [place], [address] GFR/1.73 sq M.predicted among non-blacks MDRD (S/P/Bld) [Vol rate/Area] 68 mL/min/{1.73_m2} Normal >60 [facility] Comment on above: Result Comment: mL/m in/1.73m2 CKD-EPI Creatinine Equation (2020) Performed By: #### L 500.4050, L300.4310, L300.3900, M200.1000, L100.0100, L503.6005 #### [facility] [address] [place], [address] Globulin (S) [Mass/Vol] 3.0 g/dL Normal 2.2-4.2 [facility] Comment on above: Performed By: #### L 500.4050, L300.4310, L300.3900, M200.1000, L100.0100, L503.6005 #### [facility] [address] [place], [address] Glucose [Mass/Vol] 99 mg/dL Normal 70-99 [facility] Comment on above: Performed By: #### L 500.4050, L300.4310, L300.3900, M200.1000, L100.0100, L503.6005 #### [facility] [address] [place], [address] Potassium [Moles/Vol] 4.1 mmol/L Normal 3.3-5.1 [facility] Comment on above: Performed By: #### L 500.4050, L300.4310, L300.3900, M200.1000, L100.0100, L503.6005 #### [facility] [address] [place], [address] Sodium [Moles/Vol] 140 mmol/L Normal 133-145 [facility] Comment on above: Performed By: #### L 500.4050, L300.4310, L300.3900, M200.1000, L100.0100, L503.6005 #### [facility] [address] [place], [address] T PROT 7.2 g/dL Normal 5.9-8.4 [facility] Comment on above: Performed By: #### L 500.4050, L300.4310, L300.3900, M200.1000, L100.0100, L503.6005 #### [facility] [address] [place], [address] Urea nitrogen [Mass/Vol] 18 mg/dL Normal 4-19 [facility] Comment on above: Performed By: #### L 500.4050, L300.4310, L300.3900, M200.1000, L100.0100, L503.6005 #### [facility] [address] [place], [address] Emergency Department Summary on 09-21-2024 Emergency Department Summary [facility] Medical Records Department [address] [place] [address] Emergency Department Summary 09/21/24 MR#: [id number] Acct: [id number] Name: RICA ARIZA Rep #: [id number] : 1960 64 From: Jarvis Negro MD PCP: ERIK Del Angel Status:REG ER Location: ED HPI History of Present [...] palsy. She had a outpatient MRI at [facility] this past Wednesday. She presents because of [...] interpretation was normal intracranial contents no pituitary/parasellar mass lesions. There was question of asymmetry of T2 hyperintense signal and enhancement of the left facial nerve tympanic and mastoid segments suggesting left facial neuritis. Radiologist commented this would better be assessed with a dedicated IAC protocol. Prior similar symptoms: No Recent Illness/Hospitalizati on: No [facility] Medical History (Updated 09/21/24 @ 20:37 by [...] Denies cold intolerance or heat intolerance Hematologic/Lymphatic Hematologic/Lymphatic : Reports systems reviewed and no addt'l complaints, except as documented EXAM Physical Exam Const Vital Signs: [...] NAD or pallor HEENT Reports dry mucous membra (more content not included)... Normal [facility] Eosinophil percentageOrdered By: Jarvis Negro on 09-21-2024 Eosinophils/100 WBC (Bld) 0.8 % 0-5 [facility] Erythrocyte distribution wid th ratioOrdered By: Jarvis Negro on 09-21-2024 Erythrocyte distribution width (RBC) [Ratio] 14.2 % 11.6-14.6 [facility] Erythrocyte distribution wid th standard deviationOrdered By: Jarvis Negro on 09-21-2024 Erythrocyte distribution width (RBC) [Ratio] 49.0 fl High 35.1-43.9 [facility] Glomerular filtration rate ( GFR) estimation/1.73 sq m using serum, plasma, or whole bOrdered By: Jarvis Negro on 09-21-2024 GFR/1.73 sq M.predicted among non-blacks MDRD (S/P/Bld) [Vol rate/Area] 68 mL/min/{1.73_m2} >60 [facility] Comment on above: mL/min/1.73m2 CKD-EP I Creatinine Equation (2020) H AND P Exam - [facility] 09-21-2024 H&P Exam - Hospitalist [facility] Medical Records Department [address] [place] [address] H P Exam - Hospitalist 09/21/242042 MR#: [id number] Acct: [id number] Name: RICA ARIZA Rep #: [id number] : 1960 64 From: Jazmine Mayes MD PCP: ERIK Del Angel Status:REG ER Location: ED HPI - General General Date of Admission: 09/21/24 Date of Service: 09/21/24 Chief Complaint: Dyspnea, cough, fever, chills. 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 In addition patient had onset petechial rash to bilateral lower extremities starting approximately 4 to 5 days prior to the onset of her upper respiratory symptoms. Workup in the ED included T1 100.4, heart rate 150, BP 125/87, respiratory rate 22, initially 92% on room air however de-saturated down to 84% on RA with any [...] infection, atelectasis or vascular congestion, coags pending upon evaluation, EKG with sinus tachycardia with no acute evidence of ischemia. In the ED patient ministered 1 L normal saline, azithromycin 500 mg IV x 1, Rocephin 2 g IV x 1. PFSH Medical History Obesity Gaines's palsy Home Medications ???Medication ???Instructions ???Recorded ???Last Taken ???Type melatonin 10 mg capsule 10 mg PO QHS 09/21/24 Unknown Hist ory peg 400-propylene glycol 0.4 %-0.3 drp ophthalmic (eye) QHS bells 0 09/21/24 09/20/24 History % eye gel drops [...] chest pain, chest pressure or chest discomfort, palpitations, edema, orthopnea, syncopal events. RESPIRATORY: + Dyspnea worse [...] sweating, cold or heat intolerance. No polyuria or polydipsia. ALLERGIES: No history of asthma, hives, eczema [...] 2 09/21/24 19:00 09/21/24 19:51 09/21/24 20:00 (more content not included)... Normal [facility] Hematocrit Auto (Bld) [Volum e fraction]Ordered By: Jarvis Negro on 09-21-2024 Hematocrit (Bld) [Volume fraction] 44.2 % 37-47 [facility] Hemoglobin measurementOrdere d By: Jarvis Negro on 09-21-2024 Hemoglobin (Bld) [Mass/Vol] 14.7 g/dL 12.0-15.0 [facility] Immature granulocytes/100 WB C Auto (Bld)Ordered By: Jarvis Negro on 09-21-2024 Immature granulocytes/100 WBC (Bld) 0.300 % 0.0-0.9 [facility] Comment on above: IG% - Immature Granu locytes (promyelocytes, myelocytes and metamyelocytes) > 1% indicates that a LEFT SHIFT is Present. International normalized rat io (INR) calculationOrdered By: Jarvis Negro on 09-21-2024 INR Coag (Bld) [Relative time] 1.1 {INR} [facility] Ketones Test strip Ql (U)Ord ered By: Jarvis Negro on 09-21-2024 Ketones Ql (U) 5 mg/dl High Negative [facility] L509.7001on 09-21-2024 Procalcitonin 0.05 ng/mL Normal <=0.10 [facility] Comment on above: Result Comment: Inte rpretation: <0.10-0.25 ng/mL: Antibiotic therapy discouraged. Bacterial infection unlikely. 0.25-0.50 ng/mL: Antibiotic therapy encouraged. Bacterial infection possible. >0.50 ng/mL: Antibiotic therapy strongly encouraged. Suggestive of presence of bacterial infection. PCT should always be interpreted in the clinical context of the patient. Therefore, clinicians should use the PCT results in conjunction with other laboratory findings and clinical signs of the patient. Performed By: #### L 501.080 #### [facility] [address] [facility] [place], [address] Laboratory - Chemistry and C hemistry - challengeOrdered By: Jarvisana cristina Negro on 09-21-2024 AST [Catalytic activity/Vol] 22 U/L <32 [facility] Lactic Acidon 09-21-2024 Lactate [Moles/Vol] 1.4 mmol/L Normal 0.0-2.0 [facility] Comment on above: Order Comment: Y Performed By: #### L 500.4050, L300.4310, L300.3900, M200.1000, L100.0100, L503.6005 #### [facility] [address] [place], [address] Lactic acid measurementOrder ed By: Jarvis Negro on 09-21-2024 Lactate [Moles/Vol] 1.4 mmol/L 0.0-2.0 [facility] Legionella Antigen Urineon 0 09-21-2024 LEGU Legionella Antigen result interpretation: L pneumo Ag Ur Ql Negative Presumptive negative for Legionella pneumophila serogroup 1 antigen in urine, suggesting no recent or current infection. Legionella Ag, Urine Negative (See interpretation below) Normal [facility] Comment on above: Performed By: #### L 500.4050, L300.4310, L300.3900, M200.1000, L100.0100, L503.6005 #### [facility] [address] [place], [address] MCV (mean corpuscular volume ) determinationOrdered By: Jarvis Negro on 09-21-2024 MCV (RBC) [Entitic vol] 93.1 fL 81-99 [facility] Mean corpuscular hemoglobin (MCH) determinationOrdered By: Jarvisana cristina Negro on 09-21-2024 MCH (RBC) [Entitic mass] 30.9 pg 27.0-32.0 [facility] Mean corpuscular hemoglobin concentration (MCHC) determinationOrdered By: Jarvis Negro on 09-21-2024 MCHC (RBC) [Mass/Vol] 33.3 g/dL 32-36 [facility] Mean platelet volume determi nationOrdered By: Jarvis Negro on 09-21-2024 Platelet mean volume (Bld) [Entitic vol] 10.4 fL 6.2-12.0 [facility] Microscopic analysis of urin e for red blood cells (RBC)Ordered By: Jarvis Negro on 09-21-2024 Microscopic analysis of urine for red blood cells (RBC) 0-5 SEEN /hpf 0-5 [facility] Monocyte percentageOrdered B y: Jarvis Negro on 09-21-2024 Monocytes/100 WBC (Bld) 10.1 % High 0-10 [facility] Mucus LM Ql (Urine sed)Order ed By: Jarvis Negro on 09-21-2024 Mucus Ql (Urine sed) 0 SEEN /hpf [facility] Nasal methicillin resistant Staphylococcus aureus (MRSA) DNA detection by PCROrdered By: Jazmine White on 09-21-2024 MRSA DNA ZACH+probe Ql (Nose) [facility] Neutrophil percentageOrdered By: Jarvis Negro on 09-21-2024 Neutrophils/100 WBC (Bld) 68.6 % 47-70 [facility] Nitrite Test strip Ql (U)Ord ered By: Jarvis Jarretto on 09-21-2024 Nitrite Ql (U) Negative Negative [facility] Nucleated red blood cell per centageOrdered By: Jarvis Negro on 09-21-2024 Nucleated RBC/100 WBC (Bld) [Ratio] 0 % 0-5 [facility] Partial Thromboplast Timeon 09-21-2024 aPTT Coag (Bld) [Time] 25.0 s Normal 24.1-36.2 [facility] Comment on above: Performed By: #### L 500.4050, L300.4310, L300.3900, M200.1000, L100.0100, L503.6005 #### [facility] [place], [address] Platelet countOrdered By: Nigel ana cristina Jarretto on 09-21-2024 Platelets (Bld) [#/Vol] 278 10*3/uL 150-450 [facility] Potassium measurement (mass/ volume)Ordered By: Jarvisana cristina Negro on 09-21-2024 Potassium (Unsp spec) [Mass/Vol] 4.1 mmol/L 3.3-5.1 [facility] Procalcitonin [Mass/volume] in Serum or Plasma by ImmunoassayOrdered By: Jazmine Mayes on 09-21-2024 Procalcitonin IA [Mass/Vol] 0.05 ng/mL <0.11 [facility] Comment on above: Interpretation:<0.10 -0.25 ng/mL: Antibiotic therapy discouraged. Bacterial infection unlikely.0.25-0.50 ng/mL: Antibiotic therapy encouraged. Bacterial infection possible.>0.50 ng/mL: Antibiotic therapy strongly encouraged. Suggestive of presence of bacterial infection.PCT should always be interpreted in the clinical context of the patient. Therefore, clinicians should use the PCT results in conjunction with other laboratory findings and clinical signs of the patient. Protein Test strip Ql (U)Ord ered By: Jarvis Jarretto on 07-24-2025 Protein Ql (U) 30 mg/dl High Negative [facility] Prothrombin Time w/INRon INR Coag (PPP) [Relative time] 1.1 {INR} Normal [facility] Comment on above: Performed By: #### L 500.4050, L300.4310, L300.3900, M200.1000, L100.0100, L503.6005 #### [facility] [address] [place], [address] PT Coag (PPP) [Time] 14.3 s Normal 11.7-14.9 [facility] Comment on above: Performed By: #### L 500.4050, L300.4310, L300.3900, M200.1000, L100.0100, L503.6005 #### [facility] [address] [place], [place], [address] Prothrombin timeOrdered By: Jarvis Negro on 09-21-2024 PT Coag (PPP) [Time] 14.3 s 11.7-14.9 [facility] RBC Auto (Bld) [#/Vol]Ordere d By: Jarvis Negro on 09-21-2024 RBC (Bld) [#/Vol] 4.75 10*6/uL 4.2-5.4 [facility] Respiratory pathogens detect ion panel by molecular detection methodOrdered By: Jazmine Mayes on 09-21-2024 Respiratory pathogens DNA and RNA panel ZACH+probe (Resp) [facility] Serum creatinine measurement (mass/volume)Ordered By: Jarvis Negro on 09-21-2024 Creatinine [Mass/Vol] 0.93 mg/dL 0.70-1.20 [facility] Serum globulin measurementOr dered By: Jarvis Negro on 09-21-2024 Globulin (S) [Mass/Vol] 3.0 g/dL 2.2-4.2 [facility] Serum glucose measurement (m ass/volume)Ordered By: Jarvis Negro on 09-21-2024 Glucose [Mass/Vol] 99 mg/dL 70-99 [facility] Serum or plasma alanine garay otransferase (ALT) measurementOrdered By: Jarvisana cristina Negro on 09-21-2024 ALT [Catalytic activity/Vol] 11 U/L <35 [facility] Serum or plasma albumin dashawn urement (mass/volume)Ordered By: Jarvis Negro on 09-21-2024 Albumin [Mass/Vol] 4.2 g/dL 3.4-4.8 [facility] Serum or plasma albumin/glob ulin mass ratioOrdered By: [facility] on 09-21-2024 Albumin/Globulin [Mass ratio] 1.4 {ratio} 0.9-2.4 [facility] Serum or plasma alkaline zack sphatase measurementOrdered By: [facility] on 09-21-2024 ALP [Catalytic activity/Vol] 93 U/L 35-104 [facility] Serum or plasma calcium dashawn urement (mass/volume)Or[facility] By: [facility] on 09-21-2024 Calcium [Mass/Vol] 9.9 mg/dL 7.6-11.0 [facility] Serum or plasma urea nitroge n measurement (mass/volume)Ordered By: [facility] on 09-21-2024 Urea nitrogen [Mass/Vol] 18 mg/dL 4-19 [facility] Sodium levelOrdered By: [facility] on 09-21-2024 Sodium [Moles/Vol] 140 mmol/L 133-145 [facility] Squamous epithelial cells de tection in urine sediment by light microscopyOrdered By: [facility] on 09-21-2024 Epithelial cells.squamous LM Ql (Urine sed) 25-50 SEEN /hpf 5-10 [facility] Strep pneumoniae Antig(UR,CS F)on 09-21-2024 STPAG URINE INTERPRETATION Strep pneumoniae Antig(UR,CSF) Negative Urine Presumptive negative for pneumococcal pneumonia, suggesting no current or recent pneumococcal infection. Infection due to S pneumoniae cannot be ruled out since the antigen present in the sample may be below the detection limit of the test. Strep pneumo Test Negative URINE (See interpretation below) Normal [facility] Comment on above: Performed By: #### L 500.4050, L300.4310, L300.3900, M200.1000, L100.0100, L503.6005 #### [facility] [address] [place], [address] Total proteinOrdered By: Jarvis Negro on 09-21-2024 Protein [Mass/Vol] 7.2 g/dL 5.9-8.4 [facility] Urinalysis, Completeon 09-21 RBC 0-5 SEEN Normal 0-5 [facility] Comment on above: Order Comment: VIOLET CTOR TO SPECIFY Performed By: #### L 501.080 #### [facility] [address] [place], [address] BACTERIA 2+ /hpf Normal None Seen [facility] Comment on above: Order Comment: VIOLET CTOR TO SPECIFY Performed By: #### L 501.080 #### [facility] [address] [place], [address] EPI,SQUAMOUS 25-50 SEEN Normal 5-10 [facility] Comment on above: Order Comment: VIOLET CTOR TO SPECIFY Performed By: #### L 501.080 #### [facility] [address] [place], [address] WBC 10-25 SEEN Normal 0-5 [facility] Comment on above: Order Comment: VIOLET CTOR TO SPECIFY Performed By: #### L 501.080 #### [facility] [address] [place], [address] Mucus Ql (Urine sed) 0 SEEN Normal [facility] Comment on above: Order Comment: VIOLET CTOR TO SPECIFY Performed By: #### L 501.080 #### [facility] [address] [place], [address] Urine Legionella pneumophila antigen detectionOrdered By: Jazmine White on 09-21-2024 L. pneumophila Ag Ql (U) [facility] Urine clarityOrdered By: Jarvis Negro on 09-21-2024 Clarity (U) Sl. Cloudy Clear [facility] Urine color determinationOrd ered By: Jarvis Negro on 09-21-2024 Color (U) Yellow Yellow [facility] Urine glucose detectionOrder ed By: Jarvis Negro on 09-21-2024 Glucose Ql (U) Normal mg/dl Normal [facility] Urine leukocyte esterase det ection by dipstickOrdered By: Jarvis Negro on 09-21-2024 Leukocyte esterase Test strip Ql (U) 100 /ul High Negative [facility] Urine pHOrdered By: Jarvis de la paz on 09-21-2024 pH (U) 6.0 [pH] 5.0 - 8.0 [facility] Urine sediment bacteria coun t by microscopy (number/high power field)Ordered By: Jarvisana cristina Negro on 09-21-2024 Bacteria LM.HPF (Urine sed) [#/Area] 2 /[HPF] None Seen [facility] Urine specific gravity measu rementOrdered By: Jarvis Negro on 09-21-2024 Specific gravity (U) [Rel density] 1.020 1.002-1.030 [facility] Urine urobilinogen measureme ntOrdered By: Jarvis Negro on 09-21-2024 Urobilinogen Ql (U) Normal mg/dl Normal [facility] White blood cell (WBC) count Ordered By: Jarvisana cristina Negro on 09-21-2024 WBC (Bld) [#/Vol] 12.0 10*3/uL High 4.4-11.0 [facility] White blood cell countOrdere d By: Jarvis Negro on 09-21-2024 White blood cell count 10-25 SEEN /hpf 0-5 [facility] Lyme Antibodies,W Bloton Lyme Additional Comment Normal . [facility] Comment on above: Result Comment: Per CDC [...] or more days of symptoms. Performed at: [address] [id number] Sub Assembly Team Worker: Archana Landa MD, Phone: [phone] Performed By: #### L 501.080 #### [facility] [address] [place], [address] LYME IgG INTERP Negative Normal Negative [facility] Comment on above: Performed By: #### L 501.080 #### [facility] [address] [place], [address] LYME IgM INTERP Negative Normal Negative [facility] Comment on above: Result Comment: Plea se Note: Lyme immunoblot alone is not recommended for the diagnosis of Lyme disease. Current guidelines recommend the use of a two-tiered approach to Lyme serology testing to improve the sensitivity and specificity of testing. [facility] offers test code 969535 Lyme Disease Serology with Reflex to aid in the diagnosis of Lyme Disease. Performed By: #### L 501.080 #### [facility] [address] [place], [address] P18 Ab Absent Normal . [facility] Comment on above: Performed By: #### L 501.080 #### [facility] [address] [place], [address] P23 Ab Absent Normal . [facility] Comment on above: Performed By: #### L 501.080 #### [facility] [address] [place], [address] P28 Ab Absent Normal . [facility] Comment on above: Performed By: #### L 501.080 #### [facility] [address] [place], [address] P30 Ab Absent Normal . [facility] Comment on above: Performed By: #### L 501.080 #### [facility] [address] [place], [address] P39 Ab Absent Normal . [facility] Comment on above: Performed By: #### L 501.080 #### [facility] [address] [place], [address] P41 Ab Absent Normal . [facility] Comment on above: Performed By: #### L 501.080 #### [facility] [address] [place], [address] P45 Ab Absent Normal . [facility] Comment on above: Performed By: #### L 501.080 #### [facility] [address] [place], [address] P58 Ab Absent Normal . [facility] Comment on above: Performed By: #### L 501.080 #### [facility] [address] [place], [address] P66 Ab Absent Normal . [facility] Comment on above: Performed By: #### L 501.080 #### [facility] [address] [place], [address] P93 Ab Absent Normal . [facility] Comment on above: Performed By: #### L 501.080 #### [facility] [address] [place], [address] Brain W/WO Contraston 2024 Brain W/WO Contrast [facility] [address] [place] [address] Brain W/WO Contrast MR#: [id number] Acct: [id number] Name: RICA ARIZA Rep #: [id number] : 1960 F 64 From: Zev Peres MD PCP: ERIK Del Angel Status: REG CLI Study: Brain W/WO Contrast Date of Exam: 09/19/24 Exam# [id number] Ordering Dr: Pepe Herrera MD PROCEDURE: BRAIN W/WO CONTRAST 09/19/2024 REASON FOR EXAM: ?Pituitary mass, left-sided Gaines's palsy TECHNIQUE: Multiplanar and multisequential MRI of the brain was performed without and with IV gadolinium based contrast administration. Dedicated small wvyse-gk-gkur thin slice sequences through the pituitary/sellar region [...] with a dedicated IAC protocol. Reading Location: [id number] CC: ERIK Mares; Dr. Pepe Herrera MD Dividend Deposit Entry Clerk: Signed Normal [facility] Magnetic resonance imaging r eportOrdered By: Zev Peres on 09-19-2024 Study report [facility] [address] [place] [address] Brain W/WO Contrast MR#: [id number] Acct: [id number] Name: MICAELARICA L Rep #: [id number] : 1960 F 64 From: [facility] lulu Peres MD PCP: ERIK Del Angel Status: REG C LI Study:Brain W/WO Contrast Date of Exam: 09/19/24 Exam# [id number] Ordering Dr: Pepe Herrera MD PROCEDURE: BRAIN W/WO CONTRAST 09/19/2024 REASON FOR EXAM: ?Pituitary mass, left-sided Gaines's palsy TECHNIQUE: Multiplanar and multisequential MRI of the brain was performed without and with IV gadolinium based contrast administration. Dedicated small yehun-sv-yqre thin slice sequences through the pituitary/sellar region were obtained pre and post contrast. CONTRAST: Clariscan VOLUME: 24 mL COMPARISON: CT head exams 07/29/2024, 07/27/2024. FINDINGS: Ventricular and sulcal size and configuration are within normal limits. No intracranial mass lesion or pathologic enhancement. Normal pituitary gland and parasellar structures. No regions of abnormal restricted diffusion, or other parenchymal signal alteration. No extra-axial collection or mass-effect. Preserved major intracranial vascular flow voids. There is questionable asymmetric T2 hyperintense signal and contrast enhancementof the left facial nerve along its visualized tympanic and mastoid segments which may reflect facial neuritis. No abnormal enhancement or mass lesion is appreciated within the internal auditory canal. Normal symmetric appearance of the bilateral innerear structures with preserved normal T2 signal. Orbital [...] with a dedicated IAC protocol. Reading Location: [facility] CC: [employer]TIME CAPTIONER-C Kay Mares; Dr. Pepe Herrera MD ~ Dividend Deposit Entry Clerk: Signed [facility] No Panel InformationOrdered By: Kay Mares on 09-12-2024 Lyme Disease IgG Ab 30 kDa Band Absent . [facility] Lyme Disease IgG Ab 93 kDa Band Absent . [facility] Lyme Disease IgG West Blot Interp Negative Negative [facility] Lyme Disease IgM Ab (Western Blot) Negative Negative [facility] Comment on above: Please Note: Lyme im munoblot alone is not recommended forthe diagnosis of Lyme disease. Current guidelines recommendthe use of a two-tiered approach to Lyme serology testingto improve the sensitivity and specificity of testing.[facility] offers test code [id number] Lyme Disease Serology withReflex to aid in the diagnosis of Lyme Disease. Lyme Disease Western Blot Comments Comment . [facility] Comment on above: Per CDC criteria, th [...] 30 or more days of symptoms.Performed at: [address] [id number] Director: Archana Landa MD, Phone: [phone] Anion gap in Serum or Plasma Ordered By: Rigoberto Phipps on 08-10-2024 Anion gap [Moles/Vol] 12 mmol/L 5-15 [facility] BUN/creatinine ratioOrdered By: danniellemt Phipps on 08-10-2024 Urea nitrogen/Creatinine [Mass ratio] 20.8 mg/mg High 10- [facility] Bilirubin, totalOrdered By: Rigoberto Phipps on 08-10-2024 Bilirubin [Mass/Vol] 0.63 mg/dL 0.00-1.30 [facility] Calculated very low density lipoprotein (VLDL) cholesterol measurementOrdered By: Rigoberto Phipps on 08-10-2024 Calculated very low density lipoprotein (VLDL) cholesterol measurement 20 mg/dL 5-40 [facility] Carbon dioxide, total [Moles /volume] in Central venous bloodOrdered By: Rigoberto Phipps on 08-10-2024 CO2 [Moles/Vol] 23.4 mmol/L 21.0-32.0 [facility] Chloride assayOrdered By: Stephen Phipps on 08-10-2024 Chloride [Moles/Vol] 106 mmol/L 98-108 [facility] Comprehensive Metabolic Prof ilon 08-10-2024 Albumin [Mass/Vol] 4.0 g/dL Normal 3.4-4.8 [facility] Comment on above: Performed By: #### L 500.4050, L300.4310, L300.3900, M200.1000, L100.0100, L503.6005 #### [facility] [address] [place], [address] Albumin/Globulin [Mass ratio] 1.4 {ratio} Normal 0.9-2.4 [facility] Comment on above: Performed By: #### L 500.4050, L300.4310, L300.3900, M200.1000, L100.0100, L503.6005 #### [facility] [address] [place], [address] ALK PHOS 98 U/L Normal 35-104 [facility] Comment on above: Performed By: #### L 500.4050, L300.4310, L300.3900, M200.1000, L100.0100, L503.6005 #### [facility] [address] [place], [address] ALT [Catalytic activity/Vol] 24 U/L Normal <=34 [facility] Comment on above: Performed By: #### L 500.4050, L300.4310, L300.3900, M200.1000, L100.0100, L503.6005 #### [facility] [address] [place], [address] AST [Catalytic activity/Vol] 23 U/L Normal <=31 [facility] Comment on above: Performed By: #### L 500.4050, L300.4310, L300.3900, M200.1000, L100.0100, L503.6005 #### [facility] [address] [place], [address] Bilirubin [Mass/Vol] 0.63 mg/dL Normal 0.00-1.30 [facility] Comment on above: Performed By: #### L 500.4050, L300.4310, L300.3900, M200.1000, L100.0100, L503.6005 #### [facility] [address] [place], [address] BUN/CRE 20.8 RATIO High 10-20 [facility] Comment on above: Performed By: #### L 500.4050, L300.4310, L300.3900, M200.1000, L100.0100, L503.6005 #### [facility] [address] [place], [address] Calcium [Mass/Vol] 9.1 mg/dL Normal 7.6-11.0 [facility] Comment on above: Performed By: #### L 500.4050, L300.4310, L300.3900, M200.1000, L100.0100, L503.6005 #### [facility] [address] [place], [address] Chloride [Moles/Vol] 106 mmol/L Normal 98-108 [facility] Comment on above: Performed By: #### L 500.4050, L300.4310, L300.3900, M200.1000, L100.0100, L503.6005 #### [facility] [address] [place], [address] CO2 [Moles/Vol] 23.4 mmol/L Normal 21.0-32.0 [facility] Comment on above: Performed By: #### L 500.4050, L300.4310, L300.3900, M200.1000, L100.0100, L503.6005 #### [facility] [address] [place], [address] Creatinine [Mass/Vol] 0.95 mg/dL Normal 0.70-1.20 [facility] Comment on above: Performed By: #### L 500.4050, L300.4310, L300.3900, M200.1000, L100.0100, L503.6005 #### [facility] [address] [place], [address] GAP 12 Normal 5-15 [facility] Comment on above: Performed By: #### L 500.4050, L300.4310, L300.3900, M200.1000, L100.0100, L503.6005 #### [facility] [address] [place], [address] GFR/1.73 sq M.predicted among non-blacks MDRD (S/P/Bld) [Vol rate/Area] 67 mL/min/{1.73_m2} Normal >60 [facility] Comment on above: Result Comment: mL/m in/1.73m2 CKD-EPI Creatinine Equation (2020) Performed By: #### L 500.4050, L300.4310, L300.3900, M200.1000, L100.0100, L503.6005 #### [facility] [address] [place], [address] Globulin (S) [Mass/Vol] 2.8 g/dL Normal 2.2-4.2 [facility] Comment on above: Performed By: #### L 500.4050, L300.4310, L300.3900, M200.1000, L100.0100, L503.6005 #### [facility] [address] [place], [address] Glucose [Mass/Vol] 97 mg/dL Normal 70-99 [facility] Comment on above: Performed By: #### L 500.4050, L300.4310, L300.3900, M200.1000, L100.0100, L503.6005 #### [facility] [address] [place], [address] Potassium [Moles/Vol] 3.8 mmol/L Normal 3.3-5.1 [facility] Comment on above: Performed By: #### L 500.4050, L300.4310, L300.3900, M200.1000, L100.0100, L503.6005 #### [facility] [address] [place], [address] Sodium [Moles/Vol] 141 mmol/L Normal 133-145 [facility] Comment on above: Performed By: #### L 500.4050, L300.4310, L300.3900, M200.1000, L100.0100, L503.6005 #### [facility] [address] [place], [address] T PROT 6.7 g/dL Normal 5.9-8.4 [facility] Comment on above: Performed By: #### L 500.4050, L300.4310, L300.3900, M200.1000, L100.0100, L503.6005 #### [facility] [address] [place], [address] Urea nitrogen [Mass/Vol] 20 mg/dL High 4-19 [facility] Comment on above: Performed By: #### L 500.4050, L300.4310, L300.3900, M200.1000, L100.0100, L503.6005 #### [facility] [address] [place], [place], [address] Glomerular filtration rate ( GFR) estimation/1.73 sq m using serum, plasma, or whole bOrdered By: Rigoberto Phipps on 08-10-2024 GFR/1.73 sq M.predicted among non-blacks MDRD (S/P/Bld) [Vol rate/Area] 67 mL/min/{1.73_m2} >60 [facility] Comment on above: mL/min/1.73m2 CKD-EP I Creatinine Equation (2020) Hemoglobin A1con 08-10-2024 HbA1c (Bld) [Mass fraction] 6.1 % High <=5.6 [facility] Comment on above: Result Comment: Norm al < 5.7 % Prediabetic 5.7 - 6.4 % Diabetic >or= 6.5 % Please note range changes. Performed By: #### L 500.4050, L300.4310, L300.3900, M200.1000, L100.0100, L503.6005 #### [facility] [address] [place], [place], [address] Hemoglobin A1c percentageOrd ered By: Rigoberto Phipps on 08-10-2024 HbA1c (Bld) [Mass fraction] 6.1 % High <5.7 [facility] Comment on above: Normal < 5.7 % Predi abetic 5.7 - 6.4 % Diabetic >or= 6.5 % Please note range changes. LDL calc ser/plasOrdered By: Rigoberto Phipps on 08-10-2024 Cholesterol in LDL [Mass/Vol] 81 mg/dL [facility] Comment on above: Zgugvmzgwc=128-890 m g/dL & Higher Xpjq=258 mg/dL or greater Laboratory - Chemistry and C hemistry - challengeOrdered By: Rigoberto Phipps on 08-10-2024 AST [Catalytic activity/Vol] 23 U/L <32 [facility] Lipid Profileon 08-10-2024 CHOL:HDL 2.43 Normal [facility] Comment on above: Performed By: #### L 500.4050, L300.4310, L300.3900, M200.1000, L100.0100, L503.6005 #### [facility] [address] [place], [address] Cholesterol [Mass/Vol] 172 mg/dL Normal <=200 [facility] Comment on above: Result Comment: Chol esterol level, Desirable <200 mg/dL Borderline high cholesterol 200-239 mg/dL High cholesterol >=240 mg/dL Recommendations of the NCEP Adult Treatment Panel for the following risk-cutoff thresholds for the [place] population. Performed By: #### L 500.4050, L300.4310, L300.3900, M200.1000, L100.0100, L503.6005 #### [facility] [address] [place], [address] Cholesterol in HDL [Mass/Vol] 71 mg/dL Normal [facility] Comment on above: Result Comment: Laura onal Cholesterol Education Program (NCEP) guidelines: <40 mg/dL: Low HDL-cholesterol (major risk factor for CHD) >= 60 mg/dL: High HDL-cholesterol (negative risk factor for CHD) HDL-cholesterol is affected by a number of factors, e.g. smoking, exercise, hormones, sex and age. Performed By: #### L 500.4050, L300.4310, L300.3900, M200.1000, L100.0100, L503.6005 #### [facility] [address] [place], [address] Cholesterol in LDL [Mass/Vol] 81 mg/dL Normal [facility] Comment on above: Result Comment: Bord pwatot=646-416 mg/dL Higher Jcax=942 mg/dL or greater Performed By: #### L 500.4050, L300.4310, L300.3900, M200.1000, L100.0100, L503.6005 #### [facility] [address] [place], [address] Cholesterol in VLDL [Mass/Vol] 20 mg/dL Normal 5-40 [facility] Comment on above: Performed By: #### L 500.4050, L300.4310, L300.3900, M200.1000, L100.0100, L503.6005 #### [facility] [address] [place], [address] Triglyceride [Mass/Vol] 100 mg/dL Normal [facility] Comment on above: Result Comment: The drugs N-Acetylcysteine and Metamizole may falsely depress this assay. Normal range: <150 mg/dL Borderline High: 150-199 mg/dL High: 200-499 mg/dL Very High: >500 mg/dL Performed By: #### L 500.4050, L300.4310, L300.3900, M200.1000, L100.0100, L503.6005 #### [facility] [address] [place], [place], [id number] Potassium measurement (mass/ volume)Ordered By: Rigoberto Phipps on 08-10-2024 Potassium (Unsp spec) [Mass/Vol] 3.8 mmol/L 3.3-5.1 [facility] Screening total cholesterol/ high density lipoprotein (HDL) cholesterol ratioOrdered By: Rigoberto Phipps on 08-10-2024 Cholesterol.total/Bekah sterol in HDL [Mass ratio] 2.43 {ratio} [facility] Serum creatinine measurement (mass/volume)Ordered By: Rigoberto Phipps on 08-10-2024 Creatinine [Mass/Vol] 0.95 mg/dL 0.70-1.20 [facility] Serum globulin measurementOr dered By: Rigoberto Phipps on 08-10-2024 Globulin (S) [Mass/Vol] 2.8 g/dL 2.2-4.2 [facility] Serum glucose measurement (m ass/volume)Ordered By: Rigoberto Phipps on 08-10-2024 Glucose [Mass/Vol] 97 mg/dL 70-99 [facility] Serum or plasma alanine garay otransferase (ALT) measurementOrdered By: Rigoberto Phipps on 08-10-2024 ALT [Catalytic activity/Vol] 24 U/L <35 [facility] Serum or plasma albumin dashawn urement (mass/volume)Ordered By: [facility] on 08-10-2024 Albumin [Mass/Vol] 4.0 g/dL 3.4-4.8 [facility] Serum or plasma albumin/glob ulin mass ratioOrdered By: [facility] on 08-10-2024 Albumin/Globulin [Mass ratio] 1.4 {ratio} 0.9-2.4 [facility] Serum or plasma alkaline zack sphatase measurementOrdered By: [facility] on 08-10-2024 ALP [Catalytic activity/Vol] 98 U/L 35-104 [facility] Serum or plasma calcium dashawn urement (mass/volume)Ordered By: [facility] on 08-10-2024 Calcium [Mass/Vol] 9.1 mg/dL 7.6-11.0 [facility] Serum or plasma cholesterol in HDL measurement (mass/volume)Ordered By: [facility] on 08-10-2024 Cholesterol in HDL [Mass/Vol] 71 mg/dL >40 [facility] Comment on above: National Cholesterol Education Program (NCEP) guidelines:<40 mg/dL: Low HDL-cholesterol (major risk factor for CHD)>= 60 mg/dL: High HDL-cholesterol (negative risk factor for CHD)HDL-cholesterol is affected by a number of factors, e.g. smoking, exercise, hormones, sex and age. Serum or plasma cholesterol measurement (mass/volume)Ordered By: [facility] on 08-10-2024 Cholesterol [Mass/Vol] 172 mg/dL <201 [facility] Comment on above: Cholesterol level, D esirable <200 mg/dLBorderline high cholesterol 200-239 mg/dLHigh cholesterol >=240 mg/dLRecommendations of the NCEP Adult Treatment Panel for the following risk-cutoff thresholds for the [place] population. Serum or plasma urea nitroge n measurement (mass/volume)Ordered By: [facility] on 08-10-2024 Urea nitrogen [Mass/Vol] 20 mg/dL High 4-19 [facility] Sodium levelOrdered By: dannielle [facility] on 08-10-2024 Sodium [Moles/Vol] 141 mmol/L 133-145 [facility] TSH DL <= 0.005 mIU/L QnOrde red By: Rigoberto Beam on 08-10-2024 TSH Qn 0.331 uIU/mL 0.300-4.200 [facility] Thyroid Stim Hormone (TSH)on 08-10-2024 TSH 0.331 uIU/mL Normal 0.300-4.200 [facility] Comment on above: Performed By: #### L 500.4050, L300.4310, L300.3900, M200.1000, L100.0100, L503.6005 #### [facility] [address] [place], [address] Total proteinOrdered By: Carrillo Phipps on 08-10-2024 Protein [Mass/Vol] 6.7 g/dL 5.9-8.4 [facility] Triglycerides measurementOrd ered By: Rigoberto Phipps on 08-10-2024 Triglyceride [Mass/Vol] 100 mg/dL <199 [facility] Comment on above: The drugs N-Acetylcy steine and Metamizole may falsely depress this assay. Normal range: <150 mg/dLBorderline High: 150-199 mg/dLHigh: 200-499 mg/dLVery High: >500 mg/dL Bedside Glucoseon 07-29-2024 FINGERSTICK GLU 124 mg/dL High 74-106 [facility] Comment on above: Result Comment: RY GEMENT OF PATIENT CARE PER NURSING PROTOCOL Performed By: #### L 501.080 #### [facility] [address] [place], [address] Emergency Department Summary on 07-29-2024 Emergency Department Summary [facility] Medical Records Department [address] [place] [address] Emergency Department Summary 07/29/24 MR#: [id number] Acct: [id number] Name: RICA ARIZA Rep #: [id number] : 1960 64 From: Raquel RILEY PCP: Care Physician,No Primary Status:DEP ER Location: ED HPI History of Present Illness Chief Complaint: Neuro S/Sx Narrative Narrative: 64-year-old female states 6 days ago she developed a left frontal temporal headache. She initially was seen at [facility] day of onset and had a CT scan of her brain and was given Toradol with some improvement in headache. She was seen at [place] ED 2 days ago with a left-sided [...] or lower extremity drift, normal finger-nose and [id number], normal gait. PSYCH: Normal affect. Const Vital [...] deficits (more content not included)... Normal [facility] Glucose measurement at bedsi deOrdered By: ED PROVIDER on 07-29-2024 Glucose [Mass/Vol] 124 mg/dL High 74-106 [facility] Comment on above: MANAGEMENT OF PATIEN T CARE PER NURSING PROTOCOL Sinus/Facial Bone WITH Contr ason 07-29-2024 Sinus/Facial Bone WITH Contras [facility] [address] [place], [place] [address] Sinus/Facial Bone WITH Contras MR#: [id number] Acct: [id number] Name: RICA ARIZA Rep #: [id number] : 1960 F 64 From: Tavia Day PCP: Care Physician,No Primary Status: REG ER Study: Sinus/Facial Bone WITH Contras Date of Exam: 0 07/29/24 Exam# [id number] Ordering Dr: Raquel Nunez PROCEDURE: SINUS/FACIAL BONE [...] follow-up under nonemergent outpatient basis. Reading Location: [id number] CC: ROSEMARY Kennedy; No Primary Care Physician Dividend Deposit Entry Clerk: Signed Normal [facility] Absolute lymphocyte countOrd ered By: [facility] on 07-27-2024 Lymphocytes Auto (Unsp spec) [#/Vol] 1.93 10*3/uL 0.83-4.51 [facility] Absolute neutrophil countOrd ered By: Superior Ray on 07-27-2024 Neutrophils (Bld) [#/Vol] 6.5 10*3/uL 2.0-7.7 [facility] Anion gap in Serum or Plasma Ordered By: Superior Ray on 07-27-2024 Anion gap [Moles/Vol] 13 mmol/L 5-15 [facility] Automated lymphocyte count a s percentage of total leukocytesOrdered By: [facility] Bell on 07-27-2024 Lymphocytes/100 WBC Auto (Unsp spec) 20.3 % 19-41 [facility] BUN/creatinine ratioOrdered By: [facility] on 07-27-2024 Urea nitrogen/Creatinine [Mass ratio] 13.7 mg/mg 10- [facility] Basic Metabolic Profile (BMP )on 07-27-2024 BUN/CRE 13.7 RATIO Normal - [facility] Comment on above: Performed By: #### L 501.080 #### [facility] [address] [place], [address] Calcium [Mass/Vol] 8.9 mg/dL Normal 7.6-11.0 [facility] Comment on above: Performed By: #### L 501.080 #### [facility] [address] [place] [place], [address] Chloride [Moles/Vol] 103 mmol/L Normal 98-108 [facility] Comment on above: Performed By: #### L 501.080 #### [facility] [address] [place], [address] CO2 [Moles/Vol] 22.2 mmol/L Normal 21.0-32.0 [facility] Comment on above: Performed By: #### L 501.080 #### [facility] [address] [place], [address] Creatinine [Mass/Vol] 0.88 mg/dL Normal 0.70-1.20 [facility] Comment on above: Performed By: #### L 501.080 #### [facility] [address] [place], [address] ECRCL 92.05 ml/min Normal 50-250 [facility] Comment on above: Performed By: #### L 501.080 #### [facility] [address] [place], [address] GAP 13 Normal 5-15 [facility] Comment on above: Performed By: #### L 501.080 #### [facility] [address] [place], [address] GFR/1.73 sq M.predicted among non-blacks MDRD (S/P/Bld) [Vol rate/Area] 74 mL/min/{1.73_m2} Normal >60 [facility] Comment on above: Result Comment: mL/m in/1.73m2 CKD-EPI Creatinine Equation (2020) Performed By: #### L 501.080 #### [facility] [address] [place], [address] Glucose [Mass/Vol] 96 mg/dL Normal 70-99 [facility] Comment on above: Performed By: #### L 501.080 #### [facility] [address] [place], [address] Potassium [Moles/Vol] 3.9 mmol/L Normal 3.3-5.1 [facility] Comment on above: Performed By: #### L 501.080 #### [facility] [address] [place], [address] Sodium [Moles/Vol] 138 mmol/L Normal 133-145 [facility] Comment on above: Performed By: #### L 501.080 #### [facility] [address] [place], [address] Urea nitrogen [Mass/Vol] 12 mg/dL Normal 4-19 [facility] Comment on above: Performed By: #### L 501.080 #### [facility] [address] [place], [address] Basophil percentageOrdered B y: Cynthia Bell on 07-27-2024 Basophils/100 WBC (Bld) 0.5 % 0-1 [facility] CBC W/Diff, Automatedon 06-30 Absolute Lymph 1.93 X10 3/uL Normal 0.83-4.51 [facility] Comment on above: Performed By: #### L 501.080 #### [facility] [address] [place], [address] Absolute Neut 6.5 X10 3/uL Normal 2.0-7.7 [facility] Comment on above: Performed By: #### L 501.080 #### [facility] [address] [place], [address] Basophils/100 WBC (Bld) 0.5 % Normal 0-1 [facility] Comment on above: Performed By: #### L 501.080 #### [facility] [address] [place], [address] Eosinophils/100 WBC (Bld) 0.4 % Normal 0-5 [facility] Comment on above: Performed By: #### L 501.080 #### [facility] [address] [place], [address] Erythrocyte distribution width (RBC) [Ratio] 12.9 % Normal 11.6-14.6 [facility] Comment on above: Performed By: #### L 501.080 #### [facility] [address] [place], [address] Hematocrit (Bld) [Volume fraction] 43.3 % Normal 37-47 [facility] Comment on above: Performed By: #### L 501.080 #### [facility] [address] [place], [address] Hemoglobin (Bld) [Mass/Vol] 14.5 g/dL Normal 12.0-15.0 [facility] Comment on above: Performed By: #### L 501.080 #### [facility] [address] [place], [address] IG% 0.200 Normal 0.0-0.9 [facility] Comment on above: Result Comment: IG% - Immature Granulocytes (promyelocytes, myelocytes and metamyelocytes) > 1% indicates that a LEFT SHIFT is Present. Performed By: #### L 501.080 #### [facility] [address] [place], [address] Lymphocytes/100 WBC (Bld) 20.3 % Normal 19-41 [facility] Comment on above: Performed By: #### L 501.080 #### [facility] [address] [place], [address] MCH (RBC) [Entitic mass] 31.3 pg Normal 27.0-32.0 [facility] Comment on above: Performed By: #### L 501.080 #### [facility] [address] [place], [address] MCHC (RBC) [Mass/Vol] 33.5 g/dL Normal 32-36 [facility] Comment on above: Performed By: #### L 501.080 #### [facility] [address] [place], [address] MCV (RBC) [Entitic vol] 93.3 fL Normal 81-99 [facility] Comment on above: Performed By: #### L 501.080 #### [facility] [address] [place], [address] Monocytes/100 WBC (Bld) 10.3 % High 0-10 [facility] Comment on above: Performed By: #### L 501.080 #### [facility] [address] [place], [address] Neutrophils/100 WBC (Bld) 68.3 % Normal 47-70 [facility] Comment on above: Performed By: #### L 501.080 #### [facility] [address] [place], [address] Nucleated RBC (Bld) [#/Vol] 0 10*3/uL Normal 0-5 [facility] Comment on above: Performed By: #### L 501.080 #### [facility] [address] [place], [address] Platelet mean volume (Bld) [Entitic vol] 9.7 fL Normal 6.2-12.0 [facility] Comment on above: Performed By: #### L 501.080 #### [facility] [address] [place], [address] Platelets (Bld) [#/Vol] 286 10*3/uL Normal 150-450 [facility] Comment on above: Performed By: #### L 501.080 #### [facility] [address] [place], [address] RBC (Bld) [#/Vol] 4.64 10*6/uL Normal 4.2-5.4 [facility] Comment on above: Performed By: #### L 501.080 #### [facility] [address] [place], [place], [address] RDW SD 44.1 fl High 35.1-43.9 [facility] Comment on above: Performed By: #### L 501.080 #### [facility] [address] [place], [address] WBC (Bld) [#/Vol] 9.5 10*3/uL Normal 4.4-11.0 [facility] Comment on above: Performed By: #### L 501.080 #### [facility] [address] [place], [address] CTA Head AND Neck W/ Contras ton 07-27-2024 CTA Head AND Neck W/ Contrast [facility] [address] [place], [place] [address] CTA Head AND Neck W/ Contrast MR#: [id number] Acct: [id number] Name: RICA ARIZA Gabe Rep #: [id number] : 1960 F 64 From: Hero barnhart MD PCP: Care Physician,No Primary Status: REG ER Study: CTA Head AND Neck W/ Contrast Date of Exam: Exam# [id number] Ordering Dr: Cynthia Bell DO PROCEDURE: CTA [...] RIGHT Vertebral: Unremarkable. LEFT Vertebral: Unremarkable. Anatomy: [place] anatomy is normal. Aneurysm or avm: No intracranial aneurysms or large vascular malformations are identified. Anterior cerebral arteries: Unremarkable: Middle cerebral arteries: Unremarkable. Basilar artery: Unremarkable. Posterior cerebral arteries: Unremarkable. Other major branches of the posterior circulation: Unremarkable. Major venous structures: Unremarkable. Other findings: Neck: Lungs: Bones: CT/CTA Head AND Neck W/ Contrast IMPRESSION: Unremarkable examination. Reading Location: [id number] CC: Dr. Cynthia Bell DO; No Primary Care Physician Dividend Deposit Entry Clerk: Signed Normal [facility] Carbon dioxide, total [Moles /volume] in Central venous bloodOrdered By: Cynthia Bell on 07-27-2024 CO2 [Moles/Vol] 22.2 mmol/L 21.0-32.0 [facility] Chloride assayOrdered By: Yen Bell on 07-27-2024 Chloride [Moles/Vol] 103 mmol/L 98-108 [facility] Emergency Department Summary on 07-27-2024 Emergency Department Summary [facility] Medical Records Department [address] [place] [address] Emergency Department Summary 07/27/24 MR#: [id number] Acct: [id number] Name: RICA ARIZA Rep #: [id number] : 1960 64 From: Cynthia Bell DO PCP: Care Physician,No Primary Status:DEP ER Location: ED HPI History of Present Illness Chief Complaint: Headache Detail of Chief Complaint: Headache Informant: patient Narrative Narrative: Patient presents the emergency department complaint of a headache that started 4 days ago. Patient was seen at [facility] 2 days ago and had a [...] Endocrinology: Denies polydipsia, polyphagia or polyuria Hematologic/Lymphatic Hematologic/Lymphatic : Denies easy bleeding, easy bruising or lymphadenopathy [...] 5/ (more content not included)... Normal [facility] Eosinophil percentageOrdered By: Cynthia Bell on 07-27-2024 Eosinophils/100 WBC (Bld) 0.4 % 0-5 [facility] Erythrocyte Sed Rateon 07-27 SED RATE 29 mm/hr Normal 0-30 [facility] Comment on above: Performed By: #### L 501.080 #### [facility] [place], [address] Erythrocyte distribution wid th ratioOrdered By: Cynthia Bell on 07-27-2024 Erythrocyte distribution width (RBC) [Ratio] 12.9 % 11.6-14.6 [facility] Erythrocyte distribution wid th standard deviationOrdered By: Cynthia Bell on 07-27-2024 Erythrocyte distribution width (RBC) [Ratio] 44.1 fl High 35.1-43.9 [facility] Erythrocyte sedimentation ra teOrdered By: Cynthia Bell on 07-27-2024 ESR (Bld) [Velocity] 29 mm/h 0-30 [facility] Glomerular filtration rate ( GFR) estimation/1.73 sq m using serum, plasma, or whole bOrdered By: Cynthia Bell on 07-27-2024 GFR/1.73 sq M.predicted among non-blacks MDRD (S/P/Bld) [Vol rate/Area] 74 mL/min/{1.73_m2} >60 [facility] Comment on above: mL/min/1.73m2 CKD-EP I Creatinine Equation (2020) Hematocrit Auto (Bld) [Volum e fraction]Ordered By: Cynthia Bell on 07-27-2024 Hematocrit (Bld) [Volume fraction] 43.3 % 37-47 [facility] Hemoglobin measurementOrdere d By: Cynthia Bell on 07-27-2024 Hemoglobin (Bld) [Mass/Vol] 14.5 g/dL 12.0-15.0 [facility] Immature granulocytes/100 WB C Auto (Bld)Ordered By: Cynthia Bell 07-27-2024 Immature granulocytes/100 WBC (Bld) 0.200 % 0.0-0.9 [facility] Comment on above: IG% - Immature Granu locytes (promyelocytes, myelocytes and metamyelocytes) > 1% indicates that a LEFT SHIFT is Present. MCV (mean corpuscular volume ) determinationOrdered By: Cynthia Bell on 07-27-2024 MCV (RBC) [Entitic vol] 93.3 fL 81-99 [facility] Mean corpuscular hemoglobin (MCH) determinationOrdered By: [facility] 07-27-2024 MCH (RBC) [Entitic mass] 31.3 pg 27.0-32.0 [facility] Mean corpuscular hemoglobin concentration (MCHC) determinationOrdered By: [facility] Bell 07-27-2024 MCHC (RBC) [Mass/Vol] 33.5 g/dL 32-36 [facility] Mean platelet volume determi nationOrdered By: Cynthia Bell on 07-27-2024 Platelet mean volume (Bld) [Entitic vol] 9.7 fL 6.2-12.0 [facility] Monocyte percentageOrdered B y: Cynthia Bell on 07-27-2024 Monocytes/100 WBC (Bld) 10.3 % High 0-10 [facility] Neutrophil percentageOrdered By: Cynthia Bell on 07-27-2024 Neutrophils/100 WBC (Bld) 68.3 % 47-70 [facility] Nucleated red blood cell per centageOrdered By: Cynthia Bell on 07-27-2024 Nucleated RBC/100 WBC (Bld) [Ratio] 0 % 0-5 [facility] Platelet countOrdered By: Yen Bell on 07-27-2024 Platelets (Bld) [#/Vol] 286 10*3/uL 150-450 [facility] Potassium measurement (mass/ volume)Ordered By: Cynthia Bell on 07-27-2024 Potassium (Unsp spec) [Mass/Vol] 3.9 mmol/L 3.3-5.1 [facility] RBC Auto (Bld) [#/Vol]Ordere d By: Cynthia Bell on 07-27-2024 RBC (Bld) [#/Vol] 4.64 10*6/uL 4.2-5.4 [facility] Serum creatinine measurement (mass/volume)Ordered By: Cynthia Bell on 07-27-2024 Creatinine [Mass/Vol] 0.88 mg/dL 0.70-1.20 [facility] Serum glucose measurement (m ass/volume)Ordered By: Cynthia Bell on 07-27-2024 Glucose [Mass/Vol] 96 mg/dL 70-99 [facility] Serum or plasma calcium dashawn urement (mass/volume)Ordered By: Cynthia Bell on 07-27-2024 Calcium [Mass/Vol] 8.9 mg/dL 7.6-11.0 [facility] Serum or plasma urea nitroge n measurement (mass/volume)Ordered By: Cynthia Bell on 07-27-2024 Urea nitrogen [Mass/Vol] 12 mg/dL 4-19 [facility] Sodium levelOrdered By: Roshan Bell on 07-27-2024 Sodium [Moles/Vol] 138 mmol/L 133-145 [facility] White blood cell (WBC) count Ordered By: Cynthia Bell on 07-27-2024 WBC (Bld) [#/Vol] 9.5 10*3/uL 4.4-11.[address] [facility] [address] HEAD OR BRAIN WITHOUT [...] process. Workstation ID: [id number] Dictated by: ARIS AVLAREZ on WedJuly 25, 2024 10:20:41 PM EDT Transcribed by: ARIS ALVAREZ on WedJuly 25, 2024 10:20:41 PM EDT Finalized by: ARIS ALVAREZ on WedJuly 25, 2024 10:20:41 PM EDT [facility] Comment on above: Order Comment: Injur y/Trauma or Illness?:Illness/Other How long have you had these symptoms (acute/chronic)?:Acute Reason for exam?:headache and dizzy Type of Exam?:Initial Additional signs and symptoms?:headache and dizzy ED Prov Noteon 07-25-2024 ED Prov Note [facility] EMERGENCY DEPARTMENT ATTENDING NOTE: NAME: Rica Ariza CSN: [id number] 64 y.o. PCP: No, Physician History: Chief Complaint: Headache (Headache since yesterday, worsening today, denies vision changes or n/v today ) HPI: The history was obtained from the patient. Rica is a 64 y.o. female who presents [...] Temporal (!) 119 16 95 % 5' 9" 122.5 kg (270 lb) Physical Exam Vitals [...] All other components within normal limits Narrative: [facility] has implemented the eGFR [...] Medical Decision Making: I did personally review Rica's past medical history, surgical history, social history, [...] office visits, (more content not included)... Normal [facility] POC BASIC METABOLIC PANEL - Connor 07-25-2024 Chloride [Moles/Vol] 107 mmol/L Normal 98-108 [facility] Comment on above: Order Comment: [facility] has implemented the eGFR calculation approach that does not have a coefficient for race that conforms to the NKF-ASN Task Force Recommendations. CO2 [Moles/Vol] 25 mmol/L Normal 21-32 [facility] Comment on above: Order Comment: [facility] has implemented the eGFR calculation approach that does not have a coefficient for race that conforms to the NKF-ASN Task Force Recommendations. Creatinine [Mass/Vol] 0.78 mg/dL Normal 0.60-1.20 [facility] Comment on above: Order Comment: [facility] has implemented the eGFR calculation approach that does not have a coefficient for race that conforms to the NKF-ASN Task Force Recommendations. Glucose [Mass/Vol] 124 mg/dL High 65-99 [facility] Comment on above: Order Comment: [facility] has implemented the eGFR calculation approach that does not have a coefficient for race that conforms to the NKF-ASN Task Force Recommendations. POC GFR 85 mL/min/1.73 m2 Normal >=60 [facility] Comment on above: Order Comment: [facility] has implemented the eGFR calculation approach that does not have a coefficient for race that conforms to the NKF-ASN Task Force Recommendations. Result Comment: Beth mated GFR was calculated using the 2020 CKD-EPI creatinine equation. POC IONIZED CALCIUM 4.7 mg/dL Normal 4.5-5.3 [facility] Comment on above: Order Comment: [facility] has implemented the eGFR calculation approach that does not have a coefficient for race that conforms to the NKF-ASN Task Force Recommendations. Potassium [Moles/Vol] 4.0 mmol/L Normal 3.5-5.1 [facility] Comment on above: Order Comment: [facility] has implemented the eGFR calculation approach that does not have a coefficient for race that conforms to the NKF-ASN Task Force Recommendations. Sodium [Moles/Vol] 142 mmol/L Normal 135-145 [facility] Comment on above: Order Comment: [facility] has implemented the eGFR calculation approach that does not have a coefficient for race that conforms to the NKF-ASN Task Force Recommendations. Urea nitrogen [Mass/Vol] 12 mg/dL Normal 8-25 [facility] Comment on above: Order Comment: [facility] has implemented the eGFR calculation approach that does not have a coefficient for race that conforms to the NKF-ASN Task Force Recommendations. POC CBC AND DIFFERENTIALon 0 07-25-2024 BASOPHILS ABSOLUTE COUNT 0.02 K/mcL Normal 0.00-0.30 [facility] Basophils/100 WBC (Bld) 0.2 % Normal [facility] Eosinophils (Bld) [#/Vol] 0.08 10*3/uL Normal 0.00-0.50 [facility] Eosinophils/100 WBC (Bld) 0.9 % Normal [facility] Erythrocyte distribution width (RBC) [Ratio] 13.0 % Normal 11.6-14.8 [facility] Hematocrit (Bld) [Volume fraction] 46.6 % High 36.0-46.0 [facility] Hemoglobin (Bld) [Mass/Vol] 15.2 g/dL Normal 12.0-16.0 [facility] IG ABSOLUTE 0.01 K/mcL Normal 0.00-0.30 [facility] IG PERCENT 0.10 % Normal [facility] Comment on above: Result Comment: The IG parameter is the percentage of metamyelocytes, myelocytes and promyelocytes. An immature granulocyte count (IG) of 1% or more suggests the possibility of infection, an IG count of 3% is very likely related to an infection. Lymphocytes (Bld) [#/Vol] 1.88 10*3/uL Normal 0.90-4.00 [facility] Lymphocytes/100 WBC (Bld) 20.3 % Normal [facility] MCH (RBC) [Entitic mass] 31.1 pg Normal 26.0-34.0 [facility] MCV (RBC) [Entitic vol] 95.5 fL Normal 80.0-100.0 [facility] MEAN CORPUSCULAR HEMOGLOBIN CONC 32.6 g/dL Normal 31.0-37.0 [facility] Monocytes (Bld) [#/Vol] 0.68 10*3/uL Normal 0.30-0.90 [facility] Monocytes/100 WBC (Bld) 7.4 % Normal [facility] NEUTROPHILS ABSOLUTE COUNT 6.58 K/mcL Normal 1.70-7.00 [facility] Neutrophils/100 WBC (Bld) 71.1 % Normal [facility] Platelet mean volume (Bld) [Entitic vol] 9.5 fL Normal 9.4-12.4 [facility] Platelets (Bld) [#/Vol] 296 10*3/uL Normal 150-400 [facility] RBC (Bld) [#/Vol] 4.88 10*6/uL Normal 4.00-5.20 [facility] WBC (Bld) [#/Vol] 9.25 10*3/uL Normal 4.50-11.00 [facility] POC LIVER PANEL PLUS Connor 07-25-2024 Albumin [Mass/Vol] 3.9 g/dL Normal 3.2-5.2 [facility] ALP [Catalytic activity/Vol] 106 U/L Normal 40-150 [facility] ALT [Catalytic activity/Vol] 12 U/L Normal 0-40 [facility] Amylase [Catalytic activity/Vol] 48 U/L Normal 25-115 [facility] Amylase [Catalytic activity/Vol] 21 U/L Normal 7-33 [facility] AST [Catalytic activity/Vol] 31 U/L Normal 0-45 [facility] Bilirubin [Mass/Vol] 1.1 mg/dL Normal 0.0-1.3 [facility] Protein [Mass/Vol] 7.6 g/dL Normal 6.0-8.0 [facility] ED Prov Noteon 12-05-2023 ED Prov Note HPI: 12/05/2023, Time: @NOWNR@ Rica Gabe Ariza is a 63 y.o. female [...] all other systems reviewed and are negative. --- PAST HISTORY --- Past Medical History: @[facility]@ Past Surgical History: has a past [...] reviewed. Allergies: Patient has no known allergies. -------- RESULTS ------- All laboratory and radiology results have been personally reviewed by myself LABS: No results found for this or any previous visit. RADIOLOGY: Interpreted by Radiologist. No orders to display ---- NURSING NOTES AND VITALS REVIEWED ------ The nursing notes within the ED encounter and vital signs as below have been reviewed. BP (!) 186/99 (BP Location: Left arm, Patient Position: Sitting) Pulse 94 Temp 98.2 degrees F (36.8 degrees C) (Temporal) Resp 18 Ht 5' 9" Wt 117.9 kg (260 lb) SpO2 96% BMI 38.40 kg/m Oxygen Saturation Interpretation: Normal ---------PHYSICAL EXAM Constitutional/Genera l: Alert and oriented x3, moderate apparent pain [...] the left and 60 on the right --------- ED COURSE/MEDICAL DECISION MAKING ------- Medications ketorolac (TORADOL) injection 30 mg (has [...] for 5 days . Follow-up: [facility] [address] [facility] [address] [facility] [id number] In 2 days Final Impression: 1. Left sided sciatica (Please note that portions of this note were completed with a voice recognition program. Efforts were made to edit the dictations but occasionally words are mis-transcribed.) Jarrod Redmond MD 12/05/23 0603 AUTHENTICATED BY JARROD REDMOND ON 12/05/2023 06:03:58 [facility] Provider Note - ED v2on - Provider Note - ED v2 Provider Note - ED v2: Chart Review: HISTORY OF PRESENTING ILLNESS RICA is a 59 year old Female and was seen by me at 27-Sep-2019 12:33. Triage Information: Most recent Vital Sign Value Date PAST MEDICAL HISTORY ATTESTATION: I have reviewed and confirmed nurse's/medic's notes for patient's medications, allergies, medical history, and surgical history ALLERGIES/INTOLERANCE S: No Known Allergies HEALTH HISTORY: No documented data. OUTPATIENT MEDICATIONS: Home Medications Review Status for Reconciliation: Complete Med Status: No Current Medications SIGNIFICANT EVENTS: No documented data. ENGINEERING INTERN: Is : no Is : no RESULTS/VITAL SIGNS VITAL SIGNS: T PRBP SpO2O2(LPM) %FiO2 Method 27-Sep-2019 12:42:[id number]/ 91 96 MEDICAL DECISION MAKING/ED COURSE MDM/ED COURSE: This note was generated with voice recognition software and may contain errors including spelling, grammar, syntax, and misrecognization of what was dictated Chief Complaint Dizziness History of Present Illness Patient presents in no apparent distress with a weeklong history of "on and off" dizziness that is worse with positional changes. [...] in the subjective complaints of dizziness Integumentary: [place], warm, dry, and Intact. Neurologic: Alert, Oriented, [...] ill patient: no Electronic Signatures: Pranav Naylor (CUT AND PRINT MACHINE OPERATOR-NURSERY SCHOOL ATTENDANT) (Signed 27-Sep-2019 13:06) Authored: Provider Note - ED v2 Last Updated: 27-Sep-2019 13:06 by Pranav Naylor (CUT AND PRINT MACHINE OPERATOR-NURSERY SCHOOL ATTENDANT) [facility] Vital Signs Date Time Vital Sign Value Performing Clinician Faci shemar 12-06-2024 10:52-0400 Body height 175.26 cm No Primary Care Physician [facility] 12-06-2024 10:52-0400 Body mass index (BMI) [Ratio] 36.6 kg/m2 No Primary Care Physician [facility] 12-06-2024 10:52-0400 Body temperature 98 [degF] No Primary Care Physician [facility] 12-06-2024 10:52-0400 Body weight 112.49 kg No Primary Care Physician [facility] 12-06-2024 10:52-0400 Diastolic blood pressure 83 mm[Hg] No Primary Care Physician [facility] 12-06-2024 10:52-0400 Heart rate 84 /min No Primary Care Physician [facility] 12-06-2024 10:52-0400 Respiratory rate 16 /min No Primary Care Physician [facility] 12-06-2024 10:52-0400 SaO2% (BldA) [Mass fraction] 97 % No Primary Care Physician [facility] 12-06-2024 10:52-0400 Systolic blood pressure 142 mm[Hg] No Primary Care Physician [facility] 09-22-2024 11:27-0400 Inhaled oxygen flow rate 2 L/min Dr. Cynthia Bell DO Work Phone: 8(663)935-760318 [place] [address] 09-22-2024 08:04-0400 Body temperature 98 [degF] Dr. Cynthia Bell DO Work Phone: 4(334)379-494518 [place] [address] 09-22-2024 08:04-0400 Diastolic blood pressure 80 mm[Hg] Dr. Cynthia Bell DO Work Phone: [facility] 09-22-2024 08:04-0400 Heart rate 95 /min Dr. Cynthia Bell DO Work Phone: [facility] 09-22-2024 08:04-0400 Respiratory rate 16 /min Dr. Cynthia Bell DO Work Phone: [facility] 09-22-2024 08:04-0400 SaO2% (BldA) [Mass fraction] 94 % Dr. Cynthia Bell DO Work Phone: [facility] 09-22-2024 08:04-0400 Systolic blood pressure 146 mm[Hg] Dr. Cynthia Bell DO Work Phone: [facility] 09-21-2024 22:15-0400 Body mass index (BMI) [Ratio] 38.9 kg/m2 Dr. Cynthia Bell DO Work Phone: 2(085)086-231549 [place] [address] 09-21-2024 22:15-0400 Body weight 119.[address] Cynthia Bell DO Work Phone: 2(369)405-297249 [place] [address] 09-21-2024 22:07-0400 Body height 175.[address] Cynthia Bell DO Work Phone: 4(538)752-130449 [place] [address] 09-21-2024 21:33-0400 Body temperature 98.7 [degF] Dr. Cynthia Bell DO Work Phone: 9(699)305-379849 [place] [address] 09-21-2024 21:33-0400 Diastolic blood pressure 80 mm[Hg] Dr. Cynthia Bell DO Work Phone: 1(615)215-015290 [place] [address] 09-21-2024 21:33-0400 Heart rate 129 /min Dr. Cynthia Bell DO Work Phone: 9(477)925-545949 [place] [address] 09-21-2024 21:33-0400 Respiratory rate 19 /min Dr. Cynthia Bell DO Work Phone: 2(166)916-949449 [place] [address] 09-21-2024 21:33-0400 SaO2% (BldA) [Mass fraction] 93 % Dr. Cynthia Bell DO Work Phone: 2(814)584-112149 [place] [address] 09-21-2024 21:33-0400 Systolic blood pressure 132 mm[Hg] Dr. Cynthia Bell DO Work Phone: 5(967)949-043949 [place] [address] 09-21-2024 21:00-0400 Inhaled oxygen flow rate 2 L/min Dr. Cynthia Bell DO Work Phone: 8(330)256-479549 [place] [address] 09-21-2024 18:51-0400 Body mass index (BMI) [Ratio] 38.8 kg/m2 Dr. Cynthia Bell DO Work Phone: 1(807)713-225549 [place] [address] 09-21-2024 18:51-0400 Body weight 119.[address] Cynthia Bell DO Work Phone: 9(794)100-248734 [address] 09-21-2024 18:47-0400 Body height 175.[address] Cynthia Bell DO Work Phone: 7(546)176-331290 [place] [address] 07-29-2024 13:29-0400 Body temperature 97.8 [degF] Dr. Cynthia Bell DO Work Phone: 2(808)805-570990 [place] [address] 07-29-2024 13:29-0400 Diastolic blood pressure 76 mm[Hg] Dr. Cynthia Bell DO Work Phone: 2(898)751-678790 [place] [address] 07-29-2024 13:29-0400 Heart rate 72 /min Dr. Cynthia Bell DO Work Phone: 8(224)844-513690 [place] [address] 07-29-2024 13:29-0400 Respiratory rate 16 /min Dr. Cynthia Bell DO Work Phone: 2(621)167-895490 [place] [address] 07-29-2024 13:29-0400 SaO2% (BldA) [Mass fraction] 94 % Dr. Cynthia Bell DO Work Phone: 1(155)384-023090 [place] [address] 07-29-2024 13:29-0400 Systolic blood pressure 145 mm[Hg] Dr. Cynthia Bell DO Work Phone: 7(035)006-806990 [place] [address] 07-29-2024 11:35-0400 Body height 175.[address] Cynthia Bell DO Work Phone: 8(999)406-301290 [place] [address] 07-29-2024 11:35-0400 Body mass index (BMI) [Ratio] 41 kg/m2 Dr. Cynthia Bell DO Work Phone: 4(139)768-240890 [place] [address] 07-29-2024 11:35-0400 Body weight 125.[address] Cynthia Bell DO Work Phone: 8(474)757-901190 [place] [address] 07-27-2024 12:23-0400 Body temperature 98.1 [degF] Dr. Cynthia Bell DO Work Phone: 2(314)624-476490 [place] [address] 07-27-2024 12:23-0400 Diastolic blood pressure 88 mm[Hg] Dr. Cynthia Bell DO Work Phone: [facility] 07-27-2024 12:23-0400 Heart rate 72 /min Dr. Cynthia Bell DO Work Phone: [facility] 07-27-2024 12:23-0400 Respiratory rate 16 /min Dr. Cynthia Bell DO Work Phone: [facility] 07-27-2024 12:23-0400 SaO2% (BldA) [Mass fraction] 99 % Dr. Cnythia Bell DO Work Phone: [facility] 07-27-2024 12:23-0400 Systolic blood pressure 157 mm[Hg] Dr. Cynthia Bell DO Work Phone: [facility] 07-27-2024 09:47-0400 Body height 175.[address] Cynthia Bell DO Work Phone: [facility] 07-27-2024 09:47-0400 Body mass index (BMI) [Ratio] 41.1 kg/m2 Dr. Cynthia Bell DO Work Phone: [facility] 07-27-2024 09:47-0400 Body weight 126.[address] Cynthia Bell DO Work Phone: [facility] Encounters Encounter Date Encounter Type Care Provider Facility Start: 01-11-2025 ambulatory Zebulun Beam VSC Facili ty:[facility] Start: 12-21-2024 End: 12-21-2024 ambulatory [facility] Facility:[facility] Start: 12-06-2024 End: 12-06-2024 Patient encounter procedure Hattie Fletcher NP-C -[facility] Work Phone: Start: 12-06-2024 End: 12-06-2024 ambulatory No Primary Care Physician -[facility] Start: 09-28-2024 End: 09-28-2024 Patient encounter procedure Melissan Desire REALTIME CAPTIONER-C -[facility] Start: 09-28-2024 End: 09-28-2024 ambulatory Zebulun Beam VSC Facility:[facility] Start: 09-22-2024 Non-patient / Non-visit Dr. Efrain Garcia MD -[facility] Work Phone: Start: 09-21-2024 End: 09-22-2024 Evaluation and management of inpatient Dr. Jazmine Mayes MD -[facility] Work Phone: Start: 09-21-2024 ambulatory Efrain Garcia Fac ility:[facility] Start: 09-21-2024 Non-patient / Non-visit Dr. Jazmine Mayes MD -[facility] Work Phone: Start: 09-19-2024 End: 09-19-[address] Cynthia Bell DO Work Phone: [facility] Start: 09-19-2024 End: 09-19-[address] Pepe Herrera MD -[facility] Work Phone: Start: 09-19-2024 End: 09-19-2024 ambulatory [facility] Facility:[facility] Start: 09-12-2024 End: 09-12-[address] Cynthia Bell DO Work Phone: -[facility] Start: 09-12-2024 End: 09-12-2024 Patient encounter procedure [facility] REALTIME CAPTIONER-C -[facility]atory [facility] Start: 09-12-2024 End: 09-12-2024 ambulatory [facility] Facility:[facility] Start: 08-10-2024 End: 08-10-[address] Cynthia Bell DO Work Phone: [facility] Work Phone: Start: 08-10-2024 End: 08-10-2024 Patient encounter procedure Zebuslick Phipps REALTIME CAPTIONER-C -Laboratory Work Phone: Start: 08-10-2024 End: 08-10-2024 ambulatory Zebulumt Beam VSC Facility:[facility] Start: 07-29-2024 End: 07-29-2024 Emergency department patient visit Dr. Cynthia Bell DO Work Phone: -Emergency Department Work Phone: Start: 07-27-2024 End: 07-27-2024 Emergency department patient visit Dr. Cynthia Bell DO Work Phone: -Emergency Department Work Phone: Start: 07-25-2024 End: 07-25-2024 Emergency department patient visit PHYSICIAN NO [facility] Start: 12-05-2023 End: 12-05-2023 Emergency department patient visit PHYSICIAN NO [facility] Procedures Date Procedure Procedure Detail Performing Clinician Start: 09-28-2024 Radiologic exam ches t 2 views No Primary Care Physician Start: 09-22-[address] Cynthia Bell DO Work Phone: Start: 09-21-2024 X-ray of chest, PA a nd lateral views Dr. Cynthia Bell DO Work Phone: Start: 09-21-2024 Urnls dip stick/tabl et reagent auto microscopy Dr. Cynthia Bell DO Work Phone: Start: 09-21-[address] Cynthia Bell DO Work Phone: Start: 09-21-2024 Bacterial nucleic ac id assay Dr. Cynthia Bell DO Work Phone: Start: 09-21-2024 Blood culture No Primar y Care Physician Start: 09-21-2024 Legionella pneumophi la antigen assay Dr. Cynthia Bell DO Work Phone: Start: 09-21-[address] Cynthia Bell DO Work Phone: Start: 09-21-2024 End: 09-21-2024 Streptococcus pneumoniae antigen assay Dr. Cynthia Bell DO Work Phone: Start: [...] Treatment Date Care Activity Detail Author Start: 12-06-2024 Procedure [facility] Start: 12-06-2024 Serologic test for syphilis [facility] Start: 12-06-2024 [facility] Start: 09-22-2024 Patient discharge [facility] Start: 09-21-2024 Following clinical pathway protocol [facility] Start: 09-21-2024 Assessment of risk of venous thromboembolism [facility] Start: 09-21-2024 Elevation of head of bed [facility] Start: 09-21-2024 Incentive spirometry [facility] Start: 09-21-2024 Inhalation therapy procedure [facility] Start: 09-21-2024 Insertion of catheter into peripheral vein [facility] Start: 09-21-2024 Introduction of urinary catheter [facility] Start: 09-21-2024 Measuring intake and output [facility] Start: 09-21-2024 Methicillin resistant Staphylococcus aureus screening test [facility] Start: 09-21-2024 Oxygen therapy [facility] Start: 09-21-2024 Patient education [facility] Start: 09-21-2024 Providing care according to standard [facility] Start: 09-21-2024 Provision of activity privileges [facility] Start: 09-21-2024 Referral for physical therapy [facility] Start: 09-21-2024 Referral to occupational therapist [facility] Start: 09-21-2024 Referral to service [facility] Start: 09-21-2024 [facility] Start: 09-21-2024 Respiratory pathogens DNA and RNA panel - Respiratory specimen by ZACH with probe detection [facility] Start: 09-21-2024 Hospital admission, emergency, from emergency room, medical nature [facility] Start: 09-21-2024 Verification routine [facility] Start: 09-21-2024 Admission procedure [facility] Start: 09-21-2024 Streptococcus pneumoniae antigen assay [facility] Start: 09-21-2024 End: 09-21-2024 [facility] Start: 09-21-2024 Bacteria identified in Blood by Culture Blood Culture [facility] Start: 09-21-2024 Blood culture Blood Culture [facility] Start: 09-21-2024 Legionella Antigen Legionella Antigen [facility] Start: 09-21-2024 Streptococcus pneumoniae Antigen (M Streptococcus pneumoniae Antigen (M [facility] Start: 09-12-2024 Borrelia burgdorferi blot test [facility] Start: 07-29-2024 [facility] Start: 07-27-2024 [facility] Bilirubin measuremen t, urine [facility] Cytoplasmic ANCA Screen [facility] Hemoglobin [Presence ] in Urine [facility] Laboratory data interpretation [facility] Legionella pneumophi la Ag [Presence] in Urine [facility] Measurement of keton es in urine using dipstick [facility] Microscopic urinalysis [facility] MR Brain WO and W wv ntrast IV [facility] Organism count, microscopic method [facility] Patient Education [facility] Work Phone: Patient referral [facility] Work Phone: pH of Urine [facility] Specific gravity of Urine [facility] Urine dipstick for glucose [facility] Urine dipstick for leukocyte esterase [facility] Urine dipstick for nitrite [facility] Urine dipstick for protein [facility] Urine examination [facility] Urine microscopy: epithelial cells [facility] Urine microscopy: re d cells [facility] Urobilinogen [Presen ce] in Urine [facility] White blood cell count [facility] Payers Date Payer Category Payer Self-pay 2024 Unknown [id number] 1960 Unknown [id number] 2.16. [id number] Unknown [id number] 2.16.8 [id number] Unknown [id number] 2.16.8 [id number] Unknown [id number] 2.16.8 [id number] Unknown [id number] 2.16.8 [id number] Unknown [id number] 2.16.8 [id number] Unknown [id number] 2.16.8 [id number] Unknown [id number] 2.16.8 [id number] Unknown [id number] 2.16.8 [id number] Unknown [id number] 2.16.8 [id number] Unknown [id number] 2.16.8 [id number] Unknown [id number] 2.16.8 [id number] Unknown [id number] 2.16.8 [id number] Social History Date Type Detail Facility Start: 07-27-2024 End: 12-06-2024 Tobacco smoking status DCIS Never smoked tobacco (finding) [facility] Start: 1960 Sex Assigned At Female [facility] Sex Female [facility] Goals Date Patient Goal Desired Activity /State Functional Status Date Assessment Result Facility 09-22-2024 Functional status Ambulates;Bathroom Priv ilege [facility] Work Phone: Mental Status Date Assessment Result Facility 09-22-2024 Cognitive function Appropriate;Perry quinn [facility] Work Phone: 07-29-2024 Cognitive function Voice/Name [facility] Work Phone: 07-27-2024 Cognitive function Level Of Cons ciousness Awake;Alert;Appropriate;Follow s Commands [facility] Work Phone: Clinical Notes 07-27-2024 to 09-22-2024 Note Date & Type Note Facility 09-22-2024 Consult note Note Date/Time September 22, 2024 10:56am [facility] Medical Records Department [address] [place] [address] Counseling Note - Pharmacy 09/22/24 1055 MR#: [id number] Acct: [id number] Name: RICA ARIZA Rep #:[id number] : 1960 64 From: Deonna Solis PCP: DALE Del AngelC Status:ADM I N Y Location: [place] [address] Pharmacy [facility] Counseling Pharmacy Service has performed discharge medication reconciliation and counseling for this patient. 1. AZITHROMYCIN 500MG PO DAILY X 3 DAYS 2. CEFDINIR 300MG PO BID X 7 DAYS The patient's discharge medication list was reviewed for discrepancies and discrepancies were resolved. The patient was counseled on the following discharge medications and changes in medications for homegoing were reviewed. The Reason for Use, instructions for use, and potential side effects were reviewed for all new medications. The patient's questions regarding all of their medications were answered. The patient was able to verbally demonstrate an understanding of their dischargemedications. Medications at Discharge Home Medications melatonin 10 mg capsule 10 mg PO QHS 09/21/24 peg 400-propylene glycol 0.4 %-0.3 % eye gel drops (GenTeal Tears Severe Gel Drops) 1 drp ophthalmic (eye) QHS bells palsy 09/21/24 semaglutide (weight loss) 0.25 mg/0.5 mL subcutaneous pen injector 0.25 mg subcut QWEEK weight loss 09/21/24 azithromycin 500 mg tablet 500 mg PO DAILY 3 days #3 tabs 09/22/24 cefdinir 300 mg capsule 300 mg PO BID #14 caps 09/22/24 09/22/24 1056 <Electronically signed by Deonna Solis> Date _ Deonna Hernandez Signature (if applicable): Date CC: ~ Signed [facility] Work Phone: 1(618) 187-194107-25-2025 Discharge summary Author Efrain Garcia [facility] Note Date/Time September 22, 2024 11:0 3am [facility] Medical Records Department [address] [place] [address] Discharge Summary 09/22/24 1005 MR#: [id number] Acct: [id number] Name: RICA ARIZA Rep #:[id number] : 1960 64 From: Efrain mayer MD PCP: ERIK Del Angel Status:ADM I N [facility] Providers Date of Admission: 09/21/24 Primary Care Physician: ERIK Del Angel Reason For Visit: HYPOXIA, RLL PNA Diagnosis Discharge Diagnosis (1) Hypoxia: Status: Acute Code(s): R09.02 - Hypoxemia (2) Right lower lobe pneumonia: Status: Acute Code(s): J18.9 - Pneumonia, unspecified organism Medications at Discharge Home Medications melatonin 10 mg capsule 10 mg PO QHS 09/21/24 peg 400-propylene glycol 0.4 %-0.3 % eye gel drops (GenTeal Tears Severe Gel Drops) 1 drp ophthalmic (eye) QHS bells palsy 09/21/24 semaglutide (weight loss) 0.25 mg/0.5 mL subcutaneous pen injector 0.25 mg subcut QWEEK weight loss 09/21/24 azithromycin 500 mg tablet 500 mg PO DAILY 3 days #3 tabs 09/22/24 cefdinir 300 mg capsule 300 mg PO BID #14 caps 09/22/24 Hospital Course Operations None Procedures None Summary of Care Provided Minutes Spent on Discharge: 33 Hospital Course: Per HPI: The patient is a 64 y/o F w/ PMHx: Obesity, CKD stage II per GFR trending, 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 In addition patient had onset petechial rash to bilateral lowerextremities starting approximately 4 to 5 days prior to the onset of her upper respiratory symptoms. Workup in the ED included T1 100.4, heart rate 150, BP 125/87, respiratory rate 22, initially 92% on room air however de-saturated downto 84% on RA with any exertion in the ED with most recent repeat vitals T99.2, heart rate 121, BP 124/74, respiratory rate 25, 97% on 2 L nasal cannula, CBC with WC 12, Heenan 14.7, platelet 278 with left shift, CMP not marked appearing,BUN/creat 18/0.93, GFR 68, lactic acid 1.4, chest x-ray with increased lung markings at the right lung base nonspecific possibly developing and atypical/viral infection, atelectasis or vascular congestion, coags pending uponevaluation, EKG with sinus tachycardia with no acute evidence of ischemia. In the ED patient ministered 1 L normal saline, azithromycin 500 mg IV x 1, Rocephin 2 g IV x 1. Hospital Course: 1. Acute hypoxic insufficiency secondary to right lower lobe pneumonia?64-year-old female presented to the hospital with shortness of breath and signs and symptoms consistent with a right lower lobe pneumonia. She received a dose of Rocephin and azithromycin in the emergency room and today is feeling much better. She did not require any oxygen at rest and only 2 L nasal cannula with ambulation. She says that she feels much better and would like to go home. I discussed with her the possibility of staying 1 more day to see if we can get her off of oxygen tomorrow though it was not a guarantee however she says that she would feel better if she was able to go home today. She expressed understanding of the risks and benefits of going home therefore I provided her with a one-time dose of cefdinir 300 mg this morning as well as another dose of p.o. azithromycin 500 mg with discharge prescriptions as well. Will get home oxygen set up and I discussed with her the need to turkey picker a pulse oximeter froma local pharmacy just to monitor her oxygen requirements while at home. We alsodiscussed in depth reasons to return to the hospital not limited to increasing fevers or increasing shortness of breath. I recommend she follow-up with her PCP next week. 2. Back in June she did have an episode with left-sided facial droop consistent with Gaines's palsy that was treated with prednisone and antivirals. She continues to have a left facial droop. Physical Exam Narrative General: Alert, Oriented x3, Cooperative, No apparent distress HEENT: Atraumatic, PERRLA, EOMI, Normocephalic Oral: Moist Mucosa Neck: Supple, No JVD Lungs: Diminished, Normal air movement, No rhonchi, No wheeze, No rales Cardiovascular: Regular rate, Regular Rhythm, Normal S1, Normal S2, No murmurs Abdomen: Soft, Non Tender, Non-Distended, No Hepato-splenomegaly Extremities: No edema, Capillary Refill Less than 3 Seconds Skin: No rashes, No breakdown Musculoskeletal: No Tenderness to Palpation of Joints or Extremities Neurological: No focal neurological deficits, moves all extremities, chronic left facial droop from Gaines's palsy since June Psych/Mental Status: Normal Affect, Appropriate Weight / BMI Weight Weight: 263 lb 14.293 oz Body Mass Index (BMI) 38.9 ABG / Lab / Microbiology Data 09/22/24 06:20 09/22/24 06:20 Laboratory: Laboratory Results - last 24 hr 09/21/24 19:05: WBC 12.0 H, RBC 4.75, Hgb 14.7, Hct 44.2, MCV 93.1, MCH 30.9, MCHC 33.3, RDW Std Deviation 49.0 H, RDW Coeff of Satnam 14.2, Plt Count 278, MPV 10.4, Immature Gran % (Auto) 0.300, Neut % (Auto) 68.6, Lymph % (Auto) 19.8, [place] % (Auto) 10.1 H, Eos % (Auto) 0.8, Baso % (Auto) 0.4, Absolute Neuts (auto) 8.2 H, Absolute Lymphs (auto) 2.38, Nucleated RBC % 0, PT 14.3, INR 1.1, APTT 25.0, Sodium 140, Potassium 4.1, Chloride 103, Carbon Dioxide 23.4, Anion Gap 14, BUN 18, Creatinine 0.93, Estim Creat Clear Calc 84.40, Est GFR (MDRD) Non-Af68, BUN/Creatinine Ratio 18.9, Glucose 99, Lactic Acid 1.4, Calcium 9.9, Total Bilirubin 0.61, AST 22, ALT 11, Alkaline Phosphatase 93, Total Protein 7.2, Albumin 4.2, Globulin 3.0, Albumin/Globulin Ratio 1.4 09/21/24 19:56: Urine Color Yellow, Urine Clarity Sl. Cloudy, Urine pH 6.0, Ur Specific [place] 1.020, Urine Protein 30 H, Urine Glucose (UA) Normal, Urine Ketones 5 H, Urine Occult Blood 50 H, Urine Nitrite Negative, Urine Bilirubin Negative, Urine Urobilinogen Normal, Ur Leukocyte Esterase 100 H, Urine RBC 0-5 SEEN, Urine WBC 10-25 SEEN, Ur Squamous Epith Cells 25-50 SEEN, Urine Bacteria 2+, Urine Mucus 0 SEEN 09/21/24 22:42: Procalcitonin 0.05 09/22/24 06:20: WBC 8.0, RBC 3.72 L, Hgb 11.5 L, Hct 35.2 L, MCV 94.6, MCH 30.9,MCHC 32.7, RDW Std Deviation 49.0 H, RDW Coeff of Satnam 14.3, Plt Count 207, MPV 10.1, Immature Gran % (Auto) 0.400, Neut % (Auto) 54.3, Lymph % (Auto) 31.5, [place] % (Auto) 11.7 H, Eos % (Auto) 1.6, Baso % (Auto) 0.5, Absolute Neuts (auto) 4.3, Absolute Lymphs (auto) 2.51, Nucleated RBC % 0, Sodium 141, Potassium 3.8, Chloride 111 H, Carbon Dioxide 20.0 L, Anion Gap 10, BUN 12, Creatinine 0.71, Estim Creat Clear Calc 110.70, Est GFR (MDRD) Non-Af 95, BUN/Creatinine Ratio 17.0, Glucose 100 H, Calcium 8.1, Total Bilirubin 0.43, AST 17, ALT 7, Alkaline Phosphatase 70, Total Protein 5.5 L, Albumin 3.2 L, Globulin 2.3, Albumin/Globulin Ratio 1.4 Microbiology: Microbiology 09/21/24 22:35 Nasal Secretion MRSA (PCR) - Final 09/21/24 22:45 Mucosa - Nasopharyngeal Respiratory Panel (PCR) - Final 09/21/24 19:56 Urine, Clean Catch Legionella Antigen - Final 09/21/24 19:56 Urine, Clean Catch Streptococcus pneumoniae Antigen (M - Final Radiography Diagnostic Testing: Radiology Impression Chest X-Ray 09/21/24 20:03 IMPRESSION: Increased lung markings at the right lung base are nonspecific, and could represent developing atypical/viral infection, atelectasis or vascular congestion. Reading Location: [id number]/ Instructions Call your doctor if you observe: Fever of 101 or Higher, Shortness of breath, Dizziness, Fainting spells, Swelling in the ankles, Chest pain and Increased palpitations (irregular heartbeat) DC O2, CPAP, BIPAP Needs Home O2 Discharge instructions: No Meaningful Use Info Meaningful Use Meaningful Use Diagnoses (Choose all that apply): None applicable Discharge Plan Admission Admit Date/Time: 09/21/24 20:44 Attending Provider: Efrain Garcia Primary Care Provider: Kay Mares Consulting Providers: Jazmine Mayes Instructions Patient Instructions: ED Pneumonia (Adult) Additional Instructions / Restrictions: Return to the hospital if you have increasing shortness of breath or increasing fevers. Please buy a pulse oximeter that we can track your oxygen levels at home and you need to follow-up with your PCP to have a 6-minute walk test to determine that you no longer need any oxygen. Currently only need 2 L with ambulation so I do not anticipate a long duration of oxygen requirement. Discharge Orders/Prescriptions Prescriptions: New azithromycin 500 mg tablet 500 mg PO DAILY 3 Days Qty: 3 0RF cefdinir 300 mg capsule 300 mg PO BID Qty: 14 0RF Continued melatonin 10 mg capsule 10 mg PO QHS GenTeal Tears Severe Gel Drops 0.4-0.3 % drops,gel 1 drp ophthalmic (eye) QHS Patient Comments: left eye only semaglutide (weight loss) 0.25 mg/0.5 mL pen injector 0.25 mg subcut QWEEK Referrals / Follow Up: Kay Mares NP-C [Primary Care Provider] - Within 1 Week Disposition Disposition (needs filled in before D/C Order can be placed): Home, Self Care Charges/Coding Visit Charges Inpatient E&M: 78747 Disch Hosp >30min 09/22/24 1016 <Electronically signed by Efrain Garcia MD> Cosigner Signature (if applicable): CC: ERIK Mares; Dr. Efrain Garcia MD~ Signed ADDENDUM by Dr. Efrain Garcia MD on 09/22/24 at 1103 Addendum I have reviewed the oxygen testing, and this patient qualifies for the home equipment and portability. The patient is mobile in the home and the community. 09/22/24 1103<Electronically signed by Efrain Garcia MD> Cosigner Signature (if applicable): cc: ERIK Mares; Dr. Efrain Garcia MD ~* Signed [facility] Work Phone: 1(197) 312-628707-25-2025 Discharge summary Author Efrain Garcia [facility] Note Date/Time September 22, 2024 9:54 am [facility] Medical Records Department [address] [place] [address] Instructions for Home/Discharge Instructions 09/22/24 0950 MR#: [id number] Acct: [id number] Name: RICA ARIZA Rep #:[id number] : 1960 64 From: Efrain mayer MD PCP: ERIK Del Angel Status:ADM I N Discharge Instructions DC O2, CPAP, BIPAP needs Home O2 Discharge instructions: No Dressing / Incision Discharge Activity: Return to Normal Activity Dressing / Incision Call your doctor if you observe: Fever of 101 or Higher, Shortness of breath, Dizziness, Fainting spells, Swelling in the ankles, Chest pain and Increased palpitations (irregular heartbeat) Follow Up Care Test Results: Test results from this visit will be discussed in further detail at your follow- up appointment, if applicable. Discharge Plan Admission Admit Date/Time: 09/21/24 20:44 Attending Provider: Efrain Garcia Primary Care Provider: Kay Mares Consulting Providers: Jazmine Mayes Instructions Patient Instructions: ED Pneumonia (Adult) Additional Instructions / Restrictions: Return to the hospital if you have increasing shortness of breath or increasing fevers. Please buy a pulse oximeter that we can track your oxygen levels at home and you need to follow-up with your PCP to have a 6-minute walk test to determine that you no longer need any oxygen. Currently only need 2 L with ambulation so I do not anticipate a long duration of oxygen requirement. Discharge Orders/Prescriptions Prescriptions: New azithromycin 500 mg tablet 500 mg PO DAILY 3 Days Qty: 3 0RF cefdinir 300 mg capsule 300 mg PO BID Qty: 14 0RF Continued melatonin 10 mg capsule 10 mg PO QHS GenTeal Tears Severe Gel Drops 0.4-0.3 % drops,gel 1 drp ophthalmic (eye) QHS Patient Comments: left eye only semaglutide (weight loss) 0.25 mg/0.5 mL pen injector 0.25 mg subcut QWEEK Referrals / Follow Up: Kay Mares NP-C [Primary Care Provider] - Within 1 Week Disposition Disposition (needs filled in before D/C Order can be placed): Home, Self Care 09/22/24 0954<Electronically signed by Efrain Garcia MD>Efrain Garcia MD CC: ERIK Mares; Dr. Jazmine Mayes MD ~ Signed [facility] Work Phone: [phone]) 921-610107-25-2025 Discharge summary [facility] Medical Records Department [address] [place] [address] Discharge Summary 09/22/24 1005 MR#: [id number] Acct: [id number] Name: MICAELARICA Gabe Rep #:[id number] : 1960 64 From: Efrain mayer MD PCP: ERIK Del Angel Status:ADM I N Location: [place] [address] Providers Date of Admission: 09/21/24 Primary Care Physician: ERIK Del Angel Reason For Visit: HYPOXIA, RLL PNA Diagnosis Discharge Diagnosis (1) Hypoxia: Status: Acute Code(s): R09.02 - Hypoxemia (2) Right lower lobe pneumonia: Status: Acute Code(s): J18.9 - Pneumonia, unspecified organism Medications at Discharge Home Medications melatonin 10 mg capsule 10 mg PO QHS 09/21/24 peg 400-propylene glycol 0.4 %-0.3 % eye gel drops (GenTeal Tears Severe Gel Drops) 1 drp ophthalmic (eye) QHS bells palsy 09/21/24 semaglutide (weight loss) 0.25 mg/0.5 mL subcutaneous pen injector 0.25 mg subcut QWEEK weight loss09/21/24 azithromycin 500 mg tablet 500 mg PO DAILY 3 days #3 tabs 09/22/24 cefdinir 300 mg capsule 300 mg PO BID #14 caps 09/22/24 Hospital Course Operations None Procedures None Summary of Care Provided Minutes Spent on Discharge: 33 Hospital Course: Per HPI: The patient is a 64 y/o F w/ PMHx: Obesity, CKD stage II per GFR trending, 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 In addition patient had onset petechial rash to bilateral lowerextremities starting approximately 4 to 5 days prior to the onset of her upper respiratory symptoms. Workup in the ED included T1 100.4, heart rate 150, BP 125/87,respiratory rate 22, initially 92% on room air however de-saturated downto 84% on RA with any exertion in the ED with most recent repeat vitals T99.2, heart rate 121, BP 124/74, respiratory rate 25, 97% on 2 L nasal cannula, CBC with WC 12, Heenan 14.7, platelet 278 with left shift, CMP not marked a ppearing,BUN/creat 18/0.93, GFR 68, lactic acid 1.4, chest x-ray with increased lung markings at the right lung base nonspecific possibly developing and atypical/viral infection, atelectasis or vascular congestion, coags pending uponevaluation, EKG with sinus tachycardia with no acute evidence of ischemia. In the ED patient ministered 1 L normal saline, azithromycin 500 mg IV x 1, Rocephin 2 g IVx 1. Hospital Course: 1. Acute hypoxic insufficiency secondary to right lower lobe pneumonia?64-year-old female presentedto the hospital with shortness of breath and signs and symptoms consistent with a right lower lobe pneumonia. She received a dose of Rocephin and azithromycin in the emergency room and today is feeling much better. She did not require any oxygen at rest and only 2 L nasal cannula with ambulation. She says that she feels much better and would like to go home. I discussed with her the possibility of staying 1 more day to see if we can get her off of oxygen tomorrow though it was not a guarantee however she says that she would feel better if she was able to go home today. She expressed understanding of the risks and benefits of going home therefore I provided her with a one-time dose of cefdinir 300 mg this morning as well as another dose of p.o. azithromycin 500 mg with discharge prescriptions as well. Will get home oxygen set up and I discussed with her the need to turkey picker a pulse oximeter froma local pharmacy just to monitor her oxygen requirements while at home. We alsodiscussed in depth reasons to return to the hospital not limited to increasing fevers or increasing shortness of breath. I recommend she follow-up with her PCP next week. 2. Back in June she did have an episode with left-sided facial droop consistent with Gaines's palsy that was treated with prednisone and antivirals. She continues to have a left facial droop. Physical Exam Narrative General: Alert, Oriented x3, Cooperative, No apparent distress HEENT: Atraumatic, PERRLA, EOMI, Normocephalic Oral: Moist Mucosa Neck: Supple, No JVD Lungs: Diminished, Normal air movement, No rhonchi, No wheeze, No rales Cardiovascular: Regular rate, Regular Rhythm, Normal S1, Normal S2, No murmurs Abdomen: Soft, Non Tender, Non-Distended, No Hepato-splenomegaly Extremities: No edema, Capillary Refill Less than 3 Seconds Skin: No rashes, No breakdown Musculoskeletal: No Tenderness to Palpation of Joints or Extremities Neurological: No focal neurological deficits, moves all extremities, chronic left facial droop fromBell's palsy since June Psych/Mental Status: Normal Affect, Appropriate Weight / BMI Weight Weight: 263 lb 14.293 oz Body Mass Index (BMI) 38.9 ABG / Lab / Microbiology Data 09/22/24 06:20 09/22/24 06:20 Laboratory: Laboratory Results - last 24 hr 09/21/24 19:05: WBC 12.0 H, RBC 4.75, Hgb 14.7, Hct 44.2, MCV 93.1, MCH 30.9, MCHC 33.3, RDW Std Deviation 49.0 H, RDW Coeff of Satnam 14.2, Plt Count 278, MPV 10.4, Immature Gran % (Auto) 0.300, Neut %(Auto) 68.6, Lymph % (Auto) 19.8, [place] % (Auto) 10.1 H, Eos % (Auto) 0.8, Baso % (Auto) 0.4, Absolute Neuts (auto) 8.2 H, Absolute Lymphs (auto) 2.38, Nucleated RBC % 0, PT 14.3, INR 1.1, APTT 25.0, Sodium 140, Potassium 4.1, Chloride 103, Carbon Dioxide 23.4, Anion Gap 14, BUN 18, Creatinine 0.93,Estim Creat Clear Calc 84.40, Est GFR (MDRD) Non-Af68, BUN/Creatinine Ratio 18.9, Glucose 99, Lactic Acid 1.4, Calcium 9.9, Total Bilirubin 0.61, AST 22, ALT 11, Alkaline Phosphatase 93, Total Protein 7.2, Albumin 4.2, Globulin 3.0, Albumin/Globulin Ratio 1.4 09/21/24 19:56: Urine Color Yellow, Urine Clarity Sl. Cloudy, Urine pH 6.0, Ur Specific [place] 1.020, Urine Protein 30 H, Urine Glucose (UA) Normal, Urine Ketones 5 H, Urine Occult Blood 50 H, UrineNitrite Negative, Urine Bilirubin Negative, Urine Urobilinogen Normal, Ur Leukocyte Esterase 100 H,Urine RBC 0-5 SEEN, Urine WBC 10-25 SEEN, Ur Squamous Epith Cells 25-50 SEEN, Urine Bacteria 2+, Urine Mucus 0 SEEN 09/21/24 22:42: Procalcitonin 0.05 09/22/24 06:20: WBC 8.0, RBC 3.72 L, Hgb 11.5 L, Hct 35.2 L, MCV 94.6, MCH 30.9,MCHC 32.7, RDW Std Deviation 49.0 H, RDW Coeff of Satnam 14.3, Plt Count 207, MPV 10.1, Immature Gran % (Auto) 0.400, Neut% (Auto) 54.3, Lymph % (Auto) 31.5, [place] % (Auto) 11.7 H, Eos % (Auto) 1.6, Baso % (Auto) 0.5, Absolute Neuts (auto) 4.3, Absolute Lymphs (auto) 2.51, Nucleated RBC % 0, Sodium 141, Potassium 3.8, Chloride 111 H, Carbon Dioxide 20.0 L, Anion Gap 10, BUN 12, Creatinine 0.71, Estim Creat Clear Calc 110.70, Est GFR (MDRD) Non-Af 95, BUN/Creatinine Ratio 17.0, Glucose 100 H, Calcium 8.1, Total Bilirubin 0.43, AST 17, ALT 7, Alkaline Phosphatase 70, Total Protein 5.5 L, Albumin 3.2 L, Globulin 2.3, A lbumin/Globulin Ratio 1.4 Microbiology: Microbiology 09/21/24 22:35 Nasal Secretion MRSA (PCR) - Final 09/21/24 22:45 Mucosa - Nasopharyngeal Respiratory Panel (PCR) - Final 09/21/24 19:56 Urine, Clean Catch Legionella Antigen - Final 09/21/24 19:56 Urine, Clean Catch Streptococcus pneumoniae Antigen (M - Final Radiography Diagnostic Testing: Radiology Impression Chest X-Ray 09/21/24 20:03 IMPRESSION: Increased lung markings at the right lung base are nonspecific, and could represent developing atypical/viral infection, atelectasis or vascular congestion. Reading Location: [id number] D/C Instructions Call your doctor if you observe: Fever of 101 or Higher, Shortness of breath, Dizziness, Fainting spells, Swelling in the ankles, Chest pain and Increased palpitations (irregular heartbeat) DC O2, CPAP, BIPAP Needs Home O2 Discharge instructions: No Meaningful Use Info Meaningful Use Meaningful Use Diagnoses (Choose all that apply): None applicable Discharge Plan Admission Admit Date/Time: 09/21/24 20:44 Attending Provider: Efrain Garcia Primary Care Provider: Kay Mares Consulting Providers: Jazmine Mayes Instructions Patient Instructions: ED Pneumonia (Adult) Additional Instructions / Restrictions: Return to the hospital if you have increasing shortness of breath or increasing fevers. Please buy a pulse oximeter that we can track your oxygen levels at home and you need to follow-up with your PCP to have a 6-minute walk test to determine that you no longer need any oxygen. Currently only need 2 L with ambulation so I do not anticipate a long duration of oxygen requirement. Discharge Orders/Prescriptions Prescriptions: New azithromycin 500 mg tablet 500 mg PO DAILY 3 Days Qty: 3 0RF cefdinir 300 mg capsule 300 mg PO BID Qty: 14 0RF Continued melatonin 10 mg capsule 10 mg PO QHS GenTeal Tears Severe Gel Drops 0.4-0.3 % drops,gel 1 drp ophthalmic (eye) QHS Patient Comments: left eye only semaglutide (weight loss) 0.25 mg/0.5 mL pen injector 0.25 mg subcut QWEEK Referrals / Follow Up: Kay Mares NP-C [Primary Care Provider] - Within 1 Week Disposition Disposition (needs filled in before D/C Order can be placed): Home, Self Care Charges/Coding Visit Charges Inpatient E&M: 57707 Disch Hosp >30min 09/22/24 1016 Cosigner Signature (if applicable): CC: ERIK Mares; Dr. Efrain Garcia MD~ Signed ADDENDUM by Dr. Efrain Garcia MD on 09/22/24 at 1103 Addendum I have reviewed the oxygen testing, and this patient qualifies for the home equipment and portability. The patient is mobile in the home and the community. 09/22/24 1103 Cosigner Signature (if applicable): cc: ERIK Mares; Dr. Efrain Garcia MD ~* Signed [facility]07-25-2025 Consult note [facility] Medical Records Department [address] [place] [address] Counseling Note - Pharmacy 09/22/24 1055 MR#: [id number] Acct: [id number] Name: RICA ARIZA Rep #:[id number] : 1960 64 From: Deonna Solis PCP: ERIK Del Angel Status:ADM I N Y Location: [place] [address] Pharmacy [facility] Counseling Pharmacy Service has performed discharge medication reconciliation and counseling for this patient. 1. AZITHROMYCIN 500MG PO DAILY X 3 DAYS 2. CEFDINIR 300MG PO BID X 7 DAYS The patient's discharge medication list was reviewed for discrepancies and discrepancies were resolved. The patient was counseled on the following discharge medications and changes in medications for homegoing were reviewed. The Reason for Use, instructions for use, and potential side effects were reviewed for all new medications. The patient's questions regarding all of their medications were answered. The patient was able to verbally demonstrate an understanding of their dischargemedications. Medications at Discharge Home Medications melatonin 10 mg capsule 10 mg PO QHS 09/21/24 peg 400-propylene glycol 0.4 %-0.3 % eye gel drops (GenTeal Tears Severe Gel Drops) 1 drp ophthalmic (eye) QHS bells palsy 09/21/24 semaglutide (weight loss) 0.25 mg/0.5 mL subcutaneous pen injector 0.25 mg subcut QWEEK weight loss09/21/24 azithromycin 500 mg tablet 500 mg PO DAILY 3 days #3 tabs 09/22/24 cefdinir 300 mg capsule 300 mg PO BID #14 caps 09/22/24 09/22/24 1056 Date _ Deonna Solis [facility] Signature (if applicable): Date CC: ~ Signed [facility]07-25-2025 [facility] Medical Records Department [address] [place] [address] Discharge Summary 09/22/24 1005 MR#: [id number] Acct: [id number] Name: ARIZARICA Rep #: [id number] : 1960 64 From: Efrain Garcia MD PCP: ERIK Del Angel Status:ADM IN Location: [facility] [id number] Providers Date of Admission: 09/21/24 Primary Care Physician: ERIK Del Angel Reason For Visit: HYPOXIA, RLL PNA Diagnosis Discharge Diagnosis (1) Hypoxia: Status: Acute Code(s): R09.02 - Hypoxemia (2) Right lower lobe pneumonia: Status: Acute Code(s): J18.9 - Pneumonia, unspecified organism Medications at Discharge Home Medications melatonin 10 mg capsule 10 mg PO QHS 09/21/24 peg 400-propylene glycol 0.4 %-0.3 % eye gel drops (GenTeal Tears Severe Gel Drops) 1 drp ophthalmic (eye) QHS bells palsy 09/21/24 semaglutide (weight loss) 0.25 mg/0.5 mL subcutaneous pen injector 0.25 mg subcut QWEEK weight loss 09/21/24 azithromycin 500 mg tablet 500 mg PO DAILY 3 days #3 tabs 09/22/24 cefdinir 300 mg capsule 300 mg PO BID #14 caps 09/22/24 Hospital Course Operations None Procedures None Summary of Care Provided Minutes Spent on Discharge: 33 Hospital Course: Per HPI: The patient is a 64 y/o F w/ PMHx: Obesity, CKD stage II per GFR trending, 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 In the ED patient ministered 1 L normal saline, azithromycin 500 mg IV x 1, Rocephin 2 g IV x 1. Hospital Course: 1. Acute hypoxic insufficiency secondary to right lower lobe pneumonia???64-year-old female presented to the hospital with shortness of breath and signs and symptoms consistent with a right lower lobe pneumonia. She received a dose of Rocephin and azithromycin in the emergency room and today is feeling much better. She did not require any oxygen at rest and only 2 L nasal cannula with ambulation. She says that she feels much better and would like to go home. I discussed with her the possibility of staying 1 more day to see if we can get her off of oxygen tomorrow though it was not a guarantee however she says that she would feel better if she was able to go home today. She expressed understanding of the risks and benefits of going home therefore I provided her with a one- time dose of cefdinir 300 mg this morning as well as another dose of p.o. azithromycin 500 mg with discharge prescriptions as well. Will get home oxygen set up and I discussed with her the need to turkey picker a pulse oximeter from a local pharmacy just to monitor her oxygen requirements while at home. We also discussed in depth reasons to return to the hospital not limited to increasing fevers or increasing shortness of breath. I recommend she follow-up with her PCP next week. 2. Back in June she did have an episode with left-sided facial droop consistent with Gaines's palsy that was treated with prednisone and antivirals. She continues to have a left facial droop. Physical Exam Narrative General: Alert, Oriented x3, Cooperative, No apparent distress HEENT: Atraumatic, PERRLA, EOMI, Normocephalic Oral: Moist Mucosa Neck: Supple, No JVD Lungs: Diminished, Normal air movement, No rhonchi, No wheeze, No rales Cardiovascular: Regular rate, Regular Rhythm, Normal S1, Normal S2, No murmurs Abdomen: Soft, Non Tender, Non-Distended, No Hepato-splenomegaly Extremities: No edema, Capillary Refill Less than 3 Seconds Skin: No rashes, No breakdown Musculoskeletal: No Tenderness to Palpation of Joints or Extremities Neurological: No focal neurological deficits, moves all extremities, chronic left facial droop from Gaines's palsy since June Psych/Mental Status: Normal Affect, Appropriate W (more content not included)...[facility]07-25-2025 Discharge summary [facility] Medical Records Department [address] [place] [address] Instructions for Home/Discharge Instructions 09/22/24 0950 MR#: [id number] Acct: [id number] Name: RICA ARIZA Rep #:[id number] : 1960 64 From: Efrain mayer MD PCP: ERIK Del Angel Status:ADM I N Discharge Instructions DC O2, CPAP, BIPAP needs Home O2 Discharge instructions: No Dressing / Incision Discharge Activity: Return to Normal Activity Dressing / Incision Call your doctor if you observe: Fever of 101 or Higher, Shortness of breath, Dizziness, Fainting spells, Swelling in the ankles, Chest pain and Increased palpitations (irregular heartbeat) Follow Up Care Test Results: Test results from this visit will be discussed in further detail at your follow- up appointment, if applicable. Discharge Plan Admission Admit Date/Time: 09/21/24 20:44 Attending Provider: Efrain Garcia Primary Care Provider: Kay Mares Consulting Providers: Jazmine Mayes Instructions Patient Instructions: ED Pneumonia (Adult) Additional Instructions / Restrictions: Return to the hospital if you have increasing shortness of breath or increasing fevers. Please buy a pulse oximeter that we can track your oxygen levels at home and you need to follow-up with your PCP to have a 6-minute walk test to determine that you no longer need any oxygen. Currently only need 2 L with ambulation so I do not anticipate a long duration of oxygen requirement. Discharge Orders/Prescriptions Prescriptions: New azithromycin 500 mg tablet 500 mg PO DAILY 3 Days Qty: 3 0RF cefdinir 300 mg capsule 300 mg PO BID Qty: 14 0RF Continued melatonin 10 mg capsule 10 mg PO QHS GenTeal Tears Severe Gel Drops 0.4-0.3 % drops,gel 1 drp ophthalmic (eye) QHS Patient Comments: left eye only semaglutide (weight loss) 0.25 mg/0.5 mL pen injector 0.25 mg subcut QWEEK Referrals / Follow Up: Kay Mares NP-C [Primary Care Provider] - Within 1 Week Disposition Disposition (needs filled in before D/C Order can be placed): Home, Self Care 09/22/24 0954Efrain Garcia MD CC: REALTIME CAPTIONER-C Kay Mares; Dr. Jazmine Mayes MD ~ Signed [facility]07-24-2025 History and physical note Author Jazmine Mayes [facility] Note Date/Time September 21, 2024 9:07 pm [facility] Medical Records Department [address] [place] [address] H&P Exam - Hospitalist 09/21/242042 MR#: [id number] Acct: [id number] Name: RICA ARIZA Rep #:[id number] : 1960 64 From: Jazmine Mayes MD PCP: ERIK Del Angel Status:REG E R Location: ED HPI - General General Date of Admission: 09/21/24 Date of Service: 09/21/24 Chief Complaint: Dyspnea, cough, fever, chills. 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 Reading Location: [id number] Assessment & Plan Assessment/Plan (1) Hypoxia: (2) Right lower lobe pneumonia: PLAN: Plan The patient is a 64 y/o F w/ PMHx: Obesity, CKD stage II per GFR trending, Left- sided Gaines's palsy with persistent deficits treated in June with prednisone and antiviral who presents to the [facility] ED on 09/21/2024 with history of onset [...] prophylaxis: Lovenox. Charges/Coding Visit Charges Inpatient E&M: 82795 Init Hosp L3 09/21/242106 <Electronically signed by Jazmine Mayes MD> Cosigner Signature (if applicable): CC: ERIK Mares; Dr. Jazmine Mayes MD~ Signed [facility] Work Phone: 1(360) 489-952707-24-2025 Discharge summary Author Jarvis Negro [facility] Note Date/Time September 21, 2024 8:50 pm [facility] Medical Records Department [address] [place] [address] Emergency Department Summary 09/21/24 MR#: [id number] Acct: [id number] Name: RICA ARIZA Rep #:[id number] : 1960 64 From: Jarvis Negro MD [...] palsy. She had a outpatient MRI at [facility] this past Wednesday. She presents because of [...] % (Auto) 68.6 Lymph % (Auto) 19.8 [place] % (Auto) 10.1 H Eos % (Auto) [...] infection, atelectasis or vascular congestion. Reading Location: [facility] EKG Initial EKG: Attestation: I personally reviewed and interpreted this EKG as follows: Interpretation: Sinus Tachycardia (Rate is 128. The EKG is normal other than sinus tachycardia. SD interval is 132 ms. Cures duration 82 ms. QT duration 102 ms. Hollins is normal) Management Discussion w/another healthcare provider: [...] Gaines's palsy Disposition Disposition: Acute Care Hospital [facility] What to do if you have Problems For any increased pain, shortness of breath, bleeding, nausea or vomiting, chestpain, or any unexpected problems, contact your Primary Care Provider. Call [facility] ([phone]) or report to the closest Emergency Room. Call 911 if necessary. 09/21/242049 <Electronically signed by Jarvis Negro MD> Cosigner Signature (if applicable): CC: ERIK Mares ~ Signed [facility] Work Phone: 1(790) 973-968907-24-2025 Evaluation note* Diagnosis Onset Date Resolution Status Admit Date Hypoxia acute September 21 8:44pm Right lower lobe pneumonia acute September 21, 2024 8:44pm [facility] Work Phone: 1(113) 517-889907-24-2025 Evaluation note* Diagnosis Onset Date Resolution Status Admit Date Hypoxia acute September 21 8:44pm Right lower lobe pneumonia acute September 21, 2024 8:44pm Gaines's palsy acute December 06, 2024 10:55am [facility] Work Phone: 1(717) 484-719507-24-2025 History and physical note [facility] Medical Records Department [address] [place] [address] H&P Exam - Hospitalist 09/21/242042 MR#: [id number] Acct: [id number] Name: RICA ARIZA Rep #:[id number] : 1960 64 From: Jazmine Mayes MD PCP: Kay Mares REALTIME CAPTIONER-C Status:REG E R Location: ED HPI - General General Date of Admission: 09/21/24 Date of Service: 09/21/24 Chief Complaint: Dyspnea, cough, fever, chills. HPI Narrative The patient is a 64 y/o F w/ PMHx: Obesity, CKD stage II per GFR trending, Left- sided Gaines's palsy with persistent left-sided deficits with treated in June with prednisone and antiviral who presents to the [facility] ED on 09/21/2024 with history of onset over the last 48 hours dyspnea, worse with exertion with subjective fevers and chills and a slight nonproductive cough withincreased fatigue and malaise prompting ED evaluation to be cautious. In addition patient had onset petechial rash to bilateral lower extremities starting approximately 4 to 5 days prior to the onset of herupper respiratory symptoms. Workup in the ED included T1 100.4, heart rate 150, BP 125/87, respiratory rate 22, initially 92% on room air however de-saturated down to 84% on RA with any exertion in the ED with most recent repeat vitals T99.2, heart rate 121, BP 124/74, respiratory rate 25, 97% on 2L nasal cannula, CBC with WC 12, Heenan 14.7, platelet 278 with left shift, CMP not marked appearing, BUN/creat 18/0.93, GFR 68, lactic acid 1.4, chest x-ray with increased lung markings at the rightlung base nonspecific possibly developing and atypical/viral infection, [...] facial Gaines's palsy with ongoing deficits. No headache,dizziness, syncope, ataxia, numbness or tingling in the [...] fold, otherwise moving all 4 extremities, strength moderatelyglobally decreased. Psychiatric: Affect appears fatigued, no acute [...] 10.4, Immature Gran % (Auto) 0.300, Neut %(Auto) 68.6, Lymph % (Auto) 19.8, [place] % (Auto) 10.1 H, Eos % (Auto) [...] Phosphatase 93, Total Protein 7.2, Albumin 4.2, Globulin3.0, Albumin/Globulin Ratio 1.4 Imaging Radiology Impression Chest X-Ray 09/21/24 20:03 IMPRESSION: Increased lung markings at the right lung base are nonspecific, and could represent developing atypical/viral infection, atelectasis or vascular congestion. Reading Location: [id number] Assessment & Plan Assessment/Plan (1) Hypoxia: (2) Right lower lobe pneumonia: PLAN: Plan The patient is a 64 y/o F w/ PMHx: Obesity, CKD stage II per GFR trending, Left- sided Gaines's palsy with persistent deficits treated in June with prednisone and antiviral who presents to the [facility] ED on 09/21/2024 with history of onset over the last 48 hours dyspnea, worse with exertion with subjective fevers and chills and a slight nonproductive cough with increased fatigue andmalaise prompting ED evaluation. #1. Acute Hypoxia with [...] full respiratory viral panel, procalcitonin and urine antige ns.Bld cx x 2 obtained in the ED. [...] prophylaxis: Lovenox. Charges/Coding Visit Charges Inpatient E&M: 51804 Init Hosp L3 09/21/242106 Cosigner Signature (if applicable): CC: REALTIME CAPTIONER-C Kay Mares; Dr. Jazmine Mayes MD~ Signed [facility]07-24-2025 Discharge summary [facility] Medical Records Department [address] [place] [address] Emergency Department Summary 09/21/24 MR#: [id number] Acct: [id number] Name: RICA ARIZA Rep #:[id number] : 1960 64 From: Jarvis Negro MD PCP: Kay Mares, ERIK Status:REG E R Location: ED HPI History [...] palsy. She had a outpatient MRI at [facility] this past Wednesday. She presents because of [...] similar symptoms: No Recent Illness/Hospitalization: No [facility] Medical History (Updated 09/21/24 @ 20:37 by [...] increased vocal fremitus and egophony as well.); Negativefor rhonchi, wheezes or diminished lung sounds Cardio regular rhythm, S1 normal heart sound, S2 normal heart sound and no murmurs Rate: tachycardic GI normal to inspection, nondistended, normoactive bowel sounds, non-tender, non- distended and no masses; Negative for hepatosplenomegaly Back/Spine [...] Prior ED visit (Patient was seen on for neuro symptoms. Patient at that time [...] no shift. H&H is normal. Comprehensive metabolic panelis normal. Lactate is normal. Labs: Laboratory Results - last 24 hr 09/21/24 19:05 WBC 12.0 H RBC 4.75 Hgb 14.7 Hct 44.2 MCV 93.1 MCH 30.9 MCHC 33.3 RDW Std Deviation 49.0 H RDW Coeff of Satnam 14.2 Plt Count 278 MPV 10.4 Immature Gran % (Auto) 0.300 Neut % (Auto) 68.6 Lymph % (Auto) 19.8 [place] % (Auto) 10.1 H Eos % (Auto) [...] infection, atelectasis or vascular congestion. Reading Location: [facility] EKG Initial EKG: Attestation: I personally reviewed and interpreted this EKG as follows: Interpretation: Sinus Tachycardia (Rate is 128. The EKG is normal other than sinus tachycardia. SD interval is 132 ms. Cures duration 82 ms. QT duration 102 ms. Hollins is normal) Management Discussion w/another healthcare provider: Hospitalist (Spoke with Dr. Mayes. Full admit MedSurg telemetry) Treatment and Re-Evaluation :: Patient was informed of her test results and x-ray results. Her heart rate has improved with 1 L ofnormal saline. Discharge Plan Dx/Rx/DC Orders Clinical Impression: Right lower lobe pneumonia, SIRS (systemic inflammatory response syndrome), Hypoxia, Gaines's palsy Disposition Disposition: Acute Care Hospital [facility] What to do if you have Problems For any increased pain, shortness of breath, bleeding, nausea or vomiting, chestpain, or any unexpected problems, contact your Primary Care Provider. Call [facility] ([phone]) or report tothe closest Emergency Room. Call 911 if necessary. 09/21/242049 Cosigner Signature (if applicable): CC: ERIK Mares ~ Signed [facility]07-24-2025 Radiology Diagnostic study note [facility] Services [address] [place], [place] [address] Chest PA and Lateral MR#: [id number] Acct: [id number] Name: RICA ARIZA Rep #: [id number] : 1960 F 64 From: Brie Murphy MD PCP: ERIK Del Angel Status: REG E R Study:Chest PA and Lateral Date of Exam: 09/21/24 Exam# [id number] Ordering Dr: Nigel Negro MD PROCEDURE: CHEST [...] infection, atelectasis or vascular congestion. Reading Location: [id number] CC: REALTIME CAPTIONER-Sarah Mares; Dr. Jarvis Negro MD ~ Dividend Deposit Entry Clerk: Signed [facility]07-24-2025 Discharge summary Author Jarvis Negro [facility] Note Date/Time September 21, 2024 8:50 pm [facility] Medical Records Department [address] [place] [address] Emergency Department Summary 09/21/24 MR#: [id number] Acct: [id number] Name: RICA ARIZA Rep #:[id number] : 1960 64 From: Jarvis Negro MD [...] palsy. She had a outpatient MRI at [facility] this past Wednesday. She presents because of [...] % (Auto) 68.6 Lymph % (Auto) 19.8 [place] % (Auto) 10.1 H Eos % (Auto) [...] infection, atelectasis or vascular congestion. Reading Location: [facility] EKG Initial EKG: Attestation: I personally reviewed and interpreted this EKG as follows: Interpretation: Sinus Tachycardia (Rate is 128. The EKG is normal other than sinus tachycardia. SD interval is 132 ms. Cures duration 82 ms. QT duration 102 ms. Hollins is normal) Management Discussion w/another healthcare provider: [...] Gaines's palsy Disposition Disposition: Acute Care Hospital [facility] What to do if you have Problems For any increased pain, shortness of breath, bleeding, nausea or vomiting, chestpain, or any unexpected problems, contact your Primary Care Provider. Call [facility] ([phone]) or report to the closest Emergency Room. Call 911 if necessary. 09/21/242049 <Electronically signed by Jarvis Negro MD> Cosigner Signature (if applicable): CC: ERIK Mares ~ Signed [facility] Work Phone: 1(272) 883-610805-31-2025 Radiology Diagnostic study note [facility] Services [address] [place], [place] [address] Sinus/Facial Bone WITH Contras MR#: [id number] Acct: [id number] Name: RICA ARIZA Rep #: [id number] : 1960 F 64 From: Corie Lowery MD PCP: Care Physician,No Primary Status: REG ER Study:Sinus/Facial Bone WITH Contras Date of Exam: 07/29/24 Exam# [id number] Ordering Dr: Raquel Philip PROCEDURE: SINUS/FACIAL BONE [...] follow-up under nonemergent outpatient basis. Reading Location: [id number] CC: ROSEMARY Kennedy; No Primary Care Physician ~ Dividend Deposit Entry Clerk: Signed [facility]05-29-2025 Radiology Diagnostic study note [facility] Services [address] [place], [place] [address] CTA Head AND Neck W/ Contrast MR#: [id number] Acct: [id number] Name: RICA ARIZA Rep #: [id number] : 1960 F 64 From: Alvarado Brown MD PCP: Care Physician,No Primary Status: REG ER Study:CTA Head AND Neck W/ Contrast Date of E xam: 07/27/24 Exam# [id number] Ordering Dr: Yen Bell DO PROCEDURE: CTA [...] RIGHT Vertebral: Unremarkable. LEFT Vertebral: Unremarkable. Anatomy: [place] anatomy is normal. Aneurysm or avm: No intracranial aneurysms or large vascular malformations are identified. Anterior cerebral arteries: Unremarkable: Middle cerebral arteries: Unremarkable. Basilar artery: Unremarkable. Posterior cerebral arteries: Unremarkable. Other major branches of the posterior circulation: Unremarkable. Major venous structures: Unremarkable. Other findings: Neck: Lungs: Bones: CT/CTA Head AND Neck W/ Contrast IMPRESSION: Unremarkable examination. Reading Location: [id number] CC: Dr. Cynthia Bell, DO; No Primary Care Physician ~ Dividend Deposit Entry Clerk: [facility] assessment information available [facility] Work Phone: Evaluation note* Diagnosis Onset Date Resolution Status Admit Date Hypoxia acute September 21 8:44pm Right lower lobe pneumonia acute September 21, 2024 8:44pm [facility] Work Phone: History and physical note Author Jazmine Mayes [facility] Note Date/Time September 21, 2024 9:07 pm [facility] Medical Records Department [address] [place] [address] H&P Exam - Hospitalist 09/21/242042 MR#: [id number] Acct: [id number] Name: RICA ARIZA Rep #:[id number] : 1960 64 From: Jazmine Mayes MD PCP: DALE Del AngelC Status:REG E R Location: ED HPI - General General Date of Admission: 09/21/24 Date of Service: 09/21/24 Chief Complaint: Dyspnea, cough, fever, chills. 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 Reading Location: [facility] Assessment & Plan Assessment/Plan (1) Hypoxia: (2) Right lower lobe pneumonia: PLAN: Plan The patient is a 64 y/o F w/ PMHx: Obesity, CKD stage II per GFR trending, Left- sided Gaines's palsy with persistent deficits treated in June with prednisone and antiviral who presents to the [facility] ED on 09/21/2024 with history of onset [...] prophylaxis: Lovenox. Charges/Coding Visit Charges Inpatient E&M: 99094 Init Hosp L3 09/21/242106 <Electronically signed by Jazmine Mayes MD> Cosigner Signature (if applicable): CC: ERIK Mares; Dr. Jazmine Mayes MD~ Signed [facility] Work Phone: Hospital Discharge instructions Additional Instructions [...] or underlying gland infection so I prescribed antibiotics.[facility] Work Phone: Hospital Discharge instructionsAdditional Instructions Return to the hospital if you have increasing shortness of breath or increasing fevers. Please buy a pulse oximeter that we can track your oxygen levels at home and you need to follow-up with your PCP to have a 6-minute walk test to determine that you no longer need any oxygen. Currently only need 2 L with ambulation so I do not anticipate a long duration of oxygen requirement.[facility] Work Phone: Hospital Discharge instructionsAmbulatory Orders* Physical Therapy Referral Location: None [facility] Work Phone: Reason for referral (narrative)No reason for referral information availableWMercy Health [facility] Work Phone: Summary Purpose Family History No Family History Records Found Relationship Condition Age at Onset Recorded Date/T ousmane mother Diabetes mellitus Unknown Macular degeneration Unknown father Coronary artery disease Unknown Cerebrovascular accident (CVA) Unknown Cardiac disease Unknown Hypertension Unknown Malignant neoplasm of prostate Unknown Relationship Condition Age at Onset Recorded Date/T ousmane mother Diabetes mellitus Unknown Macular degeneration Unknown Cardiac disease Unknown father Coronary artery disease Unknown Cerebrovascular accident (CVA) Unknown Hypertension Unknown Malignant neoplasm of prostate Unknown Advance Directives No Advanced Directives Records Found Advance Directive Response Recorded Date/ Time Do you have a Healthcare Power of Process Automation Engineer? No July 27, 2024 11:32am Advance Directive Response Recorded Date/ Time Do you have a Healthcare Power of Process Automation Engineer? No July 27, 2024 11:32am Do you have a Healthcare Power of Process Automation Engineer? No July 29, 2024 11:33am Advance Directive Response Recorded Date/ Time Do you have a Healthcare Power of Process Automation Engineer? No September 21, 2024 7:00pm Do you have a Healthcare Power of Process Automation Engineer? No July 27, 2024 11:32am Do you have a Healthcare Power of Process Automation Engineer? No July 29, 2024 11:33am Advance Directive Response Recorded Date/ Time Do you have a Healthcare Power of Process Automation Engineer? No September 21, 2024 10:11pm Do you have a Healthcare Power of Process Automation Engineer? No July 27, 2024 11:32am Do you have a Healthcare Power of Process Automation Engineer? No July 29, 2024 11:33am Advance Directive Response Recorded Date/ Time Do you have a Healthcare Power of Process Automation Engineer? No September 21, 2024 10:11pm Chief Complaint and Reason for Visit Chief [...] Right lower lobe pneumonia September 21 8:44pm Chief Complaint Admit Date SPIDER BITE July 27, 2024 9:47a m NEURO July 29, 2024 11:17 am Benign neoplasm of pituitary gland September 19, 2024 6:54am Shortness of breath September 21, 2024 8:43 pm HYPOXIA, RLL PNA September 21, 2024 8:44 pm HYPOXIA, RLL PNA September 22, 2024 10:0 5am Chief Complaint Admit Date Benign neoplasm of pituitary gland September 19, 2024 6:54am Shortness of breath September 21, 2024 8:43 pm HYPOXIA, RLL PNA September 21, 2024 8:44 pm HYPOXIA, RLL PNA September 22, 2024 10:0 5am CHEST X-RAY September 28, 2024 2:10 pm GAINES'S PALSY December 06, 2024 10 :55am Reason for Visit Admit Date Hypoxia September 21, 2024 8:44 pm Right lower lobe pneumonia September 21 8:44pm Gaines's palsy December 06, 2024 10 :55am Additional Source Comments INFORMATION SOURCE (unrecogn ized section and content) DATE CREATED AUTHOR 09/30/2019 [facility] DATE CREATED AUTHOR AUTHOR'S ORGANIZ ATION 07/30/2024 [facility] DATE CREATED AUTHOR AUTHOR'S ORGANIZ ATION 01/09/2025 [facility] Care Teams (unrecognized sec tion and [...] End: August 10, 2024 Zebulun Beam VSC, REALTIME CAPTIONER-C Attending Provider Active Start: August 10, 2024 End: August 10, 2024 Zebulun Beam VSC, REALTIME CAPTIONER-C Referring Provider Active Start: August 10, 2024 End: August 10, 2024 Team Status: Active Member Role/Relationship Status Dates Kay Mares REALTIME CAPTIONER-C Primary Care Provider Active Team Status: Inactive Member Role/Relationship Status Dates Dr. Cynthia Bell , Attending Provider Active S tart: July 27, [...] End: August 10, 2024 Zebulun Beam VSC, REALTIME CAPTIONER-C Attending Provider Active Start: August 10, 2024 End: August 10, 2024 Zebulun Beam VSC, REALTIME CAPTIONER-C Referring Provider Active Start: August 10, 2024 End: August 10, 2024 Team Status: Inactive Member Role/Relationship Status Dates Kay Mares REALTIME CAPTIONER-C Primary Care Provider Active Start: September 12, 2024 End: September 12, 2024 Kay Mares NP-C Attending Provider Active Start: September 12, 2024 End: September 12, 2024 Team Status: Active Member Role/Relationship Status Dates Dr. Pepe Herrera MD Attending Provider Activ e Start: September 19, 2024 Dr. Pepe Herrera MD Referring Provider Activ e Start: September 19, 2024 Kay Tannhof , REALTIME CAPTIONER-C Primary Care Provider Active Start: September 19, 2024 Team Status: Active Member Role/Relationship Status Dates Kay Mares REALTIME CAPTIONER-C Primary Care Provider Active Start: September 21, 2024 Dr. Jarvis Negro MD Referring Provider Active Sta rt: September 21, 2024 Dr. Jarvis Negro MD Emergency Provider Active Sta rt: September 21, 2024 Dr. Jazmine Mayes MD Attending Provider Active Start: September 21, 2024 Team Status: Active Member Role/Relationship Status Dates Kay Mares REALTIME CAPTIONER-C Primary Care Provider Active Start: September 21, 2024 Dr. Jarvis Negro MD Referring Provider Active Sta rt: September 21, 2024 Dr. Jarvis Negro MD Emergency Provider Active Sta rt: September 21, 2024 Dr. Jazmine Mayes MD Admit Provider Active St art: September 21, 2024 Dr. Jazmine Mayes MD Attending Provider Active Start: September 21, 2024 Team Status: Inactive Member Role/Relationship Status Dates Kay Mares REALTIME CAPTIONER-C Primary Care Provider Active Start: September 21, 2024 End: September 22, 2024 Dr. Jarvis Negro MD Referring Provider Active Sta rt: September 21, 2024 End: September 22, 2024 Dr. Jarvis Negro MD Emergency Provider Active Sta rt: September 21, 2024 End: September 22, 2024 Dr. Jazmine Mayes MD Admit Provider Active St art: September 21, 2024 End: September 22, 2024 Dr. Jazmine Mayes MD Other Provider Active St art: September 21, 2024 End: September 22, 2024 Dr. Efrain Garcia MD Attending Provider Active Start: September 21, 2024 End: September 22, 2024 Team Status: Active Member Role/Relationship Status Dates Kay Mares REALTIME CAPTIONER-C Primary Care Provider Active Start: September 22, 2024 Dr. Jarvis Negro MD Referring Provider Active Sta rt: September 22, 2024 Dr. Jarvis Negro MD Emergency Provider Active Sta rt: September 22, 2024 Dr. Jazmine Mayes MD Admit Provider Active St art: September 22, 2024 Dr. Jazmine Mayes MD Other Provider Active St art: September 22, 2024 Dr. Efrain Garcia MD Attending Provider Active Start: September 22, 2024 Dr. Efrain Garcia MD Other Provider Active Start: September 22, 2024 Team Status: Inactive Member Role/Relationship Status Dates Dr. Pepe Herrera MD Attending Provider Activ e Start: September 19, 2024 End: September 19, 2024 Dr. Pepe Herrera MD Referring Provider Activ e Start: September 19, 2024 End: September 19, 2024 Kay Mares REALTIME CAPTIONER-C Primary Care Provider Active Start: September 19, 2024 End: September 19, 2024 Team Status: Active Member Role/Relationship Status Dates Kay Mares , REALTIME CAPTIONER-C Primary care physician Active Team Status: Inactive Member Role/Relationship Status Dates No Primary Care Physician Primary care physician Activ e Start: August 10, 2024 End: August 10, 2024 Zebulun Beam VSC, REALTIME CAPTIONER-C Attending physician Active Start: August 10, 2024 End: August 10, 2024 Zebulun Beam VSC, REALTIME CAPTIONER-C Referring Provider Active Start: August 10, 2024 End: August 10, 2024 Team Status: Inactive Member Role/Relationship Status Dates Kay Mares REALTIME CAPTIONER-C Primary care physician Active Start: September 12, 2024 End: September 12, 2024 Kay Mares NP-C Attending physician Active Start: September 12, 2024 End: September 12, 2024 Team Status: Inactive Member Role/Relationship Status Dates Dr. Pepe Herrera MD Attending physician Acti ve Start: September 19, 2024 End: September 19, 2024 Dr. Pepe Herrera MD Referring Provider Activ e Start: September 19, 2024 End: September 19, 2024 Kay Mares NP-C Primary care physician Active Start: September 19, 2024 End: September 19, 2024 Team Status: Active Member Role/Relationship Status Dates Kay Mares REALTIME CAPTIONER-C Primary care physician Active Start: September 21, 2024 Dr. Jarvis Negro MD Emergency Department Physician Acti ve Start: September 21, 2024 Dr. Jazmine Mayes MD Attending physician Active Start: September 21, 2024 Team Status: Inactive Member Role/Relationship Status Dates Kay Mares REALTIME CAPTIONER-C Primary care physician Active Start: September 21, 2024 End: September 22, 2024 Dr. Jarvis Negro MD Referring Provider Active Sta rt: September 21, 2024 End: September 22, 2024 Dr. Jarvis Negro MD Emergency Department Physician Acti ve Start: September 21, 2024 End: September 22, 2024 Dr. Jazmine Mayes MD Admitting physician Active Start: September 21, 2024 End: September 22, 2024 Dr. Jazmine Mayes MD Nurse Practitioner Active Start: September 21, 2024 End: September 22, 2024 Dr. Efrain Garcia MD Attending physician Active Start: September 21 End: September 22, 2024 Team Status: Active Member Role/Relationship Status Dates Kay Mares NP-Sraah Primary care physician Active Start: September 22, 2024 Dr. Jarvis Negro MD Emergency Department Physician Acti ve Start: September 22, 2024 Dr. Jazmine Mayes MD Admitting physician Active Start: September 22, 2024 Dr. Jazmine Mayes MD Nurse Practitioner Active Start: September 22, 2024 Dr. Efrain Garcia MD Attending physician Active Start: September 22 Dr. Efrain Garcia MD Nurse Practitioner Active Start: September 22 Team Status: Inactive Member Role/Relationship Status Dates Kay Mares NP-Sarah Primary care physician Active Start: September 28, 2024 End: September 28, 2024 Stephenbuerikan Beam VSSarah, REALTIME CAPTIONER-C Attending physician Active Start: September 28, 2024 End: September 28, 2024 Stephenbulun Beam VSSarah REALTIME CAPTIONER-C Referring Provider Active Start: September 28, 2024 End: September 28, 2024 Team Status: Inactive Member Role/Relationship Status Dates No Primary Care Physician Referring Provider Active Start: December 06, 2024 End: December 06, 2024 ERIK Haywood Attending physician Active Start: December 06, 2024 End: December 06, 2024 Kay Mares NP-Sarah Primary care physician Active Start: December 06, 2024 End: December 06, 2024 Goals (unrecognized section and content) Goals [...] ON THE PRIMARY CLINICAL RECORDS. [facility]. provides no warranty or guarantee of the accuracy or completeness of information in this document.
== END | disposition home or self-care (01) ==
DX: G51.0 Bell's palsy (principal)
CPT/HCPCS: 70553; A9575